=== PATIENT | male | born 1945 | race Caucasian/White ===

== ENCOUNTER 2019-10-23 23:15 | Inpatient (IN) | payer OTHER, MEDICARE, SELFPAY ==
[2019-10-23 23:17] VITALS: BP 171/84; PULSE 88; RESP 20; TEMP 36.7; O2SAT 94; BMI 37.6
--- NOTE | 2019-10-23 23:26 | EKG12_ITS ---
Test Reason : CP Blood Pressure : / mmHG Vent. Rate : 089 BPM Atrial Rate : 089 BPM P-R Int : 206 ms QRS Dur : 166 ms QT Int : 440 ms P-R-T Axes : 041 -84 045 degrees QTc Int : 535 ms Normal sinus rhythm Right bundle branch block Abnormal ECG Confirmed by SHANNON ROSE ([id number]), graphics editor RENEE ACOSTA ([id number]) on 10/26/2019 9:28:18 AM Referred By: MARY Confirmed By:SHANNON ROSE
--- NOTE | 2019-10-23 23:26 | RAD_ITS ---
STUDY: X-RAY CHEST REASON FOR EXAM: Male, 74 years old. PT STATES HE WAS READING IN A RECLINER AND DEVELOPED CP TECHNIQUE: Frontal and lateral views of the chest. COMPARISON: None. FINDINGS: The lungs are clear and expanded. There is no demonstrated pleural abnormality. Normal size heart. Normal mediastinum and roderick. Normal visualized pulmonary arteries. Normal visualized aortic arch and descending thoracic aorta. Normal visualized thoracic spine. Normal visualized ribs, clavicles, and shoulders. There is no demonstrated abnormality of the visualized soft tissue structures of the upper abdomen. RAD/Chest PA and Lateral IMPRESSION: Normal x-ray examination of the chest. Electronically Signed: Jackson Holguin MD at 0:18 EST Tel , Service support ,
--- NOTE | 2019-10-23 23:27 | ED.VIS.GEN ---
History of Present Illness Chief Complaint: Chest Pain Narrative: Patient is a 74-year-old male who presents with chest pain. This initially began about 3 hours before presentation. This began at rest. His pain was severe at its worst and currently he is pain-free. He describes it as dull and pressure-like. It was substernal and did not radiate. He had associated nausea, weakness and mild dizziness. No shortness of breath or diaphoresis. He took sublingual nitroglycerin and after each 1 his pain would transiently resolve. He took a total of 5 nitroglycerin and did receive one in route by EMS. He is currently pain-free. 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 No fevers. No vomiting. He does have a history of coronary artery disease with prior HI and 9 stents. No history of CABG. He is not anticoagulated. Past Medical History - Allergies and Home Meds Allergies/Adverse Reactions: Allergies cephalexin [From Keflex] Allergy (Verified 10/23/19 23:17) Unknown doxycycline Allergy (Verified 10/23/19 23:17) Unknown Penicillins Allergy (Verified 10/23/19 23:17) Unknown metformin Adverse Reaction (Verified 10/23/19 23:17) Upset Stomach niacin Adverse Reaction (Verified 10/23/19 23:17) Rash simvastatin Adverse Reaction (Verified 10/23/19 23:17) Rash Primary Care Physician: [facility] [Primary Care Provider] - Past Medical History: - - Diabetes, hypertension, hyperlipidemia, coronary artery disease, squamous cell carcinoma Smoking Status: Former smoker Review of Systems All systems negative except as indicated General: Denies: Fever Eyes: Denies: Visual changes - bilaterally ENT: Denies: Bilateral ear pain Cardiovascular: Reports: Chest pain Respiratory: Denies: Dyspnea, Cough Gastrointestinal: Reports: Nausea. Denies: Abdominal pain, Vomiting Skin: Denies: Rash Neurological: Reports: Weakness Psych: Denies: Depression Hematologic: Denies: Easy bruising Allergy: Denies: Uticaria Physical Exam Vital Signs/Narrative: Vital Signs Temp Pulse Resp BP Pulse Ox 10/23/19 23:17 98.0 F 88 20 H 171/84 H 94 Inital Vital Signs reviewed: Yes General: Well nourished, Well developed Head: Normocephalic Eyes: EOMI ENT: Moist mucous membranes Neck: Supple Cardiovascular: Regular rate, Regular rhythm Respiratory: No distress, CTA bilaterally. Negative for: Rales, Rhonchi, Wheezing Abdomen: Soft, Nontender Extremities: Nontender Skin: Normal color Neurological: Alert Psychological: Normal affect Diagnostic/Tx/Re-eval Impressions Chest X-Ray 10/23/19 23:26 IMPRESSION: Normal x-ray examination of the chest. Electronically Signed: Jackson Holguin MD at 0:18 EST Tel , Service support , 10/23/19 23:26 Chest PA and Lateral [RAD] Stat Laboratory Results 10/23/19 10/23/19 23:32 23:32 WBC 4.7 RBC 4.41 L Hgb 13.6 Hct 40.4 MCV 91.6 MCH 30.8 MCHC 33.7 RDW Std Deviation 44.7 H RDW Coeff of Jony 13.2 Plt Count 173 MPV 9.4 Immature Gran % (Auto) 0.800 Neut % (Auto) 83.1 H Lymph % (Auto) 10.4 L Whitfield % (Auto) 2.1 Eos % (Auto) 3.0 Baso % (Auto) 0.6 Absolute Neuts (auto) 3.9 Absolute Lymphs (auto) 0.49 L Nucleated RBC % 0 Differential Comment SCANNED Sodium 140 Potassium 4.0 Chloride 106 Carbon Dioxide 29.0 Anion Gap 5 BUN 20 H Creatinine 1.13 Estim Creat Clear Calc 54.43 Est GFR (MDRD) Af Amer 82 Est GFR (MDRD) Non-Af 68 BUN/Creatinine Ratio 17.7 Glucose 270 H Calcium 9.1 Troponin I < 0.015 - Medical Decision Making Given that the patient had multiple recurrent episodes of chest pain resolved with sublingual nitroglycerin we went ahead and started him on an infusion. His chest pain had returned just before the infusion was started and once the infusion was titrated he is currently pain-free again. His EKG shows normal sinus rhythm with a right bundle branch block and a left anterior fascicular block unchanged from prior. Laboratory evaluation as above negative and chest x-ray normal. I did speak to cardiology on-call who agrees with IV heparin as patient has no contraindication. Given the patient's previous cardiac care has been at the [place] we have contacted them with plan for transfer if possible. In the meantime patient will be admitted at this facility for further management. ED Disposition - Plan for ED Patient: Disposition: Acute Care Hospital [facility] Diagnosis: Unstable angina Referrals: [facility] [Primary Care Provider] -
[2019-10-23 23:38] VITALS: BP 178/93; PULSE 90
[2019-10-23] MEDS: Nitroglycerin Infusion 250 ML 3 MG IV (23:38)
[2019-10-23 23:41] LABS: Absolute Lymphocyte Count 0.49 X10^3/uL (0.83-4.51); Absolute Neutrophil Count 3.9 X10^3/uL (2.0-7.7); Basophil# 0.03 X10^3/uL; Basophil% 0.6 % (0-1); Eosinophil# 0.14 X10^3/uL; Hematocrit 40.4 % (40-54); Hemoglobin 13.6 g/dL (13.0-16.5); Lymphocyte # 0.49 X10^3/ul (4.0); Lymphocyte % 10.4 % (19-41); Mean Corp Hgb Conc 33.7 g/dL (32-36); Mean Corpuscular Hgb 30.8 pg (27.0-32.0); Mean Corpuscular Volume 91.6 fL (80-94); Mean Platelet Vol. 9.4 fl (6.2-12.0); Monocyte% 2.1 % (0-10); NRBC Flagged by Analyzer 0 % (0-5); Neutrophil # 3.93 X10^3/uL (2.7-7.7); Neutrophil % 83.1 % (47-70); POSITIVE DIFFERENTIAL YES; Platelet Count 173 K/mm3 (150-450); RBC Distribution Width CV 13.2 % (11.6-14.6); RBC Distribution Width SD 44.7 fl (35.1-43.9); Red Blood Count 4.41 M/mm3 (4.6-6.2); White Blood Count 4.7 K/mm3 (4.4-11.0)
[2019-10-23 23:46] LABS: Differential Indicated SCAN CRITERIA MET
[2019-10-23 23:53] VITALS: BP 175/102; PULSE 93
[2019-10-24] VITALS (47 sets, daily range): BP systolic 99–178; BP diastolic 53–131; PULSE 72–95; RESP 16–27; TEMP 36.6–36.8; O2SAT 65–96; BMI 34.9; BMI 35.0
[2019-10-24] LABS: Anion Gap 5 (5-15); BUN 20 mg/dL (7-18); BUN/Creat Ratio 17.7 RATIO (10-20); Calcium,Total 9.1 mg/dL (8.5-10.1); Chloride 106 mmol/L (98-107); Creatinine, Serum 1.13 mg/dL (0.70-1.30); EST Glomerular Filtration Rate 68 mL/min (>60); Est Glom Filt Rate - Afr Amer 82 mL/min (>60); Estimated Creatinine Clearance 54.43 ml/min; Glucose 270 mg/dL (74-106); Sodium Level 140 mmol/L (136-145)
[2019-10-24 00:14] LABS: Differential Comment SCANNED
--- NOTE | 2019-10-24 01:25 | PCM.HP.STD ---
Problem List (1) Unstable angina Status: Acute History of Present Illness Date of Admission: 10/24/19 Chief Complaint: chest pain The patient is a 74 year old M with a significant history of hypertension; diabetes mellitus; former smoker; COPD on home oxygen; CAD with 9 stents who presented to emergency department with substernal chest pain that started about 8:30 PM on the day of presentation. He was lying in a recliner when his chest pain started. Associated with his symptom is nausea without vomiting. His chest pain persisted. While at home, he took 5 tablets of nitroglycerin intermittently and he received relief from his chest pain. Paramedics gave patient 4 baby aspirin. At the emergency department his chest pain was coming back but it was relieved after nitroglycerin drip was started. He describes chest pain as about 9 out of 10 in severity. His chest pain felt like a pressure and dullness. While at emergency department he began to have pain in his bilateral arms. His chest pain started actually in May 2019. His chest pain is episodic. He went to to [facility] on July 30 2019 and the plan was to do a cardiac cath at that time. However, he reports that because he was on Plavix the cardiac cath was delayed. CT scan at [facility] showed squamous cell carcinoma of the lung; and he had lymphadenopathy. Interestingly, on the same day of recurrence of his symptoms, 10/23/2019 he had a chemotherapy and radiation for his lung cancer. Emergency department doctor discussed the case with with a [place] and is waiting for admission at the [place]. Meanwhile patient will be admitted at our hospital [facility]. As at the time of examination emergency department doctor was waiting for a return call from the [place]. Also emergency department doctor discussed the case with our razor grinder on-call ([facility]) who agreed that patient should be started on heparin drip and nitroglycerin drip. The last time patient had a coronary stent was in May 2017. At that time patient had 3 stents. Past Medical History Medical History: Medical History (Last Updated 10/24/19 @ 02:58 by Delgado Huang MD) CAD (coronary artery disease) I25.10 Diabetes E11.9 HTN (hypertension) I10 Allergies cephalexin [From Keflex] Allergy (Verified 10/23/19 23:17) Unknown doxycycline Allergy (Verified 10/23/19 23:17) Unknown Penicillins Allergy (Verified 10/23/19 23:17) Unknown metformin Adverse Reaction (Verified 10/23/19 23:17) Upset Stomach niacin Adverse Reaction (Verified 10/23/19 23:17) Rash simvastatin Adverse Reaction (Verified 10/23/19 23:17) Rash Home Medications: Ambulatory Orders Medication Instructions Recorded Albuterol Sulfate [Proair 2 puff IH 4X/DAY PRN PRN 10/23/19 Digihaler] Ammonium Lactate 226 gm TP DAILY 10/23/19 Atenolol 25 mg PO DAILY 10/23/19 Atorvastatin Calcium 80 mg PO QHS 10/23/19 Budesonide/Formoterol Fumarate 2 puff IH BID 10/23/19 [Symbicort 160-4.5 Mcg Inhaler] Dextrose [Glucose] 4 tab PO PRN PRN 10/23/19 Empagliflozin [Jardiance] 0.5 tab PO DAILY 10/23/19 Fluticasone Propionate [Flovent 50 mcg IN DAILY 10/23/19 Diskus] Gabapentin [Neurontin] 3 tab PO TID 10/23/19 Glipizide 5 mg PO BID 10/23/19 Insulin Glargine [Lantus (BKC)] 36 units SUBCUT DAILY 10/23/19 Isosorbide Mononitrate [Imdur] 6 tab PO DAILY 10/23/19 Nitroglycerin [Nitrostat] 1 tab SL PRN PRN 10/23/19 Paroxetine [Paxil] 2 tab PO DAILY 10/23/19 Prazosin HCl 2 tab PO QHS 10/23/19 Tiotropium [place] [Spiriva 18 MCG] 2 puff INHALATION Q6H PRN PRN 10/23/19 Triamcinolone 0.1% Cream [Kenalog] 1 applic TOPICAL BID 10/23/19 busPIRone [Buspar] 10 mg PO BID 10/23/19 Lisinopril 20 mg PO BID 10/24/19 Surgical History: appendectomy, herniorrhaphy - X3 Lives: Alone Smoking Status: Former smoker Alcohol: None - *Family History Maternal History Items: Heart Disease, - - Skin cancer Paternal History Items: Cancer - His father from throat cancer at the age of 57 Review of Systems Constitutional: Denies: Chills, Fever, Weight Change HEENT: Denies: Head Aches, Sinus Congestion, Sinus Drainage Cardiovascular: Reports: Chest Pain. Denies: Palpitations Respiratory: Denies: Cough, Shortness of breath at rest, Sputum production Gastrointestinal: Reports: Nausea. Denies: Abdominal Pain, Vomiting Genitourinary: Denies: Dysuria Musculoskeletal: Reports: Arm Pain. Denies: Joint Pain, Joint Tenderness Skin: Denies: Rash, Wounds Neurological: Denies: Numbness, Tingling, Focal weakness Psychiatric: Reports: Anxiety, Depression. Denies: Homicidal Ideations, Suicidal Ideations Hematologic/ Lymphatic: Denies: Easy Bruising, Easy Bleeding VTE Information - Inpt Only VTE Present on Admission: No VTE Mechan Device Prophylaxis: None VTE Pharm Prophylaxis ordered?: No Reason prophylaxis not ordered:: Treatment Not Indicated - On heparin drip for unstable angina Patient Problems: Active and Suspected Problems (Last Updated 10/24/19 @ 02:58 by Delgado Huang MD) Unstable angina (Acute) - Physical Exam Vitals/I&O's: Vital Signs Temp Pulse Resp BP Pulse Ox 98.0 F 87 21 H 168/82 H 93 10/23/19 23:17 10/24/19 01:00 10/24/19 01:00 10/24/19 01:00 10/24/19 01:00 Oxygen Flow Rate (L/min) 3 Oxygen Delivery Method Nasal Cannula Weight: 109.1 kg Body Mass Index (BMI) 37.6 Intake and Output for Last 24 Hours 10/22/19 10/23/19 10/24/19 23:59 23:59 23:59 Intake Total 0.75 / 0.75 2.2 / 2.2 Balance 0.75 / 0.75 2.2 / 2.2 General: Alert, Oriented x3, Cooperative HEENT: Atraumatic, PERRLA, EOMI, Normocephalic Neck: Supple, Trachea Midline Lungs: No rales, Rhonchi - mild Cardiovascular: Regular rate, Normal S1, Normal S2, No murmurs Abdomen: Bowel Sounds Present, Soft, Non Tender Extremities: No edema, Capillary Refill Less than 3 Seconds Skin: No rashes, No breakdown Musculoskeletal: No Tenderness to Palpation of Joints or Extremities Neurological: Cranial nerves II-XII grossly intact Psych/Mental Status: Normal Affect, Appropriate Laboratory Results 10/23/19 23:32: WBC 4.7, RBC 4.41 L, Hgb 13.6, Hct 40.4, MCV 91.6, MCH 30.8, MCHC 33.7, RDW Std Deviation 44.7 H, RDW Coeff of Jony 13.2, Plt Count 173, MPV 9.4, Immature Gran % (Auto) 0.800, Neut % (Auto) 83.1 H, Lymph % (Auto) 10.4 L, Kane % (Auto) 2.1, Eos % (Auto) 3.0, Baso % (Auto) 0.6, Absolute Neuts (auto) 3.9, Absolute Lymphs (auto) 0.49 L, Nucleated RBC % 0, Differential Comment SCANNED 10/23/19 23:32: Sodium 140, Potassium 4.0, Chloride 106, Carbon Dioxide 29.0, Anion Gap 5, BUN 20 H, Creatinine 1.13, Estim Creat Clear Calc 54.43, Est GFR (MDRD) Af Amer 82, Est GFR (MDRD) Non-Af 68, BUN/Creatinine Ratio 17.7, Glucose 270 H, Calcium 9.1, Troponin I < 0.015 Current Medications Heparin Sodium (Porcine) (Heparin Na) 0 unit IV UD PRN; Protocol Nitroglycerin/Dextrose () 250 mls @ 3 mls/hr IV .[id number] STA; Protocol Stop: 10/27/19 10:45 Last Titration: 10/24/19 00:15 Dose: 15 mcg/min, 9 mls/hr Documented by: Heparin Sodium/Dextrose () 25,000 units in 250 mls @ 15 mls/hr IV .[id number] [facility]; Protocol Assessment/Plan All Active Problems (Last Updated 10/24/19 @ 02:58 by Delgado Huang MD) Unstable angina (Acute) The patient is a 74 year old M with a significant history of hypertension; diabetes mellitus; former smoker; COPD on home oxygen; CAD with 9 stents; with chest pain at rest consistent with unstable angina. Unstable angina Place at the PCU under stepdown status CXR independently reviewed confirms no acute cardiopulmonary process. EKG independently reviewed confirms no ST or T wave abnormality. ASA 81 mg p.o. daily On nitroglycerin drip. Morphine as needed for pain We will check lipid panel. Statin: Continue home high intensity statin. Anticoagulation: Heparin drip continued Fast cardiac enzymes was negative. Serial cardiac enzymes Stat EKG as needed for chest pain Atenolol and lisinopril continued. Imdur held since patient is on nitroglycerin. Cardiology consult. We will keep patient n.p.o. for now. Diabetes mellitus with hyperglycemia Blood glucose on BMP was 278. Patient is being kept n.p.o. for now. De-escalate home long-acting insulin to a lesser dose. Hold home oral hypoglycemic regimen. Accu-Chek every 6 hours with correction scale insulin. Placed on long acting insulin, Accu-Cheks a.c. and at bedtime and covered with short acting insulin per protocol. Hypertension On presentation blood pressure was not within goal Atenolol and lisinopril continued. Started on nitroglycerin drip for chest pain. Imdur held while patient is on nitroglycerin drip. Trend blood pressure and adjust blood pressure medications as necessary. COPD Patient on home oxygen; continued Does not appear to be exacerbation. Home inhalers continued Depression anxiety Buspirone and Paxil continued BPH Prazosin continued Squamous cell carcinoma lungs: Follow-up outpatient DVT prophylaxis Not indicated since patient has been started on heparin drip. CODE STATUS: Full code. His son Odell Moreno ([phone]) is POA Code Visit Inpatient E&M: 04901 Init Hosp L3
[2019-10-24] MEDS: Heparin Injection (Vial) 5,000 UNIT/ML VIAL 8000 UNIT IV (01:40)
[2019-10-24] MEDS: HEPARIN/D5w 25,000 UNITS 25,000 UNITS/250 ML IV.SOLN. 15 UNITS IV (01:41)
[2019-10-24 01:50] LABS: International Normalized Ratio 1.1; Prothrombin Time (Protime)PT. 13.6 SECONDS (11.7-14.9)
[2019-10-24 01:53] LABS: Partial Thromboplast Time 35.5 Seconds (24.1-36.2)
--- NOTE | 2019-10-24 02:49 | EKG12_ITS ---
Test Reason : ADMISSION EKG Blood Pressure : / mmHG Vent. Rate : 088 BPM Atrial Rate : 088 BPM P-R Int : 220 ms QRS Dur : 160 ms QT Int : 432 ms P-R-T Axes : 058 -65 039 degrees QTc Int : 522 ms Sinus rhythm with 1st degree A-V block Left axis deviation Right bundle branch block Abnormal ECG When compared with ECG of 23-OCT-2019 23:16, MANUAL COMPARISON REQUIRED, DATA IS UNCONFIRMED Confirmed by SHANNON ROSE ([id number]), editor farm journal RENEE ACOSTA ([id number]) on 10/26/2019 9:55:25 AM Referred By: MASSIMO Confirmed By:SHANNON ROSE
[2019-10-24 03:25] LABS: Bedside Glucose 190 mg/dL (70-110)
[2019-10-24] MEDS: Gabapentin 300 MG Capsule 900 MG PO ×2 (05:11→22:17)
[2019-10-24 05:21] LABS: Bedside Glucose 168 mg/dL (70-110)
[2019-10-24 06:05] LABS: Cholesterol 128 mg/dL (200); High Density Lipoprotein 37 mg/dL; Triglycerides 139 mg/dL; Very Low Density Lipoprotein 28 mg/dL (5-40)
[2019-10-24] MEDS: Budesonide Respules 0.5 MG/2 ML AMPUL.NEB. INHALATION (06:55)
[2019-10-24] MEDS: Ipratropium/Albuterol Sulfate 3 ML AMPUL.NEB INHALATION ×3 (06:55→19:00)
[2019-10-24 08:41] LABS: Partial Thromboplast Time 169.6 Seconds (24.1-36.2)
--- NOTE | 2019-10-24 10:18 | CASEMGMT ---
Addendum entered by Kitty Steiner 10/24/19 12:49: Call to Lindsey at [place] transfer center to notify that pt to have heart cath here at [facility] per scoring machine operator recommendation, voices understanding and she requests if pt needs transfer after cath for further intervention that she be notified at [facility] transfer center immediately. Leela, PCU charge, updated, voices understanding[place] [id number]. Javad FRENCH CM Addendum entered by Kitty Steiner 10/24/19 11:13: This RN CM received call back from the Lindsey at the [place] transfer center at this time and she states that that they currently have no beds for pt at this time. She states they will re-evaluate bed situation daily. Pt updated at this time, voices understanding. Javad FRENCH CM Original Note: Pt is willing to transfer to [place] if bed available as this is his only medical coverage. Clinicals faxed to [place] transfer center this am and call to transfer center to notify that pt is willing to transfer at this time. Per transfer center, pt is 100% service connected and has travel benefits as well. She states that Lindsey has been assigned as case management specialist and they will notify this RN LILIA if/when bed available. Javad FRENCH CM
--- NOTE | 2019-10-24 10:34 | CON.PCM_ITS ---
<Zohaib Baeza - Last Filed: 10/24/19 13:17> Problem List (1) Diabetes Status: Acute (2) Unstable angina Status: Acute (3) CAD (coronary artery disease) Status: Chronic (4) HTN (hypertension) Status: Chronic Reason for Consult History of Present Illness: The patient is a 74 year old M, seen and examined in conjunction with Lluvia Rangel. Agree with above history and physical exam. Patient had previous catheterization angioplasty in 2009 at [facility], [place] [facility] [place]. His symptoms abated since that time but recently returned around May 2019. He gradually increase in Imdur therapy which intermittently improved his symptoms. He developed recurrent 9 out of 10 substernal chest pain last evening, precipitating a visit to the emergency room. As part of his work-up in May for his chest pain he underwent a CAT scan which demonstrated nonoperative advanced lung cancer for which she has been receiving chemotherapy and radiation therapy. His Plavix was temporarily interrupted at that time but resumed around mid July 2019. His initial troponin was negative but then increased to 0.4. His EKG showed normal sinus rhythm first-degree block and baseline right bundle branch block. Patient was placed on IV nitroglycerin drip and IV heparin drip and has had no further symptoms. Echocardiogram is pending. Given the patient's symptoms and coronary K[place] disease I recommended repeat catheterization.] Past Medical History Allergies/Adverse Reactions: Allergies cephalexin [From Keflex] Allergy (Verified 10/23/19 23:17) Unknown doxycycline Allergy (Verified 10/23/19 23:17) Unknown Penicillins Allergy (Verified 10/23/19 23:17) Unknown metformin Adverse Reaction (Verified 10/23/19 23:17) Upset Stomach niacin Adverse Reaction (Verified 10/23/19 23:17) Rash simvastatin Adverse Reaction (Verified 10/23/19 23:17) Rash Home Medications: Ambulatory Orders Medication Instructions Recorded Albuterol Sulfate [Proair 2 puff IH 4X/DAY PRN PRN 10/23/19 Digihaler] Ammonium Lactate 226 gm TP DAILY 10/23/19 Atorvastatin Calcium 80 mg PO QHS 10/23/19 Budesonide/Formoterol Fumarate 2 puff IH BID 10/23/19 [Symbicort 160-4.5 Mcg Inhaler] Dextrose [Glucose] 4 tab PO PRN PRN 10/23/19 Empagliflozin [Jardiance] 0.5 tab PO DAILY 10/23/19 Fluticasone Propionate [Flovent 50 mcg IN DAILY 10/23/19 Diskus] Gabapentin [Neurontin] 3 tab PO TID 10/23/19 Glipizide 5 mg PO BID 10/23/19 Insulin Glargine [Lantus SoloStar 36 units SUBCUT DAILY 10/23/19 Pen] Isosorbide Mononitrate [Imdur] 3 tab PO DAILY 10/23/19 Nitroglycerin [Nitrostat] 1 tab SL PRN PRN 10/23/19 Paroxetine [Paxil] 2 tab PO DAILY 10/23/19 Prazosin HCl 2 tab PO QHS 10/23/19 Tiotropium [place] [Spiriva 18 MCG] 2 puff INHALATION Q6H PRN PRN 10/23/19 Triamcinolone 0.1% Cream [Kenalog] 1 applic TOPICAL BID 10/23/19 busPIRone [Buspar] 10 mg PO BID 10/23/19 Acetaminophen 2 tab PO 4X/DAY PRN 10/24/19 Lisinopril 20 mg PO BID 10/24/19 Carvedilol [Coreg (Beta Alma)] 6.25 mg PO BID 30 Days #60 tab 10/25/19 Clopidogrel Bisulfate [Plavix] 75 mg PO DAILY 30 Days #30 tab 10/25/19 Furosemide [Lasix] 20 mg PO DAILY 30 Days #30 tab 10/25/19 Past Medical History (Chronic Problems): Chronic Problems (Last Updated 10/24/19 @ 15:19 by Eri Trejo) Arteriosclerotic cardiovascular disease (Chronic) NSTEMI (non-ST elevated myocardial infarction) (Chronic 10/24/19) Stented coronary artery (Chronic 10/24/19) Multiple stents previously placed to LAD, LCX and RCA in past: 10/24/2019 CELIA to first diagonal per DJFartun History of left heart catheterization (Chronic 10/24/19) Left Ventricular Ejection Fraction: by LV Gram 55 %; Global Hypokinesis - Mild Depressed Left Ventricular systolic function; Normal Left Ventricular End Diastolic Pressure; LVEDP: 14 mmHg; LEFT MAIN: 20 ostial % Stenosis; LEFT ANTERIOR DESCENDING ARTERY: PROX LAD: Mild luminal irregularities less than 30% MID LAD: Moderate luminal irregularities up to 50%, Previously placed stent is patent; DIAGONAL 1: Proximal - Previously placed stent has an instent 85 % restenosis; CIRCUMFLEX ARTERY: MID CIRC: Previously placed stent has an instent 20 % restenosis;DISTAL CIRC: Moderate luminal irregularities up to 50% RIGHT CORONARY ARTERY: MID RCA: Previously placed stent is patent HTN (hypertension) (Chronic) Objective: Vital Signs Temp Pulse Resp BP Pulse Ox 98.1 F 84 18 147/76 H 92 10/24/19 10:00 10/24/19 12:55 10/24/19 12:55 10/24/19 11:00 10/24/19 12:55 Oxygen Flow Rate (L/min) 2 Oxygen Delivery Method Nasal Cannula Weight: 223 lb 8.78 oz Body Mass Index (BMI) 34.9 Intake and Output for Last 24 Hours 10/22/19 10/23/19 10/24/19 23:59 23:59 23:59 Intake Total 0.75 / 0.75 220.55 / 220.55 Output Total 1000 / 1000 Balance 0.75 / 0.75 -779.45 / -779.45 10/23/19 23:30: PT 13.6, INR 1.1 10/23/19 23:30: APTT 35.5 10/23/19 23:32: WBC 4.7, RBC 4.41 L, Hgb 13.6, Hct 40.4, MCV 91.6, MCH 30.8, MCHC 33.7, Plt Count 173, MPV 9.4, Immature Gran % (Auto) 0.800, Neut % (Auto) 83.1 H, Lymph % (Auto) 10.4 L, Fergus % (Auto) 2.1, Eos % (Auto) 3.0, Baso % (Auto) 0.6, Absolute Neuts (auto) 3.9, Nucleated RBC % 0 10/23/19 23:32: Sodium 140, Potassium 4.0, Chloride 106, Carbon Dioxide 29.0, Anion Gap 5, BUN 20 H, Creatinine 1.13, Est GFR (MDRD) Af Amer 82, Est GFR (MDRD) Non-Af 68, BUN/Creatinine Ratio 17.7, Glucose 270 H, Calcium 9.1, Troponin I < 0.015 10/24/19 03:28: Troponin I 0.430 H 10/24/19 05:35: Triglycerides 139, Cholesterol 128, LDL Cholesterol 63, VLDL Cholesterol 28, HDL Cholesterol 37 L 10/24/19 07:25: APTT 169.6 H* 10/24/19 12:50: APTT 35.6 Rhythm: EKG: ECHO: Pending Stress Test: Cardiac Cath: Pending PCI: CT Surgery: Holter monitor: EPS: PPM: CXR: Chest CT Scan: Assessment/Plan Interventional cardiology attending addendum: Patient seen and examined in conjunction with Lluvia Rangel. I agree with above assessment and plan. Given the patient's constellation of symptoms and risk factors, abnormal troponin, worsening anginal symptoms despite escalating nitrate-based therapy, and previous 9 stents, I recommended the patient undergo a repeat catheterization to evaluate his coronary anatomy and the condition of his stents. The patient restarted his Plavix in July 2019 and is remained on it ever since. He does not appear to be a candidate for surgical correction given his advanced stage lung cancer for which she is receiving chemotherapy and radiation therapy. The risk/benefits of the cardiac catheterization procedure were thoroughly explained to the patient and his son including specific attention to lack of onsite surgical backup, and the patient has agreed to proceed. Left heart catheterization pending. Either way would recommend treating the patient with dual antiplatelet therapy for life, aggressive antilipid therapy, and Imdur based therapy for diffuse coronary disease. Thank you very much for the opportunity to participate in the cardiac care of your patient. Consultation took place between 11:30 AM and 12 PM. Code Visit Inpatient E&M: 95400 Init Hosp L2 <Lluvia Rangel M - Last Filed: 10/25/19 10:27> Problem List (1) CAD (coronary artery disease) Status: Chronic (2) HTN (hypertension) Status: Chronic Reason for Consult Date of Consultation: 10/24/19 History of Present Illness: The patient is a 74 year old That we were asked to consult on for unstable angina. Patient does have a history of coronary artery disease with multiple stents. It does appear that the most recent stent was in May 2017. Patient states that all of his stenting [facility]. 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 Patient states that since last May he has had chest discomfort. He has been working with his sales warehouse driver at the [facility] in which they have been adjusting his medications. He states that in July 2019 he was hospitalized at the [facility] for further evaluation of his chest discomfort. At that time it was noted that he had a lung nodule and it was then discovered that he had squamous cell carcinoma. Due to the multiple testing and biopsies that he was having done his heart catheterization was placed on hold and medical management was done at that time. Patient states that yesterday was his first day of chemo and radiation. He is following at the [facility] locally for his chemotherapy and radiation. Approximately at 830 last night he developed chest discomfort that was substernal. He did take 5-6 nitroglycerin. His discomfort did not reside. During this chest discomfort he also had some lightheadedness. He then called the emergency squad he was brought here to the emergency room for further evaluation. His initial troponin was negative, secondary to troponin was 0.43, third troponin is pending. Patient does state that he is currently on Plavix however this is not on his medication list. Past Medical History Surgical History: appendectomy, herniorrhaphy - X3 - *Family History Maternal History Items: Heart Disease, - - Skin cancer Paternal History Items: Cancer - His father from throat cancer at the age of 57 Lives: Alone Smoking Status: Former smoker Alcohol: None Review of Systems - Review of Systems General: Denies: Fever, Fatigue, Malaise, Chills, Night Sweats, Weakness HEENT: Denies: Vision Change, Blurred Vision, Eye Pain, Head Aches Cardiovascular: Reports: Chest Discomfort - see HPI, Shortness of Breath, Palpitations - occasionally, Lightheadedness, - - On home O2. Denies: Peripheral Edema Respiratory: Reports: Cough Gastrointestinal: Denies: Heart Burn, Nausea, Melena, Diarrhea Genitourinary: Denies: Hematuria Skin: Denies: Rash Neurological: Denies: Falls, History of TIA Objective: Vital Signs Temp Pulse Resp BP Pulse Ox 98.1 F 94 18 150/85 H 94 10/24/19 04:45 10/24/19 06:55 10/24/19 06:55 10/24/19 06:00 10/24/19 06:55 Oxygen Flow Rate (L/min) 2 Oxygen Delivery Method Nasal Cannula Weight: 223 lb 8.78 oz Body Mass Index (BMI) 34.9 Intake and Output for Last 24 Hours 10/22/19 10/23/19 10/24/19 23:59 23:59 23:59 Intake Total 0.75 / 0.75 159.95 / 159.95 Output Total 350 / 350 Balance 0.75 / 0.75 -190.05 / -190.05 General: Awake, Alert, Oriented x 3, Cooperative, No Acute Distress HEENT: Atraumatic, Normocephalic, PERRL, EOMI Oral: Moist Mucosa Neck: Supple, No JVD Lungs: Diminished Brodie Bases Cardiovascular: Regular Rhythm - distant, Premature Ectopic Beats, No Murmurs, No Rubs, No Gallops Vascular: No Carotid Bruits, Normal Radial Pulses, Normal Posterior Tibial Pulses Abdomen: Bowel Sounds Present, Soft, Non Tender Extremities: No Cyanosis, No Clubbing, No edema Neurological: No Focal Motor or Sensory Deficit, CN II-XII Intact Psych/Mental Status: Appropriate, Normal Affect 10/23/19 23:30: PT 13.6, INR 1.1 10/23/19 23:30: APTT 35.5 10/23/19 23:32: WBC 4.7, RBC 4.41 L, Hgb 13.6, Hct 40.4, MCV 91.6, MCH 30.8, MCHC 33.7, Plt Count 173, MPV 9.4, Immature Gran % (Auto) 0.800, Neut % (Auto) 83.1 H, Lymph % (Auto) 10.4 L, Fergus % (Auto) 2.1, Eos % (Auto) 3.0, Baso % (Auto) 0.6, Absolute Neuts (auto) 3.9, Nucleated RBC % 0 10/23/19 23:32: Sodium 140, Potassium 4.0, Chloride 106, Carbon Dioxide 29.0, Anion Gap 5, BUN 20 H, Creatinine 1.13, Est GFR (MDRD) Af Amer 82, Est GFR (MDRD) Non-Af 68, BUN/Creatinine Ratio 17.7, Glucose 270 H, Calcium 9.1, Troponin I < 0.015 10/24/19 03:28: Troponin I 0.430 H 10/24/19 05:35: Triglycerides 139, Cholesterol 128, LDL Cholesterol 63, VLDL Cholesterol 28, HDL Cholesterol 37 L 10/24/19 07:25: APTT 169.6 H* Rhythm: EKG: ECHO: Stress Test: Cardiac Cath: PCI: CT Surgery: Holter monitor: EPS: PPM: CXR: Chest CT Scan: Assessment/Plan 1: NSTEMI:Second troponin is positive. Patient is currently pain free. Will attempt to obtain medical records from the [facility]. If patient is not transferred to the [facility] would recommend pursuing a diagnostic heart catheterization to further assess his coronary anatomy. Patient is agreeable with this. 2. Coronary artery disease: As mentioned above with his elevated troponin would like to pursue a diagnostic heart catheterization. In the meantime do recommend that he continue with his beta-alma, aspirin, and atorvastatin, lisinopril. He is currently on a heparin drip. He is not on any antiplatelets at this time. This will need to be reconsidered. 3. Hypertension: For now we will continue to monitor and adjust medications accordingly. 4. Hyperlipidemia: Patient will continue with high intensity statin. 5. Squamous cell carcinoma: Patient is following with [facility] locally for this. This case is being discussed with Dr. Wooten <Shawn Wooten - Last Filed: 10/26/19 09:38> Reason for Consult History of Present Illness: The patient is a 74 year old M [] Objective: Vital Signs Temp Pulse Resp BP Pulse Ox 98.0 F 85 15 132/53 H 95 10/25/19 08:00 10/25/19 11:00 10/25/19 11:00 10/25/19 11:00 10/25/19 11:00 Oxygen Flow Rate (L/min) 3 Oxygen Delivery Method Nasal Cannula Weight: 223 lb 12.801 oz Body Mass Index (BMI) 34.9 Intake and Output for Last 24 Hours 10/24/19 10/25/19 10/26/19 23:59 23:59 23:59 Intake Total 1382.05 / 1602.05 540 / 540 Output Total 1600 / 1999 850 / 850 Balance -217.95 / -397.95 -310 / -310 Rhythm: EKG: ECHO: Stress Test: Cardiac Cath: PCI: CT Surgery: Holter monitor: EPS: PPM: CXR: Chest CT Scan: Assessment/Plan Addendum: The initial [facility] consultation note, etc., prepared by JAMES Yates, regarding this patient, was inadvertently forwarded to me as opposed to Zohaib Baeza MD. I did not evaluate or participate in the patient's [facility] hospitalization. The patient was subsequently evaluated and cared for by Zohaib Baeza MD. from a cardiovascular standpoint. Please see Dr. Baeza's addendum/notes for additional information. This note was generated using a voice recognition system and there may be incorrect words, spelling or punctuation that were not noted when reviewing the office note prior to saving.
--- NOTE | 2019-10-24 10:40 | CASEMGMT ---
RN CM Face to Face with patient for initial transition planning/care coordination assessment. RN CM introduced self and role at [facility]. Patient lying in bed, alert and oriented. Patient willing to participate in assessment and is able to answer all questions appropriately. Care providers, pharmacy, and demographics verified. Patient wishes to discharge home, denies need for home health at this time. Patient states he has no further needs or concerns at this time. CM to follow for discharge planning needs that may arise. PCP: AR Specialists: Eduar Cook oncologist Preferred Pharmacy: [facility] Insurance: AR Prescription Benefit: AR Living Will/HPOA: None LNOK: Daughter, son Living Arrangements: Patient lives alone in 1 story home with 2 steps and railing to enter the home. Patient states he is independent at home. Transportation: self, daughter, son DME/HHC: Patient states he has shower chair, nebulizer, oxygen [facility] with [facility]. Patient denies HHC. Disposition Plan: Patient to discharge home with family support and follow-up plans in place. Kitty HAWKINS, RN, CM
[2019-10-24 11:05] LABS: Bedside Glucose 144 mg/dL (70-110)
[2019-10-24] MEDS: Aspirin E.C. 81 MG Tablet PO (12:30)
[2019-10-24] MEDS: busPIRone 5 MG Tablet 10 MG PO ×2 (12:30→22:45)
[2019-10-24] MEDS: Lisinopril 20 MG Tablet PO ×2 (12:30→22:17)
[2019-10-24] MEDS: Atenolol 25 MG Tablet PO (12:31)
[2019-10-24] MEDS: DiphenhydrAMINE 25 MG Capsule 50 MG PO (12:32)
[2019-10-24] MEDS: Paroxetine 20 MG Tablet 40 MG PO (12:32)
[2019-10-24] MEDS: 0.9% Normal Saline 1,000 ML 15 ML IV (12:32)
--- NOTE | 2019-10-24 12:50 | NURSING ---
CALLED REPORT TO COMBER TENDER RN ALL QUESTIONS ANSWERED.
[2019-10-24 13:11] LABS: Partial Thromboplast Time 35.6 Seconds (24.1-36.2)
--- NOTE | 2019-10-24 13:20 | ECHOCS_ITS ---
Reason For Study: CAD/ASHD Procedure This was a 2D Doppler, Color Flow transthoracic echocardiogram. Contrast injection was performed. Exam performed portable in ICU/CCU. Left Ventricle Mild concentric left ventricular hypertrophy. Moderately dilated left ventricle. The estimated ejection fraction is 50 %. Stage 1 diastolic dysfunction. There is mild to moderate global hypokinesis of the left ventricle. Right Ventricle Normal size and thickness. Normal systolic function. Atria Normal left atrium. Normal right atrium. Normal atrial septum. Mitral Valve The mitral valve is structurally normal. No prolapse or stenosis seen. Tricuspid Valve Normal tricuspid valve. Unable to estimate RV systolic pressure due to insufficient tricuspid regurgitant envelope. Aortic Valve Trisinus/trileaflet aortic valve. Mild diffuse aortic valve thickening. Moderate (2+) aortic valve insufficiency. Pulmonic Valve The pulmonic valve is not well visualized. Great Vessels Mildly dilated aortic root. Moderate atherosclerosis of the aortic arch. Normal inferior vena cava. Inferior vena cava collapse with sniff. Pericardium/Pleural No pericardial effusion. Medication Diluted definity 4ml given slow IV push to enhance endocardial definition. MMode/2D Measurements & Calculations LVIDd: 5.1 cm IVSd: 1.4 cm Ao root diam: 3.8 cm LVIDs: 3.8 cm LVPWd: 1.3 cm RVDd: 3.2 cm FS: 25.6 % LAV(MOD-bp): 74.0 ml LA A4 area: 19.3 cm2 LA dimension(2D): 3.4 cm LAV(MOD-bp) Indexed: 34.9 ml/m2 LAV(MOD-sp2): 100.4 ml LAV(MOD-sp4): 49.2 ml RA A4 area: 17.1 cm2 Doppler Measurements & Calculations MV E max adan: 48.7 cm/sec Lat Peak E' Adan: 8.4 cm/sec Med Peak E' Adan: 5.7 cm/sec MV A max adan: 83.4 cm/sec E/E' lat: 5.8 E/E' med: 8.6 MV E/A: 0.58 Ao V2 max: 131.1 cm/sec AI max adan: 474.5 cm/sec LV V1 max: 91.0 cm/sec Ao max P.9 mmHg AI max P.1 mmHg LV V1 max P.3 mmHg Ao V2 mean: 96.6 cm/sec AI dec slope: 283.3 cm/sec2 Ao mean P.0 mmHg AI P1/2t: 490.6 msec Ao V2 VTI: 29.5 cm PA V2 max: 88.6 cm/sec Interpretation Summary Mild concentric left ventricular hypertrophy. Moderately dilated left ventricle. The estimated ejection fraction is 50 %. Stage 1 diastolic dysfunction. There is mild to moderate global hypokinesis of the left ventricle. Unable to estimate RV systolic pressure due to insufficient tricuspid regurgitant envelope. Moderate (2+) aortic valve insufficiency. Mildly dilated aortic root. The study was technically difficult. Contrast injection was performed. There is no comparison study available. Ordering Physician: Zohaib Baeza Referring Physician: [facility] Performed By: Carol Hutchinson RDCS, SARIAHT
--- NOTE | 2019-10-24 14:12 | NURSING ---
VERBAL REPORT CALLED TO MAN FRENCH IN ICU
[2019-10-24 14:26] LABS: ACT Activated Clotting Time 120 sec (74-137)
[2019-10-24 14:26] LABS: ACT Activated Clotting Time 191 sec (74-137)
--- NOTE | 2019-10-24 14:35 | EKG12_ITS ---
Test Reason : Blood Pressure : / mmHG Vent. Rate : 084 BPM Atrial Rate : 084 BPM P-R Int : 202 ms QRS Dur : 160 ms QT Int : 438 ms P-R-T Axes : 062 -67 069 degrees QTc Int : 517 ms Normal sinus rhythm Left axis deviation Right bundle branch block T wave abnormality, consider lateral ischemia Abnormal ECG When compared with ECG of 24-OCT-2019 14:58, MANUAL COMPARISON REQUIRED, DATA IS UNCONFIRMED Confirmed by ERINN CORTEZ, DANILO ([id number]), index editor RENEE ACOSTA ([id number]) on 10/29/2019 11:07:40 AM Referred By: Confirmed By:GARRETT PLASENCIA MD
--- NOTE | 2019-10-24 14:38 | CL.D_ITS ---
Patient Name: SIDNEY SAVAGE Study Date: 10/24/2019 Performing: Zohaib Baeza MD Ht: 66.92 inches 170 cm : 1945 Wt: 222.67 lbs 101 kg Age: 74 Gender: male BSA: 2.11 PROCEDURE(S) PERFORMED [id number]/LV [id number] W OR WO PTCA, SINGLE CORONARY ARTERY CLINICAL PROFILE AND INDICATIONS Patient presents with NSTEMI for urgent cardiac cath Indications: New Onset Angina <= 2 months, Worsening Angina, ACS <= 24 hrs, Stable Known CAD Heart Failure: None Stress/Imaging Stress/Image Study Performed: No Angina Classification Anginal Classification w/in 2 Weeks: CCS IV CAD Presentations: Unstable angina. Non-STEMI. Symptom onset Date/Time: 10/23/2018 Time Not Availa ble Comorbidities/Risk Factors: Hypertension Dyslipidemia Prior PCI Chronic Lung Disease Diabetes Mellitus: Diabetes Therapy: Insulin CONCLUSIONS Global LV systolic dysfunction- Mild LVEF: by LV gram 55 % Normal Left Ventricular End Diastolic Pressure Single vessel CAD of the DIAG #1 ISR Non obstructive coronary arteries Widely patent LAD, LCX and RCA stents. RECOMMENDATIONS Referred for immediate PCI Staged percutaneous intervention of MID LAD vs Medical Therapy if pt has recurrent anginal symptoms. DESCRIPTION OF PROCEDURE The patient arrived to the procedure lab. The risks and benefits of the procedure as well as a full d escription of our services here and current unavailability of surgical backup were fully explained to the patient and/or their significant other prior to the catheterization. The Timeout was completed, verifying the correct patient and procedure. The patient's procedural site was prepped and draped in the usual fashion. Local anesthetic was given subcutaneously to right groin region with Lidocaine 2%. Using a modified Seldinger technique, arterial access was obtained via the right femoral artery, a 4 Fr 45cm sheath was inserted Left Coronary Artery selective angiography was performed in multiple vie ws using a 4 Fr. JL5 catheter. Right Coronary Artery selective angiography was then performed in mult iple views using a 4 Fr. 3DRC catheter. Left Ventriculography was performed in PE[place]AL[place]ZA projection using a 4 Fr. Pigtail catheter. LV to AO pullback pressures were then recorded.Contrast was injected through the sheath and the Right Iliac and Femoral artery were assessed for possible closure device.The arterial sheath was sutured in place and capped. Sheath oozing, Dr. Baeza upsheathing. T he arterial sheath was exchanged to a 7french upsize due to bleeding around the insertion site. The a rterial sheath was sutured in place and capped CORONARY ANGIOGRAPHY DOMINANCE: Right Dominant LEFT HEART ASSESSMENT Left Ventricular Ejection Fraction: by LV Gram 55 % Global Hypokinesis - Mild Depressed Left Ventricular systolic function Normal Left Ventricular End Diastolic Pressure LVEDP: 14 mmHg LEFT MAIN: 20 ostial % Stenosis LEFT ANTERIOR DESCENDING ARTERY: PROX LAD: Mild luminal irregularities less than 30% MID LAD: Moderate luminal irregularities up to 50%, Previously placed stent is patent DIAGONAL 1: Proximal - Previously placed stent has an instent 85 % restenosis CIRCUMFLEX ARTERY: MID CIRC: Previously placed stent has an instent 20 % restenosis DISTAL CIRC: Moderate luminal irregularities up to 50% RIGHT CORONARY ARTERY: MID RCA: Previously placed stent is patent COMPLICATIONS No Complications PROCEDURE MEDICATIONS Versed 1 mg IV Oxygen: 2 L/min via nasal cannula Heparin 6000 unit(s) IV 10/24/2019 13:45:18 Nitro glycerin 25mg / 250ml D5W @ 15 mcg/min IV started in PCU 10/24/2019 13:24:53 Nitro 200 mcg IC 10/24/2019 14:07:56 Plavix 75 mg PO 10/24/2019 13:25:19 IV Bolus: .9 NaCl ml total 10/24/2019 13:47:32 SUMMARY OF HEMODYNAMIC DATA Time AIR REST ECG 13:21:42 AO 129/56 (83) SA 13:34:28 LV 130/-5, 14 13:41:00 LV 129/-5, 14 13:41:06 LVp 137/-11, 14 13:41:15 AOp 139/55 (94) 13:41:20 Signed By Zohaib Baeza MD On 10/24/2019 14:38:02 Zohaib Baeza MD
[2019-10-24] MEDS: 0.9% Normal Saline 1,000 ML 150 ML IV (15:18)
--- NOTE | 2019-10-24 15:40 | PCA ---
Cancelled patients radiation apt at [facility], , for Tuesday 10/24 and 10/25 per patient request.
[2019-10-24 17:55] LABS: Bedside Glucose 104 mg/dL (70-110)
[2019-10-24] MEDS: Doxazosin 1 MG Tablet 1.5 MG PO (22:17)
[2019-10-24] MEDS: Atorvastatin Calcium 80 MG Tablet PO (22:18)
[2019-10-24] MEDS: Triamcinolone 0.5% Cream 1 APPLIC TOPICAL (22:18)
[2019-10-24] MEDS: Insulin Lispro 100 UNIT/ML INSULN.PEN SC (22:43)
[2019-10-25] VITALS (18 sets, daily range): BP systolic 129–175; BP diastolic 48–92; PULSE 78–98; RESP 15–24; TEMP 36.7–36.9; O2SAT 90–96; BMI 35.0
[2019-10-25 00:11] LABS: Bedside Glucose 157 mg/dL (70-110)
[2019-10-25] MEDS: 0.9% Saline Lock 10 ML Syringe IV (01:36)
[2019-10-25] MEDS: Albuterol 2.5 MG/3 ML VIAL.NEB. INHALATION (03:30)
[2019-10-25 03:56] LABS: Hematocrit 40.6 % (40-54); Hemoglobin 13.2 g/dL (13.0-16.5); Mean Corp Hgb Conc 32.5 g/dL (32-36); Mean Corpuscular Hgb 30.3 pg (27.0-32.0); Mean Corpuscular Volume 93.1 fL (80-94); Mean Platelet Vol. 9.1 fl (6.2-12.0); Platelet Count 147 K/mm3 (150-450); RBC Distribution Width CV 13.2 % (11.6-14.6); RBC Distribution Width SD 45.1 fl (35.1-43.9); Red Blood Count 4.36 M/mm3 (4.6-6.2); White Blood Count 6.9 K/mm3 (4.4-11.0)
[2019-10-25 04:12] LABS: ALB/GLOB Ratio 0.9 RATIO (0.9-2.4); AST(SGOT) 26 U/L (15-37); Alanine Aminotransfer ALT/SGPT 22 U/L (16-61); Albumin, Serum 3.4 g/dL (3.2-5.0); Alkaline Phosphatase 58 U/L (45-117); Anion Gap 4 (5-15); BUN 17 mg/dL (7-18); BUN/Creat Ratio 18.4 RATIO (10-20); Calcium,Total 8.6 mg/dL (8.5-10.1); Chloride 107 mmol/L (98-107); Cholesterol 119 mg/dL (200); Creatinine, Serum 0.93 mg/dL (0.70-1.30); EST Glomerular Filtration Rate 85 mL/min (>60); Est Glom Filt Rate - Afr Amer 103 mL/min (>60); Estimated Creatinine Clearance 66.14 ml/min; Globulin 3.7 g/dL (2.2-4.2); Glucose 107 mg/dL (74-106); High Density Lipoprotein 30 mg/dL; Potassium 3.6 mmol/L (3.5-5.1); Protein, Total 7.1 g/dL (6.4-8.2); Sodium Level 141 mmol/L (136-145); Triglycerides 276 mg/dL; Very Low Density Lipoprotein 55 mg/dL (5-40)
[2019-10-25] MEDS: Gabapentin 300 MG Capsule 900 MG PO (05:05)
[2019-10-25 06:56] LABS: Bedside Glucose 100 mg/dL (70-110)
[2019-10-25] MEDS: Ipratropium/Albuterol Sulfate 3 ML AMPUL.NEB INHALATION (07:04)
[2019-10-25] MEDS: Budesonide Respules 0.5 MG/2 ML AMPUL.NEB. INHALATION (07:04)
--- NOTE | 2019-10-25 08:00 | PCM.PN.CARD ---
Subjectve: Patient feels much better today, no chest pain overnight. Telemetry showed normal sinus rhythm with PVC. Right groin is clean/dry/intact, no thrills, bruits or hematoma. EKG showed normal sinus rhythm, unchanged from previous. Objective: Vital Signs Temp Pulse Resp BP Pulse Ox 98.2 F 92 18 157/73 H 93 10/25/19 04:00 10/25/19 07:25 10/25/19 07:25 10/25/19 06:00 10/25/19 07:26 Oxygen Flow Rate (L/min) 3 Oxygen Delivery Method Nasal Cannula Weight: 223 lb 8.78 oz Body Mass Index (BMI) 34.9 Intake and Output for Last 24 Hours 10/23/19 10/24/19 10/25/19 23:59 23:59 23:59 Intake Total 0.75 / 0.75 1382.05 / 1602.05 540 / 540 Output Total 1600 / 2000 850 / 850 Balance 0.75 / 0.75 -217.95 / -397.95 -310 / -310 General: Awake, Alert, Oriented x 3 HEENT: PERRL, EOMI, Sclera Non Icteric Neck: Supple, Good ROM, No Lymph Node Enlargement Lungs: Clear to auscultation Cardiovascular: Regular Rhythm, Normal S1, Normal S2, No Murmurs, No Rubs, No Gallops Vascular: No Carotid Bruits, Normal Femoral Pulses, Normal Radial Pulses, Normal Dorsalis Pedal Pulse, Normal Posterior Tibial Pulses Abdomen: Bowel Sounds Present, Soft, Non Tender, No HSM, No Organomegaly Extremities: No Cyanosis, No Clubbing, No edema Neurological: No Focal Motor or Sensory Deficit 10/24/19 05:35: Troponin I 0.853 H* 10/24/19 07:25: APTT 169.6 H* 10/24/19 12:50: APTT 35.6 10/25/19 03:50: WBC 6.9, RBC 4.36 L, Hgb 13.2, Hct 40.6, MCV 93.1, MCH 30.3, MCHC 32.5, Plt Count 147 L, MPV 9.1 10/25/19 03:50: Sodium 141, Potassium 3.6, Chloride 107, Carbon Dioxide 30.0, Anion Gap 4 L, BUN 17, Creatinine 0.93, Est GFR (MDRD) Af Amer 103, Est GFR (MDRD) Non-Af 85, BUN/Creatinine Ratio 18.4, Glucose 107 H, Calcium 8.6, Total Bilirubin 0.50, Triglycerides 276 H, Cholesterol 119, LDL Cholesterol 34, VLDL Cholesterol 55 H, HDL Cholesterol 30 L Rhythm: EKG: ECHO: Stress Test: Cardiac Cath: PCI: CT Surgery: Holter monitor: EPS: PPM: CXR: Chest CT Scan: Medical Necessity - Tobacco Use Smoking Status: Former smoker Assessment/Plan Interventional cardiology attending addendum: Patient seen and examined in conjunction with Lluvia Rangel. I agree with above assessment and plan. Given the patient's constellation of symptoms and risk factors, abnormal troponin, worsening anginal symptoms despite escalating nitrate-based therapy, and previous 9 stents, I recommended the patient undergo a repeat catheterization to evaluate his coronary anatomy and the condition of his stents. The patient restarted his Plavix in July 2019 and is remained on it ever since. He does not appear to be a candidate for surgical correction given his advanced stage lung cancer for which she is receiving chemotherapy and radiation therapy. The risk/benefits of the cardiac catheterization procedure were thoroughly explained to the patient and his son including specific attention to lack of onsite surgical backup, and the patient has agreed to proceed. Left heart catheterization pending. Either way would recommend treating the patient with dual antiplatelet therapy for life, aggressive antilipid therapy, and Imdur based therapy for diffuse coronary disease. Thank you very much for the opportunity to participate in the cardiac care of your patient. Consultation took place between 11:30 AM and 12 PM. 1. Coronary artery disease: Patient underwent diagnostic coronary angiogram yesterday which demonstrated widely patent stents in his RCA, LAD, and left circumflex. Patient had aggressive in-stent restenosis in the proximal portion of his diagonal #1 which was treated with a 2.25X 16 Promus Synergy stent, postdilated 2.5 mm. During inflation of the balloon and stent the patient had the identical same chest pain symptoms as he had at home. In addition the patient had nonobstructive disease of his mid LAD at the bifurcation of the diagonal, but this was not felt to be significant enough to warrant intervention. Overnight the patient's symptoms have completely resolved, and he feels much better. Discussed this with Dr. Sanderson, we will adjust his antihypertensive medications, switch him from atenolol to Coreg, resume his prazosin, and continue baby aspirin and Plavix for life. The patient may be the transfer to the floor for further medical management, or be discharged home from a cardiac standpoint. He may follow-up with me going forward in the office. 2. Hyperlipidemia: Continue statin based medications presuming he can tolerate it from a musculoskeletal standpoint. 3. Thank you very much for the opportunity to participate in the cardiac care of your patient. Code Visit Inpatient E&M: 46149 Subs Hosp L2
[2019-10-25] MEDS: Aspirin E.C. 81 MG Tablet PO (08:59)
[2019-10-25] MEDS: Carvedilol 6.25 MG Tablet PO (08:59)
--- NOTE | 2019-10-25 09:08 | CRPHASE1_ITS ---
Patient Communication Former Patient:: Phase II PHII Cardiac Rehab Discussed with Patient:: Yes Guide to Cardiac Rehab Given to Patient:: Yes Cardiac Rehab Facility Choice List Given to Patient:: Yes - [facility] Choice Program [facility] CR PHII:: Communication Given to CR, Refer to [facility] Shelf Stocker:: Zohaib Baeza PCP:: [facility] Phase II Cardiac Rehab:: Yes Sessions:: 36 sessions - 3 days/wk, 12 weeks Phase I Charge:: Level I - Education Risk Factors/Lifestyle Smoking Status: Former smoker - quit 15 years ago Hx Hypertension: Yes Hx Diabetes Mellitus Type 1: No Hx Diabetes Mellitus Type 2: Yes Hx Dyslipidemia: Yes Hx Obesity: Yes Height: 5 ft 7 in Weight:: 223 lb 12.8 oz BMI: 35.0 Stress: Recent - Lung ca with just starting Chemo and radiation ETOH: No Caffeine: No Substance Abuse: No Risk Factor for Sedentary Lifestyle: Highest Risk - was told not to exercise at this time with his lung cancer and heart history. Past Cardiac Illness: Coronary Artery Disease, Previous PCI w/Stent Laboratory Values: Cardiac Rehab Phase I Labs Hemoglobin A1c 9.0 % (4.2-6.3) H 10/25/19 03:50 Triglycerides 276 mg/dL (-199) H 10/25/19 03:50 Cholesterol 119 mg/dL (200) 10/25/19 03:50 LDL Cholesterol 34 mg/dL (0-130) 10/25/19 03:50 HDL Cholesterol 30 mg/dL (40-) L 10/25/19 03:50 Phase I Education Given On:: [place], Nutrition, Antiplatelet medication, CHF, Diabetes - Type II Issues Affecting Care:: Physical - Lung ca currently with chemo and radiation Knowledge of Condition:: Yes Learning Preferences: Verbal, Written, Audio/Visual, Demonstration Cardiac Rehabilitation Info Cardiac Rehabilitation Program Information: Cardiac Rehabilitation is important for patients like you who are recovering from a heart problem. Cardiac rehabilitation programs are recognized as integral to the continued care of the patient with coronary heart disease. The cardiac rehabilitation program is designed to optimize a patient's physical, psychological, and social functioning. Health memory care program director work in cardiac rehabilitation programs and assist you with getting the treatments you need to get stronger and healthier - like exercise, healthy eating habits, and medications. Cardiac rehabilitation has been show to help people with heart problems live longer and have better life enjoyment than people who do not go to cardiac rehabilitation. Please contact the Cardiac Rehabilitation Program at [facility] at in two weeks if you have not heard from them.
--- NOTE | 2019-10-25 09:14 | CRPH1.INSTRU ---
General Education CAD and cardiac anatomy and function:: Patient communicates acknowledgment, Needs reinforcement Explanation of diagnoses and procedures:: Patient communicates acknowledgment, Needs reinforcement Sign/Symptoms of AL:: Patient communicates acknowledgment, Needs reinforcement Antiplatelet therapy: Patient communicates acknowledgment, Needs reinforcement Proper use of NTG-SL: Patient communicates acknowledgment, Needs reinforcement Emergency procedures and activation of EMS: Patient communicates acknowledgment, Needs reinforcement Compliance of all prescribed medications: Patient communicates acknowledgment, Needs reinforcement Smoking Recommendations Include:: Previous smoker; encourage continued cessation Nicotine/Smoking Response Code:: Patient communicates acknowledgment, Patient returns demonstration Dyslipidemia Patient Dyslipidemia Risk Factors Are:: Total Cholesterol, Triglycerides, HDL, LDL Recommendations Include:: Lipid profile provided, Reviewed NCEP/ATP guidelines, Therapeutic Lifestyle Change dietary guidelines Dyslipidemia Response Code:: Patient communicates acknowledgment, Needs reinforcement Overweight/Obesity Patient Overweight/Obesity Risk Factors Are:: Obesity - > or = 30 Recommendations Include:: Weight loss of 5-10%, Reduced calorie diet, Exercise 5-7 times/week Overweight/Obesity:: Patient communicates acknowledgment, Needs reinforcement Hypertension Recommendations Include:: BP <130/80 if diabetic, DASH dietary guidelines, Decrease/maintain normal body weight, Moderation of ETOH Hypertension:: Patient communicates acknowledgment, Needs reinforcement Heart Disease Patient Heart Disease Risk Factors Are:: Previous cardiac event Recommendations Include:: Educated family members of their risk, Educated family members of importance of prevention of heart disease Heart Disease Response Code:: Patient communicates acknowledgment, Needs reinforcement Diabetes Recommendations Include:: Maintain fasting blood sugars 70-110 md/dL, Maintain HgbA1c of 6% or less, Monitor blood sugar as prescribed, Diabetic dietary guidelines, Decrease/maintain body weight Diabetes:: Patient communicates acknowledgment, Needs reinforcement Metabolic Syndrome Recommendations Include:: Patient is diabetic Metabolic Syndrome Response Code:: Not instructed Sedentary Patient Sedentary Risk Factors Are:: Lack of regular exercise Recommendations Include:: Aerobic exercise 5-7 times/week for 20-30 minutes continuously - exercise when released by MD to with his lung cancer, chemo and radiation currently, Benefits of regular exercise, Discussed home walking program, Monitored Outpatient Cardiac Rehab Sedentary Response Code:: Patient communicates acknowledgment, Needs reinforcement Stress Recommendations Include:: Identification of stressors, and assessment of coping skills, Stress management techniques Stress Response Code:: Patient communicates acknowledgment, Needs reinforcement
--- NOTE | 2019-10-25 10:00 | EKG12_ITS ---
Test Reason : POST PCI Blood Pressure : / mmHG Vent. Rate : 081 BPM Atrial Rate : 081 BPM P-R Int : 224 ms QRS Dur : 168 ms QT Int : 450 ms P-R-T Axes : 066 -67 026 degrees QTc Int : 522 ms Sinus rhythm with 1st degree A-V block Left axis deviation Right bundle branch block Abnormal ECG When compared with ECG of 24-OCT-2019 03:09, MANUAL COMPARISON REQUIRED, DATA IS UNCONFIRMED Confirmed by ERINN CORTEZ, DANILO ([id number]), food editor RENEE ACOSTA ([id number]) on 10/29/2019 11:07:51 AM Referred By: Elizabeth ROSE Confirmed By:GARRETT PLASENCIA MD
--- NOTE | 2019-10-25 10:14 | PCM.DC ---
- Discharge Diagnoses Current Active Problems: Current Active and Chronic Problems (Last Updated 10/24/19 @ 15:19 by Eri Trejo) Arteriosclerotic cardiovascular disease (Chronic) NSTEMI (non-ST elevated myocardial infarction) (Chronic 10/24/19) Stented coronary artery (Chronic 10/24/19) Multiple stents previously placed to LAD, LCX and RCA in past: 10/24/2019 CELIA to first diagonal per [facility] History of left heart catheterization (Chronic 10/24/19) Left Ventricular Ejection Fraction: by LV Gram 55 %; Global Hypokinesis - Mild Depressed Left Ventricular systolic function; Normal Left Ventricular End Diastolic Pressure; LVEDP: 14 mmHg; LEFT MAIN: 20 ostial % Stenosis; LEFT ANTERIOR DESCENDING ARTERY: PROX LAD: Mild luminal irregularities less than 30% MID LAD: Moderate luminal irregularities up to 50%, Previously placed stent is patent; DIAGONAL 1: Proximal - Previously placed stent has an instent 85 % restenosis; CIRCUMFLEX ARTERY: MID CIRC: Previously placed stent has an instent 20 % restenosis;DISTAL CIRC: Moderate luminal irregularities up to 50% RIGHT CORONARY ARTERY: MID RCA: Previously placed stent is patent Unstable angina (Acute) HTN (hypertension) (Chronic) Diabetes (Acute) Reason(s) for Visit for Discharge Instructions: Chest pain You will use the following diet at home:: Calorie/Carbohydrate Controlled (specify 1200, 1400, etc) - 1800 calories, Cardiac Your food should be the consistency of: Regular Your liquids should be the consistency of: Regular/Thin Discharge Activity: Return to Normal Activity Instructions: Recognizing a Heart Attack or Angina, Warning Signs of a Heart Attack, What Is Angina?, Diabetes: Activity Tips, Diabetes: Understanding Carbohydrates, Fats, and Protein, Taking Blood Pressure Medications, Low-Salt Choices Additional Instructions: Continue to take all your medications. Follow-up with cardiac rehab as scheduled. Continue on a low fat, low salt diet Allergies/Adverse Reactions: Allergies cephalexin [From Keflex] Allergy (Verified 10/23/19 23:17) Unknown doxycycline Allergy (Verified 10/23/19 23:17) Unknown Penicillins Allergy (Verified 10/23/19 23:17) Unknown metformin Adverse Reaction (Verified 10/23/19 23:17) Upset Stomach niacin Adverse Reaction (Verified 10/23/19 23:17) Rash simvastatin Adverse Reaction (Verified 10/23/19 23:17) Rash Medications to take at Discharge Albuterol Sulfate [Proair Digihaler] 2 puff IH 4X/DAY PRN PRN 10/23/19 Ammonium Lactate 226 gm TP DAILY 10/23/19 Atorvastatin Calcium 80 mg PO QHS 10/23/19 Budesonide/Formoterol Fumarate [Symbicort 160-4.5 Mcg Inhaler] 2 puff IH BID 10/23/19 Dextrose [Glucose] 4 tab PO PRN PRN 10/23/19 Empagliflozin [Jardiance] 0.5 tab PO DAILY 10/23/19 Fluticasone Propionate [Flovent Diskus] 50 mcg IN DAILY 10/23/19 Gabapentin [Neurontin] 3 tab PO TID 10/23/19 Glipizide 5 mg PO BID 10/23/19 Insulin Glargine [Lantus SoloStar Pen] 36 units SUBCUT DAILY 10/23/19 Isosorbide Mononitrate [Imdur] 3 tab PO DAILY 10/23/19 Nitroglycerin [Nitrostat] 1 tab SL PRN PRN 10/23/19 Paroxetine [Paxil] 2 tab PO DAILY 10/23/19 Prazosin HCl 2 tab PO QHS 10/23/19 Tiotropium [place] [Spiriva 18 MCG] 2 puff INHALATION Q6H PRN PRN 10/23/19 Triamcinolone 0.1% Cream [Kenalog] 1 applic TOPICAL BID 10/23/19 busPIRone [Buspar] 10 mg PO BID 10/23/19 Acetaminophen 2 tab PO 4X/DAY PRN 10/24/19 Lisinopril 20 mg PO BID 10/24/19 Carvedilol [Coreg (Beta [place])] 6.25 mg PO BID 30 Days #60 tab 10/25/19 Clopidogrel Bisulfate [Plavix] 75 mg PO DAILY 30 Days #30 tab 10/25/19 Furosemide [Lasix] 20 mg PO DAILY 30 Days #30 tab 10/25/19 The following prescriptions were given: Carvedilol [Coreg (Beta [place])] 6.25 mg PO BID 30 Days #60 tab Transmission Status: Pending to [facility] Furosemide [Lasix] 20 mg PO DAILY 30 Days #30 tab Transmission Status: Pending to [facility] Clopidogrel Bisulfate [Plavix] 75 mg PO DAILY 30 Days #30 tab Prescription Printed Orders to be completed after discharge: Phase II, Outpatient Cardiac Rehab Location: None Selected [facility] Care Physician: [facility] [Primary Care Provider] - Please follow up with your Primary Care Physician in: within 2 weeks Test Results: Test results from this visit will be discussed in further detail at your follow-up appointment, if applicable. Please Follow Up With: Zohaib Baeza MD When: within 2 weeks Proposed Discharge Date: 10/25/19
--- NOTE | 2019-10-25 10:35 | PCM.DC.SUM ---
Discharge Date and Diagnosis - Problem List Patient Problems: Active and Suspected Problems (Last Updated 10/24/19 @ 15:19 by Eri Trjeo) Unstable angina (Acute) Diabetes (Acute) Date of Admission: 10/24/19 Date of Discharge: 10/25/19 - Primary Discharge Diagnosis Active and Suspected Problems (Last Updated 10/24/19 @ 15:19 by Eri Trejo) Acute NSTEMI, s/p CELIA to proximal diagonal artery - Secondary Discharge Diagnosis Chronic Problems (Last Updated 10/24/19 @ 15:19 by Eri Trejo) Arteriosclerotic cardiovascular disease (Chronic) NSTEMI (non-ST elevated myocardial infarction) (Chronic 10/24/19) Stented coronary artery (Chronic 10/24/19) Multiple stents previously placed to LAD, LCX and RCA in past: 10/24/2019 CELIA to first diagonal per [facility] History of left heart catheterization (Chronic 10/24/19) Left Ventricular Ejection Fraction: by LV Gram 55 %; Global Hypokinesis - Mild Depressed Left Ventricular systolic function; Normal Left Ventricular End Diastolic Pressure; LVEDP: 14 mmHg; LEFT MAIN: 20 ostial % Stenosis; LEFT ANTERIOR DESCENDING ARTERY: PROX LAD: Mild luminal irregularities less than 30% MID LAD: Moderate luminal irregularities up to 50%, Previously placed stent is patent; DIAGONAL 1: Proximal - Previously placed stent has an instent 85 % restenosis; CIRCUMFLEX ARTERY: MID CIRC: Previously placed stent has an instent 20 % restenosis;DISTAL CIRC: Moderate luminal irregularities up to 50% RIGHT CORONARY ARTERY: MID RCA: Previously placed stent is patent HTN (hypertension) (Chronic) Hospital Course and Treatment Imaging Results: Clinical Impression(s) from Imaging Studies Chest X-Ray 10/23/19 23:26 IMPRESSION: Normal x-ray examination of the chest. 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 Patient had his first chemo therapy and radiation therapy on the prior to his admission. He presented with persistent chest discomfort that was substernal that developed on the night after his chemotherapy and radiation therapy. He took 5 to 6 pills of nitroglycerin without any effect. His chest pain did not subside and he was brought to the emergency department by emergency squad. His EKG showed normal sinus rhythm with no acute ST-T changes. His initial troponin was negative, his second troponin was elevated at 0.43 subsequently at 0.853. Patient initially was going to be transferred to the [facility] but was later on admitted to the hospital. He underwent cardiac catheterization by cardiology and was found to have a single-vessel CAD of the left diagonal, widely patent LAD, left circumflex and RCA stents. He underwent TICI CELIA to the proximal diagonal. Post cardiac cath patient was managed per protocol in the ICU. His blood pressure was uncontrolled. His atenolol was stopped and he was continued on carvedilol. He received Plavix, aspirin, statin, lisinopril, continued on carvedilol. He will follow-up with cardiac rehab as planned. Patient Problems: Active and Suspected Problems (Last Updated 10/24/19 @ 15:19 by Eri Trejo) Unstable angina (Acute) Diabetes (Acute) Subjective: On the day of discharge, patient was seen and examined. She denied any chest pain, dizziness, palpitations. - Physical Exam Vitals/I&O's: Vital Signs Temp Pulse Resp BP Pulse Ox 98.2 F 92 18 157/73 H 93 10/25/19 04:00 10/25/19 07:25 10/25/19 07:25 10/25/19 06:00 10/25/19 07:26 Oxygen Flow Rate (L/min) 3 Oxygen Delivery Method Nasal Cannula Weight: 101.514 kg Body Mass Index (BMI) 34.9 Intake and Output for Last 24 Hours 10/23/19 10/24/19 10/25/19 23:59 23:59 23:59 Intake Total 0.75 / 0.75 1382.05 / 1602.05 540 / 540 Output Total 1600 / 2000 850 / 850 Balance 0.75 / 0.75 -217.95 / -397.95 -310 / -310 General: Alert, Oriented x3, Cooperative, No apparent distress, - - on 3L oxygen HEENT: Atraumatic, PERRLA, EOMI, Normocephalic Oral: Moist Mucosa Neck: Supple Lungs: Clear to auscultation, Normal air movement Cardiovascular: Regular rate, Regular Rhythm, Normal S1, Normal S2, No murmurs Abdomen: Bowel Sounds Present, Soft, Non Tender, Non-Distended, No Hepato-splenomegaly Extremities: No edema, - - Right groin dressing intact, soft Skin: No rashes, No breakdown Musculoskeletal: No Tenderness to Palpation of Joints or Extremities Lymphatic: No Cervical, Supraclavicular, or Inguinal Adenopathy Neurological: Cranial nerves II-XII grossly intact, Neuro grossly intact Psych/Mental Status: Normal Affect, Appropriate Laboratory Results 10/24/19 05:35: Troponin I 0.853 H* 10/24/19 11:00: POC Glucose 144 H 10/24/19 12:50: APTT 35.6 10/24/19 13:36: Activated Clotting Time 120 10/24/19 14:17: Activated Clotting Time 191 H 10/24/19 17:46: POC Glucose 104 10/24/19 22:25: POC Glucose 157 H 10/25/19 03:50: WBC 6.9, RBC 4.36 L, Hgb 13.2, Hct 40.6, MCV 93.1, MCH 30.3, MCHC 32.5, RDW Std Deviation 45.1 H, RDW Coeff of Jony 13.2, Plt Count 147 L, MPV 9.1 10/25/19 03:50: Sodium 141, Potassium 3.6, Chloride 107, Carbon Dioxide 30.0, Anion Gap 4 L, BUN 17, Creatinine 0.93, Estim Creat Clear Calc 66.14, Est GFR (MDRD) Af Amer 103, Est GFR (MDRD) Non-Af 85, BUN/Creatinine Ratio 18.4, Glucose 107 H, Calcium 8.6, Total Bilirubin 0.50, AST 26, ALT 22, Alkaline Phosphatase 58, Total Protein 7.1, Albumin 3.4, Globulin 3.7, Albumin/Globulin Ratio 0.9, Triglycerides 276 H, Cholesterol 119, LDL Cholesterol 34, VLDL Cholesterol 55 H, HDL Cholesterol 30 L 10/25/19 03:50: Hemoglobin A1c 9.0 H 10/25/19 06:48: POC Glucose 100 Current Medications Acetaminophen (Tylenol) 650 mg PO Q6H PRN PRN PRN Reason: Pain Score 1-3/10 Albuterol Sulfate (Ventolin Aerosols) 2.5 mg INHALATION Q2H PRN PRN PRN Reason: SOB/Wheezing Last Admin: 10/25/19 03:30 Dose: 2.5 mg Documented by: Albuterol/Ipratropium (Duoneb) 3 ml INHALATION Q6HWA.RT [facility] Last Admin: 10/25/19 07:04 Dose: 3 ml Documented by: Aspirin (Ecotrin) 81 mg PO DAILY@0800 [facility] Last Admin: 10/25/19 08:59 Dose: 81 mg Documented by: Atorvastatin Calcium (Lipitor) 80 mg PO QHS [facility] Last Admin: 10/24/19 22:18 Dose: 80 mg Documented by: Atropine Sulfate () 0.5 mg IV UD PRN PRN Reason: HR <50 bpm Budesonide (Pulmicort Aerosol) 0.5 mg INHALATION Q12H.RT [facility] Last Admin: 10/25/19 07:04 Dose: 0.5 mg Documented by: Buspirone HCl (Buspar) 10 mg PO BID [facility] Last Admin: 10/24/19 22:45 Dose: 10 mg Documented by: Carvedilol (Coreg) 6.25 mg PO BID [facility] Last Admin: 10/25/19 08:59 Dose: 6.25 mg Documented by: Clopidogrel Bisulfate (Plavix) 75 mg PO DAILY [facility] Docusate Sodium (Colace) 100 mg PO BID PRN PRN PRN Reason: Constipation Doxazosin Mesylate (Cardura) 1.5 mg PO QHS [facility] Last Admin: 10/24/19 22:17 Dose: 1.5 mg Documented by: Empagliflozin (Jardiance) 12.5 mg PO DAILY [facility] Furosemide (Lasix) 20 mg PO DAILY [facility] Gabapentin (Neurontin) 900 mg PO TID [facility] Last Admin: 10/25/19 05:05 Dose: 900 mg Documented by: Glipizide (Glucotrol) 5 mg PO BIDAC [facility] Glucagon () 1 mg IM .X1 PRN PRN Reason: Hypoglycemia Heparin Sodium (Beef Lung) (Heparin 500 Unit/5 Ml (100/Ml)) 500 unit IV UD PRN PRN Reason: HEPARIN FLUSH Heparin Sodium (Porcine) (Heparin Na) 0 unit IV UD PRN; Protocol Nitroglycerin/Dextrose () 250 mls @ 3 mls/hr IV .[id number] STA; Protocol Stop: 10/27/19 10:45 Last Titration: 10/25/19 07:50 Dose: Infused Documented by: Sodium Chloride () 250 mls @ 15 mls/hr IV .[id number] PRN PRN Reason: Saline Flush Sodium Chloride () 250 mls @ 15 mls/hr IV .[id number] PRN PRN Reason: Additional IVPB Infusion Dextrose (Dextrose 10%-Water) 250 mls @ 999 mls/hr IV .Q16M PRN; Protocol PRN Reason: HYPOGLYCEMIA Sodium Chloride () 1,000 mls @ 15 mls/hr IV .Q48H [facility] Last Infusion: 10/24/19 19:15 Dose: 0 mls/hr Documented by: Insulin Glargine (Lantus (Bk)) 35 units SC DAILY [facility] Last Admin: 10/24/19 18:42 Dose: 35 u Documented by: Insulin Human Lispro (Humalog Kwikpen (Bk)) 0 unit SC ACHS [facility]; Protocol Last Admin: 10/25/19 08:05 Dose: Not Given Documented by: Labetalol HCl (Trandate) 5 mg IV X1 PRN PRN Reason: SBP > 160 when pulling sheath Labetalol HCl (Trandate) 10 mg IV Q4H PRN PRN PRN Reason: SBP > 160 Last Admin: 10/25/19 01:35 Dose: 10 mg Documented by: Lactic Acid (Lac-Hydrin, Amlactin) 1 applic TOPICAL DAILY [facility] Last Admin: 10/24/19 12:32 Dose: Not Given Documented by: Lisinopril (Zestril) 20 mg PO BID [facility] Last Admin: 10/24/19 22:17 Dose: 20 mg Documented by: Lorazepam (Ativan) 1 mg PO Q6H PRN PRN PRN Reason: BACK SPASMS/ANXIETY Melatonin (Melatonin) 3 mg PO QHS PRN PRN PRN Reason: INSOMNIA Metoclopramide HCl (Reglan) 5 mg IV Q6H PRN PRN PRN Reason: NAUSEA/VOMITING Morphine Sulfate () 2 - 4 mg IV Q4H PRN PRN PRN Reason: Pain Score 1-10/10 Morphine Sulfate () 2 - 4 mg IV Q4H PRN PRN PRN Reason: Pain Score 1-10/10 Nitroglycerin (Nitrostat) 0.4 mg SUBLINGUAL Q5M PRN PRN Reason: CARDIAC/CHEST PAIN Ondansetron HCl (Zofran) 4 mg IV Q8H PRN PRN PRN Reason: NAUSEA/VOMITING Paroxetine HCl (Paxil) 40 mg PO DAILY [facility] Last Admin: 10/24/19 12:32 Dose: 40 mg Documented by: Sodium Chloride () 10 - 40 ml IV UD PRN PRN Reason: SALINE FLUSH Last Admin: 10/25/19 01:36 Dose: 20 ml Documented by: Sodium Chloride () 500 ml IV BOLUS PRN PRN Reason: VASO-VAGAL PROTOCOL Triamcinolone Acetonide (Triamcinolone Acetonide) 1 applic TOPICAL BID [facility] Last Admin: 10/24/19 22:18 Dose: 1 applicatio Documented by: Discharge Diet: Low fat/ Low Cholesterol, 2000 mg Sodium Diet Discharge Activity: Return to Normal Activity Home Medications: Medications to take at Discharge Albuterol Sulfate [Proair Digihaler] 2 puff IH 4X/DAY PRN PRN 10/23/19 Ammonium Lactate 226 gm TP DAILY 10/23/19 Atorvastatin Calcium 80 mg PO QHS 10/23/19 Budesonide/Formoterol Fumarate [Symbicort 160-4.5 Mcg Inhaler] 2 puff IH BID 10/23/19 Dextrose [Glucose] 4 tab PO PRN PRN 10/23/19 Empagliflozin [Jardiance] 0.5 tab PO DAILY 10/23/19 Fluticasone Propionate [Flovent Diskus] 50 mcg IN DAILY 10/23/19 Gabapentin [Neurontin] 3 tab PO TID 10/23/19 Glipizide 5 mg PO BID 10/23/19 Insulin Glargine [Lantus SoloStar Pen] 36 units SUBCUT DAILY 10/23/19 Isosorbide Mononitrate [Imdur] 3 tab PO DAILY 10/23/19 Nitroglycerin [Nitrostat] 1 tab SL PRN PRN 10/23/19 Paroxetine [Paxil] 2 tab PO DAILY 10/23/19 Prazosin HCl 2 tab PO QHS 10/23/19 Tiotropium [place] [Spiriva 18 MCG] 2 puff INHALATION Q6H PRN PRN 10/23/19 Triamcinolone 0.1% Cream [Kenalog] 1 applic TOPICAL BID 10/23/19 busPIRone [Buspar] 10 mg PO BID 10/23/19 Acetaminophen 2 tab PO 4X/DAY PRN 10/24/19 Lisinopril 20 mg PO BID 10/24/19 Carvedilol [Coreg (Beta [place])] 6.25 mg PO BID 30 Days #60 tab 10/25/19 Clopidogrel Bisulfate [Plavix] 75 mg PO DAILY 30 Days #30 tab 10/25/19 Furosemide [Lasix] 20 mg PO DAILY 30 Days #30 tab 10/25/19 Following Prescrptions Were Given to Patient: Carvedilol [Coreg (Beta [place])] 6.25 mg PO BID 30 Days #60 tab Transmission Status: Received by [facility] Furosemide [Lasix] 20 mg PO DAILY 30 Days #30 tab Transmission Status: Received by [facility] Clopidogrel Bisulfate [Plavix] 75 mg PO DAILY 30 Days #30 tab Prescription Printed Other Amb Orders: Phase II, Outpatient Cardiac Rehab Location: None Selected [facility] [Primary [facility]] - Please follow up with your Primary Care Physician in: within 2 weeks Please Follow Up With: Zohaib Baeza MD When: within 2 weeks Patient Instructions: What Is Angina?, Low-Salt Choices, Recognizing a Heart Attack or Angina, Diabetes: Activity Tips, Taking Blood Pressure Medications, Diabetes: Understanding Carbohydrates, Fats, and Protein, Warning Signs of a Heart Attack Disposition: Home Minutes spent on discharge:: 40 Patient Condition:: Stable Medical Necessity - Tobacco Use Smoking Status: Former smoker - quit 15 years ago Tobacco Use: Non-smoker Meaningful Use Info Meaningful Use Diagnoses (Choose all that apply): None applicable - AMI/Post PCI/Angioplasty Aspirin given w/in 24hrs of arrival?: Yes Code Visit Inpatient E&M: 34240 Disch Hosp
[2019-10-25] MEDS: busPIRone 5 MG Tablet 10 MG PO (10:54)
[2019-10-25] MEDS: Furosemide 20 MG Tablet PO (10:57)
[2019-10-25] MEDS: Paroxetine 20 MG Tablet 40 MG PO (10:58)
[2019-10-25] MEDS: Clopidogrel Bisulfate 75 MG Tablet PO (10:58)
[2019-10-25] MEDS: Lisinopril 20 MG Tablet PO (10:59)
--- NOTE | 2019-10-25 12:41 | CHAPLAIN ---
Type of Pastoral Visit _x__ Initial Visit ___ Follow-up Visit ___ On-call Visit ___ General Patient Visit ___ Spiritual Assessment ___ Family Conference ___ Bereavement ___ Rapid Response ___ Code Blue ___ Other (describe below) Pastoral Care Referral From _x__ Patient ___ Family ___ Nurse ___ Physician ___ Oracle Erp Developer ___ Blemish Remover ___ Other (describe below) Sacrament/Intervention _x__ Active listening ___ Anointing ___ Christianity ___ Bereavement ___ Communion _x__ Stephanie exploration ___ _x__ Life review _x__ Prayer ___ Reconciliation ___ Sacrament of Sick ___ Supportive presence ___ Wedding ___ Other (describe below) Pastoral Comments
[2019-10-29 15:51] LABS: ACT Activated Clotting Time 142 sec (74-137)
== END 2019-10-25 13:25 | disposition home or self-care (01) | DRG 247 ==
LOC: ED 10-24 01:26 → PCU 10-24 02:17 → ICU 10-24 14:36
PROVIDERS: Family Medicine; Internal Medicine Cardiovascular Disease; Admitting Provider Hospitalist; Emergency Provider Emergency Medicine; Visit Provider Internal Medicine
DX: I21.4 Non-ST elevation (NSTEMI) myocardial infarction (principal); C34.90 Malignant neoplasm of unspecified part of unspecified bronchus or lung; T82.858A Stenosis of other vascular prosthetic devices, implants and grafts, initial encounter; I25.110 Atherosclerotic heart disease of native coronary artery with unstable angina pectoris; I25.2 Old myocardial infarction; I10 Essential (primary) hypertension; E11.65 Type 2 diabetes mellitus with hyperglycemia; E78.5 Hyperlipidemia, unspecified; J44.9 Chronic obstructive pulmonary disease, unspecified; F32.9 Major depressive disorder, single episode, unspecified; F41.9 Anxiety disorder, unspecified; N40.0 Benign prostatic hyperplasia without lower urinary tract symptoms; Z79.82 Long term (current) use of aspirin; Z79.02 Long term (current) use of antithrombotics/antiplatelets; Z79.4 Long term (current) use of insulin; Z79.84 Long term (current) use of oral hypoglycemic drugs; Z79.51 Long term (current) use of inhaled steroids; Z99.81 Dependence on supplemental oxygen; Z87.891 Personal history of nicotine dependence
CPT/HCPCS: 36415; 71046; 80048; 80053; 80061; 82962; 83036; 84484; 85025; 85027; 85347; 85610; 85730; 92928; 93005; 93306; 93458; 94640; 99152; 99153; 99285; J7030; Q9957; Q9967; A4216; C1725; C1769; C1874; C1887; C1894; C8929; C9600

== ENCOUNTER 2019-11-23 16:37 | Observation (INO) | payer MEDICARE, OTHER, SELFPAY ==
[2019-10-24 02:37] VITALS: BMI 34.9
[2019-10-25 09:13] VITALS: BMI 35.0
[2019-11-23] VITALS (12 sets, daily range): BP systolic 128–182; BP diastolic 79–95; PULSE 81–134; RESP 18–27; TEMP 36.3–36.9; O2SAT 89–94; BMI 33.3; BMI 32.8
--- NOTE | 2019-11-23 17:47 | EKG12_ITS ---
Test Reason : PALPITATIONS Blood Pressure : / mmHG Vent. Rate : 115 BPM Atrial Rate : 116 BPM P-R Int : 000 ms QRS Dur : 146 ms QT Int : 322 ms P-R-T Axes : 000 -79 050 degrees QTc Int : 445 ms Atrial fibrillation with rapid ventricular response Left axis deviation Right bundle branch block Abnormal ECG Confirmed by PARVEEN CORTEZ, DYLAN ([id number]), general expeditor JACOB CASTELAN ([id number] on 11/26/2019 3:29:30 PM Referred By: JAMILAH Confirmed By:DYLAN SAINI MD
[2019-11-23 17:58] LABS: Absolute Lymphocyte Count 0.28 X10^3/uL (0.83-4.51); Absolute Neutrophil Count 1.9 X10^3/uL (2.0-7.7); Basophil# 0.02 X10^3/uL; Basophil% 0.8 % (0-1); Eosinophil# 0.06 X10^3/uL; Eosinophils% 2.4 % (0-5); Hematocrit 35.6 % (40-54); Hemoglobin 12.3 g/dL (13.0-16.5); Lymphocyte # 0.28 X10^3/ul (4.0); Lymphocyte % 11.4 % (19-41); Mean Corp Hgb Conc 34.6 g/dL (32-36); Mean Corpuscular Hgb 31.7 pg (27.0-32.0); Mean Corpuscular Volume 91.8 fL (80-94); Mean Platelet Vol. 10.3 fl (6.2-12.0); Monocyte# 0.14 X10^3/uL; Monocyte% 5.7 % (0-10); NRBC Flagged by Analyzer 0 % (0-5); Neutrophil # 1.93 X10^3/uL (2.7-7.7); Neutrophil % 78.9 % (47-70); POSITIVE DIFFERENTIAL YES; Platelet Count 153 K/mm3 (150-450); RBC Distribution Width CV 15.3 % (11.6-14.6); RBC Distribution Width SD 48.4 fl (35.1-43.9); Red Blood Count 3.88 M/mm3 (4.6-6.2); White Blood Count 2.5 K/mm3 (4.4-11.0)
[2019-11-23 18:00] LABS: Differential Indicated SCAN CRITERIA MET
[2019-11-23 18:05] LABS: Prothrombin Time (Protime)PT. 13.2 SECONDS (11.7-14.9)
[2019-11-23 18:21] LABS: ALB/GLOB Ratio 0.8 RATIO (0.9-2.4); AST(SGOT) 11 U/L (15-37); Alanine Aminotransfer ALT/SGPT 18 U/L (16-61); Alkaline Phosphatase 70 U/L (45-117); Anion Gap 3 (5-15); BUN 18 mg/dL (7-18); BUN/Creat Ratio 19.4 RATIO (10-20); Calcium,Total 8.9 mg/dL (8.5-10.1); Chloride 109 mmol/L (98-107); Creatinine, Serum 0.93 mg/dL (0.70-1.30); EST Glomerular Filtration Rate 85 mL/min (>60); Est Glom Filt Rate - Afr Amer 103 mL/min (>60); Estimated Creatinine Clearance 68.44 ml/min; Globulin 3.8 g/dL (2.2-4.2); Glucose 167 mg/dL (74-106); Potassium 3.7 mmol/L (3.5-5.1); Protein, Total 6.8 g/dL (6.4-8.2); Sodium Level 142 mmol/L (136-145)
[2019-11-23 18:42] LABS: Anisocytosis RARE; Macrocytosis RARE; Platelet Estimate ADEQUATE (ADEQ); Red Cell Morphology N CHROM NORMAL (NORM C&C)
[2019-11-23] MEDS: dilTIAZem 25 MG/5 ML Vial IV BOLUS (19:18)
--- NOTE | 2019-11-23 19:59 | EKG12_ITS ---
Test Reason : REPEAT Blood Pressure : / mmHG Vent. Rate : 092 BPM Atrial Rate : 166 BPM P-R Int : 000 ms QRS Dur : 156 ms QT Int : 428 ms P-R-T Axes : 000 -82 030 degrees QTc Int : 529 ms Atrial fibrillation with premature ventricular or aberrantly conducted complexes Right bundle branch block Left anterior fascicular block Bifascicular block Abnormal ECG Confirmed by DYLAN SAINI MD ([id number]), book editor JACOB CASTELAN ([id number]) on 11/26/2019 3:29:10 PM Referred By: DEVIN Confirmed By:DYLAN SAINI MD
--- NOTE | 2019-11-23 20:10 | PCM.HP.STD ---
Problem List (1) Atrial fibrillation with RVR Status: Acute (2) Atrial fibrillation Status: Acute (3) Elevated troponin Status: Acute (4) Arteriosclerotic cardiovascular disease Status: Chronic (5) Stented coronary artery Status: Chronic Comment: Multiple stents previously placed to LAD, LCX and RCA in past: 10/24/2019 CELIA to first diagonal per [facility] (6) History of left heart catheterization Status: Chronic Comment: Left Ventricular Ejection Fraction: by LV Gram 55 %; Global Hypokinesis - Mild Depressed Left Ventricular systolic function; Normal Left Ventricular End Diastolic Pressure; LVEDP: 14 mmHg; LEFT MAIN: 20 ostial % Stenosis; LEFT ANTERIOR DESCENDING ARTERY: PROX LAD: Mild luminal irregularities less than 30% MID LAD: Moderate luminal irregularities up to 50%, Previously placed stent is patent; DIAGONAL 1: Proximal - Previously placed stent has an instent 85 % restenosis; CIRCUMFLEX ARTERY: MID CIRC: Previously placed stent has an instent 20 % restenosis;DISTAL CIRC: Moderate luminal irregularities up to 50% RIGHT CORONARY ARTERY: MID RCA: Previously placed stent is patent (7) HTN (hypertension) Status: Chronic (8) Diabetes Status: Chronic History of Present Illness Date of Admission: 11/23/19 Chief Complaint: irregular heart rate and rhythm The patient is a 74 year old M with a significant history of hypertension; CAD status post stent; PD; former smoker lung cancer status post radiation and chemotherapy who presented to emergency department because of irregularly irregular heart rate and rhythm while having an echocardiogram at the [facility]. Patient was sent to emergency department because of the findings above. Associated with his symptoms is palpitation. Family report that whiles at the emergency department patient went into coughing fit and became momentarily unresponsive; and appeared dazed after coming out from the unresponsiveness. At he emergency department patient was found to be in A. fib with rapid response with ventricular rate of 115. His heart rate slowed down with Cardizem bolus. At the Emergency department his troponin was found to be elevated. Past Medical History Past Medical History (Chronic Problems): Chronic Problems (Last Reviewed 11/23/19 @ 21:[address] Delgado Huang MD) Arteriosclerotic cardiovascular disease (Chronic) Stented coronary artery (Chronic 10/24/19) Multiple stents previously placed to LAD, LCX and RCA in past: 10/24/2019 CELIA to first diagonal per [facility] History of left heart catheterization (Chronic 10/24/19) Left Ventricular Ejection Fraction: by LV Gram 55 %; Global Hypokinesis - Mild Depressed Left Ventricular systolic function; Normal Left Ventricular End Diastolic Pressure; LVEDP: 14 mmHg; LEFT MAIN: 20 ostial % Stenosis; LEFT ANTERIOR DESCENDING ARTERY: PROX LAD: Mild luminal irregularities less than 30% MID LAD: Moderate luminal irregularities up to 50%, Previously placed stent is patent; DIAGONAL 1: Proximal - Previously placed stent has an instent 85 % restenosis; CIRCUMFLEX ARTERY: MID CIRC: Previously placed stent has an instent 20 % restenosis;DISTAL CIRC: Moderate luminal irregularities up to 50% RIGHT CORONARY ARTERY: MID RCA: Previously placed stent is patent HTN (hypertension) (Chronic) Diabetes (Chronic) Medical History: Medical History (Last Reviewed 11/24/19 @ 02:[address] Delgado Huang MD) Arteriosclerotic cardiovascular disease (Chronic) I25.10 NSTEMI (non-ST elevated myocardial infarction) (Inactive) Onset Date: 10/24/19 I21.4 CAD (coronary artery disease) I25.10 Diabetes E11.9 HTN (hypertension) I10 Allergies cephalexin [From Keflex] Allergy (Verified 11/23/19 16:39) Unknown doxycycline Allergy (Verified 11/23/19 16:39) Unknown Penicillins Allergy (Verified 11/23/19 16:39) Unknown metformin Adverse Reaction (Verified 11/23/19 16:39) Upset Stomach niacin Adverse Reaction (Verified 11/23/19 16:39) Rash simvastatin Adverse Reaction (Verified 11/23/19 16:39) Rash Home Medications: Ambulatory Orders Medication Instructions Recorded Albuterol Sulfate [Proair 2 puff IH 4X/DAY PRN PRN 10/23/19 Digihaler] Budesonide/Formoterol Fumarate 2 puff IH BID 10/23/19 [Symbicort 160-4.5 Mcg Inhaler] Empagliflozin [Jardiance] 0.5 tab PO DAILY 10/23/19 Fluticasone Propionate [Flovent 50 mcg NASAL DAILY 10/23/19 Diskus] Gabapentin [Neurontin] 3 tab PO TID 10/23/19 Glipizide 5 mg PO BID 10/23/19 Insulin Glargine [Lantus SoloStar 40 units SUBCUT DAILY 10/23/19 Pen] Isosorbide Mononitrate [Imdur] 180 mg PO DAILY 10/23/19 Nitroglycerin [Nitrostat] 1 tab SL PRN PRN 10/23/19 Paroxetine [Paxil] 2 tab PO DAILY 10/23/19 Prazosin HCl 4 mg PO QHS 10/23/19 Tiotropium [place] [Spiriva 18 MCG] 2 puff INHALATION Q6H PRN PRN 10/23/19 busPIRone [Buspar] 10 mg PO BID 10/23/19 Acetaminophen 2 tab PO 4X/DAY PRN 10/24/19 Lisinopril 20 mg PO BID 10/24/19 Clopidogrel Bisulfate [Plavix] 75 mg PO DAILY 30 Days #30 tab 10/25/19 Furosemide [Lasix] 20 mg PO DAILY 30 Days #30 tab 10/25/19 Aspirin [Aspirin, Baby] 81 mg PO DAILY 11/23/19 Carvedilol [Coreg (Beta [place])] 12.5 mg PO BID 11/23/19 Cholecalciferol (VIT D3) [Vitamin 3,000 unit PO DAILY 11/23/19 D] Cyanocobalamin (Vitamin B-12) 1,000 mcg PO DAILY 11/23/19 [B-12] Ketoconazole [Nizoral] 120 ml TP QWEEK 11/23/19 Pantoprazole Sodium 40 mg PO BREAKFAST 11/23/19 Potassium Chloride 10 meq PO DAILY 11/23/19 Rosuvastatin Calcium 40 mg PO QHS 11/23/19 Tamsulosin HCl 0.4 mg PO DAILY 11/23/19 Surgical History: Surgical History (Last Reviewed 11/24/19 @ 02:[address] Delgado Huang MD) Stented coronary artery (Chronic) Onset Date: 10/24/19 Z95.5 Multiple stents previously placed to LAD, LCX and RCA in past: 10/24/2019 CELIA to first diagonal per [facility] History of left heart catheterization (Chronic) Onset Date: 10/24/19 Z98.890 Left Ventricular Ejection Fraction: by LV Gram 55 %; Global Hypokinesis - Mild Depressed Left Ventricular systolic function; Normal Left Ventricular End Diastolic Pressure; LVEDP: 14 mmHg; LEFT MAIN: 20 ostial % Stenosis; LEFT ANTERIOR DESCENDING ARTERY: PROX LAD: Mild luminal irregularities less than 30% MID LAD: Moderate luminal irregularities up to 50%, Previously placed stent is patent; DIAGONAL 1: Proximal - Previously placed stent has an instent 85 % restenosis; CIRCUMFLEX ARTERY: MID CIRC: Previously placed stent has an instent 20 % restenosis;DISTAL CIRC: Moderate luminal irregularities up to 50% RIGHT CORONARY ARTERY: MID RCA: Previously placed stent is patent Surgical History: appendectomy, herniorrhaphy - X3 Lives: Alone Smoking Status: Former smoker - *Family History Maternal History Items: Heart Disease, - - Skin cancer Paternal History Items: Cancer - His father from throat cancer at the age of 57 Review of Systems Constitutional: Denies: Chills, Fever, Weight Change HEENT: Denies: Head Aches, Sinus Congestion, Sinus Drainage Cardiovascular: Reports: Palpitations, Syncope. Denies: Chest Pain Respiratory: Reports: Cough, Sputum production. Denies: Shortness of breath at rest Gastrointestinal: Denies: Abdominal Pain, Nausea, Vomiting Genitourinary: Denies: Dysuria Musculoskeletal: Denies: Joint Pain, Joint Tenderness Skin: Denies: Rash, Wounds Neurological: Denies: Numbness, Tingling, Focal weakness Psychiatric: Denies: Anxiety, Depression, Homicidal Ideations, Suicidal Ideations Hematologic/ Lymphatic: Denies: Easy Bruising, Easy Bleeding VTE Information - Inpt Only VTE Present on Admission: No VTE Mechan Device Prophylaxis: None VTE Pharm Prophylaxis ordered?: No Reason prophylaxis not ordered:: Treatment Not Indicated - Lovenox for A. fib Patient Problems: Active and Suspected Problems (Last Reviewed 11/23/19 @ 21:[address] Delgado Huang MD) Atrial fibrillation (Acute) Elevated troponin (Acute) Atrial fibrillation with RVR (Acute) - Physical Exam Vitals/I&O's: Vital Signs Temp Pulse Resp BP Pulse Ox 97.3 F L 112 H 24 H 182/95 H 93 11/23/19 16:39 11/23/19 19:19 11/23/19 19:19 11/23/19 19:19 11/23/19 19:19 Oxygen Flow Rate (L/min) 2 Oxygen Delivery Method Nasal Cannula Weight: 99.337 kg Body Mass Index (BMI) 33.3 General: Alert, Oriented x3, Cooperative HEENT: Atraumatic, PERRLA, EOMI, Normocephalic Neck: Supple, No JVD, Negative Carotid Bruits Lungs: No rhonchi, No rales, Wheezes Cardiovascular: Normal S1, Normal S2, No murmurs, Irregular Rate Abdomen: Bowel Sounds Present, Soft, Non Tender Extremities: No edema, Capillary Refill Less than 3 Seconds Skin: No rashes, No breakdown Musculoskeletal: No Tenderness to Palpation of Joints or Extremities Neurological: Cranial nerves II-XII grossly intact Psych/Mental Status: Normal Affect, Appropriate Laboratory Results 11/23/19 16:05: WBC 2.5 L, RBC 3.88 L, Hgb 12.3 L, Hct 35.6 L, MCV 91.8, MCH 31.7, MCHC 34.6, RDW Std Deviation 48.4 H, RDW Coeff of Jony 15.3 H, Plt Count 153, MPV 10.3, Immature Gran % (Auto) 0.800, Neut % (Auto) 78.9 H, Lymph % (Auto) 11.4 L, [place] % (Auto) 5.7, Eos % (Auto) 2.4, Baso % (Auto) 0.8, Absolute Neuts (auto) 1.9 L, Absolute Lymphs (auto) 0.28 L, Nucleated RBC % 0, Differential Comment SEE COMMENT, Diff Path Review January foll, Platelet Estimate ADEQUATE, RBC Morphology N CHROM, Anisocytosis RARE, Macrocytosis RARE 11/23/19 16:05: PT 13.2, INR 1.0 11/23/19 16:05: Sodium 142, Potassium 3.7, Chloride 109 H, Carbon Dioxide 30.0, Anion Gap 3 L, BUN 18, Creatinine 0.93, Estim Creat Clear Calc 68.44, Est GFR (MDRD) Af Amer 103, Est GFR (MDRD) Non-Af 85, BUN/Creatinine Ratio 19.4, Glucose 167 H, Calcium 8.9, Total Bilirubin 0.60, AST 11 L, ALT 18, Alkaline Phosphatase 70, Troponin I 0.089 H, Total Protein 6.8, Albumin 3.0 L, Globulin 3.8, Albumin/Globulin Ratio 0.8 L Assessment/Plan All Active Problems (Last Reviewed 11/23/19 @ 21:[address] Delgado Huang MD) Atrial fibrillation (Acute) Elevated troponin (Acute) Atrial fibrillation with RVR (Acute) The patient is a 74 year old M with a significant history of hypertension; CAD status post stent; PD; former smoker lung cancer status post radiation and chemotherapy who presented to emergency department because of irregularly irregular heart rate and rhythm and had a syncopal episode at emergency department consistent with A. fib with RVR and syncope as well as elevated troponin. A. fib with rapid ventricular response Place on PCU on telemetry Serial cardiac enzymes [facility]. Lovenox 1 mg per kilogram subcutaneous every 12 hours Repeat EKG at the PCU showed controlled A. fib?a flutter. Will put on short acting Cardizem PO. Supplement potassium. Check TSH. Check magnesium. Consult [facility] CBC and BMP in the a.m. Elevated troponin Likely secondary to A. fib. Cardiology consult. CAD status post stent Patient had a cardiac cath on 10/24/2019 and had a stent placed in his diagonal. Also he had ballooning of arteries. His atenolol was changed to Coreg. Continue aspirin and Plavix. Lung cancer status post radiation and chemotherapy On same day of presentation patient had radiation. Also patient had chemotherapy 4 days ago. Continue outpatient treatment. Leukopenia Likely secondary to chemotherapy Trend CBC. Diabetes mellitus Noted hyperglycemia on presentation Jardiance continued. Glipizide continued. Home basal insulin adjusted. Add correction scale insulin. COPD Continue home inhalers Lisinopril and Coreg continued. Cardizem PO added for A. fib. Systolic and diastolic heart failure Echocardiogram on 10/24/2019 showed ejection fraction of 50% with stage I diastolic dysfunction. Coreg and lisinopril continued. Obtain latest echocardiogram on 11/23/2019 from the [facility]. Lasix continued. Hypertension On presentation blood pressure was now within goal Nightmare Prazosin continued DVT Prophylaxis Not indicated patient has been started on Lovenox for A. fib. OBSV E&M: [id number] Initial observation care L3
--- NOTE | 2019-11-23 20:19 | ED.DCSUM_ITS ---
- ER Visit Summary Date of Service: 11/23/19 Chief Complaint: Atrial fibrillation History of Present Illness: The patient is a 74 M who presents with atrial fibrillation that was noticed today. Patient had an outpatient echocardiogram done at the [facility] today. Patient states he was discharged home from there. Patient states she was then called back and stated that he was told to come to the emergency department because he has an irregular heartbeat. Patient has no symptoms. Patient does not feel any palpitations. Patient does admit to a mild cough. Patient is not sure when the atrial fibrillation started. Patient is not on any anticoagulants. Physical Examination: Vital signs are stable except for tachycardia of 129 patient is afebrile. Patient is in no acute distress. Oral mucosa is pink and moist. Neck is supple. Trachea is midline. There is no JVD. Heart was irregularly irregular and tachycardic. Lungs are clear and equal bilaterally. Abdomen is soft. Bowel sounds are normal. There is no tenderness. Cranial nerves II through XII are intact. There are no focal motor or sensory deficits noted. Extremities are intact. There is no calf tenderness or edema. Test Results: EKG showed atrial fibrillation with a rate of 115. There are is a right bundle branch block pattern noted. There are no acute ST or T wave changes. CBC shows mild anemia with hemoglobin of 12.3 hematocrit 35.6. Glucose was 167. INR is normal at 1.0. Troponin was slightly elevated at 0.089. Emergency Department Course and Treatment: Patient was given a dose of Cardizem here. Patient's heart rate improved to 85 on reevaluation. A repeat EKG was obtained which showed atrial fibrillation with a rate of 92. There are no acute ST or T wave changes. Case was discussed with the hospitalist. He will admit the patient for observation to the PCU. Patient understood and was agreeable with the plan. All questions were answered. Disposition: Admit to PCU Impression: 1. Atrial fibrillation 2. Elevated troponin This note was generated with MobileRQation software. It may contain incorrect words, spelling, and punctuation that were not noted in review of the chart prior to signing ED Disposition - Plan for ED Patient: Disposition: Acute Care Hospital [facility] Diagnosis: Atrial fibrillation, Elevated troponin
[2019-11-23 21:18] LABS: Magnesium 2.1 mg/dL (1.6-2.6)
[2019-11-23 21:51] LABS: Bedside Glucose 95 mg/dL (70-110)
--- NOTE | 2019-11-23 21:56 | EKG12_ITS ---
Test Reason : Blood Pressure : / mmHG Vent. Rate : 088 BPM Atrial Rate : 330 BPM P-R Int : 000 ms QRS Dur : 146 ms QT Int : 418 ms P-R-T Axes : 072 -87 -25 degrees QTc Int : 505 ms Atrial flutter with variable A-V block with premature ventricular or aberrantly conducted complexes Right bundle branch block Left anterior fascicular block Bifascicular block Abnormal ECG Confirmed by CLARISSA CORTEZ, YOLANDA ([id number]), editorial clerk RENEE ACOSTA ([id number]) on 11/27/2019 1:39:19 PM Referred By: BLAIRE Confirmed By:YOLANDA ROMO MD
[2019-11-23] MEDS: dilTIAZem 60 MG CAP.SR.12H PO (22:37)
[2019-11-23] MEDS: busPIRone 5 MG Tablet 10 MG PO (22:37)
[2019-11-23] MEDS: Doxazosin 1 MG Tablet 3 MG PO (22:38)
[2019-11-23] MEDS: Carvedilol 12.5 MG Tablet PO (22:38)
[2019-11-23] MEDS: Lisinopril 20 MG Tablet PO (22:39)
[2019-11-23] MEDS: Atorvastatin Calcium 80 MG Tablet PO (22:39)
[2019-11-23] MEDS: Enoxaparin 100 MG/ML Syringe SC (22:40)
[2019-11-23] MEDS: Budesonide Respules 0.5 MG/2 ML AMPUL.NEB. INHALATION (22:54)
[2019-11-23] MEDS: Ipratropium/Albuterol Sulfate 3 ML AMPUL.NEB INHALATION (22:54)
[2019-11-23] MEDS: Gabapentin 300 MG Capsule 900 MG PO (23:28)
[2019-11-24] VITALS (15 sets, daily range): BP systolic 111–154; BP diastolic 60–75; PULSE 77–142; RESP 16–20; TEMP 36.3–36.9; O2SAT 91–100
[2019-11-24 03:02] LABS: Absolute Lymphocyte Count 0.34 X10^3/uL (0.83-4.51); Absolute Neutrophil Count 1.6 X10^3/uL (2.0-7.7); Basophil# 0.03 X10^3/uL; Basophil% 1.4 % (0-1); Eosinophil# 0.06 X10^3/uL; Eosinophils% 2.8 % (0-5); Hematocrit 34.3 % (40-54); Hemoglobin 11.5 g/dL (13.0-16.5); Lymphocyte # 0.34 X10^3/ul (4.0); Lymphocyte % 15.7 % (19-41); Mean Corp Hgb Conc 33.5 g/dL (32-36); Mean Corpuscular Hgb 30.9 pg (27.0-32.0); Mean Corpuscular Volume 92.2 fL (80-94); Mean Platelet Vol. 9.4 fl (6.2-12.0); Monocyte# 0.12 X10^3/uL; Monocyte% 5.6 % (0-10); NRBC Flagged by Analyzer 0 % (0-5); Neutrophil # 1.59 X10^3/uL (2.7-7.7); Neutrophil % 73.6 % (47-70); POSITIVE DIFFERENTIAL YES; Platelet Count 105 K/mm3 (150-450); RBC Distribution Width SD 48.6 fl (35.1-43.9); Red Blood Count 3.72 M/mm3 (4.6-6.2); White Blood Count 2.2 K/mm3 (4.4-11.0)
[2019-11-24 03:25] LABS: Differential Indicated SCAN CRITERIA MET
[2019-11-24 03:32] LABS: Anion Gap 6 (5-15); BUN 15 mg/dL (7-18); BUN/Creat Ratio 19.7 RATIO (10-20); Calcium,Total 8.6 mg/dL (8.5-10.1); Chloride 108 mmol/L (98-107); Creatinine, Serum 0.76 mg/dL (0.70-1.30); EST Glomerular Filtration Rate 107 mL/min (>60); Est Glom Filt Rate - Afr Amer 129 mL/min (>60); Estimated Creatinine Clearance 63.65 ml/min; Glucose 128 mg/dL (74-106); Potassium 3.8 mmol/L (3.5-5.1); Sodium Level 142 mmol/L (136-145); Thyroid Stim Hormone (TSH) 0.51 uIU/mL (0.358-3.74)
[2019-11-24 03:35] LABS: Differential Comment SCANNED
[2019-11-24] MEDS: Gabapentin 300 MG Capsule 900 MG PO ×3 (06:30→21:06)
[2019-11-24 06:40] LABS: Bedside Glucose 97 mg/dL (70-110)
[2019-11-24] MEDS: Ipratropium/Albuterol Sulfate 3 ML AMPUL.NEB INHALATION ×3 (07:15→19:26)
[2019-11-24] MEDS: Budesonide Respules 0.5 MG/2 ML AMPUL.NEB. INHALATION ×2 (07:15→19:26)
[2019-11-24] MEDS: dilTIAZem 60 MG CAP.SR.12H PO (08:50)
[2019-11-24] MEDS: Carvedilol 12.5 MG Tablet PO ×2 (08:51→11:55)
[2019-11-24] MEDS: Clopidogrel Bisulfate 75 MG Tablet PO (08:55)
[2019-11-24] MEDS: Paroxetine 20 MG Tablet 40 MG PO (08:55)
[2019-11-24] MEDS: Cyanocobalamin 500 MCG Tablet 1000 MCG PO (08:55)
[2019-11-24] MEDS: Enoxaparin 100 MG/ML Syringe SC (08:56)
[2019-11-24] MEDS: Tamsulosin HCl 0.4 MG Capsule PO (08:56)
[2019-11-24] MEDS: Pantoprazole Sodium 40 MG Tablet PO (08:56)
[2019-11-24] MEDS: Furosemide 20 MG Tablet PO (08:56)
[2019-11-24] MEDS: busPIRone 5 MG Tablet 10 MG PO ×2 (08:56→21:06)
[2019-11-24] MEDS: Isosorbide Mononitrate 60 MG Tablet 180 MG PO (08:56)
[2019-11-24] MEDS: Fluticasone 0.05% 1 SPRAY NASAL.SRY NASAL (08:57)
[2019-11-24] MEDS: Empagliflozin 25 MG Tablet 12.5 MG PO (08:57)
[2019-11-24] MEDS: Aspirin 81 MG TAB.CHEW PO (08:58)
[2019-11-24] MEDS: Lisinopril 20 MG Tablet PO ×2 (08:58→21:05)
[2019-11-24] MEDS: glipiZIDE 5 MG Tablet PO ×2 (08:59→16:50)
--- NOTE | 2019-11-24 09:44 | CON.PCM_ITS ---
Reason for Consult Date of Consultation: 11/24/19 Reason for Consultation: Irregular heartbeat History of Present Illness: The patient is a 74 year old M with a history of hypertension, coronary artery disease status post previous remote angioplasty and stenting of the right coronary artery as well as more recent cardiac catheterization performed here in October 2019 demonstrating a left main trunk with 20% stenosis, left anterior descending artery with 30% proximal stenosis, mid left anterior descending artery 50% stenosis, first diagonal vessel with 85% stenosis for which he underwent angioplasty and stenting with a 2.25?16 Promus drug-eluting stent. He also had circumflex artery with 20% proximal stenosis and 50% mid stenosis. The right coronary artery had mild luminal irregularities. His medications were changed and he was placed on atenolol. He had been doing fairly well being treated at the [facility] for his left upper lobe malignancy. Yesterday he went to the [facility] for an echocardiogram and apparently was noted to be in an irregular heart rate and therefore was sent here to the emergency room. His echocardiogram had demonstrated preserved ejection fraction of 60 to 65%. His EKG when he presented here demonstrated atrial fibrillation with a rate of 115 bpm leftward axis and a right bundle branch block. He denies any chest pain he is chronically short of breath is had no palpitations. Troponins were checked and were noted to be mildly elevated and therefore recommendation to admit him was made and cardiology consulted. [] Past Medical History Allergies/Adverse Reactions: Allergies cephalexin [From Keflex] Allergy (Verified 11/23/19 16:39) Unknown doxycycline Allergy (Verified 11/23/19 16:39) Unknown Penicillins Allergy (Verified 11/23/19 16:39) Unknown metformin Adverse Reaction (Verified 11/23/19 16:39) Upset Stomach niacin Adverse Reaction (Verified 11/23/19 16:39) Rash simvastatin Adverse Reaction (Verified 11/23/19 16:39) Rash Home Medications: Ambulatory Orders Medication Instructions Recorded Albuterol Sulfate [Proair 2 puff IH 4X/DAY PRN PRN 10/23/19 Digihaler] Budesonide/Formoterol Fumarate 2 puff IH BID 10/23/19 [Symbicort 160-4.5 Mcg Inhaler] Empagliflozin [Jardiance] 0.5 tab PO DAILY 10/23/19 Fluticasone Propionate [Flovent 50 mcg NASAL DAILY 10/23/19 Diskus] Gabapentin [Neurontin] 3 tab PO TID 10/23/19 Glipizide 5 mg PO BID 10/23/19 Insulin Glargine [Lantus SoloStar 40 units SUBCUT DAILY 10/23/19 Pen] Isosorbide Mononitrate [Imdur] 180 mg PO DAILY 10/23/19 Nitroglycerin [Nitrostat] 1 tab SL PRN PRN 10/23/19 Paroxetine [Paxil] 2 tab PO DAILY 10/23/19 Prazosin HCl 4 mg PO QHS 10/23/19 Tiotropium Vernon [Spiriva 18 MCG] 2 puff INHALATION Q6H PRN PRN 10/23/19 busPIRone [Buspar] 10 mg PO BID 10/23/19 Acetaminophen 2 tab PO 4X/DAY PRN 10/24/19 Lisinopril 20 mg PO BID 10/24/19 Clopidogrel Bisulfate [Plavix] 75 mg PO DAILY 30 Days #30 tab 10/25/19 Furosemide [Lasix] 20 mg PO DAILY 30 Days #30 tab 10/25/19 Aspirin [Aspirin, Baby] 81 mg PO DAILY 11/23/19 Carvedilol [Coreg (Beta Alma)] 12.5 mg PO BID 11/23/19 Cholecalciferol (VIT D3) [Vitamin 3,000 unit PO DAILY 11/23/19 D] Cyanocobalamin (Vitamin B-12) 1,000 mcg PO DAILY 11/23/19 [B-12] Ketoconazole [Nizoral] 120 ml TP QWEEK 11/23/19 Pantoprazole Sodium 40 mg PO BREAKFAST 11/23/19 Potassium Chloride 10 meq PO DAILY 11/23/19 Rosuvastatin Calcium 40 mg PO QHS 11/23/19 Tamsulosin HCl 0.4 mg PO DAILY 11/23/19 Past Medical History (Chronic Problems): Chronic Problems (Last Reviewed 11/24/19 @ 02:[address] Delgado Huang MD) Arteriosclerotic cardiovascular disease (Chronic) Stented coronary artery (Chronic 10/24/19) Multiple stents previously placed to LAD, LCX and RCA in past: 10/24/2019 CELIA to first diagonal per [facility] History of left heart catheterization (Chronic 10/24/19) Left Ventricular Ejection Fraction: by LV Gram 55 %; Global Hypokinesis - Mild Depressed Left Ventricular systolic function; Normal Left Ventricular End Diastolic Pressure; LVEDP: 14 mmHg; LEFT MAIN: 20 ostial % Stenosis; LEFT ANTERIOR DESCENDING ARTERY: PROX LAD: Mild luminal irregularities less than 30% MID LAD: Moderate luminal irregularities up to 50%, Previously placed stent is patent; DIAGONAL 1: Proximal - Previously placed stent has an instent 85 % restenosis; CIRCUMFLEX ARTERY: MID CIRC: Previously placed stent has an instent 20 % restenosis;DISTAL CIRC: Moderate luminal irregularities up to 50% RIGHT CORONARY ARTERY: MID RCA: Previously placed stent is patent HTN (hypertension) (Chronic) Diabetes (Chronic) Surgical History: appendectomy, herniorrhaphy - X3 - *Family History Maternal History Items: Heart Disease, - - Skin cancer Paternal History Items: Cancer - His father from throat cancer at the age of 57 Lives: Alone Smoking Status: Former smoker Tobacco Use: Non-smoker Alcohol: None Drugs: None Review of Systems - Review of Systems General: Denies: Fever, Night Sweats, Fatigue HEENT: Denies: Vision Change Cardiovascular: Denies: Chest Discomfort, Shortness of Breath, Orthopnea, PND, Peripheral Edema, Palpitations, Lightheadedness, Dizziness, Near Syncope, Syncope Respiratory: Denies: Cough, Sputum Production, Hemoptysis Gastrointestinal: Denies: Hematemesis, Hematochezia, Melena Genitourinary: Denies: Dysuria, Hematuria Skin: Denies: Rash Neurological: Denies: Dizziness Psychiatric: Denies: Anxiety Endocrine: Denies: Excessive Sweating, Unexplained Weight Loss Hematologic/ Lymphatic: Denies: Anemia Subjectve: Pleasant gentleman in no distress lying in bed at this time. Objective: Vital Signs Temp Pulse Resp BP Pulse Ox 97.4 F L 127 H 18 133/62 H 94 11/24/19 08:48 11/24/19 08:48 11/24/19 08:48 11/24/19 08:48 11/24/19 08:48 Oxygen Flow Rate (L/min) 2 Oxygen Delivery Method Nasal Cannula Weight: 215 lb 13.321 oz Body Mass Index (BMI) 32.8 Intake and Output for Last 24 Hours 11/22/19 11/23/19 11/24/19 23:59 23:59 23:59 Intake Total 500 / 500 Balance 500 / 500 General: Awake, Alert, Oriented x 3 HEENT: PERRL, EOMI, Sclera Non Icteric Neck: Supple, Good ROM, No Lymph Node Enlargement Lungs: Clear to auscultation Cardiovascular: Irregular Rhythm, Normal S1, Normal S2, No Murmurs, No Rubs, No Gallops Vascular: No Carotid Bruits, Normal Femoral Pulses, Normal Radial Pulses, Normal Dorsalis Pedal Pulse, Normal Posterior Tibial Pulses Abdomen: Bowel Sounds Present, Soft, Non Tender, No HSM, No Organomegaly Extremities: No Cyanosis, No Clubbing, No edema Musculoskeletal: No Erythema Skin: No Rashes Neurological: No Focal Motor or Sensory Deficit Psych/Mental Status: Appropriate 11/23/19 16:05: WBC 2.5 L, RBC 3.88 L, Hgb 12.3 L, Hct 35.6 L, MCV 91.8, MCH 31.7, MCHC 34.6, Plt Count 153, MPV 10.3, Immature Gran % (Auto) 0.800, Neut % (Auto) 78.9 H, Lymph % (Auto) 11.4 L, Boyd % (Auto) 5.7, Eos % (Auto) 2.4, Baso % (Auto) 0.8, Absolute Neuts (auto) 1.9 L, Nucleated RBC % 0 11/23/19 16:05: PT 13.2, INR 1.0 11/23/19 16:05: Sodium 142, Potassium 3.7, Chloride 109 H, Carbon Dioxide 30.0, Anion Gap 3 L, BUN 18, Creatinine 0.93, Est GFR (MDRD) Af Amer 103, Est GFR (MDRD) Non-Af 85, BUN/Creatinine Ratio 19.4, Glucose 167 H, Calcium 8.9, Total Bilirubin 0.60, Troponin I 0.089 H 11/23/19 16:05: Magnesium 2.1 11/23/19 21:10: Troponin I 0.066 H 11/24/19 00:10: Troponin I 0.078 H 11/24/19 02:55: WBC 2.2 L, RBC 3.72 L, Hgb 11.5 L, Hct 34.3 L, MCV 92.2, MCH 30.9, MCHC 33.5, Plt Count 105 L, MPV 9.4, Immature Gran % (Auto) 0.900, Neut % (Auto) 73.6 H, Lymph % (Auto) 15.7 L, Boyd % (Auto) 5.6, Eos % (Auto) 2.8, Baso % (Auto) 1.4 H, Absolute Neuts (auto) 1.6 L, Nucleated RBC % 0 11/24/19 02:55: Sodium 142, Potassium 3.8, Chloride 108 H, Carbon Dioxide 28.0, Anion Gap 6, BUN 15, Creatinine 0.76, Est GFR (MDRD) Af Amer 129, Est GFR (MDRD) Non-Af 107, BUN/Creatinine Ratio 19.7, Glucose 128 H, Calcium 8.6 11/24/19 02:55: Troponin I 0.062 H Rhythm: EKG: ECHO: Stress Test: Cardiac Cath: PCI: CT Surgery: Holter monitor: EPS: PPM: CXR: Chest CT Scan: Assessment/Plan 1. Atrial fibrillation with rapid ventricular response rate. * Patient appears to be rather asymptomatic from the above. This was unbeknownst to him. His last echocardiogram done in October of this year demonstrated ejection fraction of 60 to 65% with concentric left ventricular patency and biatrial enlargement and moderate aortic regurgitation with a mildly dilated aortic root. * Recommendation at this time will be to anticoagulate him and rate control. * 2. Abnormal cardiac enzymes * He does have evidence of known coronary artery disease status post angioplasty and stenting less than a month ago. This was of his diagonal vessel. At this time I do not think that this is secondary to a type I event. It appears to be likely demand ischemia. I would recommend that we continue to medically manage him. * 3. Coronary artery disease * He does have evidence of coronary artery disease status post previous angioplasty and stenting of his right coronary artery remotely, of his left anterior descending artery and first diagonal branch in 2017, and repeat angioplasty and stenting of the diagonal branch in October 2019. My recommendation is for us to continue with aggressive risk factor modification. * 4. Hypertension * His blood pressure appears well-controlled on the current medical therapy and will continue with the same with no changes. * 5. Hyperlipidemia * he will continue with aggressive risk factor modification * * 6. Lung Ca * As per [place] [facility]. * Thank you for allowing me to participate in the care of your patient. Please don't hesitate to call if any issues arise
[2019-11-24 09:51] LABS: Bedside Glucose 169 mg/dL (70-110)
[2019-11-24] MEDS: Glucerna Shake 120 ML LIQUID PO (11:45)
[2019-11-24] MEDS: Insulin Lispro 100 UNIT/ML INSULN.PEN SC (11:46)
[2019-11-24] MEDS: APIXABAN 5 MG TABLET PO ×2 (11:47→21:07)
--- NOTE | 2019-11-24 11:53 | CM.UR ---
Met face to face with patient. Daughter present at bedside. Asked patient and daughter if he has any home/discharge planning needs. Both deny any needs. Already has home O2. Gave 30 day free trial for Eliquis and instructed [facility]. Explained that [facility] and they then mail to home so it if imperative that he go to local pharmacy and use the 30 day free trial card. Verb understanding. Edward Aannd RN, CCM.
[2019-11-24 12:05] LABS: Bedside Glucose 212 mg/dL (70-110)
--- NOTE | 2019-11-24 13:24 | PN_ITS ---
Patient Problems: Active and Suspected Problems (Last Reviewed 11/24/19 @ 02:[address] Delgado Huang MD) Atrial fibrillation (Acute) Elevated troponin (Acute) Atrial fibrillation with RVR (Acute) Reason for Visit: Follow-up on atrial fibrillation Subjective: Patient was seen and examined. Denied any new complaint. No acute events overnight. Denies any chest pain or palpitation or dizziness. Vitals/I&O's: Vital Signs Temp Pulse Resp BP Pulse Ox 98.1 F 106 H 18 127/60 H 92 11/24/19 10:48 11/24/19 11:02 11/24/19 10:48 11/24/19 10:48 11/24/19 10:48 Oxygen Flow Rate (L/min) 2 Oxygen Delivery Method Nasal Cannula Weight: 97.9 kg Body Mass Index (BMI) 32.8 Intake and Output for Last 24 Hours 11/22/19 11/23/19 11/24/19 23:59 23:59 23:59 Intake Total 500 / 500 480 / 480 Balance 500 / 500 480 / 480 General: Alert, Oriented x3, Cooperative, No apparent distress, - - obese, on 2L oxygen HEENT: Atraumatic, PERRLA, EOMI, Normocephalic Oral: Moist Mucosa Neck: Supple Lungs: Clear to auscultation, Normal air movement Cardiovascular: Regular rate, Regular Rhythm, Normal S1, Normal S2, No murmurs Abdomen: Bowel Sounds Present, Soft, Non Tender, Non-Distended Extremities: No edema Skin: No rashes Musculoskeletal: No Tenderness to Palpation of Joints or Extremities Lymphatic: No Cervical, Supraclavicular, or Inguinal Adenopathy Neurological: Cranial nerves II-XII grossly intact, Neuro grossly intact Psych/Mental Status: Normal Affect, Appropriate Laboratory Results 11/23/19 16:05: WBC 2.5 L, RBC 3.88 L, Hgb 12.3 L, Hct 35.6 L, MCV 91.8, MCH 31.7, MCHC 34.6, RDW Std Deviation 48.4 H, RDW Coeff of Jony 15.3 H, Plt Count 153, MPV 10.3, Immature Gran % (Auto) 0.800, Neut % (Auto) 78.9 H, Lymph % (Auto) 11.4 L, Phillips % (Auto) 5.7, Eos % (Auto) 2.4, Baso % (Auto) 0.8, Absolute Neuts (auto) 1.9 L, Absolute Lymphs (auto) 0.28 L, Nucleated RBC % 0, Differential Comment SEE COMMENT, Diff Path Review May foll, Platelet Estimate ADEQUATE, RBC Morphology N CHROM, Anisocytosis RARE, Macrocytosis RARE 11/23/19 16:05: PT 13.2, INR 1.0 11/23/19 16:05: Sodium 142, Potassium 3.7, Chloride 109 H, Carbon Dioxide 30.0, Anion Gap 3 L, BUN 18, Creatinine 0.93, Estim Creat Clear Calc 68.44, Est GFR (MDRD) Af Amer 103, Est GFR (MDRD) Non-Af 85, BUN/Creatinine Ratio 19.4, Glucose 167 H, Calcium 8.9, Total Bilirubin 0.60, AST 11 L, ALT 18, Alkaline Phosphatase 70, Troponin I 0.089 H, Total Protein 6.8, Albumin 3.0 L, Globulin 3.8, Albumin/Globulin Ratio 0.8 L 11/23/19 16:05: Magnesium 2.1 11/23/19 21:10: Troponin I 0.066 H 11/23/19 21:44: POC Glucose 95 11/24/19 00:10: Troponin I 0.078 H 11/24/19 02:55: WBC 2.2 L, RBC 3.72 L, Hgb 11.5 L, Hct 34.3 L, MCV 92.2, MCH 30.9, MCHC 33.5, RDW Std Deviation 48.6 H, RDW Coeff of Jony 15.0 H, Plt Count 105 L, MPV 9.4, Immature Gran % (Auto) 0.900, Neut % (Auto) 73.6 H, Lymph % (Auto) 15.7 L, Phillips % (Auto) 5.6, Eos % (Auto) 2.8, Baso % (Auto) 1.4 H, Absolute Neuts (auto) 1.6 L, Absolute Lymphs (auto) 0.34 L, Nucleated RBC % 0, Differential Comment SCANNED 11/24/19 02:55: Sodium 142, Potassium 3.8, Chloride 108 H, Carbon Dioxide 28.0, Anion Gap 6, BUN 15, Creatinine 0.76, Estim Creat Clear Calc 63.65, Est GFR (MDRD) Af Amer 129, Est GFR (MDRD) Non-Af 107, BUN/Creatinine Ratio 19.7, Glucose 128 H, Calcium 8.6, TSH 0.51 11/24/19 02:55: Troponin I 0.062 H 11/24/19 06:28: POC Glucose 97 11/24/19 09:07: POC Glucose 169 H 11/24/19 11:42: POC Glucose 212 H Current Medications Acetaminophen (Tylenol) 650 mg PO Q6H PRN PRN PRN Reason: Pain Score 1-10/Temp > 100.7 F Albuterol Sulfate (Ventolin Aerosols) 2.5 mg INHALATION Q2H PRN PRN PRN Reason: SOB &/OR WHEEZING Albuterol/Ipratropium (Duoneb) 3 ml INHALATION Q6HWA.RT [facility] Last Admin: 11/24/19 07:15 Dose: 3 ml Documented by: Apixaban (Eliquis) 5 mg PO BID [facility] Last Admin: 11/24/19 11:47 Dose: 5 mg Documented by: [facility], [facility] Admin: 11/24/19 08:58 Dose: 81 mg Documented by: Atorvastatin Calcium (Lipitor) 80 mg PO QHS [facility] Last Admin: 11/23/19 22:39 Dose: 80 mg Documented by: Budesonide (Pulmicort Aerosol) 0.5 mg INHALATION Q12H.RT [facility] Last Admin: 11/24/19 07:15 Dose: 0.5 mg Documented by: Buspirone HCl (Buspar) 10 mg PO BID [facility] Last Admin: 11/24/19 08:56 Dose: 10 mg Documented by: Carvedilol (Coreg) 25 mg PO BID [facility] Last Admin: 11/24/19 11:20 Dose: Not Given Documented by: Cholecalciferol (Vitamin D (25mcg)) 3,000 unit PO DAILY [facility] Last Admin: 11/24/19 08:55 Dose: 3,000 unit Documented by: Clopidogrel Bisulfate (Plavix) 75 mg PO DAILY [facility] Last Admin: 11/24/19 08:55 Dose: 75 mg Documented by: Cyanocobalamin (Vitamin B12) 1,000 mcg PO DAILY [facility] Last Admin: 11/24/19 08:55 Dose: 1,000 mcg Documented by: Doxazosin Mesylate (Cardura) 3 mg PO QHS [facility] Last Admin: 11/23/19 22:38 Dose: 3 mg Documented by: Empagliflozin (Jardiance) 12.5 mg PO DAILY [facility] Last Admin: 11/24/19 08:57 Dose: 12.5 mg Documented by: Fluticasone Propionate (Flonase Nasal Biddle) 1 spray NASAL DAILY [facility] Last Admin: 11/24/19 08:57 Dose: 1 spray Documented by: Furosemide (Lasix) 20 mg PO DAILY [facility] Last Admin: 11/24/19 08:56 Dose: 20 mg Documented by: Gabapentin (Neurontin) 900 mg PO TID [facility] Last Admin: 11/24/19 06:30 Dose: 900 mg Documented by: Glipizide (Glucotrol) 5 mg PO BIDCM [facility] Last Admin: 11/24/19 08:59 Dose: 5 mg Documented by: Glucagon () 1 mg IM .X1 PRN PRN Reason: Hypoglycemia Dextrose (Dextrose 10%-Water) 250 mls @ 999 mls/hr IV .Q16M PRN; Protocol PRN Reason: HYPOGLYCEMIA Insulin Glargine (Lantus (Bk)) 30 units SC DAILY [facility] Last Admin: 11/24/19 09:08 Dose: 30 u Documented by: Insulin Human Lispro (Humalog Kwikpen ([facility])) 0 unit SC ACHS [facility]; Protocol Last Admin: 11/24/19 11:46 Dose: 4 units Documented by: Isosorbide Mononitrate (Imdur) 180 mg PO DAILY [facility] Last Admin: 11/24/19 08:56 Dose: 180 mg Documented by: Lisinopril (Zestril) 20 mg PO BID [facility] Last Admin: 11/24/19 08:58 Dose: 20 mg Documented by: Ondansetron HCl (Zofran) 4 mg IV Q8H PRN PRN PRN Reason: NAUSEA/VOMITING Pantoprazole Sodium (Protonix) 40 mg PO BREAKFAST [facility] Last Admin: 11/24/19 08:56 Dose: 40 mg Documented by: Paroxetine HCl (Paxil) 40 mg PO DAILY [facility] Last Admin: 11/24/19 08:55 Dose: 40 mg Documented by: Sodium Chloride () 10 - 40 ml IV UD PRN PRN Reason: SALINE FLUSH Tamsulosin HCl (Flomax) 0.4 mg PO DAILY [facility] Last Admin: 11/24/19 08:56 Dose: 0.4 mg Documented by: STROKE Vital Signs/Narrative: Vital Signs Temp Pulse Resp BP Pulse Ox 11/24/19 11:02 106 H 11/24/19 10:48 98.1 F 89 18 127/60 H 92 Medical Necessity - Tobacco Use Smoking Status: Former smoker Tobacco Use: Non-smoker Assessment/Plan All Active Problems (Last Reviewed 11/24/19 @ 02:[address] Delgado Huang MD) Atrial fibrillation (Acute) Elevated troponin (Acute) Atrial fibrillation with RVR (Acute) 1. A. fib with RVR, rate controlled now, TSH is 0.51, magnesium is 2.1 Continue on carvedilol and Eliquis Cardiology following 2. Elevated troponin likely secondary to demand from A. fib with RVR, stable 3. CAD status post 7 stents to his diagonal, continue on Coreg, aspirin, statin, though and Plavix 4. Leukopenia, started neutrophil count of 1.6, likely secondary to chemotherapy, continue to monitor 5. Type II DM, blood sugars controlled, continue Jardiance, glipizide, Lantus, insulin sliding scale with blood glucose checks 6. Hypertension, controlled, continue on lisinopril 7. Anxiety/depression, on Paxil 8. DVT PPx- On apixaban Inpatient E&M: 27608 Subs Hosp L2
[2019-11-24 17:11] LABS: Bedside Glucose 86 mg/dL (70-110)
--- NOTE | 2019-11-24 18:01 | CM.UR ---
Attempted to contact [facility] however no answer at first line and on hold at 2nd line for 47 minutes. Faxed clinical to both fax number successfully. Edward Anand RN, CCM.
[2019-11-24] MEDS: Carvedilol 25 MG Tablet PO (21:05)
[2019-11-24] MEDS: Atorvastatin Calcium 80 MG Tablet PO (21:05)
[2019-11-24] MEDS: Doxazosin 1 MG Tablet 3 MG PO (21:06)
[2019-11-24 23:20] LABS: Bedside Glucose 120 mg/dL (70-110)
[2019-11-25] VITALS (8 sets, daily range): BP systolic 104–139; BP diastolic 42–81; PULSE 79–147; RESP 18–20; TEMP 36.6–36.8; O2SAT 94–98
[2019-11-25 06:03] LABS: Absolute Neutrophil Count 1.6 X10^3/uL (2.0-7.7); Basophil# 0.03 X10^3/uL; Basophil% 1.4 % (0-1); Eosinophil# 0.04 X10^3/uL; Eosinophils% 1.9 % (0-5); Hematocrit 33.8 % (40-54); Hemoglobin 11.5 g/dL (13.0-16.5); Mean Corpuscular Hgb 31.2 pg (27.0-32.0); Mean Corpuscular Volume 91.6 fL (80-94); Mean Platelet Vol. 9.5 fl (6.2-12.0); Monocyte# 0.17 X10^3/uL; Monocyte% 7.9 % (0-10); NRBC Flagged by Analyzer 0 % (0-5); Neutrophil % 74.3 % (47-70); POSITIVE DIFFERENTIAL YES; Platelet Count 114 K/mm3 (150-450); RBC Distribution Width CV 14.9 % (11.6-14.6); RBC Distribution Width SD 48.3 fl (35.1-43.9); Red Blood Count 3.69 M/mm3 (4.6-6.2); White Blood Count 2.2 K/mm3 (4.4-11.0)
[2019-11-25] MEDS: Gabapentin 300 MG Capsule 900 MG PO (06:33)
[2019-11-25 06:41] LABS: Bedside Glucose 107 mg/dL (70-110)
[2019-11-25 06:51] LABS: Differential Indicated SCAN CRITERIA MET
[2019-11-25 06:54] LABS: ALB/GLOB Ratio 0.8 RATIO (0.9-2.4); AST(SGOT) 10 U/L (15-37); Alanine Aminotransfer ALT/SGPT 16 U/L (16-61); Albumin, Serum 2.8 g/dL (3.2-5.0); Alkaline Phosphatase 56 U/L (45-117); Anion Gap 5 (5-15); BUN 16 mg/dL (7-18); BUN/Creat Ratio 22.3 RATIO (10-20); Calcium,Total 8.6 mg/dL (8.5-10.1); Chloride 108 mmol/L (98-107); Creatinine, Serum 0.72 mg/dL (0.70-1.30); EST Glomerular Filtration Rate 114 mL/min (>60); Est Glom Filt Rate - Afr Amer 138 mL/min (>60); Estimated Creatinine Clearance 63.65 ml/min; Globulin 3.5 g/dL (2.2-4.2); Glucose 97 mg/dL (74-106); Potassium 3.6 mmol/L (3.5-5.1); Protein, Total 6.3 g/dL (6.4-8.2); Sodium Level 140 mmol/L (136-145)
[2019-11-25] MEDS: Ipratropium/Albuterol Sulfate 3 ML AMPUL.NEB INHALATION (06:57)
[2019-11-25] MEDS: Budesonide Respules 0.5 MG/2 ML AMPUL.NEB. INHALATION (06:58)
[2019-11-25 07:50] LABS: Platelet Estimate SLT DEC (ADEQ)
[2019-11-25] MEDS: glipiZIDE 5 MG Tablet PO (08:54)
[2019-11-25] MEDS: busPIRone 5 MG Tablet 10 MG PO (08:55)
[2019-11-25] MEDS: Isosorbide Mononitrate 60 MG Tablet 180 MG PO (08:56)
[2019-11-25] MEDS: Fluticasone 0.05% 1 SPRAY NASAL.SRY NASAL (08:56)
[2019-11-25] MEDS: Empagliflozin 25 MG Tablet 12.5 MG PO (08:56)
[2019-11-25] MEDS: Lisinopril 20 MG Tablet PO (08:57)
[2019-11-25] MEDS: Aspirin 81 MG TAB.CHEW PO (08:57)
[2019-11-25] MEDS: Carvedilol 25 MG Tablet PO (08:57)
[2019-11-25] MEDS: Pantoprazole Sodium 40 MG Tablet PO (08:57)
[2019-11-25] MEDS: Cyanocobalamin 500 MCG Tablet 1000 MCG PO (08:58)
[2019-11-25] MEDS: Paroxetine 20 MG Tablet 40 MG PO (08:58)
[2019-11-25] MEDS: Clopidogrel Bisulfate 75 MG Tablet PO (08:59)
[2019-11-25] MEDS: Tamsulosin HCl 0.4 MG Capsule PO (09:00)
[2019-11-25] MEDS: Furosemide 20 MG Tablet PO (09:00)
[2019-11-25] MEDS: APIXABAN 5 MG TABLET PO (09:02)
--- NOTE | 2019-11-25 09:15 | PN.CARD_ITS ---
Subjectve: Patient seen and evaluated. Appears to be doing well. No cardiac complaints Objective: Vital Signs Temp Pulse Resp BP Pulse Ox 98.2 F 107 H 18 120/71 95 11/25/19 08:51 11/25/19 08:51 11/25/19 08:51 11/25/19 08:51 11/25/19 08:51 Oxygen Flow Rate (L/min) 2 Oxygen Delivery Method Nasal Cannula Weight: 215 lb 13.321 oz Body Mass Index (BMI) 32.8 Intake and Output for Last 24 Hours 11/23/19 11/24/19 11/26/19 23:59 23:59 00:59 Intake Total 500 / 500 1080 / 1080 120 / 120 Balance 500 / 500 1080 / 1080 120 / 120 General: Awake, Alert, Oriented x 3 HEENT: PERRL, EOMI, Sclera Non Icteric Neck: Supple, Good ROM, No Lymph Node Enlargement Lungs: Clear to auscultation Cardiovascular: Irregular Rhythm, Normal S1, Normal S2, No Murmurs, No Rubs, No Gallops Vascular: No Carotid Bruits, Normal Femoral Pulses, Normal Radial Pulses, Normal Dorsalis Pedal Pulse, Normal Posterior Tibial Pulses Abdomen: Bowel Sounds Present, Soft, Non Tender, No HSM, No Organomegaly Extremities: No Cyanosis, No Clubbing, No edema Musculoskeletal: No Erythema Skin: No Rashes Lymphatic: No Lymph Node Enlargement Neurological: No Focal Motor or Sensory Deficit Psych/Mental Status: Appropriate 11/25/19 05:15: WBC 2.2 L, RBC 3.69 L, Hgb 11.5 L, Hct 33.8 L, MCV 91.6, MCH 31.2, MCHC 34.0, Plt Count 114 L, MPV 9.5, Immature Gran % (Auto) 0.500, Neut % (Auto) 74.3 H, Lymph % (Auto) 14.0 L, [place] % (Auto) 7.9, Eos % (Auto) 1.9, Baso % (Auto) 1.4 H, Absolute Neuts (auto) 1.6 L, Nucleated RBC % 0 11/25/19 05:15: Sodium 140, Potassium 3.6, Chloride 108 H, Carbon Dioxide 27.0, Anion Gap 5, BUN 16, Creatinine 0.72, Est GFR (MDRD) Af Amer 138, Est GFR (MDRD) Non-Af 114, BUN/Creatinine Ratio 22.3 H, Glucose 97, Calcium 8.6, Total Bilirubin 0.80 Rhythm: EKG: ECHO: Stress Test: Cardiac Cath: PCI: CT Surgery: Holter monitor: EPS: PPM: CXR: Chest CT Scan: Medical Necessity - Tobacco Use Smoking Status: Former smoker Tobacco Use: Non-smoker Assessment/Plan 1. Atrial fibrillation with rapid ventricular response rate. * Patient appears to be rather asymptomatic from the above. This was unbeknownst to him. His last echocardiogram done in October of this year demonstrated ejection fraction of 60 to 65% with concentric left ventricular patency and biatrial enlargement and moderate aortic regurgitation with a mildly dilated aortic root. * Recommendation at this time will be to anticoagulate him and rate control. He will continue with Eliquis as well as carvedilol. * 2. Abnormal cardiac enzymes * He does have evidence of known coronary artery disease status post angioplasty and stenting less than a month ago. This was of his diagonal vessel. At this time I do not think that this is secondary to a type I event. It appears to be likely demand ischemia. I would recommend that we continue to medically manage him. * 3. Coronary artery disease * He does have evidence of coronary artery disease status post previous angioplasty and stenting of his right coronary artery remotely, of his left anterior descending artery and first diagonal branch in 2017, and repeat angioplasty and stenting of the diagonal branch in October 2019. My recommendation is for us to continue with aggressive risk factor modification. * 4. Hypertension * His blood pressure appears well-controlled on the current medical therapy and will continue with the same with no changes. * 5. Hyperlipidemia * he will continue with aggressive risk factor modification * * 6. Lung Ca * As per [place] [facility]. * He has been undergoing chemotherapy on Mondays as well as radiation therapy. This will be continued. * Thank you for allowing me to participate in the care of your patient. Please don't hesitate to call if any issues arise. From the cardiac standpoint he can be discharged for outpatient follow-up.
[2019-11-25 09:30] LABS: Bedside Glucose 156 mg/dL (70-110)
--- NOTE | 2019-11-25 10:09 | PCM.PN.HOSP ---
Patient Problems: Active and Suspected Problems (Last Reviewed 11/24/19 @ 02:[address] Delgado Huang MD) Atrial fibrillation (Acute) Elevated troponin (Acute) Atrial fibrillation with RVR (Acute) Subjective: Feeling better. On baseline O2 of 2 L. Denies SOB. Asks if pharmacy here is open today because [facility] and it will take time for him to get his meds. Pt confirms that he is still undergoing treatment for Lung CA. Vitals/I&O's: Vital Signs Temp Pulse Resp BP Pulse Ox 98.2 F 147 H 18 120/71 95 11/25/19 08:51 11/25/19 10:01 11/25/19 08:51 11/25/19 08:51 11/25/19 08:51 Oxygen Flow Rate (L/min) 2 Oxygen Delivery Method Nasal Cannula Weight: 97.9 kg Body Mass Index (BMI) 32.8 Intake and Output for Last 24 Hours 11/23/19 11/24/19 11/26/19 23:59 23:59 00:59 Intake Total 500 / 500 1080 / 1080 120 / 120 Balance 500 / 500 1080 / 1080 120 / 120 General: Alert, Oriented x3, Cooperative, No apparent distress, Well developed, Well nourished HEENT: Atraumatic, PERRLA, EOMI, Normocephalic, EAC Clear Oral: Moist Mucosa, No Gingival or Mucosal Lesions/ Ulcerations Neck: Supple, No JVD, Negative Carotid Bruits, Negative Hepatojugular Reflux, Trachea Midline, Thyroid Normal Size and Texture Lungs: No rhonchi, No rales, Diminished - diffusely, Wheezes - few scattered Cardiovascular: Regular rate, Normal S1, Normal S2, No murmurs, No Ectopic Activity, No rub noted, No Gallop, - - irreg rhythm Abdomen: Bowel Sounds Present, Soft, Non Tender, Non-Distended, No Hepato-splenomegaly, Obese, No hernias noted Extremities: No clubbing, No cyanosis, No edema, Capillary Refill Less than 3 Seconds, No Calf Tenderness Skin: No rashes, No breakdown Musculoskeletal: No Tenderness to Palpation of Joints or Extremities, No Muscle Wasting Lymphatic: No Cervical, Supraclavicular, or Inguinal Adenopathy Neurological: Cranial nerves II-XII grossly intact, Deep Tendon Reflexes 2+/4 and Symmetrical, Neuro grossly intact, - - mild generalized weakness Psych/Mental Status: Normal Affect, Appropriate, - - very pleasant Comment: Daughter at bedside Laboratory Results 11/24/19 09:07: POC Glucose 169 H 11/24/19 11:42: POC Glucose 212 H 11/24/19 16:50: POC Glucose 86 11/24/19 21:05: POC Glucose 120 H 11/25/19 05:15: WBC 2.2 L, RBC 3.69 L, Hgb 11.5 L, Hct 33.8 L, MCV 91.6, MCH 31.2, MCHC 34.0, RDW Std Deviation 48.3 H, RDW Coeff of Jony 14.9 H, Plt Count 114 L, MPV 9.5, Immature Gran % (Auto) 0.500, Neut % (Auto) 74.3 H, Lymph % (Auto) 14.0 L, [place] % (Auto) 7.9, Eos % (Auto) 1.9, Baso % (Auto) 1.4 H, Absolute Neuts (auto) 1.6 L, Absolute Lymphs (auto) 0.30 L, Nucleated RBC % 0, Differential Comment , Diff Path Review January, Platelet Estimate SLT 11/25/19 05:15: Sodium 140, Potassium 3.6, Chloride 108 H, Carbon Dioxide 27.0, Anion Gap 5, BUN 16, Creatinine 0.72, Estim Creat Clear Calc 63.65, Est GFR (MDRD) Af Amer 138, Est GFR (MDRD) Non-Af 114, BUN/Creatinine Ratio 22.3 H, Glucose 97, Calcium 8.6, Total Bilirubin 0.80, AST 10 L, ALT 16, Alkaline Phosphatase 56, Total Protein 6.3 L, Albumin 2.8 L, Globulin 3.5, Albumin/Globulin Ratio 0.8 L 11/25/19 06:35: POC Glucose 107 11/25/19 08:53: POC Glucose 156 H Current Medications Acetaminophen (Tylenol) 650 mg PO Q6H PRN PRN PRN Reason: Pain Score 1-10/Temp > 100.7 F Albuterol Sulfate (Ventolin Aerosols) 2.5 mg INHALATION Q2H PRN PRN PRN Reason: SOB &/OR WHEEZING Albuterol/Ipratropium (Duoneb) 3 ml INHALATION Q6HWA.RT [facility] Last Admin: 11/25/19 06:57 Dose: 3 ml Documented by: Apixaban (Eliquis) 5 mg PO BID [facility] Last Admin: 11/25/19 09:02 Dose: 5 mg Documented by: Aspirin (Aspirin, Baby) 81 mg PO DAILYCM [facility] Last Admin: 11/25/19 08:57 Dose: 81 mg Documented by: Atorvastatin Calcium (Lipitor) 80 mg PO QHS [facility] Last Admin: 11/24/19 21:05 Dose: 80 mg Documented by: Budesonide (Pulmicort Aerosol) 0.5 mg INHALATION Q12H.RT [facility] Last Admin: 11/25/19 06:58 Dose: 0.5 mg Documented by: Buspirone HCl (Buspar) 10 mg PO BID [facility] Last Admin: 11/25/19 08:55 Dose: 10 mg Documented by: Carvedilol (Coreg) 25 mg PO BID [facility] Last Admin: 11/25/19 08:57 Dose: 25 mg Documented by: Cholecalciferol (Vitamin D (25mcg)) 3,000 unit PO DAILY [facility] Last Admin: 11/25/19 08:59 Dose: 3,000 unit Documented by: Clopidogrel Bisulfate (Plavix) 75 mg PO DAILY [facility] Last Admin: 11/25/19 08:59 Dose: 75 mg Documented by: Cyanocobalamin (Vitamin B12) 1,000 mcg PO DAILY [facility] Last Admin: 11/25/19 08:58 Dose: 1,000 mcg Documented by: Doxazosin Mesylate (Cardura) 3 mg PO QHS [facility] Last Admin: 11/24/19 21:06 Dose: 3 mg Documented by: Empagliflozin (Jardiance) 12.5 mg PO DAILY [facility] Last Admin: 11/25/19 08:56 Dose: 12.5 mg Documented by: Fluticasone Propionate (Flonase Nasal [place]) 1 spray NASAL DAILY [facility] Last Admin: 11/25/19 08:56 Dose: 1 spray Documented by: Furosemide (Lasix) 20 mg PO DAILY [facility] Last Admin: 11/25/19 09:00 Dose: 20 mg Documented by: Gabapentin (Neurontin) 900 mg PO TID [facility] Last Admin: 11/25/19 06:33 Dose: 900 mg Documented by: [facility] Last Admin: 11/25/19 08:54 Dose: 5 mg Documented by: Glucagon () 1 mg IM .X1 PRN PRN Reason: Hypoglycemia Dextrose (Dextrose 10%-Water) 250 mls @ 999 mls/hr IV .Q16M PRN; Protocol PRN Reason: HYPOGLYCEMIA Insulin Glargine (Lantus ([facility])) 30 units SC DAILY [facility] Last Admin: 11/25/19 08:59 Dose: 30 u Documented by: Insulin Human Lispro (Humalog Kwikpen ([facility])) 0 unit SC ACHS [facility]; Protocol Last Admin: 11/25/19 06:36 Dose: Not Given Documented by: Isosorbide Mononitrate (Imdur) 180 mg PO DAILY [facility] Last Admin: 11/25/19 08:56 Dose: 180 mg Documented by: Lisinopril (Zestril) 20 mg PO BID [facility] Last Admin: 11/25/19 08:57 Dose: 20 mg Documented by: Ondansetron HCl (Zofran) 4 mg IV Q8H PRN PRN PRN Reason: NAUSEA/VOMITING Pantoprazole Sodium (Protonix) 40 mg PO BREAKFAST [facility] Last Admin: 11/25/19 08:57 Dose: 40 mg Documented by: Paroxetine HCl (Paxil) 40 mg PO DAILY [facility] Last Admin: 11/25/19 08:58 Dose: 40 mg Documented by: Sodium Chloride () 10 - 40 ml IV UD PRN PRN Reason: SALINE FLUSH Tamsulosin HCl (Flomax) 0.4 mg PO DAILY [facility] Last Admin: 11/25/19 09:00 Dose: 0.4 mg Documented by: STROKE Vital Signs/Narrative: Vital Signs Temp Pulse Resp BP Pulse Ox 11/25/19 10:01 147 H 11/25/19 08:51 98.2 F 107 H 18 120/71 95 11/25/19 06:58 88 20 H 94 11/25/19 06:53 98 Medical Necessity - Tobacco Use Smoking Status: Former smoker Tobacco Use: Non-smoker Assessment/Plan All Active Problems (Last Reviewed 11/24/19 @ 02:[address] Delgado Huang MD) Atrial fibrillation (Acute) Elevated troponin (Acute) Atrial fibrillation with RVR (Acute) A-Fib with RVR -HR overall is much better -Per Cards is ok for d/c -TSH is WNL -Continue BB (Coreg 25 mg BID) -Continue Apixaban 5 mg BID -? if aerosol increased HR -Cardiology following CKD stage 3 -sCr is at baseline -monitor Troponin elevation -2/2 demand ischemia with RVR -ASA/Plavix Pancytopenia -on chemotherapy for Lung Cancer CAD/HTN/HPL -Continue ASA/BB/Statin/Plavix/Lisinopril/Imdur -continue Lasix GERD -continue Protonix DM-2 -Continue Glipizide/Lantus/Jardiance -BGT AC TID BPH -continue Cardura/Flomax Depression -continue Paxil/Buspar Vitamin D Deficiency -continue Vit D replacement 3000 U daily COPD -Continue Symbicort -prn albuterol HFA -continue Spiriva H/O Lung Cancer DVT prophylaxis -NOAC Code Status -DNR-CCA--> NO ETT Dispo -D/C today -new scripts written
--- NOTE | 2019-11-25 10:34 | PCM.DC.SUM ---
Discharge Date and Diagnosis Date of Admission: 11/23/19 Date of Discharge: 11/25/19 - Primary Discharge Diagnosis Active and Suspected Problems (Last Reviewed 11/24/19 @ 02:[address] Delgado Huang MD) Atrial fibrillation (Acute) Elevated troponin (Acute) Atrial fibrillation with RVR (Acute) - Secondary Discharge Diagnosis Chronic Problems (Last Reviewed 11/24/19 @ 02:[address] Delgado Huang MD) Arteriosclerotic cardiovascular disease (Chronic) Stented coronary artery (Chronic 10/24/19) Multiple stents previously placed to LAD, LCX and RCA in past: 10/24/2019 CELIA to first diagonal per [facility] History of left heart catheterization (Chronic 10/24/19) Left Ventricular Ejection Fraction: by LV Gram 55 %; Global Hypokinesis - Mild Depressed Left Ventricular systolic function; Normal Left Ventricular End Diastolic Pressure; LVEDP: 14 mmHg; LEFT MAIN: 20 ostial % Stenosis; LEFT ANTERIOR DESCENDING ARTERY: PROX LAD: Mild luminal irregularities less than 30% MID LAD: Moderate luminal irregularities up to 50%, Previously placed stent is patent; DIAGONAL 1: Proximal - Previously placed stent has an instent 85 % restenosis; CIRCUMFLEX ARTERY: MID CIRC: Previously placed stent has an instent 20 % restenosis;DISTAL CIRC: Moderate luminal irregularities up to 50% RIGHT CORONARY ARTERY: MID RCA: Previously placed stent is patent HTN (hypertension) (Chronic) Diabetes (Chronic) Hospital Course and Treatment Cardiology-Dr. Oseguera Operations: None Summary of Care Provided: Mr. Moreno is a 74 year old M who presented to the ED on 11/23/2019 d/o having a irregular and fast HR while having an EKG and an Echocardiogram at the [facility]. He was having palpitations at the time of admission. He was found to be in A-Fib with RVR in the ED and was given a Cardizem bolus. His troponin was also found to be elevated at that time as well. He was admitted to the PCU and cardiology was consulted. 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 The ECHO that was done demonstrated and EF of 60-65%. He was started on Coreg 25 mg BID for HR control and Eliquis 5 mg BID for OAC. His troponin elevation was felt most likely to be related to demand ischemia from his tachycardia and no further w/u was pursued at this time. His rate was controlled with the BB and he was written script at d/c for both the Coreg and Eliquis. He is on his baseline O2 supplementation at d/c of 2 L and in stable condition - Physical Exam Vitals/I&O's: Vital Signs Temp Pulse Resp BP Pulse Ox 98.2 F 147 H 18 120/71 95 11/25/19 08:51 11/25/19 10:01 11/25/19 08:51 11/25/19 08:51 11/25/19 08:51 Oxygen Flow Rate (L/min) 2 Oxygen Delivery Method Nasal Cannula Weight: 97.9 kg Body Mass Index (BMI) 32.8 Intake and Output for Last 24 Hours 11/23/19 11/24/19 11/26/19 23:59 23:59 00:59 Intake Total 500 / 500 1080 / 1080 120 / 120 Balance 500 / 500 1080 / 1080 120 / 120 Laboratory Results 11/24/19 09:07: POC Glucose 169 H 11/24/19 11:42: POC Glucose 212 H 11/24/19 16:50: POC Glucose 86 11/24/19 21:05: POC Glucose 120 H 11/25/19 05:15: WBC 2.2 L, RBC 3.69 L, Hgb 11.5 L, Hct 33.8 L, MCV 91.6, MCH 31.2, MCHC 34.0, RDW Std Deviation 48.3 H, RDW Coeff of Jony 14.9 H, Plt Count 114 L, MPV 9.5, Immature Gran % (Auto) 0.500, Neut % (Auto) 74.3 H, Lymph % (Auto) 14.0 L, [place] % (Auto) 7.9, Eos % (Auto) 1.9, Baso % (Auto) 1.4 H, Absolute Neuts (auto) 1.6 L, Absolute Lymphs (auto) 0.30 L, Nucleated RBC % 0, Differential Comment , Diff Path Review January ponce, Platelet Estimate SLT 11/25/19 05:15: Sodium 140, Potassium 3.6, Chloride 108 H, Carbon Dioxide 27.0, Anion Gap 5, BUN 16, Creatinine 0.72, Estim Creat Clear Calc 63.65, Est GFR (MDRD) Af Amer 138, Est GFR (MDRD) Non-Af 114, BUN/Creatinine Ratio 22.3 H, Glucose 97, Calcium 8.6, Total Bilirubin 0.80, AST 10 L, ALT 16, Alkaline Phosphatase 56, Total Protein 6.3 L, Albumin 2.8 L, Globulin 3.5, Albumin/Globulin Ratio 0.8 L 11/25/19 06:35: POC Glucose 107 11/25/19 08:53: POC Glucose 156 H Current Medications Acetaminophen (Tylenol) 650 mg PO Q6H PRN PRN PRN Reason: Pain Score 1-10/Temp > 100.7 F Albuterol Sulfate (Ventolin Aerosols) 2.5 mg INHALATION Q2H PRN PRN PRN Reason: SOB &/OR WHEEZING Albuterol/Ipratropium (Duoneb) 3 ml INHALATION Q6HWA.RT [facility] Last Admin: 11/25/19 06:57 Dose: 3 ml Documented by: Apixaban (Eliquis) 5 mg PO BID [facility] Last Admin: 11/25/19 09:02 Dose: 5 mg Documented by: Aspirin (Aspirin, Baby) 81 mg PO DAILYCM [facility] Last Admin: 11/25/19 08:57 Dose: 81 mg Documented by: Atorvastatin Calcium (Lipitor) 80 mg PO QHS [facility] Last Admin: 11/24/19 21:05 Dose: 80 mg Documented by: Budesonide (Pulmicort Aerosol) 0.5 mg INHALATION Q12H.RT [facility] Last Admin: 11/25/19 06:58 Dose: 0.5 mg Documented by: Buspirone HCl (Buspar) 10 mg PO BID [facility] Last Admin: 11/25/19 08:55 Dose: 10 mg Documented by: Carvedilol (Coreg) 25 mg PO BID [facility] Last Admin: 11/25/19 08:57 Dose: 25 mg Documented by: Cholecalciferol (Vitamin D (25mcg)) 3,000 unit PO DAILY [facility] Last Admin: 11/25/19 08:59 Dose: 3,000 unit Documented by: Clopidogrel Bisulfate (Plavix) 75 mg PO DAILY [facility] Last Admin: 11/25/19 08:59 Dose: 75 mg Documented by: Cyanocobalamin (Vitamin B12) 1,000 mcg PO DAILY [facility] Last Admin: 11/25/19 08:58 Dose: 1,000 mcg Documented by: Doxazosin Mesylate (Cardura) 3 mg PO QHS [facility] Last Admin: 11/24/19 21:06 Dose: 3 mg Documented by: Empagliflozin (Jardiance) 12.5 mg PO DAILY [facility] Last Admin: 11/25/19 08:56 Dose: 12.5 mg Documented by: Fluticasone Propionate (Flonase Nasal [place]) 1 spray NASAL DAILY [facility] Last Admin: 11/25/19 08:56 Dose: 1 spray Documented by: Furosemide (Lasix) 20 mg PO DAILY [facility] Last Admin: 11/25/19 09:00 Dose: 20 mg Documented by: Gabapentin (Neurontin) 900 mg PO TID [facility] Last Admin: 11/25/19 06:33 Dose: 900 mg Documented by: Glipizide (Glucotrol) 5 mg PO BIDCM [facility] Last Admin: 11/25/19 08:54 Dose: 5 mg Documented by: Glucagon () 1 mg IM .X1 PRN PRN Reason: Hypoglycemia Dextrose (Dextrose 10%-Water) 250 mls @ 999 mls/hr IV .Q16M PRN; Protocol PRN Reason: HYPOGLYCEMIA Insulin Glargine (Lantus ([facility])) 30 units SC DAILY [facility] Last Admin: 11/25/19 08:59 Dose: 30 u Documented by: Insulin Human Lispro (Humalog Kwikpen ([facility])) 0 unit SC ACHS [facility]; Protocol Last Admin: 11/25/19 06:36 Dose: Not Given Documented by: Isosorbide Mononitrate (Imdur) 180 mg PO DAILY [facility] Last Admin: 11/25/19 08:56 Dose: 180 mg Documented by: Lisinopril (Zestril) 20 mg PO BID [facility] Last Admin: 11/25/19 08:57 Dose: 20 mg Documented by: Ondansetron HCl (Zofran) 4 mg IV Q8H PRN PRN PRN Reason: NAUSEA/VOMITING Pantoprazole Sodium (Protonix) 40 mg PO BREAKFAST [facility] Last Admin: 11/25/19 08:57 Dose: 40 mg Documented by: Paroxetine HCl (Paxil) 40 mg PO DAILY [facility] Last Admin: 11/25/19 08:58 Dose: 40 mg Documented by: Sodium Chloride () 10 - 40 ml IV UD PRN PRN Reason: SALINE FLUSH Tamsulosin HCl (Flomax) 0.4 mg PO DAILY [facility] Last Admin: 11/25/19 09:00 Dose: 0.4 mg Documented by: Discharge Diet: Low fat/ Low Cholesterol, Carb Control Diet Discharge Activity: Return to Normal Activity Home Medications: Medications to take at Discharge Albuterol Sulfate [Proair Digihaler] 2 puff IH 4X/DAY PRN PRN 10/23/19 Budesonide/Formoterol Fumarate [Symbicort 160-4.5 Mcg Inhaler] 2 puff IH BID 10/23/19 Empagliflozin [Jardiance] 0.5 tab PO DAILY 10/23/19 Fluticasone Propionate [Flovent Diskus] 50 mcg NASAL DAILY 10/23/19 Gabapentin [Neurontin] 3 tab PO TID 10/23/19 Glipizide 5 mg PO BID 10/23/19 Insulin Glargine [Lantus SoloStar Pen] 40 units SUBCUT DAILY 10/23/19 Isosorbide Mononitrate [Imdur] 180 mg PO DAILY 10/23/19 Nitroglycerin [Nitrostat] 1 tab SL PRN PRN 10/23/19 Paroxetine [Paxil] 2 tab PO DAILY 10/23/19 Prazosin HCl 4 mg PO QHS 10/23/19 Tiotropium [place] [Spiriva 18 MCG] 2 puff INHALATION Q6H PRN PRN 10/23/19 busPIRone [Buspar] 10 mg PO BID 10/23/19 Acetaminophen 2 tab PO 4X/DAY PRN 10/24/19 Lisinopril 20 mg PO BID 10/24/19 Clopidogrel Bisulfate [Plavix] 75 mg PO DAILY 30 Days #30 tab 10/25/19 Aspirin [Aspirin, Baby] 81 mg PO DAILY 11/23/19 Cholecalciferol (VIT D3) [Vitamin D3] 3,000 unit PO DAILY 11/23/19 Cyanocobalamin (Vitamin B-12) [B-12] 1,000 mcg PO DAILY 11/23/19 Ketoconazole [Nizoral] 120 ml TP QWEEK 11/23/19 Pantoprazole Sodium 40 mg PO BREAKFAST 11/23/19 Potassium Chloride 10 meq PO DAILY 11/23/19 Rosuvastatin Calcium 40 mg PO QHS 11/23/19 Tamsulosin HCl 0.4 mg PO DAILY 11/23/19 Acetaminophen [Tylenol Tablet] 650 mg PO Q6H PRN PRN tab 11/25/19 Apixaban [Eliquis] 5 mg PO BID #60 tab 11/25/19 Budesonide Aerosol [Pulmicort Respules] 0.5 mg INHALATION Q12H.RT ampul.neb. 11/25/19 Carvedilol [Coreg ([facility] [place])] 25 mg PO BID 60 Days tab 11/25/19 Following Prescrptions Were Given to Patient: Carvedilol [Coreg ([facility] [place])] 25 mg PO BID 60 Days tab Prescription Printed Apixaban [Eliquis] 5 mg PO BID #60 tab Transmission Status: Received by [facility] Primary Care Physician: [facility] [Primary Care Provider] - Disposition: Home Patient Condition:: Good Medical Necessity - Tobacco Use Smoking Status: Former smoker Tobacco Use: Non-smoker Meaningful Use Info Meaningful Use Diagnoses (Choose all that apply): None applicable Inpatient E&M: 37532 [facility]
--- NOTE | 2019-11-25 10:46 | DCINST_ITS ---
- Discharge Diagnoses Current Active Problems: Current Active and Chronic Problems (Last Reviewed 11/24/19 @ 02:[address] Delgado Huang MD) Atrial fibrillation (Acute) Elevated troponin (Acute) Atrial fibrillation with RVR (Acute) You will use the following diet at home:: Calorie/Carbohydrate Controlled (specify 1200, 1400, etc), Cardiac Your food should be the consistency of: Regular Discharge Activity: Return to Normal Activity Allergies/Adverse Reactions: Allergies cephalexin [From Keflex] Allergy (Verified 11/23/19 16:39) Unknown doxycycline Allergy (Verified 11/23/19 16:39) Unknown Penicillins Allergy (Verified 11/23/19 16:39) Unknown metformin Adverse Reaction (Verified 11/23/19 16:39) Upset Stomach niacin Adverse Reaction (Verified 11/23/19 16:39) Rash simvastatin Adverse Reaction (Verified 11/23/19 16:39) Rash Medications to take at Discharge Albuterol Sulfate [Proair Digihaler] 2 puff IH 4X/DAY PRN PRN 10/23/19 Budesonide/Formoterol Fumarate [Symbicort 160-4.5 Mcg Inhaler] 2 puff IH BID 10/23/19 Empagliflozin [Jardiance] 0.5 tab PO DAILY 10/23/19 Fluticasone Propionate [Flovent Diskus] 50 mcg NASAL DAILY 10/23/19 Gabapentin [Neurontin] 3 tab PO TID 10/23/19 Glipizide 5 mg PO BID 10/23/19 Insulin Glargine [Lantus SoloStar Pen] 40 units SUBCUT DAILY 10/23/19 Isosorbide Mononitrate [Imdur] 180 mg PO DAILY 10/23/19 Nitroglycerin [Nitrostat] 1 tab SL PRN PRN 10/23/19 Paroxetine [Paxil] 2 tab PO DAILY 10/23/19 Prazosin HCl 4 mg PO QHS 10/23/19 Tiotropium [place] [Spiriva 18 MCG] 2 puff INHALATION Q6H PRN PRN 10/23/19 busPIRone [Buspar] 10 mg PO BID 10/23/19 Acetaminophen 2 tab PO 4X/DAY PRN 10/24/19 Lisinopril 20 mg PO BID 10/24/19 Clopidogrel Bisulfate [Plavix] 75 mg PO DAILY 30 Days #30 tab 10/25/19 Furosemide [Lasix] 20 mg PO DAILY 30 Days #30 tab 10/25/19 Aspirin [Aspirin, Baby] 81 mg PO DAILY 11/23/19 Cholecalciferol (VIT D3) [Vitamin D3] 3,000 unit PO DAILY 11/23/19 Cyanocobalamin (Vitamin B-12) [B-12] 1,000 mcg PO DAILY 11/23/19 Ketoconazole [Nizoral] 120 ml TP QWEEK 11/23/19 Pantoprazole Sodium 40 mg PO BREAKFAST 11/23/19 Potassium Chloride 10 meq PO DAILY 11/23/19 Rosuvastatin Calcium 40 mg PO QHS 11/23/19 Tamsulosin HCl 0.4 mg PO DAILY 11/23/19 Acetaminophen [Tylenol Tablet] 650 mg PO Q6H PRN PRN tablet 11/25/19 Apixaban [Eliquis] 5 mg PO BID #60 tab 11/25/19 Budesonide Aerosol [Pulmicort Respules] 0.5 mg INHALATION Q12H.RT ampul.neb. 11/25/19 Carvedilol [Coreg ([facility]eta [place])] 25 mg PO BID 60 Days tablet 11/25/19 The following prescriptions were given: Carvedilol [Coreg (Beta [place])] 25 mg PO BID 60 Days tablet Apixaban [Eliquis] 5 mg PO BID #60 tab Transmission Status: Pending to [facility] Primary Care Physician: [facility],[place] [Primary Care Provider] - Test Results: Test results from this visit will be discussed in further detail at your follow- up appointment, if applicable.
[2019-11-25 12:25] LABS: Bedside Glucose 192 mg/dL (70-110)
[2019-11-27 10:08] LABS: Pathologist Review Reviewed
[2019-11-27 10:15] LABS: Pathologist Review Reviewed
== END 2019-11-25 11:00 | disposition home or self-care (01) ==
LOC: ED 20:19 → PCU 20:29
PROVIDERS: Internal Medicine; Admitting Provider Hospitalist; Emergency Provider Emergency Medicine; Visit Provider Internal Medicine
DX: I48.91 Unspecified atrial fibrillation (principal); J44.9 Chronic obstructive pulmonary disease, unspecified; I50.40 Unspecified combined systolic (congestive) and diastolic (congestive) heart failure; I13.0 Hypertensive heart and chronic kidney disease with heart failure and stage 1 through stage 4 chronic kidney disease, or unspecified chronic kidney disease; N18.3 Chronic kidney disease, stage 3 (moderate); E11.22 Type 2 diabetes mellitus with diabetic chronic kidney disease; I25.10 Atherosclerotic heart disease of native coronary artery without angina pectoris; I25.2 Old myocardial infarction; D61.818 Other pancytopenia; C34.90 Malignant neoplasm of unspecified part of unspecified bronchus or lung; E78.5 Hyperlipidemia, unspecified; N40.0 Benign prostatic hyperplasia without lower urinary tract symptoms; E55.9 Vitamin D deficiency, unspecified; F32.9 Major depressive disorder, single episode, unspecified; Z79.899 Other long term (current) drug therapy; Z79.4 Long term (current) use of insulin; Z79.02 Long term (current) use of antithrombotics/antiplatelets; Z79.82 Long term (current) use of aspirin; Z79.51 Long term (current) use of inhaled steroids; Z95.5 Presence of coronary angioplasty implant and graft; Z87.891 Personal history of nicotine dependence; Z92.21 Personal history of antineoplastic chemotherapy; Z92.3 Personal history of irradiation; I45.2 Bifascicular block
CPT/HCPCS: 36415; 80048; 80053; 82962; 83735; 84443; 84484; 85025; 85610; 93005; 94640; 96372; 96374; 97802; 99218; 99285; A4216; G0378

== ENCOUNTER 2019-11-26 07:35 | Inpatient (IN) | payer MEDICARE, SELFPAY ==
[2019-10-25 09:13] VITALS: BMI 35.0
[2019-11-23 21:21] VITALS: BMI 32.8
[2019-11-26] VITALS (21 sets, daily range): BP systolic 102–156; BP diastolic 56–92; PULSE 67–156; RESP 16–28; TEMP 36.4–36.8; O2SAT 89–95; BMI 31.7; BMI 32.5
--- NOTE | 2019-11-26 07:52 | RAD_ITS ---
STUDY: X-RAY CHEST REASON FOR EXAM: Male, 74 years old. Increase SOB since last night TECHNIQUE: Single AP portable view of the chest. COMPARISON: Comparison is made with prior study dated October 23, 2019. FINDINGS: EKG electrodes are seen. The lungs are clear and expanded. There is no demonstrated pleural abnormality. Normal size heart. Normal mediastinum and roderick. Normal visualized pulmonary arteries. There is atherosclerotic calcification of the aortic arch with tortuosity. There are diffuse degenerative changes of the visualized thoracic spine. Normal visualized ribs, clavicles, and shoulders. There is no demonstrated abnormality of the visualized soft tissue structures of the upper abdomen. RAD/Chest 1 View (Portable) IMPRESSION: No acute abnormality is seen. Electronically Signed: Abhishek Hung, at 8:36 EDT , Service support ,
--- NOTE | 2019-11-26 07:52 | EKG12_ITS ---
Test Reason : CP ADMISSION Blood Pressure : / mmHG Vent. Rate : 079 BPM Atrial Rate : 079 BPM P-R Int : 234 ms QRS Dur : 142 ms QT Int : 444 ms P-R-T Axes : -70 -75 027 degrees QTc Int : 509 ms Atrial Fibrillation/Flutter Left axis deviation Right bundle branch block Abnormal ECG Confirmed by CLARISSA CORTEZ, YOLANDA ([id number]), [employer] [id number]) on 11/28/2019 10:05:43 AM Referred By: MASSIMO Confirmed By:YOLANDA ROMO MD
--- NOTE | 2019-11-26 07:54 | ED.VISSUMM ---
- ER Visit Summary Date of Service: 11/26/19 Chief Complaint: [Shortness of breath] History of Present Illness: The patient is a 74 M [presents the emergency department shortness of breath that started today throughout the night. Patient was just discharged from the hospital yesterday after being admitted for atrial fibrillation and elevated troponin. Patient does have history of coronary artery disease. Patient currently being treated for lung cancer and his last chemotherapy was on 11/18. Patient last had a heart catheterization approximately 1 month ago and patient states that he got a stent which now makes it 10 stents that he has. Patient denies any chest pain. He does describe some orthopnea throughout the night. He is not had any fever. Patient is not coughing very much. He denies any sputum production. Patient currently on Eliquis. Patient does have history of diabetes, hypertension, CHF, and A. fib.] Patient complains of severe dyspnea with activity and having to stop and rest with walking. Physical Examination: [HEENT-PERRLA, EOMI. Cranial nerves II through XII grossly intact. TMs clear. Mucous membranes moist. No adenopathy. Cardiovascular-irregularly irregular without any murmurs noted. Lungs-diminished breath sounds bilaterally with some faint expiratory wheezes noted bilaterally. Patient has some rhonchi noted bilaterally. Mild tachypnea. Mild conversational dyspnea. No accessory muscle use or retractions. Abdomen-normoactive bowel sounds, soft, nontender, no rebound or rigidity, no peritoneal signs. Extremities-intact ?4, normal range of motion, normal pulses, atraumatic] Test Results: [EKG obtained on arrival shows atrial flutter with a ventricular rate of 88 bpm with a right bundle branch block and left anterior fascicular block noted. CBC with differential showed a white count of 3.5, hemoglobin 12, hematocrit 36, platelets 157. Chemistries unremarkable. Troponin was 0.016. BNP was 88.7. Chest x-ray showed nothing acute.] Emergency Department Course and Treatment: [Patient was medicated with DuoNeb aerosol followed by albuterol aerosol. Patient given Solu-Medrol 60 mg IV. Patient continued on nasal cannula O2. Patient did feel somewhat improved but still dyspneic at rest. Continues to wheeze.] Treatment Plan: [Suspect patient likely has COPD exacerbation. Plan will be to admit patient for further management of his COPD exacerbation. In the differential would be pulmonary embolism however patient already anticoagulated with Eliquis and do not feel management would change at this point.] Disposition: [Admit] Impression: [COPD exacerbation Dyspnea] This note was generated with [employer] dictation software. It may contain incorrect words, spelling, and punctuation that were not noted in review of the chart prior to signing ED Disposition - Plan for ED Patient: [facility] [Primary Care Provider] -
[2019-11-26] MEDS: MethylPREDNISolone 125 MG/2 ML Vial 60 MG IV (07:58)
[2019-11-26 08:02] LABS: Absolute Lymphocyte Count 0.27 X10^3/uL (0.83-4.51); Absolute Neutrophil Count 2.8 X10^3/uL (2.0-7.7); Basophil# 0.05 X10^3/uL; Basophil% 1.4 % (0-1); Eosinophil# 0.06 X10^3/uL; Eosinophils% 1.7 % (0-5); Hematocrit 36.3 % (40-54); Lymphocyte # 0.27 X10^3/ul (4.0); Lymphocyte % 7.7 % (19-41); Mean Corp Hgb Conc 33.1 g/dL (32-36); Mean Corpuscular Hgb 31.4 pg (27.0-32.0); Mean Platelet Vol. 10.1 fl (6.2-12.0); Monocyte# 0.26 X10^3/uL; Monocyte% 7.4 % (0-10); NRBC Flagged by Analyzer 0 % (0-5); Neutrophil # 2.83 X10^3/uL (2.7-7.7); Neutrophil % 80.9 % (47-70); POSITIVE DIFFERENTIAL YES; Platelet Count 157 K/mm3 (150-450); RBC Distribution Width CV 15.7 % (11.6-14.6); RBC Distribution Width SD 51.5 fl (35.1-43.9); Red Blood Count 3.82 M/mm3 (4.6-6.2); White Blood Count 3.5 K/mm3 (4.4-11.0)
[2019-11-26 08:04] LABS: Differential Indicated SCAN CRITERIA MET
[2019-11-26] MEDS: Ipratropium/Albuterol Sulfate 3 ML AMPUL.NEB INHALATION ×5 (08:11→23:03)
[2019-11-26] MEDS: Albuterol 2.5 MG/3 ML VIAL.NEB. INHALATION (08:11)
[2019-11-26 08:17] LABS: Anion Gap 2 (5-15); BUN 23 mg/dL (7-18); BUN/Creat Ratio 22.8 RATIO (10-20); Calcium,Total 9.3 mg/dL (8.5-10.1); Chloride 109 mmol/L (98-107); Creatinine, Serum 1.01 mg/dL (0.70-1.30); EST Glomerular Filtration Rate 77 mL/min (>60); Est Glom Filt Rate - Afr Amer 93 mL/min (>60); Estimated Creatinine Clearance 63.02 ml/min; Glucose 206 mg/dL (74-106); Sodium Level 141 mmol/L (136-145)
[2019-11-26 08:22] LABS: Differential Comment SCANNED; Platelet Estimate ADEQUATE (ADEQ); Red Cell Morphology NORM C+C NORMAL (NORM C&C)
[2019-11-26 08:28] LABS: BNP,B-Type NATRIURETIC PEPTIDE 88.7 pg/mL (0-100)
--- NOTE | 2019-11-26 08:50 | NURSING ---
PCU OBS YI COPD EXAC, DYSPNEA
--- NOTE | 2019-11-26 09:25 | HP.PCM_ITS ---
Problem List (1) COPD exacerbation Status: Acute (2) Atrial fibrillation Status: Chronic (3) HTN (hypertension) Status: Chronic (4) Diabetes Status: Chronic History of Present Illness Date of Admission: 11/26/19 Chief Complaint: SOB Mr. Moreno is a 74 year old M who was D/C from the hospital on 11/25 after presenting on 11/22 with New A-fib with RVR. He was treated with increasing his Coreg to 25 mg daily and was NOAC was started for OAC. He has a SRINATH malignancy and is currently undergoing chemo and XRT per Dr. Witt for this. He was schedule for chemo today. He is O2 dependent with a baseline O2 supplementation of 2-3 L/min. Pt states that he felt good upon d/c and was at home but last evening he began to have increased difficulty breathing and he remained worse this evening. Per his son he had to stop several times walking into the ED 2/2 worsened SOB. His HR is in the 80-low 100's. He denies fever or chills and states that he is actually coughing less than he usually does at baseline. He has not had any increase in O2 supplementation to maintain his sats. BNP is 88.7 and troponin is 0.016 which is down from his last admission. EF is known to be 60-65%. CXR shows no acute processes. He states that the aerosl given to him in the ED helped his chest tightness some but didn't completely resolved his sx. Past Medical History Past Medical History (Chronic Problems): Chronic Problems (Last Reviewed 11/26/19 @ 09:[address] Conchita Cook, DO) Atrial fibrillation (Chronic) Arteriosclerotic cardiovascular disease (Chronic) Stented coronary artery (Chronic 10/24/19) Multiple stents previously placed to LAD, LCX and RCA in past: 10/24/2019 CELIA to first diagonal per [facility] History of left heart catheterization (Chronic 10/24/19) Left Ventricular Ejection Fraction: by LV Gram 55 %; Global Hypokinesis - Mild Depressed Left Ventricular systolic function; Normal Left Ventricular End Diastolic Pressure; LVEDP: 14 mmHg; LEFT MAIN: 20 ostial % Stenosis; LEFT ANTERIOR DESCENDING ARTERY: PROX LAD: Mild luminal irregularities less than 30% MID LAD: Moderate luminal irregularities up to 50%, Previously placed stent is patent; DIAGONAL 1: Proximal - Previously placed stent has an instent 85 % restenosis; CIRCUMFLEX ARTERY: MID CIRC: Previously placed stent has an i nstent 20 % restenosis;DISTAL CIRC: Moderate luminal irregularities up to 50% RIGHT CORONARY ARTERY: MID RCA: Previously placed stent is patent HTN (hypertension) (Chronic) Diabetes (Chronic) Medical History: Medical History (Last Reviewed 11/26/19 @ 09:[address] Conchita Cook, DO) Arteriosclerotic cardiovascular disease (Chronic) I25.10 NSTEMI (non-ST elevated myocardial infarction) (Inactive) Onset Date: 10/24/19 I21.4 CAD (coronary artery disease) I25.10 Diabetes E11.9 HTN (hypertension) I10 Allergies cephalexin [From Keflex] Allergy (Verified 11/26/19 07:37) Rash doxycycline Allergy (Verified 11/26/19 07:37) Rash Penicillins Allergy (Verified 11/26/19 07:37) CHILDHOOD ALLERGY metformin Adverse Reaction (Verified 11/23/19 16:39) Upset Stomach niacin Adverse Reaction (Verified 11/23/19 16:39) Rash simvastatin Adverse Reaction (Verified 11/23/19 16:39) Rash Home Medications: Ambulatory Orders Medication Instructions Recorded Albuterol Sulfate [Proair 2 puff IH 4X/DAY PRN PRN 10/23/19 Digihaler] Budesonide/Formoterol Fumarate 2 puff IH BID 10/23/19 [Symbicort 160-4.5 Mcg Inhaler] Empagliflozin [Jardiance] 0.5 tab PO DAILY 10/23/19 Fluticasone Propionate [Flovent 50 mcg NASAL DAILY 10/23/19 Diskus] Gabapentin [Neurontin] 3 tab PO TID 10/23/19 Glipizide 5 mg PO BID 10/23/19 Insulin Glargine [Lantus SoloStar 40 units SUBCUT DAILY 10/23/19 Pen] Isosorbide Mononitrate [Imdur] 180 mg PO DAILY 10/23/19 Nitroglycerin [Nitrostat] 1 tab SL PRN PRN 10/23/19 Paroxetine [Paxil] 2 tab PO DAILY 10/23/19 Prazosin HCl 4 mg PO QHS 10/23/19 Tiotropium [place] [Spiriva 18 MCG] 2 puff INHALATION Q6H PRN PRN 10/23/19 busPIRone [Buspar] 10 mg PO BID 10/23/19 Acetaminophen 2 tab PO 4X/DAY PRN 10/24/19 Lisinopril 20 mg PO BID 10/24/19 Clopidogrel Bisulfate [Plavix] 75 mg PO DAILY 30 Days #30 tab 10/25/19 Aspirin [Aspirin, Baby] 81 mg PO DAILY 11/23/19 Cholecalciferol (VIT D3) [Vitamin 3,000 unit PO DAILY 11/23/19 D3] Cyanocobalamin (Vitamin B-12) 1,000 mcg PO DAILY 11/23/19 [B-12] Ketoconazole [Nizoral] 120 ml TP QWEEK 11/23/19 Pantoprazole Sodium 40 mg PO BREAKFAST 11/23/19 Potassium Chloride 10 meq PO DAILY 11/23/19 Rosuvastatin Calcium 40 mg PO QHS 11/23/19 Tamsulosin HCl 0.4 mg PO DAILY 11/23/19 Acetaminophen [Tylenol Tablet] 650 mg PO Q6H PRN PRN tab 11/25/19 Apixaban [Eliquis] 5 mg PO BID #60 tab 11/25/19 Budesonide Aerosol [Pulmicort 0.5 mg INHALATION Q12H.RT 11/25/19 Respules] ampul.neb. Carvedilol [Coreg (Beta [place])] 25 mg PO BID 60 Days tab 11/25/19 Surgical History: Surgical History (Last Reviewed 11/26/19 @ 09:[address] Conchita Cook, DO) Stented coronary artery (Chronic) Onset Date: 10/24/19 Z95.5 Multiple stents previously placed to LAD, LCX and RCA in past: 10/24/2019 CELIA to first diagonal per [facility] History of left heart catheterization (Chronic) Onset Date: 10/24/19 Z98.890 Left Ventricular Ejection Fraction: by LV Gram 55 %; Global Hypokinesis - Mild Depressed Left Ventricular systolic function; Normal Left Ventricular End Diastolic Pressure; LVEDP: 14 mmHg; LEFT MAIN: 20 ostial % Stenosis; LEFT ANTERIOR DESCENDING ARTERY: PROX LAD: Mild luminal irregularities less than 30% MID LAD: Moderate luminal irregularities up to 50%, Previously placed stent is patent; DIAGONAL 1: Proximal - Previously placed stent has an instent 85 % restenosis; CIRCUMFLEX ARTERY: MID CIRC: Previously placed stent has an ins tent 20 % restenosis;DISTAL CIRC: Moderate luminal irregularities up to 50% RIGHT CORONARY ARTERY: MID RCA: Previously placed stent is patent Surgical History: appendectomy, herniorrhaphy - X3 Smoking Status: Former smoker - *Family History Maternal History Items: Heart Disease, - - Skin cancer Paternal History Items: Cancer - His father from throat cancer at the age of 57 Review of Systems Constitutional: Reports: Weakness, Fatigue. Denies: Anorexia, Chills, Fever, Night Sweats, Malaise, Weight Change Eyes: Denies: Blurred vision, Cataracts, Conjunctivae Inflammation, Double vision, Drainage, Eyelid Inflammation, Pain, Redness, Vision Change HEENT: Denies: Difficulty Hearing, Difficulty Swallowing, Dysphasia, Ear Pain, Eye Pain, Hard of Hearing, Head Aches, Hearing Changes, Nasal bleeding, Nasal Congestion, Post Nasal Drip, Sinus Congestion, Sinus Drainage, Sore Throat, Visual Changes Cardiovascular: Reports: Chest Tightness, Orthopnea - chronic. Denies: Chest Pain, Claudication, Chest Pressure, Edema, Heaviness, Light Headedness, Palpitations, Paroxysmal Noc. Dyspnea, Syncope Respiratory: Reports: Cough - chronic but better than usual, Shortness of Breath, Shortness of breath at rest, Shortness of breath upon exertion. Denies: Hemoptysis, Pleuritic Pain, Sputum production, Wheezing Gastrointestinal: Denies: Abdominal Pain, Constipation, Diarrhea, Dyspepsia, Hematemesis, Hematochezia, Nausea, Melena, Vomiting Genitourinary: Denies: Dysuria, Frequency, Hematuria, Hesitancy, Incontinence, Nocturia, Retention, Urgency Musculoskeletal: Reports: Joint stiffness. Denies: Arm Pain, Back Pain, Foot Pain, Hand Pain, Joint Pain, Joint swelling, Joint Tenderness, Leg Pain, Muscle pain, Neck Pain, Shoulder Pain Skin: Denies: Dryness, Jaundice, Lesions, Pruritis, Rash, Skin Changes, Wounds Neurological: Denies: Balance problems, Blurred vision, Double vision, Change in Speech, Slurred speech, Confusion, Difficulty swallowing, Focal weakness, Headaches, Incoordination, Numbness, Tingling, Tremor, Seizures Psychiatric: Reports: Anxiety, Depression. Denies: Homicidal Ideations, Suicidal Ideations Endocrine: Reports: Hx of Irradiation. Denies: Change in Body Habitus, Heat/ Cold Intolerance, Polydipsia, Polyuria, Hx of Thyroiditis Hematologic/ Lymphatic: Denies: Adenopathy, Anemia, Easy Bruising, Easy Bleeding, Petechiae, Purpura, Hx of blood clot, Hx of blood transfusion VTE Information - Inpt Only VTE Present on Admission: No VTE Mechan Device Prophylaxis: SCD's VTE Pharm Prophylaxis ordered?: Yes Patient Problems: Active and Suspected Problems (Last Reviewed 11/26/19 @ 09:[address] Conchita Cook, DO) COPD exacerbation (Acute) - Physical Exam Vitals/I&O's: Vital Signs Temp Pulse Resp BP Pulse Ox 97.6 F L 117 H 19 H 117/67 95 11/26/19 09:09 11/26/19 09:09 11/26/19 09:09 11/26/19 09:09 11/26/19 09:09 Oxygen Flow Rate (L/min) 2 Oxygen Delivery Method Nasal Cannula Weight: 94.801 kg Body Mass Index (BMI) 31.7 General: Alert, Oriented x3, Cooperative, No apparent distress, Well developed, Well nourished, - - sitting up in bed, son at bedside, breathing at rest is not labored but becomes mildly labored with conversation HEENT: Atraumatic, PERRLA, EOMI, Normocephalic, EAC Clear Oral: Moist Mucosa, No Gingival or Mucosal Lesions/ Ulcerations, - - Mallampati 3, Fair dentition Neck: Supple, No JVD, Negative Carotid Bruits, Negative Hepatojugular Reflux, No Nodes, No Nuchal Rigidity, Trachea Midline, Thyroid Normal Size and Texture Lungs: No rhonchi, No wheeze, No rales, Diminished - severely and diffuse, Short of Breath, Tachypneic - at times Cardiovascular: Normal S1, Normal S2, No murmurs, No Ectopic Activity, Irregular Rate - mildly tachycardic at times (low 100's), No rub noted, No Gallop, - - Irreg rhythm Abdomen: Bowel Sounds Present, Soft, Non Tender, Non-Distended, No Hepato- splenomegaly, Obese, No hernias noted Extremities: No clubbing, No cyanosis, No edema, Capillary Refill Less than 3 Seconds, No Calf Tenderness Skin: No rashes, No breakdown Musculoskeletal: No Tenderness to Palpation of Joints or Extremities, No Muscle Wasting Lymphatic: No Cervical, Supraclavicular, or Inguinal Adenopathy Neurological: Cranial nerves II-XII grossly intact, Deep Tendon Reflexes 2+/4 and Symmetrical, Neuro grossly intact, Motor Exam 5/5 strength throughout Psych/Mental Status: Normal Affect, Appropriate, - - very pleasant, Alert and oriented to time, place, person, mood and affect Laboratory Results 11/26/19 07:50: WBC 3.5 L, RBC 3.82 L, Hgb 12.0 L, Hct 36.3 L, MCV 95.0 H, MCH 31.4, MCHC 33.1, RDW Std Deviation 51.5 H, RDW Coeff of Jony 15.7 H, Plt Count 157, MPV 10.1, Immature Gran % (Auto) 0.900, Neut % (Auto) 80.9 H, Lymph % (Auto) 7.7 L, [place] % (Auto) 7.4, Eos % (Auto) 1.7, Baso % (Auto) 1.4 H, Absolute Neuts (auto) 2.8, Absolute Lymphs (auto) 0.27 L, Nucleated RBC % 0, Differential Comment SCANNED, Diff Path Review January, Platelet Estimate ADEQUATE, RBC Morphology NORM C+C 11/26/19 07:50: Sodium 141, Potassium 4.0, Chloride 109 H, Carbon Dioxide 30.0, Anion Gap 2 L, BUN 23 H, Creatinine 1.01, Estim Creat Clear Calc 63.02, Est GFR (MDRD) Af Amer 93, Est GFR (MDRD) Non-Af 77, BUN/Creatinine Ratio 22.8 H, Glucose 206 H, Calcium 9.3, Troponin I 0.016 11/26/19 07:50: B-Natriuretic Peptide 88.7 Assessment/Plan All Active Problems (Last Reviewed 11/26/19 @ 09:[address] Conchita Cook, DO) Elevated troponin (Acute) Atrial fibrillation with RVR (Acute) COPD exacerbation (Acute) Acute on Chronic Respiratory Failure 2/2 suspected AECOPD -Admit to PCU -CXR with no acute processes -Azithro for anti-inflammatory effects x 3 days -PCR flu and viral panel -hold all other abx for now -Steroids 40 q 8 IV x 4 doses then 40 po daily -CT chest as exam has no wheezing (NOAC is new) r/o PE and will get a good look at lung parenchyma -Hold pulmicort -Hold [place] -DuoNebs scheduled -Albuterol PRN -doubt cardiac with CXR WNL/BNP WNL -pt is immunocompromised -Consider Pulm consult depending on response Chronic A-fib/flutter -will keep on tele for now as this is a new diagnosis and HR is up a bit -HR elevation may only be 2/2 aerosols and stress from resp issues -Continue BB (Coreg 25 mg BID) -Continue Apixaban 5 mg BID -will consider Cards consult if HR elevated CKD stage 3 -sCr is at baseline -monitor Pancytopenia -on chemotherapy for Lung Cancer CAD/HTN/HPL -Continue BB/Statin/Plavix/Lisinopril/Imdur -d/c ASA as pt is now n triple therapy and risk of bleeding is much higher (cont Plavix and NOAC) -EF is 60-65% on recent ECHO at [facility] -continue Protonix DM-2 -Continue Lantus -SSI -hold home PO meds for now -BGT AC TID BPH -continue Cardura/Flomax Depression -continue Paxil/Buspar Vitamin D Deficiency -continue Vit D replacement 3000 U daily H/O Lung Cancer -Chemo per Dr. Witt -was to get chemo today DVT prophylaxis -NOAC Code Status -DNR-CCA--> NO ETT Dispo -Admit as OBSERVATION to PCU Inpatient E&M: 25519 Subs Hosp L3
--- NOTE | 2019-11-26 09:42 | CT_ITS ---
STUDY: CTA CHEST REASON FOR EXAM: Male, 74 years old. DYSPNEA W/ EXERTION -- COPD,AFIB,HTN,DIAB RADIATION DOSAGE (If Supplied By Facility): CTDIvol = ( 14.14 ) mGy, DLP = ( 505.65 ) mGycm TECHNIQUE: The examination was performed with the intravenous administration of 100cc isovue 370. Post-processing of the angiographic images was performed, with multiplanar reformation and 3D reconstruction. Individualized dose optimization techniques were used for this CT. COMPARISON: None. FINDINGS: Normal enhancement of the main pulmonary artery and right and left pulmonary arteries. Normal enhancement of the bilateral peripheral pulmonary arteries. There is no demonstrated pulmonary embolism. There is atherosclerotic calcification of the aortic arch with tortuosity. There is no demonstrated aortic dissection. There are calcifications of the coronary arteries. There are abnormally enlarged lymph nodes in the mediastinum. The largest measures 2.8 cm. Left hilar lymph node. Normal visualized trachea and bronchi. The lungs are well expanded. Scarring with bullous changes in the right lower lobes. Mild degree of bibasilar bronchiectasis. Normal pleura. Normal chest wall structures. There are degenerative changes of thoracic spine. Normal visualized upper abdomen. CT/CTA Chest W/WO Contrast IMPRESSION: No evidence of pulmonary embolism. Enlarged mediastinal lymph nodes as well as prominence of the left hilar lymph node. Scarring at the lung bases with emphysematous changes at the right lung base. Electronically Signed: Abhishek Hung, at 14:43 EDT , Service support ,
[2019-11-26 11:45] LABS: Bedside Glucose 148 mg/dL (70-110)
[2019-11-26] MEDS: Clopidogrel Bisulfate 75 MG Tablet PO (12:03)
[2019-11-26] MEDS: guaiFENesin 1,200 MG Tablet 1200 MG PO ×2 (12:03→22:42)
[2019-11-26] MEDS: Gabapentin 300 MG Capsule PO ×2 (13:31→22:44)
[2019-11-26] MEDS: 0.9% NaCl IVPB Med Flush (250 mL) 15 ML IV (13:32)
[2019-11-26 17:21] LABS: Bedside Glucose 191 mg/dL (70-110)
[2019-11-26] MEDS: Insulin Lispro 100 UNIT/ML INSULN.PEN SQ ×2 (17:44→22:55)
[2019-11-26] MEDS: Carvedilol 25 MG Tablet PO (19:36)
[2019-11-26] MEDS: Benzonatate 100 MG Capsule 200 MG PO (22:41)
[2019-11-26] MEDS: busPIRone 5 MG Tablet 10 MG PO (22:41)
[2019-11-26] MEDS: Doxazosin 1 MG Tablet 3 MG PO (22:42)
[2019-11-26] MEDS: APIXABAN 5 MG TABLET PO (22:42)
[2019-11-26] MEDS: Rosuvastatin 20 MG Tablet 40 MG PO (22:44)
[2019-11-26] MEDS: Lisinopril 20 MG Tablet PO (22:45)
[2019-11-26] MEDS: 0.9% Saline Lock 10 ML Syringe IV (22:50)
[2019-11-26 23:06] LABS: Bedside Glucose 155 mg/dL (70-110)
[2019-11-27] VITALS (29 sets, daily range): BP systolic 100–153; BP diastolic 50–92; PULSE 84–144; RESP 14–26; TEMP 36.2–36.9; O2SAT 92–96
[2019-11-27] MEDS: Ipratropium/Albuterol Sulfate 3 ML AMPUL.NEB INHALATION ×5 (04:03→18:48)
[2019-11-27] MEDS: Gabapentin 300 MG Capsule PO ×3 (05:40→22:04)
[2019-11-27] MEDS: 0.9% Saline Lock 10 ML Syringe IV ×4 (05:52→15:45)
[2019-11-27 05:58] LABS: Absolute Lymphocyte Count 0.15 X10^3/uL (0.83-4.51); Absolute Neutrophil Count 2.6 X10^3/uL (2.0-7.7); Hematocrit 34.6 % (40-54); Hemoglobin 11.2 g/dL (13.0-16.5); Lymphocyte # 0.15 X10^3/ul (4.0); Lymphocyte % 5.1 % (19-41); Mean Corp Hgb Conc 32.4 g/dL (32-36); Mean Corpuscular Hgb 30.3 pg (27.0-32.0); Mean Corpuscular Volume 93.5 fL (80-94); Mean Platelet Vol. 10.2 fl (6.2-12.0); Monocyte# 0.13 X10^3/uL; Monocyte% 4.4 % (0-10); Neutrophil # 2.62 X10^3/uL (2.7-7.7); Neutrophil % 89.5 % (47-70); POSITIVE DIFFERENTIAL YES; POSITIVE MORPHOLOGY YES; Platelet Count 146 K/mm3 (150-450); RBC Distribution Width CV 15.9 % (11.6-14.6); RBC Distribution Width SD 51.3 fl (35.1-43.9); White Blood Count 2.9 K/mm3 (4.4-11.0)
[2019-11-27 05:59] LABS: NRBC Flagged by Analyzer 0 % (0-5)
[2019-11-27 06:00] LABS: Differential Indicated SCAN CRITERIA MET
[2019-11-27 06:26] LABS: Anion Gap 6 (5-15); BUN 27 mg/dL (7-18); Calcium,Total 9.3 mg/dL (8.5-10.1); Chloride 107 mmol/L (98-107); Creatinine, Serum 0.77 mg/dL (0.70-1.30); Differential Comment SCANNED; EST Glomerular Filtration Rate 105 mL/min (>60); Est Glom Filt Rate - Afr Amer 127 mL/min (>60); Estimated Creatinine Clearance 63.65 ml/min; Glucose 184 mg/dL (74-106); Sodium Level 140 mmol/L (136-145)
[2019-11-27] MEDS: Insulin Lispro 100 UNIT/ML INSULN.PEN SQ ×4 (06:52→22:13)
[2019-11-27] MEDS: Benzonatate 100 MG Capsule 200 MG PO ×2 (06:52→15:15)
[2019-11-27 07:01] LABS: Bedside Glucose 170 mg/dL (70-110)
[2019-11-27] MEDS: busPIRone 5 MG Tablet 10 MG PO ×2 (08:02→22:04)
[2019-11-27] MEDS: Pantoprazole Sodium 40 MG Tablet PO (08:02)
[2019-11-27] MEDS: Carvedilol 25 MG Tablet PO ×2 (08:03→22:04)
[2019-11-27] MEDS: APIXABAN 5 MG TABLET PO ×2 (08:03→22:04)
[2019-11-27] MEDS: Tamsulosin HCl 0.4 MG Capsule PO (08:04)
[2019-11-27] MEDS: Isosorbide Mononitrate 60 MG Tablet 180 MG PO (08:04)
[2019-11-27] MEDS: guaiFENesin 1,200 MG Tablet 1200 MG PO ×2 (08:05→22:04)
[2019-11-27] MEDS: Empagliflozin 25 MG Tablet 12.5 MG PO (08:05)
[2019-11-27] MEDS: Clopidogrel Bisulfate 75 MG Tablet PO (08:05)
[2019-11-27] MEDS: Paroxetine 20 MG Tablet PO (08:05)
[2019-11-27] MEDS: Lisinopril 20 MG Tablet PO ×2 (08:05→22:04)
[2019-11-27] MEDS: Metoprolol Tartrate 5 MG/5 ML Vial IV (09:15)
--- NOTE | 2019-11-27 09:47 | PN_ITS ---
Patient Problems: Active and Suspected Problems (Last Reviewed 11/26/19 @ 09:[address] Conchita Cook, DO) COPD exacerbation (Acute) Subjective: Feeling a little bit better today. Now coughing more and able to cough stuff up. Still SOB christiano noted with exertion. Vitals/I&O's: Vital Signs Temp Pulse Resp BP Pulse Ox 97.4 F L 110 H 18 134/73 H 93 11/27/19 09:25 11/27/19 09:25 11/27/19 09:25 11/27/19 09:25 11/27/19 09:25 Oxygen Flow Rate (L/min) 3 Oxygen Delivery Method Nasal Cannula Weight: 96.978 kg Body Mass Index (BMI) 32.5 Intake and Output for Last 24 Hours 11/25/19 11/26/19 11/27/19 23:59 23:59 23:59 Intake Total 1541.5 / 1541.5 150 / 150 Balance 1541.5 / 1541.5 150 / 150 General: Alert, Oriented x3, Cooperative, No apparent distress, Well developed, Well nourished HEENT: Atraumatic, PERRLA, EOMI, Normocephalic, EAC Clear Oral: Moist Mucosa, No Gingival or Mucosal Lesions/ Ulcerations, - - no thrush Neck: Supple, Negative Hepatojugular Reflux, No Nodes, No Nuchal Rigidity Lungs: No rhonchi, No rales, Diminished, Wheezes - few scattered but better Cardiovascular: Normal S1, Normal S2, No murmurs, No Ectopic Activity, Tachycardic, - - irreg rhythm Abdomen: Bowel Sounds Present, Soft, Non Tender, Non-Distended, No Hepato- splenomegaly, Obese, No hernias noted Extremities: No clubbing, No cyanosis, No edema, Capillary Refill Less than 3 Seconds, Peripheral Pulses Normal Skin: No rashes, No breakdown Musculoskeletal: No Tenderness to Palpation of Joints or Extremities Lymphatic: No Cervical, Supraclavicular, or Inguinal Adenopathy Neurological: Cranial nerves II-XII grossly intact, Deep Tendon Reflexes 2+/4 and Symmetrical, Neuro grossly intact, Motor Exam 5/5 strength throughout Psych/Mental Status: Normal Affect, Appropriate, Alert and oriented to time, place, person, mood and affect Microbiology Past 72 Hours 11/26/19 11:00 Mucosa - Nose Respiratory Panel (PCR) - Preliminary 11/26/19 11:00 Mucosa - Nose Influenza Types A,B Direct FA (JAQUELIN) - Final Laboratory Results 11/26/19 11:14: POC Glucose 148 H 11/26/19 17:10: POC Glucose 191 H 11/26/19 22:54: POC Glucose 155 H 11/27/19 05:26: Sodium 140, Potassium 4.0, Chloride 107, Carbon Dioxide 27.0, Anion Gap 6, BUN 27 H, Creatinine 0.77, Estim Creat Clear Calc 63.65, Est GFR (MDRD) Af Amer 127, Est GFR (MDRD) Non-Af 105, BUN/Creatinine Ratio 35.0 H, Glucose 184 H, Calcium 9.3 11/27/19 05:26: WBC 2.9 L, RBC 3.70 L, Hgb 11.2 L, Hct 34.6 L, MCV 93.5, MCH 30.3, MCHC 32.4, RDW Std Deviation 51.3 H, RDW Coeff of Jony 15.9 H, Plt Count 146 L, MPV 10.2, Immature Gran % (Auto) 1.000 H, Neut % (Auto) 89.5 H, Lymph % (Auto) 5.1 L, [place] % (Auto) 4.4, Eos % (Auto) 0.0, Baso % (Auto) 0.0, Absolute Neuts (auto) 2.6, Absolute Lymphs (auto) 0.15 L, Nucleated RBC % 0, Differential Comment SCANNED, Diff Path Review January11/27/19 06:49: POC Glucose 170 H Current Medications Acetaminophen (Tylenol) 650 mg PO 4X/DAY PRN PRN Reason: stiffness in hands Albuterol Sulfate (Ventolin Aerosols) 2.5 mg INHALATION Q2H PRN PRN PRN Reason: SHORTNESS OF BREATH Albuterol/Ipratropium (Duoneb) 3 ml INHALATION Q4H.RT POOL Last Admin: 11/27/19 07:00 Dose: 3 ml Documented by: Apixaban (Eliquis) 5 mg PO BID POOL Last Admin: 11/27/19 08:03 Dose: 5 mg Documented by: Benzonatate (Tessalon Perle) 200 mg PO Q8H PRN PRN Reason: COUGH Last Admin: 11/27/19 06:52 Dose: 200 mg Documented by: Buspirone HCl (Buspar) 10 mg PO BID [facility] Last Admin: 11/27/19 08:02 Dose: 10 mg Documented by: Carvedilol (Coreg) 25 mg PO BID [facility] Last Admin: 11/27/19 08:03 Dose: 25 mg Documented by: Clopidogrel Bisulfate (Plavix) 75 mg PO DAILY [facility] Last Admin: 11/27/19 08:05 Dose: 75 mg Documented by: Doxazosin Mesylate (Cardura) 3 mg PO QHS [facility] Last Admin: 11/26/19 22:42 Dose: 3 mg Documented by: Empagliflozin (Jardiance) 12.5 mg PO DAILY [facility] Last Admin: 11/27/19 08:05 Dose: 12.5 mg Documented by: Gabapentin (Neurontin) 300 mg PO TID [facility] Last Admin: 11/27/19 05:40 Dose: 300 mg Documented by: Guaifenesin (Mucinex) 1,200 mg PO BID [facility] Last Admin: 11/27/19 08:05 Dose: 1,200 mg Documented by: Azithromycin 500 mg/ Dextrose 255 mls @ 250 mls/hr IV Q24 [facility] Stop: 11/28/19 11:02 Last Admin: 11/27/19 09:21 Dose: 250 mls/hr Documented by: Sodium Chloride () 250 mls @ 15 mls/hr IV .[id number] PRN PRN Reason: SALINE FLUSH Last Infusion: 11/26/19 23:18 Dose: 0 mls/hr Documented by: Insulin Glargine (Lantus (Bkc)) 40 units SC 1100 [facility] Last Admin: 11/26/19 11:10 Dose: Not Given Documented by: Insulin Human Lispro (Humalog Kwikpen (Bkc)) 0 unit SQ ACHS [facility]; Protocol Last Admin: 11/27/19 06:52 Dose: 1 unit Documented by: Isosorbide Mononitrate (Imdur) 180 mg PO DAILY [facility] Last Admin: 11/27/19 08:04 Dose: 180 mg Documented by: Lisinopril (Zestril) 20 mg PO BID [facility] Last Admin: 11/27/19 08:05 Dose: 20 mg Documented by: Methylprednisolone (Solu-Medrol) 40 mg IV Q8 [facility] Stop: 11/27/19 14:01 Last Admin: 11/27/19 05:40 Dose: 40 mg Documented by: Nitroglycerin (Nitrostat) 0.4 mg SUBLINGUAL Q5M PRN PRN Reason: Angina Ondansetron HCl (Zofran) 4 mg IV Q6H PRN PRN PRN Reason: nausea vomiting Pantoprazole Sodium (Protonix) 40 mg PO BREAKFAST [facility] Last Admin: 11/27/19 08:02 Dose: 40 mg Documented by: Paroxetine HCl (Paxil) 20 mg PO DAILY [facility] Last Admin: 11/27/19 08:05 Dose: 20 mg Documented by: Prednisone () 40 mg PO DAILY@0800 [facility] Rosuvastatin Calcium (Crestor) 40 mg PO QHS [facility] Last Admin: 11/26/19 22:44 Dose: 40 mg Documented by: Sodium Chloride () 10 - 40 ml IV UD PRN PRN Reason: SALINE FLUSH Last Admin: 11/27/19 09:16 Dose: 10 ml Documented by: Tamsulosin HCl (Flomax) 0.4 mg PO DAILY [facility] Last Admin: 11/27/19 08:04 Dose: 0.4 mg Documented by: STROKE Vital Signs/Narrative: Vital Signs Temp Pulse Resp BP Pulse Ox 11/27/19 09:25 97.4 F L 110 H 18 134/73 H 93 11/27/19 09:15 136 H 130/73 H 11/27/19 08:00 97.4 F L 136 H 18 140/77 H 94 11/27/19 07:49 94 11/27/19 07:00 119 H 18 Medical Necessity - Tobacco Use Smoking Status: Former smoker Assessment/Plan All Active Problems (Last Reviewed 11/26/19 @ 09:[address] Conchita Cook, DO) Elevated troponin (Acute) Atrial fibrillation with RVR (Acute) COPD exacerbation (Acute) Acute on Chronic Respiratory Failure 2/2 suspected AECOPD -CXR with no acute processes -Azithro for anti-inflammatory effects x 3 days (2/3) -PCR flu and viral panel are neg -Steroids 40 po daily -CT chest without PE and underwhelming overall -Hold pulmicort -Hold [place]ir[place] -DuoNebs scheduled -Albuterol PRN -doubt cardiac with CXR WNL/BNP WNL -pt is immunocompromised Chronic A-fib/flutter -HR remains elevated -metoprolol 5 mg IVP x 1 dose given and down to 110 -Continue BB (Coreg 25 mg BID) -Continue Apixaban 5 mg BID -will consult Cards since HR has remained a problem Cough -will switch Tessalon pearls to scheduled -continue guaifenesin CKD stage 3 -sCr is at baseline and remains stable -monitor Pancytopenia -on chemotherapy for Lung Cancer CAD/HTN/HPL -Continue BB/Statin/Plavix/Lisinopril/Imdur -d/c ASA as pt is now on triple therapy and risk of bleeding is much higher (cont Plavix and NOAC) -EF is 60-65% on recent ECHO at [facility] GERD -continue Protonix DM-2 -Continue Lantus -SSI -hold home PO meds for now -BGT AC TID BPH -continue Cardura/Flomax Depression -continue Paxil/Buspar Vitamin D Deficiency -continue Vit D replacement 3000 U daily H/O Lung Cancer -Chemo per Dr. Witt -was to get chemo today DVT prophylaxis -NOAC Code Status -DNR-CCA--> NO ETT Dispo -cards to see for RVR Inpatient E&M: 81262 Subs Hosp L3
--- NOTE | 2019-11-27 10:01 | CON.PCM_ITS ---
<Alonzo Hutchinson - Last Filed: 11/27/19 11:31> Problem List (1) Atrial fibrillation with RVR Status: Acute (2) Arteriosclerotic cardiovascular disease Status: Chronic (3) Stented coronary artery Status: Chronic Comment: Multiple stents previously placed to LAD, LCX and RCA in past: 10/24/2019 CELIA to first diagonal per [facility]N (4) HTN (hypertension) Status: Chronic Qualifiers: Hypertension type: essential hypertension Qualified Code(s): I10 - Essential (primary) hypertension Reason for Consult Date of Consultation: 11/27/19 Reason for Consultation: Atrial fibrillation with RVR, shortness of breath, History of Present Illness: The patient is a 74 year old M who presented to [facility] Emergency Department 11/26/2019 for increasing shortness of breath. This was after a recent hospitalization for atrial fibrillation and elevated troponin. He has a past medical history of coronary artery disease with multiple stenting procedures with most recent in October 2019 with stenting to 85% stenosis of first diagonal vessel. 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 His EKG showed atrial fibrillation/flutter at a rate of 88 bpm with an underlying right bundle gogo block and left anterior fascicular block. Hemoglobin was noted to be 12. Troponin was 0.016. BNP was 88.7. Chest x-ray was negative for acute pathology. He was admitted for further evaluation and treatment of COPD exacerbation. It was then noted that his heart rate was elevated at 140s?150s with continual atrial fibrillation. He was given a one-time dose of metoprolol 5 mg IV push. His heart rate improved to 120s. Given maximal beta-alma therapy, cardiology was consulted for further input. Past Medical History Allergies/Adverse Reactions: Allergies cephalexin [From Keflex] Allergy (Verified 11/26/19 07:37) Rash doxycycline Allergy (Verified 11/26/19 07:37) Rash Penicillins Allergy (Verified 11/26/19 07:37) CHILDHOOD ALLERGY metformin Adverse Reaction (Verified 11/23/19 16:39) Upset Stomach niacin Adverse Reaction (Verified 11/23/19 16:39) Rash simvastatin Adverse Reaction (Verified 11/23/19 16:39) Rash Home Medications: Ambulatory Orders Medication Instructions Recorded Albuterol Sulfate [Proair 2 puff IH 4X/DAY PRN PRN 10/23/19 Digihaler] Budesonide/Formoterol Fumarate 2 puff IH BID 10/23/19 [Symbicort 160-4.5 Mcg Inhaler] Empagliflozin [Jardiance] 12.5 mg PO DAILY 10/23/19 Fluticasone Propionate [Flovent 50 mcg NASAL DAILY 10/23/19 Diskus] Gabapentin [Neurontin] 3 tab PO TID 10/23/19 Glipizide 5 mg PO BID 10/23/19 Insulin Glargine [Lantus SoloStar 40 units SUBCUT DAILY 10/23/19 Pen] Isosorbide Mononitrate [Imdur] 180 mg PO DAILY 10/23/19 Nitroglycerin [Nitrostat] 1 tab SL PRN PRN 10/23/19 Paroxetine [Paxil] 2 tab PO DAILY 10/23/19 Prazosin HCl 4 mg PO QHS 10/23/19 Tiotropium Sherwood [Spiriva 18 MCG] 2 puff INHALATION Q6H PRN PRN 10/23/19 busPIRone [Buspar] 10 mg PO BID 10/23/19 Acetaminophen 2 tab PO 4X/DAY PRN 10/24/19 Lisinopril 20 mg PO BID 10/24/19 Clopidogrel Bisulfate [Plavix] 75 mg PO DAILY 30 Days #30 tab 10/25/19 Aspirin [Aspirin, Baby] 81 mg PO DAILY 11/23/19 Cholecalciferol (VIT D3) [Vitamin 3,000 unit PO DAILY 11/23/19 D3] Cyanocobalamin (Vitamin B-12) 1,000 mcg PO DAILY 11/23/19 [B-12] Ketoconazole [Nizoral] 120 ml TP QWEEK 11/23/19 Pantoprazole Sodium 40 mg PO BREAKFAST 11/23/19 Potassium Chloride 10 meq PO DAILY 11/23/19 Rosuvastatin Calcium 40 mg PO QHS 11/23/19 Tamsulosin HCl 0.4 mg PO DAILY 11/23/19 Acetaminophen [Tylenol Tablet] 650 mg PO Q6H PRN PRN tab 11/25/19 Apixaban [Eliquis] 5 mg PO BID #60 tab 11/25/19 Budesonide Aerosol [Pulmicort 0.5 mg INHALATION Q12H.RT 11/25/19 Respules] ampul.neb. Carvedilol [Coreg (Beta Alma)] 25 mg PO BID 60 Days tab 11/25/19 Past Medical History (Chronic Problems): Chronic Problems (Last Reviewed 11/26/19 @ 09:[address] Conchita Cook, DO) Atrial fibrillation (Chronic) Arteriosclerotic cardiovascular disease (Chronic) Stented coronary artery (Chronic 10/24/19) Multiple stents previously placed to LAD, LCX and RCA in past: 10/24/2019 CELIA to first diagonal per DJN History of left heart catheterization (Chronic 10/24/19) Left Ventricular Ejection Fraction: by LV Gram 55 %; Global Hypokinesis - Mild Depressed Left Ventricular systolic function; Normal Left Ventricular End Diastolic Pressure; LVEDP: 14 mmHg; LEFT MAIN: 20 ostial % Stenosis; LEFT ANTERIOR DESCENDING ARTERY: PROX LAD: Mild luminal irregularities less than 30% MID LAD: Moderate luminal irregularities up to 50%, Previously placed stent is patent; DIAGONAL 1: Proximal - Previously placed stent has an instent 85 % restenosis; CIRCUMFLEX ARTERY: MID CIRC: Previously placed stent has an instent 20 % restenosis;DISTAL CIRC: Moderate luminal irregularities up to 50% RIGHT CORONARY ARTERY: MID RCA: Previously placed stent is patent HTN (hypertension) (Chronic) Diabetes (Chronic) Surgical History: appendectomy, herniorrhaphy - X3 - *Family History Maternal History Items: Heart Disease, - - Skin cancer Paternal History Items: Cancer - His father from throat cancer at the age of 57 Smoking Status: Former smoker Review of Systems - Review of Systems General: Denies: Fever, Fatigue, Malaise, Chills HEENT: Denies: Vision Change Cardiovascular: Reports: Shortness of Breath, Shortness of Breath with Exertion, Palpitations. Denies: Chest Discomfort, Chest Discomfort at Rest, Chest Discomfort with Exertion, Chest Pressure, Chest Tightness, Chest Heaviness, Shortness of Breath at Rest, Orthopnea, PND, Peripheral Edema, Lightheadedness, Dizziness, Near Syncope, Syncope Respiratory: Denies: Cough Muscoloskeletal: Denies: Myalgias Neurological: Denies: Dizziness Subjectve: Patient seen and evaluated. He does acknowledge improvement in shortness of breath since admission but does acknowledge continual shortness breath on exertion going from chair to bed. He denies any ongoing chest pain, lightheadedness, dizziness, or presyncope. He does acknowledge intermittent palpitations. Objective: Vital Signs Temp Pulse Resp BP Pulse Ox 97.4 F L 110 H 18 134/73 H 93 11/27/19 09:25 11/27/19 09:25 11/27/19 09:25 11/27/19 09:25 11/27/19 09:25 Oxygen Flow Rate (L/min) 3 Oxygen Delivery Method Nasal Cannula Weight: 213 lb 12.8 oz Body Mass Index (BMI) 32.5 Intake and Output for Last 24 Hours 11/25/19 11/26/19 11/27/19 23:59 23:59 23:59 Intake Total 1541.5 / 1541.5 150 / 150 Balance 1541.5 / 1541.5 150 / 150 General: Healthy Appearing, Awake, Alert, Oriented x 3, Cooperative, Lethargic HEENT: Atraumatic Neck: No JVD Lungs: Diminished Brodie Bases Cardiovascular: Irregular Rhythm, Normal S1, Normal S2, No Murmurs, No Rubs, No Gallops Vascular: No Carotid Bruits Abdomen: Bowel Sounds Present, Soft Extremities: No Cyanosis, No Clubbing, No edema, Normal Capillary Refill Musculoskeletal: No Erythema Skin: No Rashes Neurological: No Focal Motor or Sensory Deficit Psych/Mental Status: Appropriate, Normal Affect 11/27/19 05:26: Sodium 140, Potassium 4.0, Chloride 107, Carbon Dioxide 27.0, Anion Gap 6, BUN 27 H, Creatinine 0.77, Est GFR (MDRD) Af Amer 127, Est GFR (MDRD) Non-Af 105, BUN/Creatinine Ratio 35.0 H, Glucose 184 H, Calcium 9.3 11/27/19 05:26: WBC 2.9 L, RBC 3.70 L, Hgb 11.2 L, Hct 34.6 L, MCV 93.5, MCH 30.3, MCHC 32.4, Plt Count 146 L, MPV 10.2, Immature Gran % (Auto) 1.000 H, Neut % (Auto) 89.5 H, Lymph % (Auto) 5.1 L, Highland % (Auto) 4.4, Eos % (Auto) 0.0, Baso % (Auto) 0.0, Absolute Neuts (auto) 2.6, Nucleated RBC % 0 Rhythm: EKG: ECHO: 10/24/2019: Interpretation Summary Mild concentric left ventricular hypertrophy. Moderately dilated left ventricle. The estimated ejection fraction is 50 %. Stage 1 diastolic dysfunction. There is mild to moderate global hypokinesis of the left ventricle. Unable to estimate RV systolic pressure due to insufficient tricuspid regurgitant envelope. Moderate (2+) aortic valve insufficiency. Mildly dilated aortic root. The study was technically difficult. Contrast injection was performed. There is no comparison study available. Stress Test: Cardiac Cath: 10/24/2019: CONCLUSIONS Global LV systolic dysfunction- Mild LVEF: by LV gram 55 % Normal Left Ventricular End Diastolic Pressure Single vessel CAD of the DIAG #1 ISR Non obstructive coronary arteries Widely patent LAD, LCX and RCA stents. RECOMMENDATIONS Referred for immediate PCI Staged percutaneous intervention of MID LAD vs Medical Therapy if pt has recurrent anginal symptoms. CORONARY ANGIOGRAPHY DOMINANCE: Right Dominant LEFT HEART ASSESSMENT Left Ventricular Ejection Fraction: by LV Gram 55 % Global Hypokinesis - Mild Depressed Left Ventricular systolic function Normal Left Ventricular End Diastolic Pressure LVEDP: 14 mmHg LEFT MAIN: 20 ostial % Stenosis LEFT ANTERIOR DESCENDING ARTERY: PROX LAD: Mild luminal irregularities less than 30% MID LAD: Moderate luminal irregularities up to 50%, Previously placed stent is patent DIAGONAL 1: Proximal - Previously placed stent has an instent 85 % restenosis CIRCUMFLEX ARTERY: MID CIRC: Previously placed stent has an instent 20 % restenosis DISTAL CIRC: Moderate luminal irregularities up to 50% RIGHT CORONARY ARTERY: MID RCA: Previously placed stent is patent PCI: CT Surgery: Holter monitor: EPS: PPM: CXR: Chest CT Scan: Assessment/Plan 1. Atrial fibrillation/Flutter with RVR * During patient's previous hospitalization he was started on Eliquis therapy and his beta-alma was adjusted. It appears at earliest he was started on Eliquis 5 mg p.o. twice daily on 11/24/2019. * His most recent echocardiogram from 10/24/2019 showed preserved ejection fraction 50%, stage I diastolic dysfunction, moderate aortic valve insufficiency, and normal atrial sizes. * His most recent heart catheterization resulted in stenting and revealed mild to moderate disease throughout. * His heart rate did improve with IV push 5 mg of metoprolol. * At this time, we will focus on heart rate control. This will include additional heart rate limiting medications with calcium channel alma. * He will begin Cardizem 120 mg p.o. daily as his heart rate remains elevated in the 120s. Hopefully, with stronger rate control his shortness of breath also improves. Hopefully, with continual pulmonary improvement his rate improves. * In the long run, we can consider outpatient cardioversion once on anticoagulation for at least 3-4 weeks. We will hold off on antiarrhythmic medication such as amiodarone at this time due to underlying lung cancer. 2. Atherosclerotic Coronary Artery Disease * Patient denies any chest pain, arm pain, jaw pain, or neck pain suggestive of angina at this time. His initial troponin was negative. His EKG is negative for acute ST or T wave changes with underlying RBBB and left anterior fascicular block. We will continue to monitor. We will not make any medication regimen changes and will continue risk factor modification. * Of note, his Aspirin was discontinued and he is currently on Plavix and Eliquis therapy. * Patient's BNP, chest x-ray, and exam is negative for fluid volume overload. 3. Hypertension * At this time, his blood pressure is well controlled or elevated. This will be monitored as his heart rate medication is adjusted. 4. Hyperlipidemia * He will continue current statin medication. Patient's case was reviewed Dr. Wooten, who will also personally evaluate patient. Please see his dictation for further input and recommendations. Thank you for allowing us to participate in the patients plan of care, if you have any questions please do not hesitate to call. This note was generated using a voice recognition system and there may be incorrect words, spelling or punctuation that were not noted when reviewing the office note prior to saving. <Shawn Wooten - Last Filed: 11/27/19 14:22> Reason for Consult History of Present Illness: The patient is a 74 year old M [] Objective: Vital Signs Temp Pulse Resp BP Pulse Ox 98.4 F 123 H 14 122/64 H 94 11/27/19 13:53 11/27/19 13:53 11/27/19 13:53 11/27/19 13:53 11/27/19 13:53 Oxygen Flow Rate (L/min) 3 Oxygen Delivery Method Nasal Cannula Weight: 213 lb 12.8 oz Body Mass Index (BMI) 32.5 Intake and Output for Last 24 Hours 11/25/19 11/26/19 11/27/19 23:59 23:59 23:59 Intake Total 1541.5 / 1541.5 964 / 964 Balance 1541.5 / 1541.5 964 / 964 11/27/19 05:26: Sodium 140, Potassium 4.0, Chloride 107, Carbon Dioxide 27.0, Anion Gap 6, BUN 27 H, Creatinine 0.77, Est GFR (MDRD) Af Amer 127, Est GFR (MDRD) Non-Af 105, BUN/Creatinine Ratio 35.0 H, Glucose 184 H, Calcium 9.3 11/27/19 05:26: WBC 2.9 L, RBC 3.70 L, Hgb 11.2 L, Hct 34.6 L, MCV 93.5, MCH 30.3, MCHC 32.4, Plt Count 146 L, MPV 10.2, Immature Gran % (Auto) 1.000 H, Neut % (Auto) 89.5 H, Lymph % (Auto) 5.1 L, Highland % (Auto) 4.4, Eos % (Auto) 0.0, Baso % (Auto) 0.0, Absolute Neuts (auto) 2.6, Nucleated RBC % 0 Rhythm: Atrial fibrillation/flutter EKG: Atrial fibrillation/flutter; PVCs; right bundle branch block pattern ECHO: As noted above Cardiac Cath: As noted above PCI: As noted above Chest CT Scan: Allergy: No great vessel disease/thromboembolic disease reported Assessment/Plan Addendum: Date: 11-27-2019 The patient was independently evaluated and examined. The patient presented for concerns of worsening shortness of breath/dyspnea and findings of atrial fibrillation with rapid ventricular response. The patient has been treated with an attempt at slowing his heart rate with IV beta-alma x1 and oral diltiazem x1. The patient continues with his atrial dysrhythmia with rapid ventricular response. The patient has denied chest discomfort. He does note when he swallows he feels as if he is swallowing razor blades down his esophagus. He states that his eso phageal symptoms may be related to his history of chemotherapy/radiation therapy and/or his underlying lung carcinoma and its location. He has denied other forms of chest discomfort. He has had no issues with near syncope or syncope. He has had no peripheral pitting edema. On examination his lungs demonstrate diminished breath sounds. His cardiovascular exam demonstrates an irregularly irregular rhythm with a normal S1 and S2. His abdomen demonstrates positive bowel sounds being soft nontender with no obvious organomegaly. His extremities demonstrate no obvious peripheral pitting edema. His previous noninvasive and invasive studies are as noted above. At the present time the concerns include his atrial fibrillation/flutter with rapid ventricular response superimposed upon his history of underlying CAD and PCI, hyperlipidemia, hypertension, and his lung carcinoma (nonsurgical) being treated with chemotherapy and radiation therapy. With respect to his underlying atrial dysrhythmia he will continue his rate control therapy. He will continue anticoagulant therapy. However as he continues with rapid ventricular response an attempt will be made to assist in slowing his rate and/or potentially regaining sinus rhythm with the addition of IV amiodarone which can eventually be changed to oral therapy as deemed appropriate. Hopefully he can be controlled medically and after an appropriate period of time on anticoagulant therapy have an attempt at regaining sinus rhythm with synchronized biphasic DC cardioversion. An attempt is being made to avoid MAGGIE guided synchronized biphasic DC cardioversion based upon his esophageal concerns. In the meantime he will continue to be followed for any change in his underlying CAD status that would require further evaluation and care. He will continue medical therapy including his antiplatelet agents. He will continue medical management for his hyperlipidemia and hypertension as deemed appropriate. He does follow with hematology oncology for his underlying lung carcinoma. Comment: The patient's case was discussed and reviewed with the patient and Alonzo Hutchinson CNP. This note was generated using a voice recognition system and there may be incorrect words, spelling or punctuation that were not noted when reviewing the office note prior to saving.
[2019-11-27 10:42] LABS: Pathologist Review Reviewed
[2019-11-27] MEDS: dilTIAZem CD 120 MG Capsule PO (12:07)
[2019-11-27 12:21] LABS: Bedside Glucose 269 mg/dL (70-110)
--- NOTE | 2019-11-27 12:30 | CASEMGMT ---
Social Work Palliative Medicine Screening Tool completed with patient score of 6. SW met with pt and presented program to the pt. [facility] and he is not interested at this time. LEIGH Reina
[2019-11-27 14:31] LABS: Pathologist Review Reviewed
--- NOTE | 2019-11-27 14:34 | CASEMGMT ---
RN CM Assessment Patient resting, easily aroused. Introduced role of RN CM to patient.? Patient is alert, oriented and able?to participate in RN CM Assessment. ?Care providers, pharmacy, and demographics verified. Presentation: Difficulty breathing. New dx Afib RVR on 11/23/2019. H/o SRINATH malignancy under going chemo & XRTper Dr Witt. Admit Dx: COPD Exacerbation, Afib Re-Admit: No. Patient just shy of 30 day re-admission. Obs 11/22-11/25/2019 for Afib RVR, IP 10/24-10/25/2019 for unstable angina. Barriers/Issues: None. Patient is a and does receive care at [facility]. Patient is willing to transfer to [place] if bed available. PCP: [facility] Dr Camp Specialists: Onc- Dr Witt, Dr Cook, and Dr Edward. Pulm- [facility]- Dr Carson [facility] Otherwise [place]: [facility], [facility] A&B Rx Benefit:?[facility] ?LNOK: Dtr Kendra Jackman LW/HPOA: States has both completed that he did with an sports attorney, aware not on file with [facility] and if brought in will place a copy on file. HPOA- son Dhruv Moreno Living Arrangements:? Lives alone in a H, 2 steps to enter with railing. ADL?s: Independent with ambulation and ADLs Transportation: Patient drives, son or Dtr DME: Nebulizer, home O2 2-3Lpm- [facility]-full. Glucometer, shower chair, BP cuff. HHC: None SNF: None Goal: Home and unsure of any needs at this time. Aware CM remains available for any emerging needs. DC PLAN: Home and no anticipated needs identified at this time. HIMA Patterson
[2019-11-27] MEDS: Amiodarone 360 MG in Dextrose 5% Viaflo Bag 192.8 ML 33.3 MG CONT INF (15:35)
[2019-11-27 17:05] LABS: Bedside Glucose 202 mg/dL (70-110)
[2019-11-27] MEDS: Amiodarone 360 MG in Dextrose 5% Viaflo Bag 192.8 ML 16.7 MG CONT INF (21:36)
[2019-11-27] MEDS: Doxazosin 1 MG Tablet 3 MG PO (22:04)
[2019-11-27] MEDS: Rosuvastatin 20 MG Tablet 40 MG PO (22:04)
[2019-11-27 22:21] LABS: Bedside Glucose 203 mg/dL (70-110)
[2019-11-28] VITALS (27 sets, daily range): BP systolic 109–148; BP diastolic 48–114; PULSE 75–104; RESP 14–25; TEMP 36–36.9; O2SAT 91–97
[2019-11-28] MEDS: Gabapentin 300 MG Capsule PO ×3 (05:18→22:03)
--- NOTE | 2019-11-28 05:55 | EKG12_ITS ---
Test Reason : AM EKG Blood Pressure : / mmHG Vent. Rate : 076 BPM Atrial Rate : 304 BPM P-R Int : 000 ms QRS Dur : 156 ms QT Int : 462 ms P-R-T Axes : 079 -68 -47 degrees QTc Int : 519 ms Atrial flutter Left axis deviation Right bundle branch block Abnormal ECG When compared with ECG of 26-NOV-2019 08:01, No significant change was found Confirmed by SHANNON ROSE ([id number]), purchase request editor RENEE ACOSTA ([id number]) on 11/29/2019 7:28:30 AM Referred By: YI Confirmed By:SHANNON ROSE
[2019-11-28 06:40] LABS: Bedside Glucose 143 mg/dL (70-110)
[2019-11-28] MEDS: Ipratropium/Albuterol Sulfate 3 ML AMPUL.NEB INHALATION ×5 (06:57→22:53)
[2019-11-28] MEDS: Pantoprazole Sodium 40 MG Tablet PO (09:05)
[2019-11-28] MEDS: predniSONE 20 MG Tablet 40 MG PO (09:05)
[2019-11-28] MEDS: busPIRone 5 MG Tablet 10 MG PO ×2 (09:06→22:03)
[2019-11-28] MEDS: Carvedilol 25 MG Tablet PO ×2 (09:07→22:03)
[2019-11-28] MEDS: Empagliflozin 25 MG Tablet 12.5 MG PO (09:07)
[2019-11-28] MEDS: Isosorbide Mononitrate 60 MG Tablet 180 MG PO (09:07)
[2019-11-28] MEDS: Tamsulosin HCl 0.4 MG Capsule PO (09:07)
[2019-11-28] MEDS: APIXABAN 5 MG TABLET PO ×2 (09:07→22:03)
[2019-11-28] MEDS: Clopidogrel Bisulfate 75 MG Tablet PO (09:08)
[2019-11-28] MEDS: Paroxetine 20 MG Tablet PO (09:08)
[2019-11-28] MEDS: guaiFENesin 1,200 MG Tablet 1200 MG PO ×2 (09:08→22:03)
[2019-11-28] MEDS: Lisinopril 20 MG Tablet PO ×2 (09:08→22:03)
[2019-11-28] MEDS: dilTIAZem CD 120 MG Capsule PO ×2 (09:13→22:02)
--- NOTE | 2019-11-28 09:13 | PCM.PN.CARD ---
Subjectve: The patient is awake and alert. He denies any ongoing chest discomfort or worsening shortness of breath/dyspnea. He continues with his difficulty swallowing. However, he states he is able to swallow his oral medication. Objective: Vital Signs Temp Pulse Resp BP Pulse Ox 96.8 F L 85 25 H 144/48 H 92 11/28/19 06:00 11/28/19 07:00 11/28/19 07:00 11/28/19 07:00 11/28/19 07:00 Oxygen Flow Rate (L/min) 3 Oxygen Delivery Method Nasal Cannula Weight: 213 lb 12.8 oz Body Mass Index (BMI) 32.5 Intake and Output for Last 24 Hours 11/26/19 11/27/19 11/28/19 23:59 23:59 23:59 Intake Total 1541.5 / 1541.5 2130.38 / 2147.08 373.6 / 373.6 Output Total 300 / 300 950 / 950 Balance 1541.5 / 1541.5 1830.38 / 1847.08 -576.4 / -576.4 General: Awake, Alert, Oriented x 3, Cooperative, No Acute Distress HEENT: Atraumatic, Normocephalic, PERRL, EOMI, Sclera Non Icteric Oral: Moist Mucosa Neck: Supple, Good ROM, No JVD Lungs: Clear to auscultation Cardiovascular: Irregular Rhythm, Normal S1, Normal S2 Abdomen: Bowel Sounds Present, Soft, Non Tender Extremities: No edema Psych/Mental Status: Appropriate Rhythm: Atrial fibrillation/flutter EKG: Trolled flutter; left axis deviation; low voltage QRS-limb leads; right bundle branch block pattern Medical Necessity - Tobacco Use Smoking Status: Former smoker Assessment/Plan 1. Atrial fibrillation/flutter At the present time the patient will continue rate control therapy. This includes a combination of beta-blockers and calcium channel antagonist. He will continue antiarrhythmic therapy. An attempt will be made to convert his IV amiodarone to oral amiodarone. He will continue oral anticoagulant therapy. Over time he will be considered for future synchronized biphasic DC cardioversion once he has had adequate anticoagulant therapy. 2. CAD status post PCI The patient has a history of CAD and previous PCI. He appears without any acute symptoms at this time. He will continue medical management. 3. Hyperlipidemia He will continue medical therapy as deemed appropriate. 4. Hypertension The patient will continue to have his blood pressure monitoring his medications adjusted as needed. 5. Lung carcinoma The patient continues to follow with [facility] hematology oncology for his lung carcinoma therapy which has included chemotherapy and radiation therapy. Comment: The patient's case was discussed and reviewed with the patient and Dr. Cook. This note was generated using a voice recognition system and there may be incorrect words, spelling or punctuation that were not noted when reviewing the office note prior to saving.
[2019-11-28] MEDS: Amiodarone 360 MG in Dextrose 5% Viaflo Bag 192.8 ML 16.7 MG CONT INF (10:35)
[2019-11-28] MEDS: Insulin Lispro 100 UNIT/ML INSULN.PEN SQ ×2 (11:18→22:01)
[2019-11-28 11:25] LABS: Bedside Glucose 228 mg/dL (70-110)
--- NOTE | 2019-11-28 12:20 | PN_ITS ---
Patient Problems: Active and Suspected Problems (Last Reviewed 11/26/19 @ 09:[address] Conchita Cook DO) COPD exacerbation (Acute) Subjective: Pt states he is feeling a lot better. Rates 60% improvement since admission and has noted a big difference since his HR is better. Vitals/I&O's: Vital Signs Temp Pulse Resp BP Pulse Ox 96.8 F L 79 21 H 121/65 H 93 11/28/19 06:00 11/28/19 12:00 11/28/19 12:00 11/28/19 12:00 11/28/19 12:00 Oxygen Flow Rate (L/min) 3 Oxygen Delivery Method Nasal Cannula Weight: 96.978 kg Body Mass Index (BMI) 32.5 Intake and Output for Last 24 Hours 11/26/19 11/27/19 11/28/19 23:59 23:59 23:59 Intake Total 1541.5 / 1541.5 2130.38 / 2147.08 1345.28 / 1345.28 Output Total 300 / 300 1365 / 1365 Balance 1541.5 / 1541.5 1830.38 / 1847.08 -19.72 / -19.72 General: Alert, Oriented x3, Cooperative, No apparent distress, Well developed, Well nourished Lungs: No rhonchi, No rales, Diminished, Wheezes - few scattered Cardiovascular: Regular rate, Normal S1, Normal S2, No murmurs, No Ectopic Activity, No rub noted, No Gallop, - - irreg rhythm Abdomen: Bowel Sounds Present, Soft, Non Tender, Non-Distended, No Hepato-splenomegaly, Obese, No hernias noted Extremities: No clubbing, No cyanosis, No edema, Capillary Refill Less than 3 Seconds Psych/Mental Status: Alert and oriented to time, place, person, mood and affect Microbiology Past 72 Hours 11/26/19 11:00 Mucosa - Nose Respiratory Panel (PCR) - Final 11/26/19 11:00 Mucosa - Nose Influenza Types A,B Direct FA (JAQUELIN) - Final Laboratory Results 11/26/19 07:50: Diff Path Review Reviewed 11/27/19 11:12: POC Glucose 269 H 11/27/19 16:36: POC Glucose 202 H 11/27/19 22:11: POC Glucose 203 H 11/28/19 06:32: POC Glucose 143 H 11/28/19 11:17: POC Glucose 228 H Current Medications Acetaminophen (Tylenol) 650 mg PO 4X/DAY PRN PRN Reason: stiffness in hands Albuterol Sulfate (Ventolin Aerosols) 2.5 mg INHALATION Q2H PRN PRN PRN Reason: SHORTNESS OF BREATH Albuterol/Ipratropium (Duoneb) 3 ml INHALATION Q4H.RT [facility] Last Admin: 11/28/19 10:53 Dose: 3 ml Documented by: Amiodarone HCl (Cordarone) 200 mg PO TID [facility] Apixaban (Eliquis) 5 mg PO BID [facility] Last Admin: 11/28/19 09:07 Dose: 5 mg Documented by: Benzonatate (Tessalon Perle) 200 mg PO Q8H PRN PRN Reason: COUGH Last Admin: 11/27/19 15:15 Dose: 200 mg Documented by: Buspirone HCl (Buspar) 10 mg PO BID [facility] Last Admin: 11/28/19 09:06 Dose: 10 mg Documented by: Carvedilol (Coreg) 25 mg PO BID [facility] Last Admin: 11/28/19 09:07 Dose: 25 mg Documented by: Clopidogrel Bisulfate (Plavix) 75 mg PO DAILY [facility] Last Admin: 11/28/19 09:08 Dose: 75 mg Documented by: Diltiazem HCl (Cardizem Cd) 120 mg PO Q12 [facility] Last Admin: 11/28/19 09:49 Dose: Not Given Documented by: Doxazosin Mesylate (Cardura) 3 mg PO QHS [facility] Last Admin: 11/27/19 22:04 Dose: 3 mg Documented by: Empagliflozin (Jardiance) 12.5 mg PO DAILY [facility] Last Admin: 11/28/19 09:07 Dose: 12.5 mg Documented by: Gabapentin (Neurontin) 300 mg PO TID [facility] Last Admin: 11/28/19 05:18 Dose: 300 mg Documented by: Guaifenesin (Mucinex) 1,200 mg PO BID [facility] Last Admin: 11/28/19 09:08 Dose: 1,200 mg Documented by: Sodium Chloride () 250 mls @ 15 mls/hr IV .[id number] PRN PRN Reason: SALINE FLUSH Last Infusion: 11/27/19 11:16 Dose: 0 mls/hr Documented by: Amiodarone HCl 360 mg/ (Dextrose) 200 mls @ 16.667 mls/hr CONT INF .Q12H [facility] Last Infusion: 11/28/19 12:00 Dose: 0.5 mg/min, 16.7 mls/hr Documented by: Insulin Glargine (Lantus ([facility])) 40 units SC 1100 [facility] Last Admin: 11/28/19 11:18 Dose: 40 units Documented by: Insulin Human Lispro (Humalog Kwikpen ([facility])) 0 unit SQ ACHS [facility]; Protocol Last Admin: 11/28/19 11:18 Dose: 2 unit Documented by: Isosorbide Mononitrate (Imdur) 180 mg PO DAILY [facility] Last Admin: 11/28/19 09:07 Dose: 180 mg Documented by: Lisinopril (Zestril) 20 mg PO BID [facility] Last Admin: 11/28/19 09:08 Dose: 20 mg Documented by: Nitroglycerin (Nitrostat) 0.4 mg SUBLINGUAL Q5M PRN PRN Reason: Angina Ondansetron HCl (Zofran) 4 mg IV Q6H PRN PRN PRN Reason: nausea vomiting Pantoprazole Sodium (Protonix) 40 mg PO BREAKFAST [facility] Last Admin: 11/28/19 09:05 Dose: 40 mg Documented by: Paroxetine HCl (Paxil) 20 mg PO DAILY [facility] Last Admin: 11/28/19 09:08 Dose: 20 mg Documented by: Prednisone () 40 mg PO DAILY@0800 [facility] Last Admin: 11/28/19 09:05 Dose: 40 mg Documented by: Rosuvastatin Calcium (Crestor) 40 mg PO QHS [facility] Last Admin: 11/27/19 22:04 Dose: 40 mg Documented by: Sodium Chloride () 10 - 40 ml IV UD PRN PRN Reason: SALINE FLUSH Last Admin: 11/27/19 15:45 Dose: 30 ml Documented by: Tamsulosin HCl (Flomax) 0.4 mg PO DAILY [facility] Last Admin: 11/28/19 09:07 Dose: 0.4 mg Documented by: STROKE Vital Signs/Narrative: Vital Signs Pulse Resp BP Pulse Ox 11/28/19 12:00 79 21 H 121/65 H 93 11/28/19 11:00 79 21 H 128/62 H 94 11/28/19 10:53 88 20 H 11/28/19 10:00 77 14 121/62 H 97 11/28/19 09:00 78 23 H 145/114 H 95 Medical Necessity - Tobacco Use Smoking Status: Former smoker Assessment/Plan All Active Problems (Last Reviewed 11/26/19 @ 09:[address] Conchita Cook, DO) Elevated troponin (Acute) Atrial fibrillation with RVR (Acute) COPD exacerbation (Acute) Acute on Chronic Respiratory Failure 2/2 suspected AECOPD -CXR with no acute processes -wears 2 L at rest and 3 L with exertion -down to 3 L at rest today -wean as able to home dose -Azithro for anti-inflammatory --> done today -PCR flu and viral panel are neg -Steroids 40 po daily--> start taper to 30 tomorrow -CT chest without PE and underwhelming overall -Hold pulmicort -Hold [place] -DuoNebs scheduled -Albuterol PRN Chronic A-fib/flutter -HR much better today with the addition of CCB (diltiazem 120 mg BID) -Continue BB (Coreg 25 mg BID) -Continue Apixaban 5 mg BID -BP stable -cards following Cough -better -Tesluis glynn scheduled -continue guaifenesin CKD stage 3 -sCr is at baseline and remains stable -monitor -lab in am Pancytopenia -on chemotherapy for Lung Cancer -am cbc CAD/HTN/HPL -Continue BB/Statin/Plavix/Lisinopril/Imdur -d/c ASA as pt was on triple therapy and risk of bleeding is much higher (cont Plavix and NOAC) -EF is 60-65% on recent ECHO at [place] GERD -continue Protonix DM-2 -Continue Lantus--> increase to 46 u (should be able to decrease with wean in steroids) -SSI -hold home PO meds for now -BGT AC TID BPH -continue Cardura/Flomax Depression -continue Paxil/Buspar Vitamin D Deficiency -continue Vit D replacement 3000 U daily H/O Lung Cancer -Chemo per Dr. Witt -was to get chemo today DVT prophylaxis -NOAC Code Status -DNR-CCA--> NO ETT Dispo -possible d/c in next 24 hrs if continues to improve Inpatient E&M: 06403 Subs Hosp L2
[2019-11-28] MEDS: Amiodarone 200 MG Tablet PO ×2 (13:44→22:02)
[2019-11-28 16:16] LABS: Bedside Glucose 259 mg/dL (70-110)
[2019-11-28] MEDS: Rosuvastatin 20 MG Tablet 40 MG PO (22:03)
[2019-11-28] MEDS: Doxazosin 1 MG Tablet 3 MG PO (22:03)
[2019-11-28 22:40] LABS: Bedside Glucose 317 mg/dL (70-110)
[2019-11-29] VITALS (10 sets, daily range): BP systolic 113–134; BP diastolic 57–70; PULSE 72–80; RESP 16–18; TEMP 35.9–36.4; O2SAT 87–96
[2019-11-29] MEDS: Ipratropium/Albuterol Sulfate 3 ML AMPUL.NEB INHALATION ×3 (02:55→10:54)
[2019-11-29 05:44] LABS: Absolute Lymphocyte Count 0.26 X10^3/uL (0.83-4.51); Absolute Neutrophil Count 1.7 X10^3/uL (2.0-7.7); Hematocrit 34.5 % (40-54); Lymphocyte # 0.26 X10^3/ul (4.0); Lymphocyte % 11.4 % (19-41); Mean Corp Hgb Conc 31.9 g/dL (32-36); Mean Corpuscular Hgb 29.9 pg (27.0-32.0); Mean Corpuscular Volume 93.8 fL (80-94); Mean Platelet Vol. 9.4 fl (6.2-12.0); Monocyte# 0.37 X10^3/uL; Monocyte% 16.2 % (0-10); NRBC Flagged by Analyzer 0 % (0-5); Neutrophil # 1.65 X10^3/uL (2.7-7.7); POSITIVE DIFFERENTIAL YES; Platelet Count 144 K/mm3 (150-450); RBC Distribution Width CV 16.3 % (11.6-14.6); RBC Distribution Width SD 52.6 fl (35.1-43.9); Red Blood Count 3.68 M/mm3 (4.6-6.2); White Blood Count 2.3 K/mm3 (4.4-11.0)
[2019-11-29 05:48] LABS: Differential Indicated SCAN CRITERIA MET
[2019-11-29 06:06] LABS: Anion Gap 7 (5-15); BUN 29 mg/dL (7-18); BUN/Creat Ratio 34.4 RATIO (10-20); Calcium,Total 8.6 mg/dL (8.5-10.1); Chloride 108 mmol/L (98-107); Creatinine, Serum 0.84 mg/dL (0.70-1.30); EST Glomerular Filtration Rate 95 mL/min (>60); Est Glom Filt Rate - Afr Amer 115 mL/min (>60); Estimated Creatinine Clearance 75.77 ml/min; Glucose 161 mg/dL (74-106); Sodium Level 144 mmol/L (136-145)
[2019-11-29 06:24] LABS: Differential Comment SCANNED
[2019-11-29] MEDS: Amiodarone 200 MG Tablet PO (06:36)
[2019-11-29] MEDS: Gabapentin 300 MG Capsule PO (06:36)
[2019-11-29 06:45] LABS: Bedside Glucose 143 mg/dL (70-110)
[2019-11-29] MEDS: Pantoprazole Sodium 40 MG Tablet PO (07:50)
[2019-11-29] MEDS: predniSONE 20 MG Tablet 40 MG PO (07:50)
[2019-11-29 09:50] LABS: Pathologist Review Reviewed
[2019-11-29] MEDS: Glucerna Shake 120 ML LIQUID PO (10:02)
[2019-11-29] MEDS: Empagliflozin 25 MG Tablet 12.5 MG PO (10:06)
[2019-11-29] MEDS: guaiFENesin 1,200 MG Tablet 1200 MG PO (10:06)
[2019-11-29] MEDS: Lisinopril 20 MG Tablet PO (10:07)
[2019-11-29] MEDS: Paroxetine 20 MG Tablet PO (10:07)
[2019-11-29] MEDS: Clopidogrel Bisulfate 75 MG Tablet PO (10:07)
[2019-11-29] MEDS: Carvedilol 25 MG Tablet PO (10:08)
[2019-11-29] MEDS: APIXABAN 5 MG TABLET PO (10:08)
[2019-11-29] MEDS: Isosorbide Mononitrate 60 MG Tablet 180 MG PO (10:08)
[2019-11-29] MEDS: dilTIAZem CD 120 MG Capsule PO (10:08)
[2019-11-29] MEDS: Tamsulosin HCl 0.4 MG Capsule PO (10:08)
[2019-11-29] MEDS: busPIRone 5 MG Tablet 10 MG PO (10:08)
--- NOTE | 2019-11-29 10:16 | PN.CARD_ITS ---
Subjectve: The patient is awake and alert. He states he feels better overall. Objective: Vital Signs Temp Pulse Resp BP Pulse Ox 97.6 F L 74 18 134/57 H 96 11/29/19 09:55 11/29/19 09:55 11/29/19 09:55 11/29/19 09:55 11/29/19 09:55 Oxygen Flow Rate (L/min) 3 Oxygen Delivery Method Nasal Cannula Weight: 213 lb 12.798 oz Body Mass Index (BMI) 32.5 Intake and Output for Last 24 Hours 11/27/19 11/28/19 11/29/19 23:59 23:59 23:59 Intake Total 2130.38 / 2147.08 2164.88 / 2164.88 480 / 480 Output Total 300 / 300 1780 / 1780 Balance 1830.38 / 1847.08 384.88 / 384.88 480 / 480 General: Awake, Alert, Oriented x 3, Cooperative, No Acute Distress HEENT: Atraumatic, Normocephalic, PERRL, EOMI, Sclera Non Icteric Oral: Moist Mucosa Neck: Supple, Good ROM, No JVD Lungs: - - No obvious rales or rhonchi Cardiovascular: Irregular Rhythm, Normal S1, Normal S2 Abdomen: Bowel Sounds Present, Soft, Non Tender Extremities: No edema Psych/Mental Status: Appropriate 11/29/19 05:06: WBC 2.3 L, RBC 3.68 L, Hgb 11.0 L, Hct 34.5 L, MCV 93.8, MCH 29.9, MCHC 31.9 L, Plt Count 144 L, MPV 9.4, Immature Gran % (Auto) 0.400, Neut % (Auto) 72.0 H, Lymph % (Auto) 11.4 L, [place] % (Auto) 16.2 H, Eos % (Auto) 0.0, Baso % (Auto) 0.0, Absolute Neuts (auto) 1.7 L, Nucleated RBC % 0 11/29/19 05:06: Sodium 144, Potassium 4.0, Chloride 108 H, Carbon Dioxide 29.0, Anion Gap 7, BUN 29 H, Creatinine 0.84, Est GFR (MDRD) Af Amer 115, Est GFR (MDRD) Non-Af 95, BUN/Creatinine Ratio 34.4 H, Glucose 161 H, Calcium 8.6 Rhythm: Atrial fibrillation/flutter Medical Necessity - Tobacco Use Smoking Status: Former smoker Assessment/Plan 1. Atrial fibrillation/flutter At the present time the patient will continue rate control therapy. This includes a combination of beta-blockers and calcium channel antagonist. He will continue antiarrhythmic therapy. He has been converted to oral amiodarone therapy. He will continue oral anticoagulant therapy. Over time he will be considered for future synchronized biphasic DC cardioversion once he has had adequate anticoagulant therapy. 2. CAD status post PCI The patient has a history of CAD and previous PCI. He appears without any acute symptoms at this time. He will continue medical management. 3. Hyperlipidemia He will continue medical therapy as deemed appropriate. 4. Hypertension The patient will continue to have his blood pressure monitoring his medications adjusted as needed. 5. Lung carcinoma The patient continues to follow with [facility] hematology oncology for his lung carcinoma therapy which has included chemotherapy and radiation therapy. All, the patient does appear to be symptomatically improved. His cardiac rate appears to be improved. The tentative plan will be for continued conservative medical management at this time. There are no additional cardiovascular diagnostic studies/interventions planned at this time. Comment: The patient's case was discussed and reviewed with the patient and Dr. Fox. This note was generated using a voice recognition system and there may be incorrect words, spelling or punctuation that were not noted when reviewing the office note prior to saving.
--- NOTE | 2019-11-29 11:17 | PCM.DC ---
- Discharge Diagnoses Current Active Problems: Current Active and Chronic Problems (Last Reviewed 11/26/19 @ 09:[address] Conchita Cook DO) COPD exacerbation (Acute) You will use the following diet at home:: Calorie/Carbohydrate Controlled (specify 1200, 1400, etc) - 1800 stacy Your food should be the consistency of: Regular Your liquids should be the consistency of: Regular/Thin Discharge Activity: Return to Normal Activity Weight Bearing Status: Full weight bearing Additional Instructions: Use Robitussin DM for cough Allergies/Adverse Reactions: Allergies cephalexin [From Keflex] Allergy (Verified 11/26/19 07:37) Rash doxycycline Allergy (Verified 11/26/19 07:37) Rash Penicillins Allergy (Verified 11/26/19 07:37) CHILDHOOD ALLERGY metformin Adverse Reaction (Verified 11/23/19 16:39) Upset Stomach niacin Adverse Reaction (Verified 11/23/19 16:39) Rash simvastatin Adverse Reaction (Verified 11/23/19 16:39) Rash Medications to take at Discharge Albuterol Sulfate [Proair Digihaler] 2 puff IH 4X/DAY PRN PRN 10/23/19 Budesonide/Formoterol Fumarate [Symbicort 160-4.5 Mcg Inhaler] 2 puff IH BID 10/23/19 Empagliflozin [Jardiance] 12.5 mg PO DAILY 10/23/19 Fluticasone Propionate [Flovent Diskus] 50 mcg NASAL DAILY 10/23/19 Gabapentin [Neurontin] 3 tab PO TID 10/23/19 Glipizide 5 mg PO BID 10/23/19 Insulin Glargine [Lantus SoloStar Pen] 40 units SUBCUT DAILY 10/23/19 Isosorbide Mononitrate [Imdur] 180 mg PO DAILY 10/23/19 Nitroglycerin [Nitrostat] 1 tab SL PRN PRN 10/23/19 Paroxetine [Paxil] 2 tab PO DAILY 10/23/19 Prazosin HCl 4 mg PO QHS 10/23/19 Tiotropium [place] [Spiriva 18 MCG] 2 puff INHALATION Q6H PRN PRN 10/23/19 busPIRone [Buspar] 10 mg PO BID 10/23/19 Acetaminophen 2 tab PO 4X/DAY PRN 10/24/19 Lisinopril 20 mg PO BID 10/24/19 Clopidogrel Bisulfate [Plavix] 75 mg PO DAILY 30 Days #30 tab 10/25/19 Aspirin [Aspirin, Baby] 81 mg PO DAILY 11/23/19 Cholecalciferol (VIT D3) [Vitamin D3] 3,000 unit PO DAILY 11/23/19 Cyanocobalamin (Vitamin B-12) [B-12] 1,000 mcg PO DAILY 11/23/19 Ketoconazole [Nizoral] 120 ml TP QWEEK 11/23/19 Pantoprazole Sodium 40 mg PO BREAKFAST 11/23/19 Rosuvastatin Calcium 40 mg PO QHS 11/23/19 Tamsulosin HCl 0.4 mg PO DAILY 11/23/19 Acetaminophen [Tylenol Tablet] 650 mg PO Q6H PRN PRN tab 11/25/19 Apixaban [Eliquis] 5 mg PO BID #60 tab 11/25/19 Carvedilol [Coreg (Beta [place]ma)] 25 mg PO BID 60 Days tab 11/25/19 Amiodarone HCl [Cordarone] 200 mg PO TID #90 tab 11/29/19 Benzonatate [Tessalon Perle] 200 mg PO Q8H PRN #30 cap 11/29/19 Diltiazem CD [Cardizem CD] 120 mg PO Q12 #60 cap 11/29/19 Guaifenesin [Mucinex] 1,200 mg PO BID #0 tablet 11/29/19 predniSONE tablet 40 mg PO DAILY@0800 #11 tab 11/29/19 The following prescriptions were given: Diltiazem CD [Cardizem CD] 120 mg PO Q12 #60 cap Transmission Status: [facility] to [id number] Amiodarone HCl [Cordarone] 200 mg PO TID #90 tab Transmission Status: [facility]ending to [facility][id number] predniSONE tablet 40 mg PO DAILY@0800 #11 tab Transmission Status: [facility] to [id number] Benzonatate [Tessalon Perle] 200 mg PO Q8H PRN #30 cap PRN Reason: COUGH Transmission Status: [id number] [facility] [[facility]] - Please follow up with your Primary Care Physician in: in 3 wweks Test Results: Test results from this visit will be discussed in further detail at your follow-up appointment, if applicable.
--- NOTE | 2019-11-29 11:50 | PHA.DC.COU ---
Pharmacy Services has performed discharge medication counseling for this patient. The patient was counseled on the following discharge medications and changes in medications for homegoing review. The Reason for Use, instructions for use, and potential side effects were reviewed for all new medications. 1. AMIODARONE: 200mg PO TID x14 days; then 200mg PO BID x14 days; then 200mg PO Daily 2. DILTIAZEM: 120mg PO BID The patient's questions regarding all of their medications were answered. The patient was able to verbally demonstrate an understanding of their discharge medications.
[2019-11-29] MEDS: Insulin Lispro 100 UNIT/ML INSULN.PEN SQ (12:23)
[2019-11-29 12:41] LABS: Bedside Glucose 215 mg/dL (70-110)
--- NOTE | 2019-11-29 13:08 | CASEMGMT ---
Pt states is normally on 3 liters with ambulation and his sats stay above 93% with his 3 liters. This RN CM to room to discuss discharge plan at this time and pt states no need for any further therapy at this time. Pt voices no further questions/concerns/needs at this time. Pt is ready for discharge at this time and family at bedside. SStken FRENCH CM
--- NOTE | 2019-11-30 14:54 | CASEMGMT ---
DC DATE: 11.29.2019 DC DISPOSITION: Home DC DIAGNOSIS: COPD LACE/STRATA: 07/22 F/U APPTS MADE PRIOR TO DC: Appt made by pt with his [facility] physician PRESCRIPTIONS ACQUIRED BY PT: yes Intro role of CM to patient via phone. Pt states he has no questions, concerns. States nurse went over everything with me really well. RN CM Thanked pt for using [facility]. Charles HAWKINS RN ACM
--- NOTE | 2019-12-02 15:27 | DS.PCM_ITS ---
Discharge Date and Diagnosis Date of Admission: 11/26/19 Date of Discharge: 11/29/19 - Primary Discharge Diagnosis #1 exacerbation of COPD #2 atrial fibrillation with rapid ventricular response #3 coronary artery disease #4 hyperlipidemia #5 essential hypertension #6 non-small cell lung carcinoma #7 type 2 diabetes #8 pancytopenia secondary to chemotherapy for non-small cell lung cancer #9 chronic hypoxic respiratory failure Acute respiratory failure was ruled out - Secondary Discharge Diagnosis Chronic Problems (Last Reviewed 11/26/19 @ 09:[address] Conchita Cook, DO) Atrial fibrillation (Chronic) Arteriosclerotic cardiovascular disease (Chronic) Stented coronary artery (Chronic 10/24/19) Multiple stents previously placed to LAD, LCX and RCA in past: 10/24/2019 CELIA to first diagonal per [facility] History of left heart catheterization (Chronic 10/24/19) Left Ventricular Ejection Fraction: by LV Gram 55 %; Global Hypokinesis - Mild Depressed Left Ventricular systolic function; Normal Left Ventricular End Diastolic Pressure; LVEDP: 14 mmHg; LEFT MAIN: 20 ostial % Stenosis; LEFT ANTERIOR DESCENDING ARTERY: PROX LAD: Mild luminal irregularities less than 30% MID LAD: Moderate luminal irregularities up to 50%, Previously placed stent is patent; DIAGONAL 1: Proximal - Previously placed stent has an instent 85 % restenosis; CIRCUMFLEX ARTERY: MID CIRC: Previously placed stent has an instent 20 % restenosis;DISTAL CIRC: Moderate luminal irregularities up to 50% RIGHT CORONARY ARTERY: MID RCA: Previously placed stent is patent HTN (hypertension) (Chronic) Diabetes (Chronic) Hospital Course and Treatment Operations: None Procedures: None Summary of Care Provided: The patient is a 74 year old M was seen in the emergency room at [facility] with a chief complaint of increased shortness of breath, patient is on chronic oxygen at home. Patient was given IV Solu-Medrol and aerosol treatments in the emergency room with little improvement, he was noted to be wheezing on auscultation. Patient was admitted to PCU and given IV corticosteroids and aggressive aerosol treatments, his pulse rate remained elevated however and cardiology was consulted for treatment of the atrial fibrillation. Cardiology adjusted the patient's cardiac medications. On 11/29/2019, patient was seen and examined: On examination he appeared in good health and spirits. Vital signs as documented. Skin warm and dry and without overt rashes. Neck without JVD. Lungs clear. Heart exam notable for irregular rhythm, normal sounds and absence of murmurs . Abdomen unremarkable and without evidence of organomegaly, masses, or abdominal aortic enlargement. Extremities nonedematous. Neuro: Cranial nerves II through XII are grossly intact, no focal motor deficits were noted, sensation to light touch and pinprick intact. Psych: Patient is alert and oriented x3, he does not appear anxious or depressed Patient was discharged home in stable condition on 11/29/2019. - Physical Exam Vitals/I&O's: Vital Signs Temp Pulse Resp BP Pulse Ox 97.6 F L 74 18 134/57 H 93 11/29/19 11:18 11/29/19 11:18 11/29/19 11:18 11/29/19 11:18 11/29/19 12:36 Oxygen Flow Rate (L/min) [At 3 REST on Room Air] Oxygen Flow Rate (L/min) [ 3 AMBULATION with Oxygen] Oxygen Flow Rate (L/min) 3 Oxygen Delivery Method Nasal Cannula Weight: 96.978 kg Body Mass Index (BMI) 32.5 Discharge Activity: Return to Normal Activity Weight Bearing Status: Full weight bearing Home Medications: Medications to take at Discharge Albuterol Sulfate [Proair Digihaler] 2 puff IH 4X/DAY PRN PRN 10/23/19 Budesonide/Formoterol Fumarate [Symbicort 160-4.5 Mcg Inhaler] 2 puff IH BID 10/23/19 Empagliflozin [Jardiance] 12.5 mg PO DAILY 10/23/19 Fluticasone Propionate [Flovent Diskus] 50 mcg NASAL DAILY 10/23/19 Gabapentin [Neurontin] 3 tab PO TID 10/23/19 Glipizide 5 mg PO BID 10/23/19 Insulin Glargine [Lantus SoloStar Pen] 40 units SUBCUT DAILY 10/23/19 Isosorbide Mononitrate [Imdur] 180 mg PO DAILY 10/23/19 Nitroglycerin [Nitrostat] 1 tab SL PRN PRN 10/23/19 Paroxetine [Paxil] 2 tab PO DAILY 10/23/19 Prazosin HCl 4 mg PO QHS 10/23/19 Tiotropium [place] [Spiriva 18 MCG] 2 puff INHALATION Q6H PRN PRN 10/23/19 busPIRone [Buspar] 10 mg PO BID 10/23/19 Lisinopril 20 mg PO BID 10/24/19 Clopidogrel Bisulfate [Plavix] 75 mg PO DAILY 30 Days #30 tab 10/25/19 Aspirin [Aspirin, Baby] 81 mg PO DAILY 11/23/19 Cholecalciferol (VIT D3) [Vitamin D3] 3,000 unit PO DAILY 11/23/19 Cyanocobalamin (Vitamin B-12) [B-12] 1,000 mcg PO DAILY 11/23/19 Ketoconazole [Nizoral] 120 ml TP QWEEK 11/23/19 Pantoprazole Sodium 40 mg PO BREAKFAST 11/23/19 Rosuvastatin Calcium 40 mg PO QHS 11/23/19 Tamsulosin HCl 0.4 mg PO DAILY 11/23/19 Acetaminophen [Tylenol Tablet] 650 mg PO Q6H PRN PRN tab 11/25/19 Apixaban [Eliquis] 5 mg PO BID #60 tab 11/25/19 Carvedilol [Coreg (Beta [place])] 25 mg PO BID 60 Days tab 11/25/19 Amiodarone HCl [Cordarone] 200 mg PO TID #90 tab 11/29/19 Benzonatate [Tessalon Perle] 200 mg PO Q8H PRN #30 cap 11/29/19 Diltiazem CD [Cardizem CD] 120 mg PO Q12 #60 cap 11/29/19 Guaifenesin [Mucinex] 1,200 mg PO BID #0 tab 11/29/19 predniSONE tablet 40 mg PO DAILY@0800 #11 tab 11/29/19 Following Prescrptions Were Given to Patient: Diltiazem CD [Cardizem CD] 120 mg PO Q12 #60 cap Transmission Status: [id number] Amiodarone HCl [Cordarone] 200 mg PO TID #90 tab Transmission Status: [id number] predniSONE tablet 40 mg PO DAILY@0800 #11 tab Transmission Status: [facility] by [id number] Benzonatate [Tessalon Perle] 200 mg PO Q8H PRN #30 cap PRN Reason: COUGH Transmission Status: [id number] [[facility]] - Please follow up with your Primary Care Physician in: in 3 wweks Disposition: Home Minutes spent on discharge:: 32 Patient Condition:: Stable Medical Necessity - Tobacco Use Smoking Status: Former smoker Meaningful Use Info Meaningful Use Diagnoses (Choose all that apply): None applicable Inpatient E&M: 84995 Disch Hosp
== END 2019-11-29 13:55 | disposition home or self-care (01) | DRG 190 ==
LOC: ED 08:06 → PCU 11:17
PROVIDERS: Admitting Provider Internal Medicine; Emergency Provider Emergency Medicine; Visit Provider Internal Medicine
DX: J44.1 Chronic obstructive pulmonary disease with (acute) exacerbation (principal); D61.810 Antineoplastic chemotherapy induced pancytopenia; D61.818 Other pancytopenia; J96.11 Chronic respiratory failure with hypoxia; I48.20 Chronic atrial fibrillation, unspecified; C34.12 Malignant neoplasm of upper lobe, left bronchus or lung; I50.40 Unspecified combined systolic (congestive) and diastolic (congestive) heart failure; C34.90 Malignant neoplasm of unspecified part of unspecified bronchus or lung; I45.2 Bifascicular block; I12.9 Hypertensive chronic kidney disease with stage 1 through stage 4 chronic kidney disease, or unspecified chronic kidney disease; E11.22 Type 2 diabetes mellitus with diabetic chronic kidney disease; N18.3 Chronic kidney disease, stage 3 (moderate); I25.10 Atherosclerotic heart disease of native coronary artery without angina pectoris; E78.5 Hyperlipidemia, unspecified; K21.9 Gastro-esophageal reflux disease without esophagitis; N40.0 Benign prostatic hyperplasia without lower urinary tract symptoms; F32.9 Major depressive disorder, single episode, unspecified; E55.9 Vitamin D deficiency, unspecified; Z66 Do not resuscitate; I25.2 Old myocardial infarction; Z95.5 Presence of coronary angioplasty implant and graft; Z79.51 Long term (current) use of inhaled steroids; Z79.4 Long term (current) use of insulin; Z79.01 Long term (current) use of anticoagulants; Z79.02 Long term (current) use of antithrombotics/antiplatelets; Z99.81 Dependence on supplemental oxygen; Z79.899 Other long term (current) drug therapy; Z87.891 Personal history of nicotine dependence; I48.91 Unspecified atrial fibrillation; J44.9 Chronic obstructive pulmonary disease, unspecified; Z79.82 Long term (current) use of aspirin; Z92.21 Personal history of antineoplastic chemotherapy; Z92.3 Personal history of irradiation
CPT/HCPCS: 36415; 71045; 71275; 80048; 80053; 82962; 83735; 83880; 84443; 84484; 85025; 85610; 87633; 87804; 93005; 94640; 96372; 96374; 97802; 99218; 99251; 99285; J7050; Q9967; A4216; G0378; G0463

== ENCOUNTER 2020-01-14 13:13 | Inpatient (IN) | payer MEDICARE, SELFPAY ==
[2019-10-25 09:13] VITALS: BMI 35.0
[2019-11-26 10:01] VITALS: BMI 32.5
[2020-01-14] VITALS (14 sets, daily range): BP systolic 116–134; BP diastolic 55–86; PULSE 76–100; RESP 17–24; TEMP 36.2–37.5; O2SAT 6–95; BMI 32.6; BMI 32.3
--- NOTE | 2020-01-14 13:53 | EKG12_ITS ---
Test Reason : SOB Blood Pressure : / mmHG Vent. Rate : 064 BPM Atrial Rate : 256 BPM P-R Int : 000 ms QRS Dur : 160 ms QT Int : 472 ms P-R-T Axes : 090 -73 001 degrees QTc Int : 486 ms Atrial flutter with variable A-V block Left axis deviation Right bundle branch block Abnormal ECG Confirmed by SHANNON ROSE ([id number]), television news video editor JACOB CASTELAN ([id number]) on 01/21/2020 2:54:29 PM Referred By: TORRIE Confirmed By:SHANNON ROSE
[2020-01-14 14:12] LABS: Absolute Lymphocyte Count 0.43 X10^3/uL (0.83-4.51); Absolute Neutrophil Count 10.7 X10^3/uL (2.0-7.7); Basophil# 0.09 X10^3/uL; Basophil% 0.7 % (0-1); Eosinophil# 0.46 X10^3/uL; Eosinophils% 3.5 % (0-5); Hematocrit 35.5 % (40-54); Hemoglobin 10.4 g/dL (13.0-16.5); Lymphocyte # 0.43 X10^3/ul (4.0); Lymphocyte % 3.3 % (19-41); Mean Corp Hgb Conc 29.3 g/dL (32-36); Mean Corpuscular Hgb 29.5 pg (27.0-32.0); Mean Corpuscular Volume 100.9 fL (80-94); Monocyte% 9.2 % (0-10); NRBC Flagged by Analyzer 0 % (0-5); Neutrophil # 10.74 X10^3/uL (2.7-7.7); Neutrophil % 82.5 % (47-70); POSITIVE DIFFERENTIAL YES; POSITIVE MORPHOLOGY YES; Platelet Count 348 K/mm3 (150-450); RBC Distribution Width CV 19.1 % (11.6-14.6); RBC Distribution Width SD 70.2 fl (35.1-43.9); Red Blood Count 3.52 M/mm3 (4.6-6.2)
--- NOTE | 2020-01-14 14:25 | RAD_ITS ---
STUDY: X-RAY CHEST REASON FOR EXAM: Male, 74 years old. RIGHT RIB/SIDE PAIN, DYSPNEA. -- HX COPD, EMPHYSEMA, [place] X2, CA IN lungs and lymph nodes TECHNIQUE: Single AP portable view of the chest. COMPARISON: Comparison is made with prior study dated November 26, 2019. FINDINGS: EKG electrodes are seen. There now is evidence of a focal left upper lobe infiltrate. There is no demonstrated pleural abnormality. Normal size heart. Normal mediastinum and roderick. Normal visualized pulmonary arteries. There is atherosclerotic calcification of the aortic arch with tortuosity. There are diffuse degenerative changes of the visualized thoracic spine. Normal visualized ribs, clavicles, and shoulders. There is no demonstrated abnormality of the visualized soft tissue structures of the upper abdomen. RAD/Chest 1 View (Portable) IMPRESSION: Focal left upper lobe infiltrate. Electronically Signed: Abhishek Hung, at 14:57 EDT , Service support ,
[2020-01-14 14:32] LABS: ALB/GLOB Ratio 0.6 RATIO (0.9-2.4); AST(SGOT) 20 U/L (15-37); Alanine Aminotransfer ALT/SGPT 22 U/L (16-61); Albumin, Serum 2.9 g/dL (3.2-5.0); Alkaline Phosphatase 81 U/L (45-117); Anion Gap 3 (5-15); BUN 16 mg/dL (7-18); BUN/Creat Ratio 15.1 RATIO (10-20); Calcium,Total 8.9 mg/dL (8.5-10.1); Chloride 103 mmol/L (98-107); Creatinine, Serum 1.06 mg/dL (0.70-1.30); EST Glomerular Filtration Rate 73 mL/min (>60); Est Glom Filt Rate - Afr Amer 88 mL/min (>60); Estimated Creatinine Clearance 60.05 ml/min; Glucose 61 mg/dL (74-106); Potassium 4.6 mmol/L (3.5-5.1); Protein, Total 7.9 g/dL (6.4-8.2); Sodium Level 139 mmol/L (136-145)
--- NOTE | 2020-01-14 14:37 | ED.VISSUMM ---
- ER Visit Summary Date of Service: 01/14/20 Chief Complaint: Shortness of breath History of Present Illness: The patient is a 74 M who presents with shortness of breath that began today. Patient states it began suddenly. Patient states he has pain on the right side of his chest. Patient states it is worse with breathing and with movement. Patient states nothing seems to help with it. Patient admits to a cough with some clear sputum. Patient also admits to some rhinorrhea. Patient denies any fevers or chills. Patient does admit to some nausea and vomiting but states this is usually due to some postnasal drainage. Physical Examination: Vital signs are stable except for a pulse oximeter of 88% on room air. Patient is afebrile. Patient is in no acute distress. Oral mucosa is pink and moist. Neck is supple. Trachea is midline. There is no JVD. Heart was regular rate and rhythm. Lungs show bilateral wheezing and rales. There is good respiratory effort noted. Abdomen is soft. Bowel sounds are normal. There is no tenderness. Cranial nerves II through XII are intact. There are no focal motor or sensory deficits noted. Extremities are intact. There is no calf tenderness or edema. Test Results: Portable chest x-ray shows a left upper lobe infiltrate. EKG showed atrial flutter with a rate of 64. There are no acute ST or T wave changes. There is a right bundle branch block pattern. This was unchanged compared to previous EKG dated 11/28/2019. CBC shows a leukocytosis of 13.0. Troponin was normal. Metabolic profile was normal. D-dimer was elevated at 0.98. Rapid strep was positive. RSV and influenza swabs were negative. Respiratory panel was ordered and is pending. ABG showed a pH of 7.37 with a PCO2 of 54.2, PO2 of 57, bicarb of 31.3, and 87% on 9 L nasal cannula. Emergency Department Course and Treatment: Patient was given morphine.. Patient was given an albuterol inhaler. Patient was started on Rocephin and Zithromax. Because of the elevated d-dimer CTA of the chest was obtained and is pending. Case was discussed with Dr. Witt, patient's oncologist. He faxed in his most recent office notes. Case was discussed with the hospitalist. He recommended a COVID 19 test. This was ordered. Patient will be admitted to the hospital. Patient understood and was agreeable with the plan. All questions were answered. Disposition: Admit to hospital Impression: 1. Healthcare associated pneumonia 2. Hypoxia This note was generated with [employer]ik[employer] dictation software. It may contain incorrect words, spelling, and punctuation that were not noted in review of the chart prior to signing ED Disposition - Plan for ED Patient: Disposition: Acute Care Hospital [facility] Diagnosis: Healthcare-associated pneumonia, Hypoxia [facility] [Primary Care Provider] -
[2020-01-14 14:41] LABS: Base Excess 6 mmol/L (-2 to +2); Bicarbonate 31.3 mmol/L (22-26); PO2 57 mmHG (75-100); SO2 87 % (95-99); Total Carbon Dioxide 33 mmol/L; pCO2 54.2 mmHg (35-45); pH 7.37 (7.35-7.45)
[2020-01-14 14:45] LABS: Allen Test POS; Blood Gas Specimen Type ART; SITE R RADIAL
[2020-01-14 14:46] LABS: O2 Delivery Device Nasal Can
[2020-01-14 14:47] LABS: Time Given 1429
[2020-01-14 15:10] LABS: Differential Indicated SCAN CRITERIA MET
[2020-01-14 15:11] LABS: Anisocytosis 2+; Platelet Estimate ADEQUATE (ADEQ); Red Cell Morphology N CHROM NORMAL (NORM C&C)
[2020-01-14 15:20] LABS: D-Dimer Quantitative (DVT/PE) 0.98 FEU/ug/m (0.27-0.49)
[2020-01-14] MEDS: Morphine 4 MG/ML Syringe IV (15:22)
--- NOTE | 2020-01-14 15:47 | CT_ITS ---
STUDY: CTA CHEST REASON FOR EXAM: Male, 74 years old. Pain. History of lung cancer. COPD. RADIATION DOSAGE (If Supplied By Facility): CTDIvol = ( 17.10 ) mGy, DLP = ( 549.08 ) mGycm TECHNIQUE: The examination was performed with the intravenous administration of 100ML ISOVUE 370. Post-processing of the angiographic images was performed, with multiplanar reformation and 3D reconstruction. Individualized dose optimization techniques were used for this CT. COMPARISON: 11/26/2019 FINDINGS: Normal enhancement of the main pulmonary artery and right and left pulmonary arteries. Normal enhancement of the bilateral peripheral pulmonary arteries. There is no demonstrated pulmonary embolism. There is atherosclerotic calcification of the aortic arch with tortuosity. There is no demonstrated aortic dissection. Normal heart and pericardium. Moderate lung volumes. Evidence of chronic pulmonary disease with diffuse interstitial prominence. Marked change in appearance of the lungs since prior exam. Extensive consolidation in the left apex which could be inflammatory process or neoplasm. Lesser degree of otherwise similar airspace disease in the posterior right apex. Probable atelectasis or infiltrate or less likely neoplasm in the right lung base, and lesser extent of otherwise similar findings in the left lower lobe. Small right pleural effusion. Trace left pleural effusion. Possible left hilar adenopathy. Stable AP window adenopathy. Decreased AP dimension of the reinaldo and main airways since prior exam possibly from infiltrating mid mediastinal adenopathy/neoplasm. Likely subcarinal adenopathy increased since prior study. This is also narrowing of the bilateral main airways. Probable thickening of the wall of the esophagus. Normal heart size. Calcified coronary arteries. No aortic aneurysm. Grossly normal pulmonary arteries. Normal osseous structures. Normal visualized upper abdomen. CT/CTA Chest W/WO Contrast IMPRESSION: No evidence for PE. Marked bilateral worsening of lung disease bilaterally including areas of consolidation especially in the upper left lung and in the right lower lobe which could be atelectasis/infiltrate or neoplasm. Worsening of probable mid mediastinal adenopathy. Electronically Signed: Judah Lowe MD at 16:53 EDT , Service support ,
[2020-01-14] MEDS: Ceftriaxone 1 GM/50 ML BAG IV (16:00)
--- NOTE | 2020-01-14 16:07 | ED.RN ---
to patient room after receiving report ffom previous nurse. pt sats dropping to low 80's. grunting and labored breathing noted. given albuterol inhaler. noted o2 was off pt face when he took mask don. replaced o2 at 9l nc and given areosols. sats 89%. pt reports pain improved to 2-3/10. monitoring breathing.
--- NOTE | 2020-01-14 16:14 | ED.RN ---
rebounding o2 sats 95%
--- NOTE | 2020-01-14 17:23 | ED.RN ---
DAUGHTER NOTIFIED OF PT STATUS AND ROOM ASSIGNMENT
--- NOTE | 2020-01-14 18:04 | HP.PCM_ITS ---
Problem List (1) Pneumonia Status: Acute Qualifiers: Pneumonia type: due to unspecified organism Laterality: bilateral Lung location: unspecified part of lung Qualified Code(s): J18.9 - Pneumonia, unspecified organism (2) Atrial fibrillation Status: Chronic (3) Elevated troponin Status: Acute (4) COPD exacerbation Status: Acute (5) Healthcare-associated pneumonia Status: Acute (6) Hypoxia Status: Acute (7) Arteriosclerotic cardiovascular disease Status: Chronic (8) NSTEMI (non-ST elevated myocardial infarction) Status: Inactive (9) Stented coronary artery Status: Chronic Comment: Multiple stents previously placed to LAD, LCX and RCA in past: 10/24/2019 CELIA to first diagonal per [facility]N (10) History of left heart catheterization Status: Chronic Comment: Left Ventricular Ejection Fraction: by LV Gram 55 %; Global Hypokinesis - Mild Depressed Left Ventricular systolic function; Normal Left Ventricular End Diastolic Pressure; LVEDP: 14 mmHg; LEFT MAIN: 20 ostial % Stenosis; LEFT A NTERIOR DESCENDING ARTERY: PROX LAD: Mild luminal irregularities less than 30% MID LAD: Moderate luminal irregularities up to 50%, Previously placed stent is patent; DIAGONAL 1: Proximal - Previously placed stent has an instent 85 % restenosis; CIRCUMFLEX ARTERY: MID CIRC: Previously placed stent has an instent 20 % restenosis;DISTAL CIRC: Moderate luminal irregularities up to 50% RIGHT CORONARY ARTERY: MID RCA: Previously placed stent is patent (11) Unstable angina Status: Inactive (12) HTN (hypertension) Status: Chronic Qualifiers: (13) Diabetes Status: Chronic History of Present Illness Date of Admission: 01/14/20 Chief Complaint: shortness of breath The patient is a 74 year old M who was in his normal state of health but then started feeling tired and fatigued yesterday. Today was feeling more short of breath. Patient is normally on oxygen of 2 L at rest and 3 L with activity. Came into the emergency room hypoxic at 87% on 9 mL. Saturations gradually impr chris with administration of antibiotics and some morphine. Patient was having some right-sided chest pain that he attributes to his coughing fits. Patient is coughing up some phlegm mostly is clear but occasionally yellow. He is denying any fever or chills. [] Past Medical History Past Medical History (Chronic Problems): Chronic Problems (Last Reviewed 11/26/19 @ 09:[address] Conchita Cook DO) Atrial fibrillation (Chronic) Arteriosclerotic cardiovascular disease (Chronic) Stented coronary artery (Chronic 10/24/19) Multiple stents previously placed to LAD, LCX and RCA in past: 10/24/2019 CELIA to first diagonal per DJN History of left heart catheterization (Chronic 10/24/19) Left Ventricular Ejection Fraction: by LV Gram 55 %; Global Hypokinesis - Mild Depressed Left Ventricular systolic function; Normal Left Ventricular End Diastolic Pressure; LVEDP: 14 mmHg; LEFT MAIN: 20 ostial % Stenosis; LEFT ANTERIOR DESCENDING ARTERY: PROX LAD: Mild luminal irregularities less than 30% MID LAD: Moderate luminal irregularities up to 50%, Previously placed stent is patent; DIAGONAL 1: Proximal - Previously placed stent has an instent 85 % restenosis; CIRCUMFLEX ARTERY: MID CIRC: Previously placed stent has an instent 20 % restenosis;DISTAL CIRC: Moderate luminal irregularities up to 50% RIGHT CORONARY ARTERY: MID RCA: Previously placed stent is patent HTN (hypertension) (Chronic) Diabetes (Chronic) Medical History: Medical History (Last Updated 01/14/20 @ 18:[address] Brendan Del Castillo, DO) Arteriosclerotic cardiovascular disease (Chronic) I25.10 NSTEMI (non-ST elevated myocardial infarction) (Inactive) Onset Date: 10/24/19 I21.4 Afib I48.91 Lung cancer C34.90 COPD (chronic obstructive pulmonary disease) J44.9 CAD (coronary artery disease) I25.10 Diabetes E11.9 HTN (hypertension) I10 Allergies cephalexin [From Keflex] Allergy (Verified 01/14/20 13:16) Rash doxycycline Allergy (Verified 01/14/20 13:16) Rash Penicillins Allergy (Verified 01/14/20 13:16) CHILDHOOD ALLERGY metformin Adverse Reaction (Verified 01/14/20 13:16) Upset Stomach niacin Adverse Reaction (Verified 01/14/20 13:16) Rash simvastatin Adverse Reaction (Verified 01/14/20 13:16) Rash Home Medications: Ambulatory Orders Medication Instructions Recorded Albuterol Sulfate [Proair 2 puff IH 4X/DAY PRN PRN 10/23/19 Digihaler] Budesonide/Formoterol Fumarate 2 puff IH BID 10/23/19 [Symbicort 160-4.5 Mcg Inhaler] Empagliflozin [Jardiance] 12.5 mg PO DAILY 10/23/19 Fluticasone Propionate [Flovent 50 mcg NASAL DAILY 10/23/19 Diskus] Gabapentin [Neurontin] 3 tab PO TID 10/23/19 Glipizide 5 mg PO BID 10/23/19 Insulin Glargine [Lantus SoloStar 40 units SUBCUT DAILY 10/23/19 Pen] Isosorbide Mononitrate [Imdur] 180 mg PO DAILY 10/23/19 Nitroglycerin [Nitrostat] 1 tab SL PRN PRN 10/23/19 Paroxetine [Paxil] 2 tab PO DAILY 10/23/19 Prazosin HCl 4 mg PO QHS 10/23/19 Tiotropium [place] [Spiriva 18 MCG] 2 puff INHALATION Q6H PRN PRN 10/23/19 busPIRone [Buspar] 10 mg PO BID 10/23/19 Lisinopril 20 mg PO BID 10/24/19 Clopidogrel Bisulfate [Plavix] 75 mg PO DAILY 30 Days #30 tab 10/25/19 Aspirin [Aspirin, Baby] 81 mg PO DAILY 11/23/19 Cholecalciferol (VIT D3) [Vitamin 3,000 unit PO DAILY 11/23/19 D3] Cyanocobalamin (Vitamin B-12) 1,000 mcg PO DAILY 11/23/19 [B-12] Ketoconazole [Nizoral] 120 ml TP QWEEK 11/23/19 Pantoprazole Sodium 40 mg PO BREAKFAST 11/23/19 Rosuvastatin Calcium 40 mg PO QHS 11/23/19 Tamsulosin HCl 0.4 mg PO DAILY 11/23/19 Acetaminophen [Tylenol Tablet] 650 mg PO Q6H PRN PRN tab 11/25/19 Apixaban [Eliquis] 5 mg PO BID #60 tab 11/25/19 Carvedilol [Coreg (Beta [place])] 25 mg PO BID 60 Days tab 11/25/19 Amiodarone HCl [Cordarone] 200 mg PO TID #90 tab 11/29/19 Benzonatate [Tessalon [place]] 200 mg PO Q8H PRN #30 cap 11/29/19 Diltiazem CD [Cardizem CD] 120 mg PO Q12 #60 cap 11/29/19 Guaifenesin [Mucinex] 1,200 mg PO BID #0 tab 11/29/19 predniSONE tablet 40 mg PO DAILY@0800 #11 tab 11/29/19 Surgical History: Surgical History (Last Reviewed 01/14/20 @ 18:[address] Brendan Del Castillo, DO) Stented coronary artery (Chronic) Onset Date: 10/24/19 Z95.5 Multiple stents previously placed to LAD, LCX and RCA in past: 10/24/2019 CELIA to first diagonal per [facility]N History of left heart catheterization (Chronic) Onset Date: 10/24/19 Z98.890 Left Ventricular Ejection Fraction: by LV Gram 55 %; Global Hypokinesis - Mild Depressed Left Ventricular systolic function; Normal Left Ventricular End Diastolic Pressure; LVEDP: 14 mmHg; LEFT MAIN: 20 ostial % Stenosis; LEFT ANTERIOR DESCENDING ARTERY: PROX LAD: Mild luminal irregularities less than 30% MID LAD: Moderate luminal irregularities up to 50%, Previously placed stent is patent; DIAGONAL 1: Proximal - Previously placed stent has an instent 85 % restenosis; CIRCUMFLEX ARTERY: MID CIRC: Previously placed stent has an instent 20 % restenosis;DISTAL CIRC: Moderate luminal irregularities up to 50% RIGHT CORONARY ARTERY: MID RCA: Previously placed stent is patent Surgical History: appendectomy, herniorrhaphy - X3 Smoking Status: Former smoker Tobacco Use: Non-smoker Alcohol: None Drugs: None - *Family History Maternal History Items: Heart Disease, - - Skin cancer Paternal History Items: Cancer - His father from throat cancer at the age of 57 Review of Systems Constitutional: Reports: Malaise. Denies: Anorexia, Chills, Fever Eyes: Denies: Blurred vision, Double vision HEENT: Denies: Head Aches, Sinus Congestion, Sinus Drainage Cardiovascular: Reports: Chest Pain - right sided. Denies: Edema Respiratory: Reports: Cough, Shortness of Breath, Sputum production Gastrointestinal: Reports: Nausea, Vomiting - with coughing fits. Denies: Abdominal Pain Genitourinary: Denies: Dysuria Musculoskeletal: Denies: Joint Pain, Joint Tenderness Skin: Denies: Rash, Wounds Neurological: Reports: - - jerking movements noted over the past 6 months, worse when he is ill.. Denies: Focal weakness, Numbness, Tingling Comment: All review of systems were negative except as mentioned above in the history of present illness and the other review of systems. VTE Information - Inpt Only VTE Present on Admission: No VTE Mechan Device Prophylaxis: None VTE Pharm Prophylaxis ordered?: No Reason prophylaxis not ordered:: Treatment Not Indicated Patient Problems: Active and Suspected Problems (Last Reviewed 11/26/19 @ 09:[address] Conchita Cook, DO) Healthcare-associated pneumonia (Acute) Hypoxia (Acute) Pneumonia (Acute) - Physical Exam Vitals/I&O's: Vital Signs Temp Pulse Resp BP Pulse Ox 36.2 C L 77 17 127/86 H 94 01/14/20 13:13 01/14/20 16:13 01/14/20 16:13 01/14/20 16:13 01/14/20 16:13 Oxygen Flow Rate (L/min) 7 Oxygen Delivery Method Room Air Weight: 97.522 kg Body Mass Index (BMI) 32.6 General: Alert, Cooperative, No apparent distress HEENT: Atraumatic, Normocephalic, - - no scleral icterus Oral: Moist Mucosa, No Gingival or Mucosal Lesions/ Ulcerations Neck: No Nodes, Trachea Midline Lungs: Diminished, - - fine crackles bilaterally Cardiovascular: Regular rate, Regular Rhythm, Normal S1, Normal S2, No murmurs Abdomen: Bowel Sounds Present, Soft, Non Tender, Non-Distended, No Hepato- splenomegaly Extremities: No edema, No Calf Tenderness Skin: No rashes, No breakdown Musculoskeletal: No Tenderness to Palpation of Joints or Extremities, No Muscle Wasting Neurological: - - no clonus. diffuse jerking sporadically Psych/Mental Status: Normal Affect, Appropriate Microbiology Past 72 Hours 01/14/20 14:12 Mucosa - Nasopharyngeal Respiratory Panel (PCR) - Final 01/14/20 14:12 Mucosa - Nasopharyngeal Influenza Types A,B Direct FA (JAQUELIN) - Final 01/14/20 14:12 Mucosa - Nasopharyngeal Rapid RSV (DFA) - Final 01/14/20 14:20 Mucosa - Throat Group A Streptococcus Rapid Screen - Final Streptococcus Group A Laboratory Results 01/14/20 14:00: WBC 13.0 H, RBC 3.52 L, Hgb 10.4 L, Hct 35.5 L, MCV 100.9 H, MCH 29.5, MCHC 29.3 L, RDW Std Deviation 70.2 H, RDW Coeff of Jony 19.1 H, Plt Count 348, MPV 9.0, Immature Gran % (Auto) 0.800, Neut % (Auto) 82.5 H, Lymph % (Auto) 3.3 L, [place] % (Auto) 9.2, Eos % (Auto) 3.5, Baso % (Auto) 0.7, Absolute Neuts (auto) 10.7 H, Absolute Lymphs (auto) 0.43 L, Nucleated RBC % 0, Differential Comment , Platelet Estimate ADEQUATE, RBC Morphology N CHROM, Anisocytosis 2+ 01/14/20 14:00: D-Dimer Quant (PE/DVT) 0.98 H* 01/14/20 14:00: Sodium 139, Potassium 4.6, Chloride 103, Carbon Dioxide 33.0 H, Anion Gap 3 L, BUN 16, Creatinine 1.06, Estim Creat Clear Calc 60.05, Est GFR (MDRD) Af Amer 88, Est GFR (MDRD) Non-Af 73, BUN/Creatinine Ratio 15.1, Glucose 61 L, Calcium 8.9, Total Bilirubin 0.60, AST 20, ALT 22, Alkaline Phosphatase 81, Troponin I < 0.015, Total Protein 7.9, Albumin 2.9 L, Globulin 5.0 H, Albumin/Globulin Ratio 0.6 L 01/14/20 14:31: Specimen Type ART, Sample Site R RADIAL, pH 7.37, Bicarbonate Actual 31.3 H, POC Total CO2 33, Base Excess 6 H, O2 Saturation 87 L, ABG pCO2 54.2 H, ABG pO2 57 L, Erick Test POS, O2 Delivery Device Nasal Can, Liter Flow 9.0, Blood Gas Notified Whom ED MD, Blood Gas Notified Time 1429 01/14/20 16:42: COVID-19 (MAXIMINO) Pending Current Medications Albuterol Sulfate (Proair Hfa (Sp) Surgery/Vent Pts) 2 puff INHALATION Q4H PRN PRN PRN Reason: SHORTNESS OF BREATH Last Admin: 01/14/20 16:00 Dose: 2 puff Documented by: Assessment/Plan All Active Problems (Last Reviewed 11/26/19 @ 09:[address] Conchita Cook, DO) Elevated troponin (Acute) COPD exacerbation (Acute) Healthcare-associated pneumonia (Acute) Hypoxia (Acute) Pneumonia (Acute) 1. Acute hypoxic respiratory failure * Multifactorial, given the patient's underlying COPD plus pneumonia and also possible some radiation pneumonitis given patient's history of radiation to his chest. * Currently, the patient is doing okay on the 9 L currently running through. Wean oxygen as tolerated. * If worsens may need to consider BiPAP therapy. Patient is requesting no intubation if he does have respiratory collapse. 2. Suspected gram-negative pneumonia * Patient was just discharged month ago so is within the window is for hospital- acquired infections. Patient did receive azithromycin and ceftriaxone in the emergency room. I will place the patient on meropenem, given his penicillin allergy, and vancomycin for now. * Adjust antibiotics accordingly follow-up urinary antigens are Streptococcus and Legionella. Check sputum culture. * Additionally, I asked the emergency room physician to check the patient for COVID-19 which will take 3 days to return. Patient will be in appropriate isolation until those results are finalized and will lift restrictions if he is COVID-19 negative. * I personally reviewed the patient's CAT scan and shows new infiltrates bilaterally which were not present last month. 3. Acute COPD exacerbation: * Complicated by the pneumonia. Patient will be on his home regimen of bronch odilators plus methylprednisolone. 4. Lung cancer * I do not know which type. Patient has been seeing Dr. Witt, I will request records from the office. 5. Diabetes mellitus type 2: * Continue with his home medications plus sliding scale insulin 6. Atrial fibrillation: * Currently rate controlled. * Continue with carvedilol, amiodarone, diltiazem. * Patient anticoagulated on apixaban 7. VTE prophylaxis: Low risk as patient is already anticoagulated on apixaban 8. Advanced care planning: Discussed with the patient. Patient wishes to be DNR Comfort Care arrest no intubation at this time. Inpatient E&M: [id number] Init Hosp L3
[2020-01-14] MEDS: busPIRone 5 MG Tablet 10 MG PO (22:04)
[2020-01-14] MEDS: Doxazosin 1 MG Tablet 3 MG PO (22:04)
[2020-01-14] MEDS: dilTIAZem CD 120 MG Capsule PO (22:05)
[2020-01-14] MEDS: Atorvastatin Calcium 80 MG Tablet PO (22:05)
[2020-01-14] MEDS: guaiFENesin 1,200 MG Tablet 1200 MG PO (22:05)
[2020-01-14] MEDS: APIXABAN 5 MG TABLET PO (22:05)
[2020-01-14] MEDS: Lisinopril 20 MG Tablet PO (22:05)
[2020-01-14] MEDS: CLARIFY ORDER 1 EACH NOTE ×2 (22:05)
[2020-01-14] MEDS: Carvedilol 25 MG Tablet PO (22:05)
[2020-01-14] MEDS: Ipratropium/Albuterol Sulfate 3 ML AMPUL.NEB INHALATION (22:35)
[2020-01-14] MEDS: Gabapentin 300 MG Capsule 900 MG PO (23:34)
[2020-01-15] VITALS (13 sets, daily range): BP systolic 110–147; BP diastolic 53–68; PULSE 79–101; RESP 12–24; TEMP 36.3–37.2; O2SAT 83–98
[2020-01-15] MEDS: Gabapentin 300 MG Capsule 900 MG PO ×3 (05:20→22:34)
[2020-01-15] MEDS: Acetaminophen 325 MG Tablet 650 MG PO ×2 (05:20→22:36)
[2020-01-15] MEDS: Benzonatate 100 MG Capsule 200 MG PO ×2 (05:20→22:37)
[2020-01-15] MEDS: 0.9% Saline Lock 10 ML Syringe IV ×2 (05:21→15:01)
[2020-01-15 06:55] LABS: Bedside Glucose 97 mg/dL (70-110)
[2020-01-15] MEDS: Ipratropium/Albuterol Sulfate 3 ML AMPUL.NEB INHALATION ×3 (06:58→18:50)
[2020-01-15 07:04] LABS: Absolute Lymphocyte Count 0.29 X10^3/uL (0.83-4.51); Absolute Neutrophil Count 10.5 X10^3/uL (2.0-7.7); Basophil# 0.03 X10^3/uL; Basophil% 0.3 % (0-1); Eosinophil# 0.01 X10^3/uL; Eosinophils% 0.1 % (0-5); Hematocrit 33.6 % (40-54); Lymphocyte # 0.29 X10^3/ul (4.0); Lymphocyte % 2.5 % (19-41); Mean Corp Hgb Conc 29.8 g/dL (32-36); Mean Corpuscular Volume 100.9 fL (80-94); Monocyte# 0.41 X10^3/uL; Monocyte% 3.6 % (0-10); NRBC Flagged by Analyzer 0 % (0-5); Neutrophil # 10.54 X10^3/uL (2.7-7.7); Neutrophil % 92.4 % (47-70); POSITIVE DIFFERENTIAL YES; POSITIVE MORPHOLOGY YES; Platelet Count 265 K/mm3 (150-450); RBC Distribution Width CV 18.7 % (11.6-14.6); RBC Distribution Width SD 69.4 fl (35.1-43.9); Red Blood Count 3.33 M/mm3 (4.6-6.2); White Blood Count 11.4 K/mm3 (4.4-11.0)
[2020-01-15 07:22] LABS: Differential Indicated SCAN CRITERIA MET
[2020-01-15 07:25] LABS: Differential Comment SCANNED; Polychromasia RARE
[2020-01-15 07:26] LABS: Ovalocyte RARE
[2020-01-15 07:32] LABS: Anion Gap 2 (5-15); BUN 17 mg/dL (7-18); BUN/Creat Ratio 18.8 RATIO (10-20); Calcium,Total 8.9 mg/dL (8.5-10.1); Chloride 102 mmol/L (98-107); EST Glomerular Filtration Rate 88 mL/min (>60); Est Glom Filt Rate - Afr Amer 106 mL/min (>60); Estimated Creatinine Clearance 70.72 ml/min; Glucose 98 mg/dL (74-106); Potassium 4.5 mmol/L (3.5-5.1); Sodium Level 137 mmol/L (136-145)
[2020-01-15] MEDS: Tamsulosin HCl 0.4 MG Capsule PO (10:40)
[2020-01-15] MEDS: Clopidogrel Bisulfate 75 MG Tablet PO (10:40)
[2020-01-15] MEDS: Pantoprazole Sodium 40 MG Tablet PO (10:40)
[2020-01-15] MEDS: Aspirin 81 MG TAB.CHEW PO (10:40)
[2020-01-15] MEDS: Lisinopril 20 MG Tablet PO ×2 (10:40→22:34)
[2020-01-15] MEDS: Cyanocobalamin 500 MCG Tablet 1000 MCG PO (10:41)
[2020-01-15] MEDS: Carvedilol 25 MG Tablet PO ×2 (10:42→22:34)
[2020-01-15] MEDS: busPIRone 5 MG Tablet 10 MG PO ×2 (10:42→22:34)
[2020-01-15] MEDS: APIXABAN 5 MG TABLET PO ×2 (10:42→22:35)
[2020-01-15] MEDS: glipiZIDE 5 MG Tablet PO ×2 (10:43→18:05)
[2020-01-15] MEDS: Isosorbide Mononitrate 60 MG Tablet 180 MG PO (10:43)
[2020-01-15] MEDS: Empagliflozin 25 MG Tablet 12.5 MG PO (10:43)
[2020-01-15] MEDS: guaiFENesin 1,200 MG Tablet 1200 MG PO ×2 (10:44→22:34)
[2020-01-15] MEDS: Paroxetine 20 MG Tablet 80 MG PO (10:44)
[2020-01-15 11:36] LABS: Bedside Glucose 89 mg/dL (70-110)
--- NOTE | 2020-01-15 11:50 | CASEMGMT ---
Addendum entered by Kitty Villagran 01/15/20 14:15: Face sheet, H&P faxed to [facility] patient transfer center. HIMA [place] Original Note: RN CM Assessment Called patient bedside, patient answered phone- Introduced role of RN CM to patient.? Patient is alert, oriented and able?to participate in RN CM Assessment, agrees to assessment at this time. ?Care providers, pharmacy, and demographics verified. Presentation: Per MD H&P: The patient is a 74 year old M who was in his normal state of health but then started feeling tired and fatigued yesterday. Today was feeling more short of breath. Patient is normally on oxygen of 2 L at rest and 3 L with activity. Came into the emergency room hypoxic at 87% on 9 mL. Saturations gradually improved with administration of antibiotics and some morphine. Patient was having some right-sided chest pain that he attributes to his coughing fits. Patient is coughing up some phlegm mostly is clear but occasionally yellow. He is denying any fever or chills. Admit Dx: PNA Re-Admit: No. Patient just shy of 30 day re-admission. Inpt 11/26-11/29/2019 for COPD exacerbation, Afib, Obs 11/22-11/25/2019 for Afib RVR, IP 10/24-10/25/2019 for unstable angina. Barriers/Issues: None. Patient is a [place] and does receive care at [facility]. Patient is willing to transfer to [facility] if bed available. PCP: [facility] [address] [place] Specialists: Onc- Dr Witt, Dr Cook, and Dr Edward. Pulm- [facility]- Dr Carson [facility] Insurance: [facility], [facility] A&B Rx Benefit:?[place] w/[place] LNOK: Dtr Kendra Jackman LW/HPOA: States has both completed that he did with an solar sales energy advisor, aware not on file with [facility] and if brought in will place a copy on file. HPOA- son Dhruv Moreno Living Arrangements:? Lives alone in a H, 2 steps to enter with railing. ADL?s: Independent with ambulation and ADLs Transportation: Patient drives, Family member to transport upon DC DME: Nebulizer, home O2 2-3Lpm- [facility] with P[facility]-full (states has about 35 portable tanks at home full). Glucometer, shower chair, BP cuff. HHC: None SNF: None Goal: Home and does not think will have any additional needs at this time. Denies any issues, concerns, needs or questions with DC planning at this time. Aware CM remains available for any emerging needs. DC PLAN: Home and no anticipated needs identified at this time. Viktoriya Villagran RNCM
[2020-01-15] MEDS: Insulin Lispro 100 UNIT/ML INSULN.PEN SC ×2 (12:05→16:19)
[2020-01-15 12:15] LABS: Bedside Glucose 197 mg/dL (70-110)
[2020-01-15] MEDS: dilTIAZem CD 120 MG Capsule PO ×2 (12:16→22:35)
[2020-01-15] MEDS: Glucerna Shake 120 ML LIQUID PO ×2 (12:17→18:37)
--- NOTE | 2020-01-15 14:01 | PN_ITS ---
Patient Problems: Active and Suspected Problems (Last Updated 01/14/20 @ 18:[address] Brendan Del Castillo, DO) Healthcare-associated pneumonia (Acute) Hypoxia (Acute) Pneumonia (Acute) Reason for Visit: pneumonia Subjective: breathing better, but still on 8 liters of oxygen. Vitals/I&O's: Vital Signs Temp Pulse Resp BP Pulse Ox 36.4 C L 97 16 110/62 93 01/15/20 12:25 01/15/20 13:52 01/15/20 13:52 01/15/20 12:25 01/15/20 12:25 Oxygen Flow Rate (L/min) 10 Oxygen Delivery Method Nasal Cannula Weight: 96.6 kg Body Mass Index (BMI) 32.3 Intake and Output for Last 24 Hours 01/13/20 01/14/20 01/15/20 23:59 23:59 23:59 Intake Total 545 / 545 600 / 600 Output Total 600 / 600 300 / 300 Balance -55 / -55 300 / 300 General: Alert, Cooperative, No apparent distress HEENT: Atraumatic, Normocephalic Oral: Moist Mucosa, No Gingival or Mucosal Lesions/ Ulcerations Lungs: Diminished, - - coarse breath sounds bilaterally. Cardiovascular: Regular rate, Regular Rhythm, Normal S1, Normal S2, No murmurs Abdomen: Bowel Sounds Present, Soft, Non Tender, Non-Distended, No Hepato-sple nomegaly Extremities: No edema, No Calf Tenderness Skin: No rashes, No breakdown Psych/Mental Status: Normal Affect, Appropriate Microbiology Past 72 Hours 01/15/20 05:15 Sputum, Expectorated/Coughed Gram Stain - Final 01/14/20 23:38 Urine, Clean Catch Legionella Antigen - Final 01/14/20 23:38 Urine, Clean Catch Streptococcus pneumoniae Antigen (M - Final 01/14/20 14:12 Mucosa - Nasopharyngeal Respiratory Panel (PCR) - Final 01/14/20 14:12 Mucosa - Nasopharyngeal Influenza Types A,B Direct FA (JAQUELIN) - Final 01/14/20 14:12 Mucosa - Nasopharyngeal Rapid RSV (DFA) - Final 01/14/20 14:20 Mucosa - Throat Group A Streptococcus Rapid Screen - Final Streptococcus Group A Laboratory Results 01/14/20 14:00: WBC 13.0 H, RBC 3.52 L, Hgb 10.4 L, Hct 35.5 L, MCV 100.9 H, MCH 29.5, MCHC 29.3 L, RDW Std Deviation 70.2 H, RDW Coeff of Jony 19.1 H, Plt Count 348, MPV 9.0, Immature Gran % (Auto) 0.800, Neut % (Auto) 82.5 H, Lymph % (Auto) 3.3 L, Worth % (Auto) 9.2, Eos % (Auto) 3.5, Baso % (Auto) 0.7, Absolute Neuts (auto) 10.7 H, Absolute Lymphs (auto) 0.43 L, Nucleated RBC % 0, Differential Comment , Platelet Estimate ADEQUATE, RBC Morphology N CHROM, Anisocytosis 2+ 01/14/20 14:00: D-Dimer Quant (PE/DVT) 0.98 H* 01/14/20 14:00: Sodium 139, Potassium 4.6, Chloride 103, Carbon Dioxide 33.0 H, Anion Gap 3 L, BUN 16, Creatinine 1.06, Estim Creat Clear Calc 60.05, Est GFR (MDRD) Af Amer 88, Est GFR (MDRD) Non-Af 73, BUN/Creatinine Ratio 15.1, Glucose 61 L, Calcium 8.9, Total Bilirubin 0.60, AST 20, ALT 22, Alkaline Phosphatase 81, Troponin I < 0.015, Total Protein 7.9, Albumin 2.9 L, Globulin 5.0 H, Albumin/Globulin Ratio 0.6 L 01/14/20 14:31: Specimen Type ART, Sample Site R RADIAL, pH 7.37, Bicarbonate Actual 31.3 H, POC Total CO2 33, Base Excess 6 H, O2 Saturation 87 L, ABG pCO2 54.2 H, ABG pO2 57 L, Erick Test POS, O2 Delivery Device Nasal Can, Liter Flow 9.0, Blood Gas Notified Whom ED , Blood Gas Notified Time 1429 01/14/20 16:42: COVID-19 (MAXIMINO) Pending 01/15/20 06:45: WBC 11.4 H, RBC 3.33 L, Hgb 10.0 L, Hct 33.6 L, MCV 100.9 H, MCH 30.0, MCHC 29.8 L, RDW Std Deviation 69.4 H, RDW Coeff of Jony 18.7 H, Plt Count 265, MPV 9.0, Immature Gran % (Auto) 1.100 H, Neut % (Auto) 92.4 H, Lymph % (Auto) 2.5 L, Worth % (Auto) 3.6, Eos % (Auto) 0.1, Baso % (Auto) 0.3, Absolute Neuts (auto) 10.5 H, Absolute Lymphs (auto) 0.29 L, Nucleated RBC % 0, Differential Comment SCANNED, Polychromasia RARE, Ovalocytes RARE 01/15/20 06:45: Sodium 137, Potassium 4.5, Chloride 102, Carbon Dioxide 33.0 H, Anion Gap 2 L, BUN 17, Creatinine 0.90, Estim Creat Clear Calc 70.72, Est GFR (MDRD) Af Amer 106, Est GFR (MDRD) Non-Af 88, BUN/Creatinine Ratio 18.8, Glucose 98, Calcium 8.9 01/15/20 06:49: POC Glucose 97 01/15/20 10:25: POC Glucose 89 01/15/20 12:04: POC Glucose 197 H Current Medications Acetaminophen (Tylenol) 650 mg PO Q6H PRN PRN PRN Reason: Pain Score 1-10/Temp > 100.7 F Last Admin: 01/15/20 05:20 Dose: 650 mg Documented by: Albuterol Sulfate (Ventolin Aerosols) 2.5 mg INHALATION Q4H PRN PRN PRN Reason: SHORTNESS OF BREATH Albuterol/Ipratropium (Duoneb) 3 ml INHALATION Q6HWA.RT [facility] Last Admin: 01/15/20 13:50 Dose: 3 ml Documented by: Amiodarone HCl (Cordarone) 200 mg PO TID [facility] Apixaban (Eliquis) 5 mg PO BID [facility] Last Admin: 01/15/20 10:42 Dose: 5 mg Documented by: Aspirin (Aspirin, Baby) 81 mg PO DAILY [facility] Last Admin: 01/15/20 10:40 Dose: 81 mg Documented by: Atorvastatin Calcium (Lipitor) 80 mg PO QHS [facility] Last Admin: 01/14/20 22:05 Dose: 80 mg Documented by: Benzonatate (Tessalon Perle) 200 mg PO Q8H PRN PRN Reason: COUGH Last Admin: 01/15/20 05:20 Dose: 200 mg Documented by: Buspirone HCl (Buspar) 10 mg PO BID [facility] Last Admin: 01/15/20 10:42 Dose: 10 mg Documented by: Carvedilol (Coreg) 25 mg PO BID [facility] Last Admin: 01/15/20 10:42 Dose: 25 mg Documented by: Cholecalciferol (Vitamin D (25mcg)) 3,000 unit PO DAILY [facility] Last Admin: 01/15/20 10:40 Dose: 3,000 unit Documented by: Clopidogrel Bisulfate (Plavix) 75 mg PO DAILY [facility] Last Admin: 01/15/20 10:40 Dose: 75 mg Documented by: Cyanocobalamin (Vitamin B12) 1,000 mcg PO DAILY [facility] Last Admin: 01/15/20 10:41 Dose: 1,000 mcg Documented by: Dextrose (D50w Syringe) 0 gm IV X1 PRN; Protocol PRN Reason: Hypoglycemia Diltiazem HCl (Cardizem Cd) 120 mg PO Q12 [facility] Last Admin: 01/15/20 12:16 Dose: 120 mg Documented by: Doxazosin Mesylate (Cardura) 3 mg PO QHS [facility] Last Admin: 01/14/20 22:04 Dose: 3 mg Documented by: Empagliflozin (Jardiance) 12.5 mg PO DAILY [facility] Last Admin: 01/15/20 10:43 Dose: 12.5 mg Documented by: Gabapentin (Neurontin) 900 mg PO TID [facility] Last Admin: 01/15/20 05:20 Dose: 900 mg Documented by: Glipizide (Glucotrol) 5 mg PO BIDCM [facility] Last Admin: 01/15/20 10:43 Dose: 5 mg Documented by: Glucagon () 1 mg IM .X1 PRN PRN Reason: Hypoglycemia Guaifenesin (Mucinex) 1,200 mg PO BID [facility] Last Admin: 01/15/20 10:44 Dose: 1,200 mg Documented by: Meropenem 1 gm/ Sodium (Chloride) 120 mls @ 33 mls/hr IV Q8 [facility] Last Infusion: 01/15/20 10:14 Dose: Infused Documented by: Insulin Glargine (Lantus (Bkc)) 40 units SC DAILY [facility] Last Admin: 01/15/20 10:47 Dose: 40 u Documented by: Insulin Human Lispro (Humalog Kwikpen (Bkc)) 0 unit SC TIDAC [facility]; Protocol Last Admin: 01/15/20 12:05 Dose: 2 u Documented by: Isosorbide Mononitrate (Imdur) 180 mg PO DAILY [facility] Last Admin: 01/15/20 10:43 Dose: 180 mg Documented by: Lisinopril (Zestril) 20 mg PO BID [facility] Last Admin: 01/15/20 10:40 Dose: 20 mg Documented by: Methylprednisolone (Solu-Medrol) 40 mg IV Q8 [facility] Last Admin: 01/15/20 05:20 Dose: 40 mg Documented by: Nitroglycerin (Nitrostat) 0.4 mg SUBLINGUAL Q5M PRN PRN Reason: CARDIAC/CHEST PAIN Nutritional Formula (Lactose Free) (Glucerna Shake) 120 ml PO TIDCM [facility] Last Admin: 01/15/20 12:17 Dose: 120 ml Documented by: Ondansetron HCl (Zofran) 4 mg IV Q8H PRN PRN PRN Reason: NAUSEA/VOMITING Pantoprazole Sodium (Protonix) 40 mg PO BREAKFAST [facility] Last Admin: 01/15/20 10:40 Dose: 40 mg Documented by: Paroxetine HCl (Paxil) 80 mg PO DAILY [facility] Last Admin: 01/15/20 10:44 Dose: 80 mg Documented by: Sodium Chloride () 10 - 40 ml IV UD PRN PRN Reason: SALINE FLUSH Last Admin: 01/15/20 05:21 Dose: 10 ml Documented by: Tamsulosin HCl (Flomax) 0.4 mg PO DAILY [facility] Last Admin: 01/15/20 10:40 Dose: 0.4 mg Documented by: STROKE Vital Signs/Narrative: Vital Signs Temp Pulse Resp BP Pulse Ox 01/15/20 13:52 97 16 01/15/20 12:25 36.4 C L 81 18 110/62 93 01/15/20 10:35 36.3 C L 101 H 18 147/64 H 92 Medical Necessity - Tobacco Use Smoking Status: Former smoker Tobacco Use: Non-smoker Assessment/Plan All Active Problems (Last Updated 01/14/20 @ 18:[address] Brendan Del Castillo, ) Elevated troponin (Acute) COPD exacerbation (Acute) Healthcare-associated pneumonia (Acute) Hypoxia (Acute) Pneumonia (Acute) 1. Acute hypoxic respiratory failure * improving, but still on 10 liters oxygen * Multifactorial, given the patient's underlying COPD plus pneumonia and also possible some radiation pneumonitis given patient's history of radiation to his chest. * Wean oxygen as tolerated. * If worsens may need to consider BiPAP therapy. Patient is requesting no intubation if he does have respiratory collapse. 2. suspected gram negative pneumonia * Patient was just discharged month ago so is within the window is for hospital- acquired infections. Patient did receive azithromycin and ceftriaxone in the emergency room. I will place the patient on meropenem, given his penicillin allergy * Adjust antibiotics accordingly follow-up urinary antigens are Streptococcus and Legionella. Check sputum culture. * Strep throat + * Additionally, I asked the emergency room physician to check the patient for COVID-19 which will take 3 days to return. Patient will be in appropriate isolation until those results are finalized and will lift restrictions if he is COVID-19 negative. * I personally reviewed the patient's CAT scan and shows new infiltrates bilaterally which were not present last month. 3. Acute COPD exacerbation: * Complicated by the pneumonia. Patient will be on his home regimen of bronchodilators plus methylprednisolone. 4. Lung cancer * I do not know which type. Patient has been seeing Dr. Witt, I will request records from the office. 5. Diabetes mellitus type 2: * Continue with his home medications plus sliding scale insulin 6. Atrial fibrillation: * Currently rate controlled. * Continue with carvedilol, amiodarone, diltiazem. * Patient anticoagulated on apixaban 7. VTE prophylaxis: Low risk as patient is already anticoagulated on apixaban 8. Advanced care planning: Discussed with the patient. Patient wishes to be DNR Comfort Care arrest no intubation at this time. Inpatient E&M: [id number] [facility] Hosp L2
--- NOTE | 2020-01-15 16:32 | NURSING ---
Addendum entered by Zuri Zimmerman 01/15/20 16:44: asked about home medications, Dhruv was not aware and was not sure where to find a correct home med list. Original Note: attempted to return phone call to daughter Kendra who had called for update. message left. called son Dhruv who is listed as primary contact and updated on patient status and bipap use for O2 level. he verbalized understanding and questions were answered. he reported that he will notify his sisters for further update.
--- NOTE | 2020-01-15 18:06 | NURSING ---
when pt meal tray delivered, bipap mask removed and pt placed on 10L high flow NC. pt O2 levels dropped down to 85. assisted pt to reposition in bed and encouraged deep breaths. pt O2 improved to 90%. new cont pulse ox finger probe placed. pt aware to eat carefully and to take deep breaths in through his nose. will reapply bipap when pt dinner is complete.
[2020-01-15 18:50] LABS: Bedside Glucose 206 mg/dL (70-110)
[2020-01-15] MEDS: Doxazosin 1 MG Tablet 3 MG PO (22:34)
[2020-01-15] MEDS: Atorvastatin Calcium 80 MG Tablet PO (22:34)
[2020-01-15] MEDS: Amiodarone 200 MG Tablet PO (22:35)
--- NOTE | 2020-01-15 22:51 | NURSING ---
discrepancy between pulse oximeter in room and continuous pulse ox at nurses station. Edited SpO2 to match continuous pulse ox value.
[2020-01-15 23:15] LABS: Bedside Glucose 202 mg/dL (70-110)
[2020-01-16] VITALS (10 sets, daily range): BP systolic 118–122; BP diastolic 61–70; PULSE 70–96; RESP 12–22; TEMP 36.3–36.7; O2SAT 92–99
[2020-01-16] MEDS: Insulin Lispro 100 UNIT/ML INSULN.PEN SC ×3 (06:28→17:15)
[2020-01-16] MEDS: Gabapentin 300 MG Capsule 900 MG PO ×3 (06:28→22:08)
[2020-01-16 06:35] LABS: Bedside Glucose 182 mg/dL (70-110)
[2020-01-16] MEDS: Ipratropium/Albuterol Sulfate 3 ML AMPUL.NEB INHALATION ×3 (07:40→19:30)
[2020-01-16] MEDS: Pantoprazole Sodium 40 MG Tablet PO (08:41)
[2020-01-16] MEDS: Glucerna Shake 120 ML LIQUID PO ×3 (08:41→17:14)
[2020-01-16] MEDS: Aspirin 81 MG TAB.CHEW PO (08:42)
[2020-01-16] MEDS: glipiZIDE 5 MG Tablet PO (08:42)
[2020-01-16] MEDS: guaiFENesin 1,200 MG Tablet 1200 MG PO ×2 (08:43→22:07)
[2020-01-16] MEDS: Cyanocobalamin 500 MCG Tablet 1000 MCG PO (08:43)
[2020-01-16] MEDS: Empagliflozin 25 MG Tablet 12.5 MG PO (08:43)
--- NOTE | 2020-01-16 12:12 | PCM.RX.CS ---
Consult Pharmacy has been consulted to manage selected antiobiotic: Vancomycin Type of Consult: New start Suspected Infection: Pneumonia Prior Doses of Antibiotics Received/Current Regimen: VANCOMYCIN IV LOADING DOSE 2000MG X1 GIVEN 01/15 @ 1040 Labs: Sodium 137 mmol/L (136-145) 01/15/20 06:45 Potassium 4.5 mmol/L (3.5-5.1) 01/15/20 06:45 Chloride 102 mmol/L (98-107) 01/15/20 06:45 Carbon Dioxide 33.0 mmol/L (21.0-32.0) H 01/15/20 06:45 Anion Gap 2 (5-15) L 01/15/20 06:45 BUN 17 mg/dL (7-18) 01/15/20 06:45 Creatinine 0.90 mg/dL (0.70-1.30) 01/15/20 06:45 Est GFR (MDRD) Af Amer 106 mL/min (>60) 01/15/20 06:45 Est GFR (MDRD) Non-Af 88 mL/min (>60) 01/15/20 06:45 BUN/Creatinine Ratio 18.8 RATIO (10-20) 01/15/20 06:45 Glucose 98 mg/dL (74-106) 01/15/20 06:45 Microbiology: Microbiology 01/15/20 05:15 Sputum, Expectorated/Coughed Gram Stain - Final 01/15/20 05:15 Sputum, Expectorated/Coughed Respiratory Culture - Preliminary Appears to be normal respiratory malachi. Further studies to follow. 01/14/20 23:38 Urine, Clean Catch Legionella Antigen - Final 01/14/20 23:38 Urine, Clean Catch Streptococcus pneumoniae Antigen (M - Final 01/14/20 14:12 Mucosa - Nasopharyngeal Respiratory Panel (PCR) - Final 01/14/20 14:12 Mucosa - Nasopharyngeal Influenza Types A,B Direct FA (JAQUELIN) - Final 01/14/20 14:12 Mucosa - Nasopharyngeal Rapid RSV (DFA) - Final 01/14/20 14:20 Mucosa - Throat Group A Streptococcus Rapid Screen - Final Streptococcus Group A Weight used for dosin.6 kg Estimated Creatinine Clearance: 70.7 Goal Trough: 15-20 mcg/mL Pharmacy Plan for Drug Dosin. Will start vancomycin 1500mg Q12H starting 12 hours after loading dose 2. Trough scheduled prior to 4th total dose 3. Pharmacy Service will continue to monitor and adjust dosing as required. Labs to be done on [date and time ordered]: 01/17/20 @ 3683
[2020-01-16 13:06] LABS: Bedside Glucose 292 mg/dL (70-110)
--- NOTE | 2020-01-16 14:31 | PCM.PN.HOSP ---
Patient Problems: Active and Suspected Problems (Last Updated 01/14/20 @ 18:[address] Brendan Del Castillo, DO) Healthcare-associated pneumonia (Acute) Hypoxia (Acute) Pneumonia (Acute) Reason for Visit: pneumonia Subjective: breathing better Vitals/I&O's: Vital Signs Temp Pulse Resp BP Pulse Ox 36.4 C L 78 18 119/61 92 01/16/20 08:30 01/16/20 13:07 01/16/20 13:07 01/16/20 08:30 01/16/20 08:30 Oxygen Flow Rate (L/min) 10 Oxygen Delivery Method Nasal Cannula Weight: 96.6 kg Body Mass Index (BMI) 32.3 Intake and Output for Last 24 Hours 01/14/20 01/15/20 01/16/20 23:59 23:59 23:59 Intake Total 545 / 545 1170 / 1170 1580 / 1580 Output Total 600 / 600 600 / 600 1999 / 1999 Balance -55 / -55 570 / 570 -420 / -420 General: Alert, No apparent distress HEENT: Atraumatic, Normocephalic Oral: Moist Mucosa, No Gingival or Mucosal Lesions/ Ulcerations Neck: No Nodes, Trachea Midline Lungs: - - LLL crackles Cardiovascular: Regular rate, Regular Rhythm, Normal S1, Normal S2, No murmurs Abdomen: Bowel Sounds Present, Soft, Non Tender, Non-Distended, No Hepato-splenomegaly, Passing Flatus Extremities: No edema, No Calf Tenderness Skin: No rashes, No breakdown Musculoskeletal: No Tenderness to Palpation of Joints or Extremities, No Muscle Wasting Psych/Mental Status: Normal Affect, Appropriate Microbiology Past 72 Hours 01/15/20 05:15 Sputum, Expectorated/Coughed Gram Stain - Final 01/15/20 05:15 Sputum, Expectorated/Coughed Respiratory Culture - Preliminary Appears to be normal respiratory malachi. Further studies to follow. 01/14/20 23:38 Urine, Clean Catch Legionella Antigen - Final 01/14/20 23:38 Urine, Clean Catch Streptococcus pneumoniae Antigen (M - Final 01/14/20 14:12 Mucosa - Nasopharyngeal Respiratory Panel (PCR) - Final 01/14/20 14:12 Mucosa - Nasopharyngeal Influenza Types A,B Direct FA (JAQUELIN) - Final 01/14/20 14:12 Mucosa - Nasopharyngeal Rapid RSV (DFA) - Final 01/14/20 14:20 Mucosa - Throat Group A Streptococcus Rapid Screen - Final Streptococcus Group A Laboratory Results 01/14/20 16:42: COVID-19 (MAXIMINO) Pending 01/15/20 16:13: POC Glucose 206 H 01/15/20 22:18: POC Glucose 202 H 01/16/20 06:27: POC Glucose 182 H 01/16/20 12:48: POC Glucose 292 H Current Medications Acetaminophen (Tylenol) 650 mg PO Q6H PRN PRN PRN Reason: Pain Score 1-10/Temp > 100.7 F Last Admin: 01/15/20 22:36 Dose: 650 mg Documented by: Albuterol Sulfate (Ventolin Aerosols) 2.5 mg INHALATION Q4H PRN PRN PRN Reason: SHORTNESS OF BREATH Albuterol/Ipratropium (Duoneb) 3 ml INHALATION Q6HWA.RT [facility] Last Admin: 01/16/20 13:07 Dose: 3 ml Documented by: Amiodarone HCl (Cordarone) 200 mg PO DAILY [facility] Last Admin: 01/15/20 22:35 Dose: 200 mg Documented by: Atorvastatin Calcium (Lipitor) 80 mg PO QHS [facility] Last Admin: 01/15/20 22:34 Dose: 80 mg Documented by: Benzonatate (Tessalon Perle) 200 mg PO Q8H PRN PRN Reason: COUGH Last Admin: 01/15/20 22:37 Dose: 200 mg Documented by: Carvedilol (Coreg) 25 mg PO BID [facility] Last Admin: 01/15/20 22:34 Dose: 25 mg Documented by: Cholecalciferol (Vitamin D (25mcg)) 3,000 unit PO DAILY [facility] Last Admin: 01/16/20 08:43 Dose: 3,000 unit Documented by: Cyanocobalamin (Vitamin B12) 1,000 mcg PO DAILY [facility] Last Admin: 01/16/20 08:43 Dose: 1,000 mcg Documented by: Dextrose (D50w Syringe) 0 gm IV X1 PRN; Protocol PRN Reason: Hypoglycemia Diltiazem HCl (Cardizem Cd) 120 mg PO Q12 [facility] Last Admin: 01/15/20 22:35 Dose: 120 mg Documented by: Empagliflozin (Jardiance) 12.5 mg PO DAILY [facility] Last Admin: 01/16/20 08:43 Dose: 12.5 mg Documented by: Gabapentin (Neurontin) 900 mg PO TID [facility] Last Admin: 01/16/20 06:28 Dose: 900 mg Documented by: Glucagon () 1 mg IM .X1 PRN PRN Reason: Hypoglycemia Guaifenesin (Mucinex) 1,200 mg PO BID [facility] Last Admin: 01/16/20 08:43 Dose: 1,200 mg Documented by: Meropenem 1 gm/ Sodium (Chloride) 120 mls @ 33 mls/hr IV Q8 [facility] Last Infusion: 01/16/20 10:07 Dose: Infused Documented by: Vancomycin IV Pharmacy to Dose (1 ea/ Sodium Chloride) 500 mls @ 250 mls/hr IV X1 PRN; Protocol PRN Reason: Rx to Dose Vancomycin HCl 1,500 mg/ (Sodium Chloride) 530 mls @ 250 mls/hr IV Q12H [facility] Insulin Glargine (Lantus (Bkc)) 40 units SC DAILY [facility] Last Admin: 01/16/20 08:45 Dose: 40 u Documented by: Insulin Human Lispro (Humalog Kwikpen (Bkc)) 0 unit SC TIDAC [facility]; Protocol Last Admin: 01/16/20 12:51 Dose: 4 u Documented by: Isosorbide Mononitrate (Imdur) 180 mg PO DAILY [facility] Last Admin: 01/15/20 10:43 Dose: 180 mg Documented by: Lisinopril (Zestril) 20 mg PO BID [facility] Last Admin: 01/15/20 22:34 Dose: 20 mg Documented by: Methylprednisolone (Solu-Medrol) 40 mg IV Q8 [facility] Last Admin: 01/16/20 06:28 Dose: 40 mg Documented by: Nitroglycerin (Nitrostat) 0.4 mg SUBLINGUAL Q5M PRN PRN Reason: CARDIAC/CHEST PAIN Nutritional Formula (Lactose Free) (Glucerna Shake) 120 ml PO TIDCM [facility] Last Admin: 01/16/20 12:52 Dose: 120 ml Documented by: Ondansetron HCl (Zofran) 4 mg IV Q8H PRN PRN PRN Reason: NAUSEA/VOMITING Pantoprazole Sodium (Protonix) 20 mg PO BREAKFAST [facility] Paroxetine HCl (Paxil) 80 mg PO DAILY [facility] Last Admin: 04/28/20 10:44 Dose: 80 mg Documented by: Sodium Chloride () 10 - 40 ml IV UD PRN PRN Reason: SALINE FLUSH Last Admin: 01/15/20 15:01 Dose: 10 ml Documented by: Tamsulosin HCl (Flomax) 0.4 mg PO QHS [facility] Vital Signs/Narrative: Vital Signs Pulse Resp 01/16/20 13:07 78 18 Medical Necessity - Tobacco Use Smoking Status: Former smoker Tobacco Use: Non-smoker Assessment/Plan All Active Problems (Last Updated 01/14/20 @ 18:[address] Brendan Del Castillo, DO) Elevated troponin (Acute) COPD exacerbation (Acute) Healthcare-associated pneumonia (Acute) Hypoxia (Acute) Pneumonia (Acute) 1. Acute hypoxic respiratory failure improving, now down to 7liters from 10 liters oxygen Multifactorial, given the patient's underlying COPD plus pneumonia and also possible some radiation pneumonitis given patient's history of radiation to his chest. Wean oxygen as tolerated. If worsens may need to consider BiPAP therapy. Patient is requesting no intubation if he does have respiratory collapse. 2. suspected gram negative pneumonia Patient was just discharged month ago so is within the window is for hospital-acquired infections. Patient did receive azithromycin and ceftriaxone in the emergency room. I will place the patient on meropenem, given his penicillin allergy. Add vanc. Adjust antibiotics accordingly follow-up urinary antigens are Streptococcus and Legionella. Check sputum culture. Strep throat + Additionally, I asked the emergency room physician to check the patient for COVID-19 which will take 3 days to return. Patient will be in appropriate isolation until those results are finalized and will lift restrictions if he is COVID-19 negative. I personally reviewed the patient's CAT scan and shows new infiltrates bilaterally which were not present last month. 3. Acute COPD exacerbation: Complicated by the pneumonia. Patient will be on his home regimen of bronchodilators plus methylprednisolone. 4. Lung cancer I do not know which type. Patient has been seeing Dr. Witt, I will request records from the office. 5. Diabetes mellitus type 2: Continue with his home medications plus sliding scale insulin 6. Atrial fibrillation: Currently rate controlled. Continue with carvedilol, amiodarone, diltiazem. Patient anticoagulated on apixaban 7. VTE prophylaxis: Low risk as patient is already anticoagulated on apixaban 8. Advanced care planning: Discussed with the patient. Patient wishes to be DNR Comfort Care arrest no intubation at this time. Inpatient E&M: [id number] Subs Hosp L2
[2020-01-16] MEDS: Carvedilol 25 MG Tablet PO ×2 (14:52→22:06)
[2020-01-16] MEDS: dilTIAZem CD 120 MG Capsule PO ×2 (14:52→22:06)
[2020-01-16] MEDS: Amiodarone 200 MG Tablet PO (14:52)
[2020-01-16] MEDS: Isosorbide Mononitrate 60 MG Tablet 180 MG PO (14:55)
[2020-01-16] MEDS: Lisinopril 20 MG Tablet PO ×2 (14:55→22:09)
[2020-01-16] MEDS: Paroxetine 20 MG Tablet 80 MG PO (14:55)
[2020-01-16 15:44] LABS: International Normalized Ratio 1.7; Prothrombin Time (Protime)PT. 19.9 SECONDS (11.7-14.9)
--- NOTE | 2020-01-16 16:17 | CASEMGMT ---
This RN CM received message from Yolanda from [facility] in regards to pt at this time. Call back to Yolanda at ext [phone] and message left with her regarding pt status and this RN CM contact info at this time. SStken FRENCH CM
[2020-01-16] MEDS: Furosemide 20 MG Tablet PO (17:14)
[2020-01-16 17:36] LABS: Bedside Glucose 151 mg/dL (70-110)
[2020-01-16] MEDS: Tamsulosin HCl 0.4 MG Capsule PO (22:07)
[2020-01-16] MEDS: Atorvastatin Calcium 80 MG Tablet PO (22:07)
[2020-01-16] MEDS: 0.9% Saline Lock 10 ML Syringe IV (22:09)
[2020-01-16 22:26] LABS: Bedside Glucose 185 mg/dL (70-110)
[2020-01-17] VITALS (9 sets, daily range): BP systolic 122–136; BP diastolic 61–77; PULSE 68–89; RESP 12–20; TEMP 36.4–36.9; O2SAT 10–96
[2020-01-17] MEDS: 0.9% Saline Lock 10 ML Syringe IV ×3 (06:35→21:23)
[2020-01-17] MEDS: Gabapentin 300 MG Capsule 900 MG PO ×3 (06:35→21:19)
[2020-01-17] MEDS: Insulin Lispro 100 UNIT/ML INSULN.PEN SC ×3 (06:36→16:23)
[2020-01-17 06:44] LABS: Absolute Neutrophil Count 10.2 X10^3/uL (2.0-7.7); Basophil# 0.01 X10^3/uL; Basophil% 0.1 % (0-1); Hematocrit 31.1 % (40-54); Hemoglobin 9.2 g/dL (13.0-16.5); Lymphocyte % 1.9 % (19-41); Mean Corp Hgb Conc 29.6 g/dL (32-36); Mean Corpuscular Hgb 29.2 pg (27.0-32.0); Mean Corpuscular Volume 98.7 fL (80-94); Mean Platelet Vol. 8.9 fl (6.2-12.0); Monocyte# 0.35 X10^3/uL; Monocyte% 3.2 % (0-10); NRBC Flagged by Analyzer 0 % (0-5); Neutrophil # 10.18 X10^3/uL (2.7-7.7); Neutrophil % 94.2 % (47-70); POSITIVE DIFFERENTIAL YES; POSITIVE MORPHOLOGY YES; Platelet Count 270 K/mm3 (150-450); RBC Distribution Width CV 18.2 % (11.6-14.6); RBC Distribution Width SD 66.5 fl (35.1-43.9); Red Blood Count 3.15 M/mm3 (4.6-6.2); White Blood Count 10.8 K/mm3 (4.4-11.0)
[2020-01-17 06:47] LABS: Differential Indicated SCAN CRITERIA MET
[2020-01-17 06:58] LABS: Anion Gap 5 (5-15); BUN 35 mg/dL (7-18); BUN/Creat Ratio 41.6 RATIO (10-20); Chloride 104 mmol/L (98-107); Creatinine, Serum 0.84 mg/dL (0.70-1.30); EST Glomerular Filtration Rate 95 mL/min (>60); Est Glom Filt Rate - Afr Amer 115 mL/min (>60); Estimated Creatinine Clearance 75.77 ml/min; Glucose 173 mg/dL (74-106); Potassium 4.2 mmol/L (3.5-5.1); Sodium Level 141 mmol/L (136-145)
[2020-01-17 06:59] LABS: International Normalized Ratio 1.4; Prothrombin Time (Protime)PT. 16.9 SECONDS (11.7-14.9)
[2020-01-17 07:07] LABS: Differential Comment SCANNED
[2020-01-17] MEDS: Ipratropium/Albuterol Sulfate 3 ML AMPUL.NEB INHALATION ×3 (07:25→19:38)
[2020-01-17 07:30] LABS: Bedside Glucose 156 mg/dL (70-110)
--- NOTE | 2020-01-17 08:56 | NURSING ---
Addendum entered by Allyson Mayfield 01/17/20 08:57: Due to high flow O2 and bipap- air cleaner operator placed in pt room at this time. Original Note: pt positioned in chair mode for breakfast.
[2020-01-17] MEDS: Glucerna Shake 120 ML LIQUID PO ×3 (08:58→16:23)
[2020-01-17] MEDS: Pantoprazole Sodium 20 MG Tablet PO (08:58)
[2020-01-17] MEDS: dilTIAZem CD 120 MG Capsule PO ×2 (08:58→21:20)
[2020-01-17] MEDS: Empagliflozin 25 MG Tablet 12.5 MG PO (08:59)
[2020-01-17] MEDS: Amiodarone 200 MG Tablet PO (08:59)
[2020-01-17] MEDS: Furosemide 20 MG Tablet PO (08:59)
[2020-01-17] MEDS: Lisinopril 20 MG Tablet PO ×2 (08:59→21:20)
[2020-01-17] MEDS: Carvedilol 25 MG Tablet PO ×2 (08:59→21:20)
[2020-01-17] MEDS: Isosorbide Mononitrate 60 MG Tablet 180 MG PO (08:59)
[2020-01-17] MEDS: Paroxetine 20 MG Tablet 80 MG PO (08:59)
[2020-01-17] MEDS: guaiFENesin 1,200 MG Tablet 1200 MG PO ×2 (08:59→21:19)
[2020-01-17] MEDS: Cyanocobalamin 500 MCG Tablet 1000 MCG PO (12:49)
[2020-01-17 13:05] LABS: Bedside Glucose 251 mg/dL (70-110)
--- NOTE | 2020-01-17 13:58 | PN_ITS ---
Patient Problems: Active and Suspected Problems (Last Updated 01/14/20 @ 18:[address] Brendan Del Castillo, DO) Healthcare-associated pneumonia (Acute) Hypoxia (Acute) Pneumonia (Acute) Reason for Visit: pneumonia Subjective: Breathing well on 10 liters. Coughing up productive yellow phlegm. Vitals/I&O's: Vital Signs Temp Pulse Resp BP Pulse Ox 36.9 C 84 18 136/71 H 10 01/17/20 08:45 01/17/20 13:51 01/17/20 13:51 01/17/20 08:45 01/17/20 08:45 Oxygen Flow Rate (L/min) 120 Oxygen Delivery Method Nasal Cannula Weight: 96.6 kg Body Mass Index (BMI) 32.3 Intake and Output for Last 24 Hours 01/15/20 01/16/20 01/17/20 23:59 23:59 23:59 Intake Total 1170 / 1170 2900 / 2900 870 / 870 Output Total 600 / 600 3550 / 3550 350 / 350 Balance 570 / 570 -650 / -650 520 / 520 General: Alert, No apparent distress HEENT: Atraumatic, Normocephalic Oral: Moist Mucosa, No Gingival or Mucosal Lesions/ Ulcerations Neck: No Nodes, Trachea Midline Lungs: Diminished, - - coarse breath sounds bilaterally. Cardiovascular: Regular rate, Regular Rhythm, Normal S1, Normal S2, No murmurs Abdomen: Bowel Sounds Present, Soft, Non Tender, Non-Distended, No Hepato- splenomegaly Extremities: No edema, No Calf Tenderness Skin: No rashes, No breakdown Musculoskeletal: No Tenderness to Palpation of Joints or Extremities, No Muscle Wasting Neurological: Sensory exam intact to light touch and pain, Coordination normal Psych/Mental Status: Normal Affect, Appropriate Microbiology Past 72 Hours 01/15/20 05:15 Sputum, Expectorated/Coughed Gram Stain - Final 01/15/20 05:15 Sputum, Expectorated/Coughed Respiratory Culture - Preliminary Appears to be normal respiratory malachi. Further studies to follow. 01/14/20 23:38 Urine, Clean Catch Legionella Antigen - Final 01/14/20 23:38 Urine, Clean Catch Streptococcus pneumoniae Antigen (M - Final 01/14/20 14:12 Mucosa - Nasopharyngeal Respiratory Panel (PCR) - Final 01/14/20 14:12 Mucosa - Nasopharyngeal Influenza Types A,B Direct FA (JAQUELIN) - Final 01/14/20 14:12 Mucosa - Nasopharyngeal Rapid RSV (DFA) - Final 01/14/20 14:20 Mucosa - Throat Group A Streptococcus Rapid Screen - Final Streptococcus Group A Laboratory Results 01/16/20 15:10: PT 19.9 H, INR 1.7 01/16/20 17:12: POC Glucose 151 H 01/16/20 21:58: POC Glucose 185 H 01/17/20 06:18: Sodium 141, Potassium 4.2, Chloride 104, Carbon Dioxide 32.0, Anion Gap 5, BUN 35 H, Creatinine 0.84, Estim Creat Clear Calc 75.77, Est GFR (MDRD) Af Amer 115, Est GFR (MDRD) Non-Af 95, BUN/Creatinine Ratio 41.6 H, Glucose 173 H, Calcium 9.0 01/17/20 06:18: WBC 10.8, RBC 3.15 L, Hgb 9.2 L, Hct 31.1 L, MCV 98.7 H, MCH 29.2, MCHC 29.6 L, RDW Std Deviation 66.5 H, RDW Coeff of Jony 18.2 H, Plt Count 270, MPV 8.9, Immature Gran % (Auto) 0.600, Neut % (Auto) 94.2 H, Lymph % (Auto) 1.9 L, Grady % (Auto) 3.2, Eos % (Auto) 0.0, Baso % (Auto) 0.1, Absolute Neuts (auto) 10.2 H, Absolute Lymphs (auto) 0.20 L, Nucleated RBC % 0, Differential Comment SCANNED 01/17/20 06:18: PT 16.9 H, INR 1.4 01/17/20 06:32: POC Glucose 156 H 01/17/20 12:53: POC Glucose 251 H Current Medications Acetaminophen (Tylenol) 650 mg PO Q6H PRN PRN PRN Reason: Pain Score 1-10/Temp > 100.7 F Last Admin: 01/15/20 22:36 Dose: 650 mg Documented by: Albuterol Sulfate (Ventolin Aerosols) 2.5 mg INHALATION Q4H PRN PRN PRN Reason: SHORTNESS OF BREATH Albuterol/Ipratropium (Duoneb) 3 ml INHALATION Q6HWA.RT POOL Last Admin: 01/17/20 13:50 Dose: 3 ml Documented by: Amiodarone HCl (Cordarone) 200 mg PO DAILY [facility] Last Admin: 01/17/20 08:59 Dose: 200 mg Documented by: Atorvastatin Calcium (Lipitor) 80 mg PO QHS [facility] Last Admin: 01/16/20 22:07 Dose: 80 mg Documented by: Benzonatate (Tessalon Perle) 200 mg PO Q8H PRN PRN Reason: COUGH Last Admin: 01/15/20 22:37 Dose: 200 mg Documented by: Carvedilol (Coreg) 25 mg PO BID [facility] Last Admin: 01/17/20 08:59 Dose: 25 mg Documented by: Cholecalciferol (Vitamin D (25mcg)) 3,000 unit PO DAILY [facility] Last Admin: 01/17/20 12:49 Dose: 3,000 unit Documented by: Cyanocobalamin (Vitamin B12) 1,000 mcg PO DAILY [facility] Last Admin: 01/17/20 12:49 Dose: 1,000 mcg Documented by: Dextrose (D50w Syringe) 0 gm IV X1 PRN; Protocol PRN Reason: Hypoglycemia Diltiazem HCl (Cardizem Cd) 120 mg PO Q12 [facility] Last Admin: 01/17/20 08:58 Dose: 120 mg Documented by: Empagliflozin (Jardiance) 12.5 mg PO DAILY [facility] Last Admin: 01/17/20 08:59 Dose: 12.5 mg Documented by: Furosemide (Lasix) 20 mg PO BIDLX [facility] Last Admin: 01/17/20 08:59 Dose: 20 mg Documented by: Gabapentin (Neurontin) 900 mg PO TID [facility] Last Admin: 01/17/20 06:35 Dose: 900 mg Documented by: Glucagon () 1 mg IM .X1 PRN PRN Reason: Hypoglycemia Guaifenesin (Mucinex) 1,200 mg PO BID [facility] Last Admin: 01/17/20 08:59 Dose: 1,200 mg Documented by: Meropenem 1 gm/ Sodium (Chloride) 120 mls @ 33 mls/hr IV Q8 [facility] Last Infusion: 01/17/20 10:49 Dose: Infused Documented by: Vancomycin IV Pharmacy to Dose (1 ea/ Sodium Chloride) 500 mls @ 250 mls/hr IV X1 PRN; Protocol PRN Reason: Rx to Dose Vancomycin HCl 1,500 mg/ (Sodium Chloride) 530 mls @ 250 mls/hr IV Q12H [facility] Last Admin: 01/17/20 12:48 Dose: 250 mls/hr Documented by: Sodium Chloride () 250 mls @ 15 mls/hr IV .[id number] PRN PRN Reason: Saline Flush Sodium Chloride () 250 mls @ 15 mls/hr IV .[id number] PRN PRN Reason: Additional IVPB Infusion Insulin Glargine (Lantus ([facility])) 40 units SC DAILY [facility] Last Admin: 01/17/20 09:00 Dose: 40 u Documented by: Insulin Human Lispro (Humalog Kwikpen ([facility])) 0 unit SC TIDAC [facility]; Protocol Last Admin: 01/17/20 12:54 Dose: 3 u Documented by: Isosorbide Mononitrate (Imdur) 180 mg PO DAILY [facility] Last Admin: 01/17/20 08:59 Dose: 180 mg Documented by: Lisinopril (Zestril) 20 mg PO BID [facility] Last Admin: 01/17/20 08:59 Dose: 20 mg Documented by: Methylprednisolone (Solu-Medrol) 40 mg IV Q8 [facility] Last Admin: 01/17/20 06:35 Dose: 40 mg Documented by: Nitroglycerin (Nitrostat) 0.4 mg SUBLINGUAL Q5M PRN PRN Reason: CARDIAC/CHEST PAIN Nutritional Formula (Lactose Free) (Glucertony Manning) 120 ml PO TIDCM [facility] Last Admin: 01/17/20 12:48 Dose: 120 ml Documented by: Ondansetron HCl (Zofran) 4 mg IV Q8H PRN PRN PRN Reason: NAUSEA/VOMITING Pantoprazole Sodium (Protonix) 20 mg PO BREAKFAST [facility] Last Admin: 01/17/20 08:58 Dose: 20 mg Documented by: Paroxetine HCl (Paxil) 80 mg PO DAILY [facility] Last Admin: 01/17/20 08:59 Dose: 80 mg Documented by: Sodium Chloride () 10 - 40 ml IV UD PRN PRN Reason: SALINE FLUSH Last Admin: 01/17/20 06:35 Dose: 10 ml Documented by: Tamsulosin HCl (Flomax) 0.4 mg PO QHS [facility] Last Admin: 04/29/20 22:07 Dose: 0.4 mg Documented by: Warfarin Sodium (Coumadin (Pbkc)) 2.5 mg PO SuTh@1700 POOL Warfarin Sodium (Coumadin (Pbkc)) 5 mg PO MoTuWeFrSa@1700 POOL Last Admin: 01/16/20 17:14 Dose: 5 mg Documented by: STROKE Vital Signs/Narrative: Vital Signs Pulse Resp 01/17/20 13:51 84 18 Medical Necessity - Tobacco Use Smoking Status: Former smoker Tobacco Use: Non-smoker Assessment/Plan All Active Problems (Last Updated 01/14/20 @ 18:[address] Brendan Del Castillo, DO) Elevated troponin (Acute) COPD exacerbation (Acute) Healthcare-associated pneumonia (Acute) Hypoxia (Acute) Pneumonia (Acute) 1. Acute hypoxic respiratory failure * still on 10 liters, though, clinically looks well. * Multifactorial, given the patient's underlying COPD plus pneumonia and also possible some radiation pneumonitis given patient's history of radiation to his chest. LHC in October showed an EF of 55%. Will try furosemide IV and chest physiotherapy. * Wean oxygen as tolerated. * intermittent BiPAP. Patient is requesting no intubation if he does have respiratory collapse. 2. suspected gram negative pneumonia * Patient was just discharged month ago so is within the window is for hospital- acquired infections. Patient did receive azithromycin and ceftriaxone in the emergency room. I will place the patient on meropenem, given his penicillin allergy. Add vanc. * Adjust antibiotics accordingly follow-up urinary antigens are Streptococcus and Legionella. Check sputum culture. * Strep throat + * Additionally, I asked the emergency room physician to check the patient for COVID-19 which will take 3 days to return. Patient will be in appropriate isolation until those results are finalized and will lift restrictions if he is COVID-19 negative. * I personally reviewed the patient's CAT scan and shows new infiltrates bilaterally which were not present last month. 3. Acute COPD exacerbation: * Complicated by the pneumonia. Patient will be on his home regimen of bronchodilators plus methylprednisolone. 4. Lung cancer * I do not know which type. Patient has been seeing Dr. Witt, I will request records from the office. 5. Diabetes mellitus type 2: * Continue with his home medications plus sliding scale insulin 6. Atrial fibrillation: * Currently rate controlled. * Continue with carvedilol, amiodarone, diltiazem. * Patient anticoagulated on apixaban 7. VTE prophylaxis: Low risk as patient is already anticoagulated on apixaban 8. Advanced care planning: Discussed with the patient. Patient wishes to be DNR Comfort Care arrest no intubation at this time. 9. CAD: recent PCI in October. Clopidogrel ordered at that time, but not on home list. Will resume clopidogrel. Inpatient E&M: [id number] [place] [id number]
[2020-01-17] MEDS: Clopidogrel Bisulfate 75 MG Tablet PO (15:04)
[2020-01-17] MEDS: Furosemide 40 MG/4 ML Vial IV (15:05)
[2020-01-17 16:36] LABS: Bedside Glucose 237 mg/dL (70-110)
--- NOTE | 2020-01-17 18:16 | NURSING ---
Patient requested that Kendra be called and updated on day. Same completed at this time.
--- NOTE | 2020-01-17 20:13 | NURSING ---
This nurse notified Jayda, Nursing supervisor pig machine, of conversation with Dr. Huang regarding COVID negative result for patient. Dr. Huang wants morning rounding doctor to make decision if to move patient to other floor and also to make decision on isolation order continuation. For tonight, do nothing, keep in isolation and do not move. Also Dr. Huang stated it was OK to tell pt. at this time of negative result.
--- NOTE | 2020-01-17 21:00 | NURSING ---
Lab called with covid result of (-). RN notified
[2020-01-17] MEDS: Atorvastatin Calcium 80 MG Tablet PO (21:20)
[2020-01-17] MEDS: Tamsulosin HCl 0.4 MG Capsule PO (21:20)
[2020-01-17 21:51] LABS: Bedside Glucose 200 mg/dL (70-110)
[2020-01-17 23:21] LABS: Vancomycin, Trough Level 16.9 ug/mL (5.0-15.0)
--- NOTE | 2020-01-17 23:31 | NURSING ---
Per pharmacy, OK to give tonight dose of vancomycin as ordered
--- NOTE | 2020-01-17 23:37 | PCM.RX.CS ---
Consult Pharmacy has been consulted to manage selected antiobiotic: Vancomycin Type of Consult: Follow-up Suspected Infection: Pneumonia Prior Doses of Antibiotics Received/Current Regimen: Medications Vancomycin HCl 1,500 mg/ (Sodium Chloride) 530 mls @ 250 mls/hr IV Q12H POOL Last Admin: 01/17/20 16:21 Dose: Infused Labs: Sodium 141 mmol/L (136-145) 01/17/20 06:18 Potassium 4.2 mmol/L (3.5-5.1) 01/17/20 06:18 Chloride 104 mmol/L (98-107) 01/17/20 06:18 Carbon Dioxide 32.0 mmol/L (21.0-32.0) 01/17/20 06:18 Anion Gap 5 (5-15) 01/17/20 06:18 BUN 35 mg/dL (7-18) H 01/17/20 06:18 Creatinine 0.84 mg/dL (0.70-1.30) 01/17/20 06:18 Est GFR (MDRD) Af Amer 115 mL/min (>60) 01/17/20 06:18 Est GFR (MDRD) Non-Af 95 mL/min (>60) 01/17/20 06:18 BUN/Creatinine Ratio 41.6 RATIO (10-20) H 01/17/20 06:18 Glucose 173 mg/dL (74-106) H 01/17/20 06:18 Vancomycin Trough 16.9 ug/mL (5.0-15.0) H 01/17/20 22:40 Microbiology: Microbiology 01/15/20 05:15 Sputum, Expectorated/Coughed Gram Stain - Final 01/15/20 05:15 Sputum, Expectorated/Coughed Respiratory Culture - Preliminary Appears to be normal respiratory malachi. Further studies to follow. 01/14/20 23:38 Urine, Clean Catch Legionella Antigen - Final 01/14/20 23:38 Urine, Clean Catch Streptococcus pneumoniae Antigen (M - Final 01/14/20 14:12 Mucosa - Nasopharyngeal Respiratory Panel (PCR) - Final 01/14/20 14:12 Mucosa - Nasopharyngeal Influenza Types A,B Direct FA (JAQUELIN) - Final 01/14/20 14:12 Mucosa - Nasopharyngeal Rapid RSV (DFA) - Final 01/14/20 14:20 Mucosa - Throat Group A Streptococcus Rapid Screen - Final Streptococcus Group A Weight used for dosin.6 kg Estimated Creatinine Clearance: 76 Goal Trough: 15-20 mcg/mL Pharmacy Plan for Drug Dosing: Trough level of 16.9 was within the target range of 15-20. Will continue dosing at 1500mg q12h and re-draw trough level on 01/20/20. Pharmacy Service will continue to monitor and adjust dosing as required. Follow-Up Labs: Trough Vancomycin Labs to be done on [date and time ordered]: 01/20/20 @0849
[2020-01-18] VITALS (11 sets, daily range): BP systolic 141–155; BP diastolic 70–92; PULSE 73–108; RESP 12–20; TEMP 36.6–37.1; O2SAT 92–98
[2020-01-18] MEDS: 0.9% Saline Lock 10 ML Syringe IV ×5 (00:59→22:27)
--- NOTE | 2020-01-18 01:00 | NURSING ---
Vancomycin given late due to Merrem running in only IV pt. has.
[2020-01-18] MEDS: Gabapentin 300 MG Capsule 900 MG PO ×3 (05:44→22:29)
[2020-01-18 06:54] LABS: Absolute Lymphocyte Count 0.19 X10^3/uL (0.83-4.51); Absolute Neutrophil Count 6.8 X10^3/uL (2.0-7.7); Hematocrit 33.5 % (40-54); Hemoglobin 9.9 g/dL (13.0-16.5); Lymphocyte # 0.19 X10^3/ul (4.0); Lymphocyte % 2.6 % (19-41); Mean Corp Hgb Conc 29.6 g/dL (32-36); Mean Corpuscular Hgb 29.2 pg (27.0-32.0); Mean Corpuscular Volume 98.8 fL (80-94); Mean Platelet Vol. 8.8 fl (6.2-12.0); Monocyte# 0.33 X10^3/uL; Monocyte% 4.5 % (0-10); NRBC Flagged by Analyzer 0 % (0-5); Neutrophil # 6.76 X10^3/uL (2.7-7.7); Neutrophil % 91.8 % (47-70); POSITIVE DIFFERENTIAL YES; Platelet Count 251 K/mm3 (150-450); RBC Distribution Width CV 17.9 % (11.6-14.6); RBC Distribution Width SD 64.9 fl (35.1-43.9); Red Blood Count 3.39 M/mm3 (4.6-6.2); White Blood Count 7.4 K/mm3 (4.4-11.0)
[2020-01-18 07:06] LABS: International Normalized Ratio 1.4
[2020-01-18 07:07] LABS: Anion Gap 3 (5-15); BUN 29 mg/dL (7-18); BUN/Creat Ratio 38.6 RATIO (10-20); Calcium,Total 8.9 mg/dL (8.5-10.1); Chloride 104 mmol/L (98-107); Creatinine, Serum 0.75 mg/dL (0.70-1.30); EST Glomerular Filtration Rate 108 mL/min (>60); Est Glom Filt Rate - Afr Amer 131 mL/min (>60); Estimated Creatinine Clearance 63.65 ml/min; Glucose 186 mg/dL (74-106); Potassium 3.8 mmol/L (3.5-5.1); Sodium Level 140 mmol/L (136-145)
[2020-01-18 07:19] LABS: Differential Indicated SCAN CRITERIA MET
[2020-01-18] MEDS: Ipratropium/Albuterol Sulfate 3 ML AMPUL.NEB INHALATION ×3 (07:24→18:50)
[2020-01-18 07:55] LABS: Differential Comment SCANNED
[2020-01-18] MEDS: Pantoprazole Sodium 20 MG Tablet PO (08:34)
[2020-01-18] MEDS: Glucerna Shake 120 ML LIQUID PO ×2 (08:34→17:40)
[2020-01-18] MEDS: Insulin Lispro 100 UNIT/ML INSULN.PEN SC ×3 (08:40→17:41)
[2020-01-18 09:09] LABS: D-Dimer Quantitative (DVT/PE) 1.54 FEU/ug/m (0.27-0.49)
[2020-01-18] MEDS: Clopidogrel Bisulfate 75 MG Tablet PO (10:29)
[2020-01-18] MEDS: dilTIAZem CD 120 MG Capsule PO ×2 (10:29→22:29)
[2020-01-18] MEDS: Empagliflozin 25 MG Tablet 12.5 MG PO (10:29)
[2020-01-18] MEDS: Enoxaparin 40 MG/0.4 ML Syringe SC (10:29)
[2020-01-18] MEDS: guaiFENesin 1,200 MG Tablet 1200 MG PO ×2 (10:29→22:29)
[2020-01-18] MEDS: Paroxetine 20 MG Tablet 80 MG PO (10:30)
[2020-01-18] MEDS: Amiodarone 200 MG Tablet PO (10:30)
[2020-01-18] MEDS: Carvedilol 25 MG Tablet PO ×2 (10:30→22:29)
[2020-01-18] MEDS: Lisinopril 20 MG Tablet PO ×2 (10:30→22:29)
[2020-01-18] MEDS: Furosemide 40 MG/4 ML Vial IV ×2 (10:31→17:40)
--- NOTE | 2020-01-18 11:54 | PCM.PN.HOSP ---
Patient Problems: Active and Suspected Problems (Last Updated 01/14/20 @ 18:[address] Brendan Del Castillo, DO) Healthcare-associated pneumonia (Acute) Hypoxia (Acute) Pneumonia (Acute) Reason for Visit: pneumonia Subjective: Feels well. Denies shortness of breath, despite being on 10 liters of oxygen. Used vest therapy. Productive phlegm. Vitals/I&O's: Vital Signs Temp Pulse Resp BP Pulse Ox 37.1 C 88 20 H 148/92 H 94 01/18/20 08:29 01/18/20 10:56 01/18/20 10:56 01/18/20 08:29 01/18/20 08:29 Oxygen Flow Rate (L/min) 9 Oxygen Delivery Method Nasal Cannula Weight: 96.6 kg Body Mass Index (BMI) 32.3 Intake and Output for Last 24 Hours 01/16/20 01/17/20 01/18/20 23:59 23:59 23:59 Intake Total 2900 / 2900 3220 / 3220 1160 / 1160 Output Total 3550 / 3550 2475 / 2475 1400 / 1400 Balance -650 / -650 745 / 745 -240 / -240 General: Alert, No apparent distress, - - no respiratory distress. no conversational dyspnea HEENT: Atraumatic, Normocephalic Oral: Moist Mucosa, No Gingival or Mucosal Lesions/ Ulcerations Neck: No Nodes, Trachea Midline Lungs: Diminished, - - bilateral crackles Cardiovascular: Regular rate, Regular Rhythm, Normal S1, Normal S2, No murmurs Abdomen: Bowel Sounds Present, Soft, Non Tender, Non-Distended, No Hepato-splenomegaly Extremities: No edema, No Calf Tenderness Musculoskeletal: No Tenderness to Palpation of Joints or Extremities, No Muscle Wasting Neurological: Neuro grossly intact, - - no clonus Psych/Mental Status: Normal Affect, Appropriate Microbiology Past 72 Hours 01/15/20 05:15 Sputum, Expectorated/Coughed Gram Stain - Final 01/15/20 05:15 Sputum, Expectorated/Coughed Respiratory Culture - Final Laboratory Results 01/14/20 16:42: COVID-19 (MAXIMINO) Not Detected 01/17/20 12:53: POC Glucose 251 H 01/17/20 16:19: POC Glucose 237 H 01/17/20 21:33: POC Glucose 200 H 01/17/20 22:40: Vancomycin Trough 16.9 H 01/18/20 06:32: WBC 7.4, RBC 3.39 L, Hgb 9.9 L, Hct 33.5 L, MCV 98.8 H, MCH 29.2, MCHC 29.6 L, RDW Std Deviation 64.9 H, RDW Coeff of Jony 17.9 H, Plt Count 251, MPV 8.8, Immature Gran % (Auto) 1.100 H, Neut % (Auto) 91.8 H, Lymph % (Auto) 2.6 L, Nash % (Auto) 4.5, Eos % (Auto) 0.0, Baso % (Auto) 0.0, Absolute Neuts (auto) 6.8, Absolute Lymphs (auto) 0.19 L, Nucleated RBC % 0, Differential Comment SCANNED 01/18/20 06:32: PT 17.0 H, INR 1.4 01/18/20 06:32: Sodium 140, Potassium 3.8, Chloride 104, Carbon Dioxide 33.0 H, Anion Gap 3 L, BUN 29 H, Creatinine 0.75, Estim Creat Clear Calc 63.65, Est GFR (MDRD) Af Amer 131, Est GFR (MDRD) Non-Af 108, BUN/Creatinine Ratio 38.6 H, Glucose 186 H, Calcium 8.9 01/18/20 06:32: D-Dimer Quant (PE/DVT) 1.54 H* 01/18/20 10:50: COVID-19 (MAXIMINO) Pending Current Medications Acetaminophen (Tylenol) 650 mg PO Q6H PRN PRN PRN Reason: Pain Score 1-10/Temp > 100.7 F Last Admin: 01/15/20 22:36 Dose: 650 mg Documented by: Albuterol Sulfate (Ventolin Aerosols) 2.5 mg INHALATION Q4H PRN PRN PRN Reason: SHORTNESS OF BREATH Albuterol/Ipratropium (Duoneb) 3 ml INHALATION Q6HWA.RT [facility] Last Admin: 01/18/20 10:56 Dose: 3 ml Documented by: Amiodarone HCl (Cordarone) 200 mg PO DAILY [facility] Last Admin: 01/18/20 10:30 Dose: 200 mg Documented by: Atorvastatin Calcium (Lipitor) 80 mg PO QHS [facility] Last Admin: 01/17/20 21:20 Dose: 80 mg Documented by: Benzonatate (Tessalon Perle) 200 mg PO Q8H PRN PRN Reason: COUGH Last Admin: 01/15/20 22:37 Dose: 200 mg Documented by: Carvedilol (Coreg) 25 mg PO BID [facility] Last Admin: 01/18/20 10:30 Dose: 25 mg Documented by: Cholecalciferol (Vitamin D (25mcg)) 3,000 unit PO DAILY [facility] Last Admin: 01/17/20 12:49 Dose: 3,000 unit Documented by: Clopidogrel Bisulfate (Plavix) 75 mg PO DAILY [facility] Last Admin: 01/18/20 10:29 Dose: 75 mg Documented by: Cyanocobalamin (Vitamin B12) 1,000 mcg PO DAILY [facility] Last Admin: 01/17/20 12:49 Dose: 1,000 mcg Documented by: Dextrose (D50w Syringe) 0 gm IV X1 PRN; Protocol PRN Reason: Hypoglycemia Diltiazem HCl (Cardizem Cd) 120 mg PO Q12 [facility] Last Admin: 01/18/20 10:29 Dose: 120 mg Documented by: Empagliflozin (Jardiance) 12.5 mg PO DAILY [facility] Last Admin: 01/18/20 10:29 Dose: 12.5 mg Documented by: Enoxaparin Sodium (Lovenox) 40 mg SC DAILY@0600 [facility] Furosemide (Lasix) 40 mg IV BID@1000,1800 [facility] Last Admin: 01/18/20 10:31 Dose: 40 mg Documented by: Gabapentin (Neurontin) 900 mg PO TID [facility] Last Admin: 01/18/20 05:44 Dose: 900 mg Documented by: Glucagon () 1 mg IM .X1 PRN PRN Reason: Hypoglycemia Guaifenesin (Mucinex) 1,200 mg PO BID [facility] Last Admin: 01/18/20 10:29 Dose: 1,200 mg Documented by: Meropenem 1 gm/ Sodium (Chloride) 120 mls @ 33 mls/hr IV Q8 [facility] Last Infusion: 01/18/20 10:41 Dose: Infused Documented by: Vancomycin IV Pharmacy to Dose (1 ea/ Sodium Chloride) 500 mls @ 250 mls/hr IV X1 PRN; Protocol PRN Reason: Rx to Dose Vancomycin HCl 1,500 mg/ (Sodium Chloride) 530 mls @ 250 mls/hr IV Q12H [facility] Last Infusion: 01/18/20 05:20 Dose: Infused Documented by: Sodium Chloride () 250 mls @ 15 mls/hr IV .[id number] PRN PRN Reason: Saline Flush Sodium Chloride () 250 mls @ 15 mls/hr IV .[id number] PRN PRN Reason: Additional IVPB Infusion Insulin Glargine (Lantus ([facility])) 40 units SC DAILY [facility] Last Admin: 01/18/20 10:30 Dose: 40 u Documented by: Insulin Human Lispro (Humalog Kwikpen ([facility])) 0 unit SC TIDAC [facility]; Protocol Last Admin: 01/18/20 08:40 Dose: 1 u Documented by: Isosorbide Mononitrate (Imdur) 180 mg PO DAILY [facility] Last Admin: 01/17/20 08:59 Dose: 180 mg Documented by: Lisinopril (Zestril) 20 mg PO BID [facility] Last Admin: 01/18/20 10:30 Dose: 20 mg Documented by: Methylprednisolone (Solu-Medrol) 40 mg IV Q8 [facility] Last Admin: 01/18/20 05:44 Dose: 40 mg Documented by: Nitroglycerin (Nitrostat) 0.4 mg SUBLINGUAL Q5M PRN PRN Reason: CARDIAC/CHEST PAIN Nutritional Formula (Lactose Free) (Glucerna Shake) 120 ml PO TIDCM [facility] Last Admin: 01/18/20 08:34 Dose: 120 ml Documented by: Ondansetron HCl (Zofran) 4 mg IV Q8H PRN PRN PRN Reason: NAUSEA/VOMITING Pantoprazole Sodium (Protonix) 20 mg PO BREAKFAST [facility] Last Admin: 01/18/20 08:34 Dose: 20 mg Documented by: Paroxetine HCl (Paxil) 80 mg PO DAILY [facility] Last Admin: 01/18/20 10:30 Dose: 80 mg Documented by: Sodium Chloride () 10 - 40 ml IV UD PRN PRN Reason: SALINE FLUSH Last Admin: 01/18/20 10:31 Dose: 10 ml Documented by: Tamsulosin HCl (Flomax) 0.4 mg PO QHS [facility] Last Admin: 01/17/20 21:20 Dose: 0.4 mg Documented by: Warfarin Sodium (Coumadin ([facility])) 2.5 mg PO SuTh@1700 [facility] Last Admin: 01/17/20 17:25 Dose: 2.5 mg Documented by: Warfarin Sodium (Coumadin ([facility])) 5 mg PO MoTuWeFrSa@1700 [facility] Last Admin: 01/16/20 17:14 Dose: 5 mg Documented by: STROKE Vital Signs/Narrative: Vital Signs Temp Pulse Resp BP Pulse Ox 01/18/20 10:56 88 20 H 01/18/20 08:29 37.1 C 108 H 20 H 148/92 H 94 Medical Necessity - Tobacco Use Smoking Status: Former smoker Tobacco Use: Non-smoker Assessment/Plan All Active Problems (Last Updated 01/14/20 @ 18:[address] Brendan Del Castillo, DO) Elevated troponin (Acute) COPD exacerbation (Acute) Healthcare-associated pneumonia (Acute) Hypoxia (Acute) Pneumonia (Acute) 1. Acute hypoxic respiratory failure still on 9-10 liters, though, clinically looks well. Multifactorial, given the patient's underlying COPD plus pneumonia and also possible some radiation pneumonitis given patient's history of radiation to his chest. LHC in October showed an EF of 55%. Will try furosemide IV and chest physiotherapy. Wean oxygen as tolerated. intermittent BiPAP. Patient is requesting no intubation if he does have respiratory collapse. COVID-19 negative, will recheck. D-Dimer now greater than 1.5, since INR still subtherapeutic, will fully anticoagulate with therapuetic enoxaparin until INR therapeutic. CTA negative for PE on admission. Low-likelihood of sepsis-induced coagulopathy. Consult pulmonology. 2. suspected gram negative pneumonia Patient was just discharged month ago so is within the window is for hospital-acquired infections. Patient did receive azithromycin and ceftriaxone in the emergency room. I will place the patient on meropenem, given his penicillin allergy. Add vanc. Adjust antibiotics accordingly follow-up urinary antigens are Streptococcus and Legionella. Check sputum culture. Strep throat + Additionally, I asked the emergency room physician to check the patient for COVID-19 which will take 3 days to return. Patient will be in appropriate isolation until those results are finalized and will lift restrictions if he is COVID-19 negative. I personally reviewed the patient's CAT scan and shows new infiltrates bilaterally which were not present last month. 3. Acute COPD exacerbation: Complicated by the pneumonia. Patient will be on his home regimen of bronchodilators plus methylprednisolone. 4. Lung cancer Non-small cell (squamous) Stage IIIA T1bN2 Reviewed records from Dr. Witt's office: Status post chemo and XRT. To initiate immunotherapy with Dr. Witt as outpt. 5. Diabetes mellitus type 2: Continue with his home medications plus sliding scale insulin 6. Atrial fibrillation: Currently rate controlled. Continue with carvedilol, amiodarone, diltiazem. on warfarin 7. VTE prophylaxis: 8. Advanced care planning: Discussed with the patient. Patient wishes to be DNR Comfort Care arrest no intubation at this time. 9. CAD: recent PCI in October. Clopidogrel ordered at that time, but not on home list. Will resume clopidogrel. Correction: initial MAR had pt on apixaban, was corrected for warfarin later and subsequent documentation did not accurately reflect that. Inpatient E&M: [id number] [facility] L3
--- NOTE | 2020-01-18 11:56 | NURSING ---
Patient's repeat COVID test was approved by [facility] and paperwork was sent to lab to sent with sample to [facility]. Sample will be sent today with expanded duty dental assistant.
[2020-01-18] MEDS: Cyanocobalamin 500 MCG Tablet 1000 MCG PO (12:49)
[2020-01-18] MEDS: Isosorbide Mononitrate 60 MG Tablet 180 MG PO (12:49)
[2020-01-18 13:30] LABS: Bedside Glucose 278 mg/dL (70-110)
--- NOTE | 2020-01-18 14:24 | PCM.CONS.PUL ---
Problem List (1) HTN (hypertension) Status: Chronic Qualifiers: Hypertension type: essential hypertension Qualified Code(s): I10 - Essential (primary) hypertension (2) Diabetes Status: Chronic (3) Atrial fibrillation Status: Chronic (4) COPD exacerbation Status: Acute (5) Healthcare-associated pneumonia Status: Acute (6) Hypoxia Status: Acute (7) Arteriosclerotic cardiovascular disease Status: Chronic (8) Stented coronary artery Status: Chronic Comment: Multiple stents previously placed to LAD, LCX and RCA in past: 10/24/2019 CELIA to first diagonal per [facility] Reason for Consult Date of Consultation: 01/18/20 Reason for Consultation: Persistent hypoxia History of Present Illness: The patient is a 74 year old M, with past medical history listed below, who presented to [facility] on 01/14/2020 secondary to acute onset of shortness of breath and right-sided chest pain. Patient states that it was worse with breathing and movement. Patient had had a cough productive of clear sputum recently and some rhinorrhea. No fevers or chills were reported. Patient has had some nausea and vomiting, but denied any obvious aspiration. Patient did have some postnasal drip noted. On presentation to the ER, patient was noted to be 88% on room air. Patient reportedly was not in any acute distress. Chest x-ray showed a left upper lobe infiltrate. EKG showed a right bundle branch with no ST changes. Patient had a leukocytosis of 13 and d-dimer was slightly elevated at 0.98. Rapid strep was positive, but RSV, influenza and respiratory panel were all negative. Patient's initial ABG showed a pH of 7.37, PCO2 of 54.2, PO2 of 57, 87% on 9 L nasal cannula. Patient was given albuterol, Rocephin and Zithromax. Given elevated d-dimer, CTA was obtained. Patient has been on the COVID floor since that time. Patient's initial COVID test did come back as negative, but there is concerns for a false negative, so this was resent. Patient had persistent and hypoxia and was requiring 9 to 10 L of oxygen to maintain saturations. Patient did receive some diuretics yesterday and by time I had evaluated he was reporting subjective improvement in dyspnea. Patient did not have any dyspnea at rest or conversational dyspnea, but did state that with exertion it became pretty progressive. Patient denied any pain at this time. Patient did state that he is developing some lower extremity edema, which is not normal for him. Patient was not able to provide much history on his cancer. Patient does believe that he received radiation to the center and left side of his chest. Patient states that he was feeling improved following the therapy and people had asked why he was still on supplemental oxygen. Patient states he does have supplemental oxygen at home, but this is not used routinely since his therapy was working. Patient is unaware of what type of cancer he has. Review of systems otherwise negative from a constitutional, HEENT, respiratory, cardiovascular, GI, genitourinary, musculoskeletal, skin, neurologic, psychiatric and hematologic system unless stated above. Past Medical History Past Medical History (Chronic Problems): Chronic Problems (Last Reviewed 01/14/20 @ 18:[address] Brendan Del Castillo DO) HTN (hypertension) (Chronic) Diabetes (Chronic) Atrial fibrillation (Chronic) Arteriosclerotic cardiovascular disease (Chronic) Stented coronary artery (Chronic 10/24/19) Multiple stents previously placed to LAD, LCX and RCA in past: 10/24/2019 CELIA to first diagonal per [facility]N History of left heart catheterization (Chronic 10/24/19) Left Ventricular Ejection Fraction: by LV Gram 55 %; Global Hypokinesis - Mild Depressed Left Ventricular systolic function; Normal Left Ventricular End Diastolic Pressure; LVEDP: 14 mmHg; LEFT MAIN: 20 ostial % Stenosis; LEFT ANTERIOR DESCENDING ARTERY: PROX LAD: Mild luminal irregularities less than 30% MID LAD: Moderate luminal irregularities up to 50%, Previously placed stent is patent; DIAGONAL 1: Proximal - Previously placed stent has an instent 85 % restenosis; CIRCUMFLEX ARTERY: MID CIRC: Previously placed stent has an instent 20 % restenosis;DISTAL CIRC: Moderate luminal irregularities up to 50% RIGHT CORONARY ARTERY: MID RCA: Previously placed stent is patent Medical History: Medical History (Last Updated 01/14/20 @ 18:[address] Brendan Del Castillo DO) Arteriosclerotic cardiovascular disease (Chronic) I25.10 NSTEMI (non-ST elevated myocardial infarction) (Inactive) Onset Date: 10/24/19 I21.4 Afib I48.91 Lung cancer C34.90 COPD (chronic obstructive pulmonary disease) J44.9 CAD (coronary artery disease) I25.10 Diabetes E11.9 HTN (hypertension) I10 Allergies cephalexin [From Keflex] Allergy (Verified 01/14/20 13:16) Rash doxycycline Allergy (Verified 01/14/20 13:16) Rash Penicillins Allergy (Verified 01/14/20 13:16) CHILDHOOD ALLERGY metformin Adverse Reaction (Verified 01/14/20 13:16) Upset Stomach niacin Adverse Reaction (Verified 01/14/20 13:16) Rash simvastatin Adverse Reaction (Verified 01/14/20 13:16) Rash Home Medications: Ambulatory Orders Medication Instructions Recorded Budesonide/Formoterol Fumarate 2 puff IH BID 10/23/19 [Symbicort 160-4.5 Mcg Inhaler] Empagliflozin [Jardiance] 25 mg PO DAILY 10/23/19 Fluticasone Propionate [Flovent 50 mcg IH DAILY 10/23/19 Diskus] Gabapentin [Neurontin] 900 mg PO TID 10/23/19 Insulin Glargine [Lantus SoloStar 40 units SUBCUT DAILY 10/23/19 Pen] Isosorbide Mononitrate [Imdur] 180 mg PO DAILY 10/23/19 Nitroglycerin [Nitrostat] 1 tab SL PRN PRN 10/23/19 Paroxetine [Paxil] 80 mg PO DAILY 10/23/19 Prazosin HCl 4 mg PO QHS 10/23/19 Tiotropium [place] [Spiriva 18 MCG] 2 puff INHALATION Q6H PRN PRN 10/23/19 Lisinopril 20 mg PO BID 10/24/19 Cholecalciferol (VIT D3) [Vitamin 3,000 unit PO DAILY 11/23/19 D3] Cyanocobalamin (Vitamin B-12) 1,000 mcg PO DAILY 11/23/19 [B-12] Ketoconazole [Nizoral] 120 ml TP QWEEK 11/23/19 Pantoprazole Sodium 20 mg PO BREAKFAST 11/23/19 Rosuvastatin Calcium 40 mg PO QHS 11/23/19 Tamsulosin HCl 0.4 mg PO QHS 11/23/19 Acetaminophen [Tylenol Tablet] 650 mg PO Q6H PRN PRN tab 11/25/19 Carvedilol [Coreg (Beta [place])] 25 mg PO BID 60 Days tab 11/25/19 Benzonatate [Tessalon Perle] 200 mg PO Q8H PRN #30 cap 11/29/19 Diltiazem CD [Cardizem CD] 120 mg PO Q12 #60 cap 11/29/19 Guaifenesin [Mucinex] 1,200 mg PO BID #0 tab 11/29/19 Albuterol Aerosols [Ventolin 2.5 mg INHALATION Q6H PRN PRN 01/16/20 Aerosols] Amiodarone HCl 200 mg PO DAILY 01/16/20 Bxm Liquid [BMX LIQUID] 10 ml PO Q6H PRN PRN 01/16/20 Furosemide [Lasix] 20 mg PO BIDLX 01/16/20 Ondansetron [Zofran] 8 mg PO Q8H PRN PRN 01/16/20 Potassium Chloride 10 meq PO BID 01/16/20 Triamcinolone 0.1% Ointment 1 applic TOPICAL BID 01/16/20 [Kenalog] Warfarin [Coumadin ([facility])] 2.5 mg PO SUTH 01/16/20 Warfarin [Coumadin (PBKC)] 5 mg PO MOTUWEFRSA 01/16/20 Surgical History: Surgical History (Last Reviewed 01/14/20 @ 18:[address] Brendan Del Castillo, DO) Stented coronary artery (Chronic) Onset Date: 10/24/19 Z95.5 Multiple stents previously placed to LAD, LCX and RCA in past: 10/24/2019 CELIA to first diagonal per [facility] History of left heart catheterization (Chronic) Onset Date: 10/24/19 Z98.890 Left Ventricular Ejection Fraction: by LV Gram 55 %; Global Hypokinesis - Mild Depressed Left Ventricular systolic function; Normal Left Ventricular End Diastolic Pressure; LVEDP: 14 mmHg; LEFT MAIN: 20 ostial % Stenosis; LEFT ANTERIOR DESCENDING ARTERY: PROX LAD: Mild luminal irregularities less than 30% MID LAD: Moderate luminal irregularities up to 50%, Previously placed stent is patent; DIAGONAL 1: Proximal - Previously placed stent has an instent 85 % restenosis; CIRCUMFLEX ARTERY: MID CIRC: Previously placed stent has an instent 20 % restenosis;DISTAL CIRC: Moderate luminal irregularities up to 50% RIGHT CORONARY ARTERY: MID RCA: Previously placed stent is patent Surgical History: appendectomy, herniorrhaphy - X3 Smoking Status: Former smoker Tobacco Use: Non-smoker Alcohol: None Drugs: None - *Family History Maternal History Items: Heart Disease, - - Skin cancer Paternal History Items: Cancer - His father from throat cancer at the age of 57 Review of Systems Comment: See HPI Patient Problems: Active and Suspected Problems (Last Updated 01/14/20 @ 18:[address] Brendan Del Castillo, DO) Healthcare-associated pneumonia (Acute) Hypoxia (Acute) Pneumonia (Acute) Objective: All imaging was personally reviewed. Agree with formal interpretation. Patient does have what appears to be fibrotic changes/postradiation in the left upper lobe along with some emphysematous changes. Some mediastinal changes are also noted, along with groundglass opacities. Patient is positive over 9 L throughout his hospitalization. Patient did have a spirometry mentioned in 2012 showing an FEV1 of 44% of predicted. Patient is unclear of any other pulmonary function testing, but states most of his treatment is completed at [place]. - Physical Exam Vitals/I&O's: Vital Signs Temp Pulse Resp BP Pulse Ox 36.6 C 89 18 149/85 H 92 01/18/20 12:40 01/18/20 12:40 01/18/20 12:40 01/18/20 12:40 01/18/20 12:40 Oxygen Flow Rate (L/min) 7 Oxygen Delivery Method Nasal Cannula Weight: 96.6 kg Body Mass Index (BMI) 32.3 Intake and Output for Last 24 Hours 01/16/20 01/17/20 01/18/20 23:59 23:59 23:59 Intake Total 2900 / 2900 3220 / 3220 1400 / 1400 Output Total 3550 / 3550 2475 / 2475 2200 / 2200 Balance -650 / -650 745 / 745 -800 / -800 General: Alert, Oriented x3, Cooperative, - - Mild conversational dyspnea. Obese. HEENT: Atraumatic, PERRLA, EOMI, Normocephalic, - - No scleral icterus or injection noted Oral: Moist Mucosa, No Gingival or Mucosal Lesions/ Ulcerations Neck: Supple, No Nodes, Trachea Midline, JVD, Right Lungs: No rhonchi, No wheeze, Diminished, Rales, - - Symmetric expansion. Cardiovascular: Normal S1, Normal S2, No murmurs, Irregular Rate, No rub noted, No Gallop Abdomen: Bowel Sounds Present, Soft, Non Tender, Non-Distended, Obese Extremities: No cyanosis, Clubbing, Edema - Trace lower extremity Skin: No rashes, No breakdown Musculoskeletal: No Tenderness to Palpation of Joints or Extremities Lymphatic: No Cervical, Supraclavicular, or Inguinal Adenopathy Neurological: Cranial nerves II-XII grossly intact, Neuro grossly intact, Motor Exam 5/5 strength throughout Psych/Mental Status: Alert and oriented to time, place, person, mood and affect Microbiology Past 72 Hours 01/15/20 05:15 Sputum, Expectorated/Coughed Gram Stain - Final 01/15/20 05:15 Sputum, Expectorated/Coughed Respiratory Culture - Final Laboratory Results 01/14/20 16:42: COVID-19 ([facility]IMINO) Not Detected 01/17/20 16:19: POC Glucose 237 H 01/17/20 21:33: POC Glucose 200 H 01/17/20 22:40: Vancomycin Trough 16.9 H 01/18/20 06:32: WBC 7.4, RBC 3.39 L, Hgb 9.9 L, Hct 33.5 L, MCV 98.8 H, MCH 29.2, MCHC 29.6 L, RDW Std Deviation 64.9 H, RDW Coeff of Jony 17.9 H, Plt Count 251, MPV 8.8, Immature Gran % (Auto) 1.100 H, Neut % (Auto) 91.8 H, Lymph % (Auto) 2.6 L, [place] % (Auto) 4.5, Eos % (Auto) 0.0, Baso % (Auto) 0.0, Absolute Neuts (auto) 6.8, Absolute Lymphs (auto) 0.19 L, Nucleated RBC % 0, Differential Comment SCANNED 01/18/20 06:32: PT 17.0 H, INR 1.4 01/18/20 06:32: Sodium 140, Potassium 3.8, Chloride 104, Carbon Dioxide 33.0 H, Anion Gap 3 L, BUN 29 H, Creatinine 0.75, Estim Creat Clear Calc 63.65, Est GFR (MDRD) Af Amer 131, Est GFR (MDRD) Non-Af 108, BUN/Creatinine Ratio 38.6 H, Glucose 186 H, Calcium 8.9 01/18/20 06:32: D-Dimer Quant (PE/DVT) 1.54 H* 01/18/20 10:50: COVID-19 (MAXIMINO) Pending 01/18/20 12:46: POC Glucose 278 H Current Medications Acetaminophen (Tylenol) 650 mg PO Q6H PRN PRN PRN Reason: Pain Score 1-10/Temp > 100.7 F Last Admin: 01/15/20 22:36 Dose: 650 mg Documented by: Albuterol Sulfate (Ventolin Aerosols) 2.5 mg INHALATION Q4H PRN PRN PRN Reason: SHORTNESS OF BREATH Albuterol/Ipratropium (Duoneb) 3 ml INHALATION Q6HWA.RT [facility] Last Admin: 01/18/20 10:56 Dose: 3 ml Documented by: Amiodarone HCl (Cordarone) 200 mg PO DAILY [facility] Last Admin: 01/18/20 10:30 Dose: 200 mg Documented by: Atorvastatin Calcium (Lipitor) 80 mg PO QHS [facility] Last Admin: 01/17/20 21:20 Dose: 80 mg Documented by: Benzonatate (Tessalon Perle) 200 mg PO Q8H PRN PRN Reason: COUGH Last Admin: 01/15/20 22:37 Dose: 200 mg Documented by: Carvedilol (Coreg) 25 mg PO BID [facility] Last Admin: 01/18/20 10:30 Dose: 25 mg Documented by: Cholecalciferol (Vitamin D (25mcg)) 3,000 unit PO DAILY [facility] Last Admin: 01/18/20 12:49 Dose: 3,000 unit Documented by: Clopidogrel Bisulfate (Plavix) 75 mg PO DAILY [facility] Last Admin: 01/18/20 10:29 Dose: 75 mg Documented by: Cyanocobalamin (Vitamin B12) 1,000 mcg PO DAILY [facility] Last Admin: 01/18/20 12:49 Dose: 1,000 mcg Documented by: Dextrose (D50w Syringe) 0 gm IV X1 PRN; Protocol PRN Reason: Hypoglycemia Diltiazem HCl (Cardizem Cd) 120 mg PO Q12 [facility] Last Admin: 01/18/20 10:29 Dose: 120 mg Documented by: Empagliflozin (Jardiance) 12.5 mg PO DAILY [facility] Last Admin: 01/18/20 10:29 Dose: 12.5 mg Documented by: Enoxaparin Sodium (Lovenox) 100 mg 1 mg/kg (100 mg) SC Q12@0600,1800 [facility] Furosemide (Lasix) 40 mg IV BID@1000,1800 [facility] Last Admin: 01/18/20 10:31 Dose: 40 mg Documented by: Gabapentin (Neurontin) 900 mg PO TID [facility] Last Admin: 01/18/20 13:07 Dose: 900 mg Documented by: Glucagon () 1 mg IM .X1 PRN PRN Reason: Hypoglycemia Guaifenesin (Mucinex) 1,200 mg PO BID [facility] Last Admin: 01/18/20 10:29 Dose: 1,200 mg Documented by: Meropenem 1 gm/ Sodium (Chloride) 120 mls @ 33 mls/hr IV Q8 [facility] Last Admin: 01/18/20 13:02 Dose: 33 mls/hr Documented by: Vancomycin IV Pharmacy to Dose (1 ea/ Sodium Chloride) 500 mls @ 250 mls/hr IV X1 PRN; Protocol PRN Reason: Rx to Dose Vancomycin HCl 1,500 mg/ (Sodium Chloride) 530 mls @ 250 mls/hr IV Q12H [facility] Last Admin: 01/18/20 12:51 Dose: 250 mls/hr Documented by: Sodium Chloride () 250 mls @ 15 mls/hr IV .[id number] PRN PRN Reason: Saline Flush Sodium Chloride () 250 mls @ 15 mls/hr IV .[id number] PRN PRN Reason: Additional IVPB Infusion Insulin Glargine (Lantus (Bk)) 40 units SC DAILY [facility] Last Admin: 01/18/20 10:30 Dose: 40 u Documented by: Insulin Human Lispro (Humalog Kwikpen (Bk)) 0 unit SC TIDAC [facility]; Protocol Last Admin: 01/18/20 12:50 Dose: 4 u Documented by: Isosorbide Mononitrate (Imdur) 180 mg PO DAILY [facility] Last Admin: 01/18/20 12:49 Dose: 180 mg Documented by: Lisinopril (Zestril) 20 mg PO BID [facility] Last Admin: 01/18/20 10:30 Dose: 20 mg Documented by: Methylprednisolone (Solu-Medrol) 40 mg IV Q8 [facility] Last Admin: 01/18/20 13:07 Dose: 40 mg Documented by: Nitroglycerin (Nitrostat) 0.4 mg SUBLINGUAL Q5M PRN PRN Reason: CARDIAC/CHEST PAIN Nutritional Formula (Lactose Free) (Glucerna Shake) 120 ml PO TIDCM [facility] Last Admin: 01/18/20 12:51 Dose: Not Given Documented by: Ondansetron HCl (Zofran) 4 mg IV Q8H PRN PRN PRN Reason: NAUSEA/VOMITING Pantoprazole Sodium (Protonix) 20 mg PO BREAKFAST [facility] Last Admin: 01/18/20 08:34 Dose: 20 mg Documented by: Paroxetine HCl (Paxil) 80 mg PO DAILY [facility] Last Admin: 01/18/20 10:30 Dose: 80 mg Documented by: Pot[facility]Dur[facility] Sodium Chloride () 10 - 40 ml IV UD PRN PRN Reason: SALINE FLUSH Last Admin: 01/18/20 13:10 Dose: 10 ml Documented by: Tamsulosin HCl (Flomax) 0.4 mg PO QHS [facility] Last Admin: 01/17/20 21:20 Dose: 0.4 mg Documented by: Warfarin Sodium (Coumadin (Pbkc)) 2.5 mg PO SuTh@1700 [facility] Last Admin: 01/17/20 17:25 Dose: 2.5 mg Documented by: Warfarin Sodium (Coumadin (Pbkc)) 5 mg PO MoTuWeFrSa@1700 [facility] Last Admin: 01/16/20 17:14 Dose: 5 mg Documented by: Assessment/Plan All Active Problems (Last Updated 01/14/20 @ 18:[address] Brendan Del Castillo, ) Elevated troponin (Acute) COPD exacerbation (Acute) Healthcare-associated pneumonia (Acute) Hypoxia (Acute) Pneumonia (Acute) RECOMMENDATIONS: 1. Continue aggressive diuresis 2. Agree with aggressive pulmonary toileting with vest/Acapella 3. Okay to continue with antibiotics, steroids, mucolytic's and bronchodilators for now 4. Wean oxygen as tolerated 5. BiPAP rescue as necessary. Continue with sleep. IMPRESSIONS: 1. Acute hypoxic respiratory failure/stage III COPD exacerbation Patient likely has a multifactorial etiology of acute hypoxic respiratory failure. Patient did have advanced COPD in 2011 with an FEV1 of 44% of predicted. Patient also has what appears to be radiation pneumonitis of the left upper lobe and some groundglass opacities suggestive of atypical infection versus fluid overload. Patient did have some diastolic dysfunction in the past. Heart rates have been relatively controlled. Clinical suspicion for the majority of oxygenation issues will be secondary to volume overload. Patient is +9 L over the course of the hospitalization. Patient is currently on anticoagulation, so pulmonary emboli would be unlikely. 2. A. fib/chronic diastolic CHF Patient is currently rate controlled. Clinical suspicion for an element of diastolic CHF exacerbation secondary to volume status. Patient does have some rales on exam. Patient is on appropriate medications at this time. Continue telemetry. 3. Recent squamous cell lung carcinoma/CAD/advanced age/multiple allergies Complicates care, management, recovery and prognosis. Patient is currently a DNR Comfort Care arrest without intubation. Okay to continue with baseline medications from my perspective. Inpatient E&M: 64373 Init Hosp L3
[2020-01-18 17:25] LABS: Bedside Glucose 168 mg/dL (70-110)
[2020-01-18] MEDS: Enoxaparin 100 MG/ML Syringe SC (17:39)
[2020-01-18 18:05] LABS: Bedside Glucose 203 mg/dL (70-110)
--- NOTE | 2020-01-18 18:54 | CPS ---
Did not do chest vest at this time due to patient just finishing dinner.
--- NOTE | 2020-01-18 19:58 | CPS ---
Pt states he is unable to sleep with bipap. Patient stated he does not want to wear bipap tonight. Encouraged patient to ask for bipap if he feels short of breath or changes his mind. .
[2020-01-18] MEDS: Atorvastatin Calcium 80 MG Tablet PO (22:29)
[2020-01-18] MEDS: Tamsulosin HCl 0.4 MG Capsule PO (22:29)
[2020-01-18 22:46] LABS: Bedside Glucose 262 mg/dL (70-110)
[2020-01-19] VITALS (8 sets, daily range): BP systolic 120–141; BP diastolic 68–74; PULSE 67–85; RESP 16–20; TEMP 36.6–36.9; O2SAT 92–94
[2020-01-19] MEDS: Enoxaparin 100 MG/ML Syringe SC ×2 (06:29→18:19)
[2020-01-19] MEDS: Gabapentin 300 MG Capsule 900 MG PO ×3 (06:30→21:46)
[2020-01-19] MEDS: Insulin Lispro 100 UNIT/ML INSULN.PEN SC ×3 (06:36→16:37)
[2020-01-19 07:47] LABS: Absolute Lymphocyte Count 0.19 X10^3/uL (0.83-4.51); Absolute Neutrophil Count 5.9 X10^3/uL (2.0-7.7); Basophil# 0.01 X10^3/uL; Basophil% 0.2 % (0-1); Hematocrit 35.8 % (40-54); Hemoglobin 10.6 g/dL (13.0-16.5); Lymphocyte # 0.19 X10^3/ul (4.0); Lymphocyte % 2.9 % (19-41); Mean Corp Hgb Conc 29.6 g/dL (32-36); Mean Corpuscular Hgb 28.7 pg (27.0-32.0); Monocyte# 0.35 X10^3/uL; Monocyte% 5.4 % (0-10); NRBC Flagged by Analyzer 0 % (0-5); Neutrophil # 5.86 X10^3/uL (2.7-7.7); Neutrophil % 90.4 % (47-70); POSITIVE DIFFERENTIAL YES; Platelet Count 264 K/mm3 (150-450); RBC Distribution Width CV 17.4 % (11.6-14.6); RBC Distribution Width SD 62.5 fl (35.1-43.9); Red Blood Count 3.69 M/mm3 (4.6-6.2); White Blood Count 6.5 K/mm3 (4.4-11.0)
[2020-01-19] MEDS: Ipratropium/Albuterol Sulfate 3 ML AMPUL.NEB INHALATION ×3 (07:47→19:34)
[2020-01-19 07:48] LABS: Differential Indicated SCAN CRITERIA MET
[2020-01-19 08:05] LABS: Bedside Glucose 206 mg/dL (70-110)
[2020-01-19 08:20] LABS: ALB/GLOB Ratio 0.6 RATIO (0.9-2.4); AST(SGOT) 46 U/L (15-37); Alanine Aminotransfer ALT/SGPT 69 U/L (16-61); Albumin, Serum 2.6 g/dL (3.2-5.0); Alkaline Phosphatase 77 U/L (45-117); Anion Gap 4 (5-15); BUN 30 mg/dL (7-18); BUN/Creat Ratio 39.9 RATIO (10-20); Chloride 103 mmol/L (98-107); Creatinine, Serum 0.75 mg/dL (0.70-1.30); EST Glomerular Filtration Rate 108 mL/min (>60); Est Glom Filt Rate - Afr Amer 131 mL/min (>60); Estimated Creatinine Clearance 63.65 ml/min; Globulin 4.6 g/dL (2.2-4.2); Glucose 195 mg/dL (74-106); Potassium 3.7 mmol/L (3.5-5.1); Protein, Total 7.2 g/dL (6.4-8.2); Sodium Level 141 mmol/L (136-145)
--- NOTE | 2020-01-19 08:40 | PN_ITS ---
Patient Problems: Active and Suspected Problems (Last Updated 01/14/20 @ 18:[address] Brendan Del Castillo, DO) Healthcare-associated pneumonia (Acute) Hypoxia (Acute) Pneumonia (Acute) Subjective: Patient did well overnight. No acute issues were reported. Patient reports subjective improvement in dyspnea today compared to yesterday. Patient did have increased FiO2 requirements overnight, but refused to wear BiPAP. Patient does have a known history of obstructive sleep apnea. - Physical Exam Vitals/I&O's: Vital Signs Temp Pulse Resp BP Pulse Ox 36.9 C 68 18 120/74 94 01/19/20 04:05 01/19/20 07:47 01/19/20 07:47 01/19/20 04:05 01/19/20 07:47 Oxygen Flow Rate (L/min) 8 Oxygen Delivery Method Nasal Cannula Weight: 96.6 kg Body Mass Index (BMI) 32.3 Intake and Output for Last 24 Hours 01/17/20 01/18/20 01/19/20 23:59 23:59 23:59 Intake Total 3220 / 3220 3010 / 3010 890 / 890 Output Total 2475 / 2475 5040 / 5040 1500 / 1500 Balance 745 / 745 -2030 / -2030 -610 / -610 General: Alert, Oriented x3, Cooperative, No apparent distress, Well developed, Well nourished, - - Mild conversational dyspnea. Appears stated age. HEENT: Atraumatic, PERRLA, EOMI, Normocephalic, - - No scleral icterus or injection noted Oral: Moist Mucosa, No Gingival or Mucosal Lesions/ Ulcerations Neck: Supple, No JVD, No Nodes, Trachea Midline Lungs: No rhonchi, No wheeze, Diminished, Rales, - - Symmetric expansion. Cardiovascular: Normal S1, Normal S2, No murmurs, Irregular Rate, No rub noted, No Gallop Abdomen: Bowel Sounds Present, Soft, Non Tender, Non-Distended, Obese Extremities: No cyanosis, No edema, Capillary Refill Less than 3 Seconds, Clubbing Skin: - - No change compared to previous Musculoskeletal: No Tenderness to Palpation of Joints or Extremities Lymphatic: No Cervical, Supraclavicular, or Inguinal Adenopathy Neurological: Cranial nerves II-XII grossly intact, Neuro grossly intact, Motor Exam 5/5 strength throughout Psych/Mental Status: Alert and oriented to time, place, person, mood and affect Microbiology Past 72 Hours 01/15/20 05:15 Sputum, Expectorated/Coughed Gram Stain - Final 01/15/20 05:15 Sputum, Expectorated/Coughed Respiratory Culture - Final Laboratory Results 01/18/20 06:32: D-Dimer Quant (PE/DVT) 1.54 H* 01/18/20 08:39: POC Glucose 168 H 01/18/20 10:50: COVID-19 (MAXIMINO) Pending 01/18/20 12:46: POC Glucose 278 H 01/18/20 17:31: POC Glucose 203 H 01/18/20 22:15: POC Glucose 262 H 01/19/20 06:35: POC Glucose 206 H 01/19/20 07:15: WBC 6.5, RBC 3.69 L, Hgb 10.6 L, Hct 35.8 L, MCV 97.0 H, MCH 28.7, MCHC 29.6 L, RDW Std Deviation 62.5 H, RDW Coeff of Jony 17.4 H, Plt Count 264, MPV 9.0, Immature Gran % (Auto) 1.100 H, Neut % (Auto) 90.4 H, Lymph % (Auto) 2.9 L, [place] % (Auto) 5.4, Eos % (Auto) 0.0, Baso % (Auto) 0.2, Absolute Neuts (auto) 5.9, Absolute Lymphs (auto) 0.19 L, Nucleated RBC % 0 01/19/20 07:15: PT Pending, INR Pending 01/19/20 07:15: Sodium 141, Potassium 3.7, Chloride 103, Carbon Dioxide 34.0 H, Anion Gap 4 L, BUN 30 H, Creatinine 0.75, Estim Creat Clear Calc 63.65, Est GFR (MDRD) Af Amer 131, Est GFR (MDRD) Non-Af 108, BUN/Creatinine Ratio 39.9 H, Glucose 195 H, Calcium 9.0, Total Bilirubin 0.60, AST 46 H, ALT 69 H, Alkaline Phosphatase 77, Total Protein 7.2, Albumin 2.6 L, Globulin 4.6 H, Albumin/Globu luis Ratio 0.6 L Current Medications Acetaminophen (Tylenol) 650 mg PO Q6H PRN PRN PRN Reason: Pain Score 1-10/Temp > 100.7 F Last Admin: 01/15/20 22:36 Dose: 650 mg Documented by: Albuterol Sulfate (Ventolin Aerosols) 2.5 mg INHALATION Q4H PRN PRN PRN Reason: SHORTNESS OF BREATH Albuterol/Ipratropium (Duoneb) 3 ml INHALATION Q6HWA.RT [facility] Last Admin: 01/19/20 07:47 Dose: 3 ml Documented by: Amiodarone HCl (Cordarone) 200 mg PO DAILY [facility] Last Admin: 01/18/20 10:30 Dose: 200 mg Documented by: Atorvastatin Calcium (Lipitor) 80 mg PO QHS [facility] Last Admin: 01/18/20 22:29 Dose: 80 mg Documented by: Benzonatate (Tessalon Perle) 200 mg PO Q8H PRN PRN Reason: COUGH Last Admin: 01/15/20 22:37 Dose: 200 mg Documented by: Carvedilol (Coreg) 25 mg PO BID [facility] Last Admin: 01/18/20 22:29 Dose: 25 mg Documented by: Cholecalciferol (Vitamin D (25mcg)) 3,000 unit PO DAILY [facility] Last Admin: 01/18/20 12:49 Dose: 3,000 unit Documented by: Clopidogrel Bisulfate (Plavix) 75 mg PO DAILY [facility] Last Admin: 01/18/20 10:29 Dose: 75 mg Documented by: Cyanocobalamin (Vitamin B12) 1,000 mcg PO DAILY [facility] Last Admin: 01/18/20 12:49 Dose: 1,000 mcg Documented by: Dextrose (D50w Syringe) 0 gm IV X1 PRN; Protocol PRN Reason: Hypoglycemia Diltiazem HCl (Cardizem Cd) 120 mg PO Q12 [facility] Last Admin: 01/18/20 22:29 Dose: 120 mg Documented by: Empagliflozin (Jardiance) 12.5 mg PO DAILY [facility] Last Admin: 01/18/20 10:29 Dose: 12.5 mg Documented by: Enoxaparin Sodium (Lovenox) 100 mg 1 mg/kg (100 mg) SC Q12@0600,1800 [facility] Last Admin: 01/19/20 06:29 Dose: 100 mg Documented by: Furosemide (Lasix) 40 mg IV BID@1000,1800 [facility] Last Admin: 01/18/20 17:40 Dose: 40 mg Documented by: Gabapentin (Neurontin) 900 mg PO TID [facility] Last Admin: 01/19/20 06:30 Dose: 900 mg Documented by: Glucagon () 1 mg IM .X1 PRN PRN Reason: Hypoglycemia Guaifenesin (Mucinex) 1,200 mg PO BID [facility] Last Admin: 01/18/20 22:29 Dose: 1,200 mg Documented by: Meropenem 1 gm/ Sodium (Chloride) 120 mls @ 33 mls/hr IV Q8 [facility] Last Admin: 01/19/20 06:29 Dose: 33 mls/hr Documented by: Vancomycin IV Pharmacy to Dose (1 ea/ Sodium Chloride) 500 mls @ 250 mls/hr IV X1 PRN; Protocol PRN Reason: Rx to Dose Vancomycin HCl 1,500 mg/ (Sodium Chloride) 530 mls @ 250 mls/hr IV Q12H [facility] Last Infusion: 01/19/20 00:34 Dose: Infused Documented by: Sodium Chloride () 250 mls @ 15 mls/hr IV .[id number] PRN PRN Reason: Saline Flush Sodium Chloride () 250 mls @ 15 mls/hr IV .[id number] PRN PRN Reason: Additional IVPB Infusion Insulin Glargine (Lantus (Bkc)) 40 units SC DAILY [facility] Last Admin: 01/18/20 10:30 Dose: 40 u Documented by: Insulin Human Lispro (Humalog Kwikpen (Bkc)) 0 unit SC TIDAC [facility]; Protocol Last Admin: 01/19/20 06:36 Dose: 2 u Documented by: Isosorbide Mononitrate (Imdur) 180 mg PO DAILY [facility] Last Admin: 01/18/20 12:49 Dose: 180 mg Documented by: Lisinopril (Zestril) 20 mg PO BID [facility] Last Admin: 01/18/20 22:29 Dose: 20 mg Documented by: Methylprednisolone (Solu-Medrol) 40 mg IV Q8 [facility] Last Admin: 01/19/20 06:30 Dose: 40 mg Documented by: Nitroglycerin (Nitrostat) 0.4 mg SUBLINGUAL Q5M PRN PRN Reason: CARDIAC/CHEST PAIN Nutritional Formula (Lactose Free) (Glucerna Shake) 120 ml PO TIDCM [facility] Last Admin: 01/18/20 17:40 Dose: 120 ml Documented by: Ondansetron HCl (Zofran) 4 mg IV Q8H PRN PRN PRN Reason: NAUSEA/VOMITING Pantoprazole Sodium (Protonix) 20 mg PO BREAKFAST [facility] Last Admin: 01/18/20 08:34 Dose: 20 mg Documented by: Paroxetine HCl (Paxil) 80 mg PO DAILY [facility] Last Admin: 01/18/20 10:30 Dose: 80 mg Documented by: Potassium [facility] ([facility]Dur) [facility] Sodium Chlor[facility] () 10 - 40 ml IV UD PRN PRN Reason: SALINE FLUSH Last Admin: 01/18/20 22:27 Dose: 10 ml Documented by: Tamsulosin HCl (Flomax) 0.4 mg PO QHS [facility] Last Admin: 01/18/20 22:29 Dose: 0.4 mg Documented by: Warfarin Sodium (Coumadin (Pbkc)) 2.5 mg PO SuTh@1700 [facility] Last Admin: 01/17/20 17:25 Dose: 2.5 mg Documented by: Warfarin Sodium (Coumadin (Pbkc)) 5 mg PO MoTuWeFrSa@1700 [facility] Last Admin: 01/18/20 17:39 Dose: 5 mg Documented by: Medical Necessity - Tobacco Use Smoking Status: Former smoker Tobacco Use: Non-smoker Assessment/Plan All Active Problems (Last Updated 01/14/20 @ 18:[address] Brendan Del Castillo, ) Elevated troponin (Acute) COPD exacerbation (Acute) Healthcare-associated pneumonia (Acute) Hypoxia (Acute) Pneumonia (Acute) RECOMMENDATIONS: 1. Continue aggressive diuresis 2. Agree with aggressive pulmonary toileting with vest/Acapella 3. Okay to continue with antibiotics, steroids, mucolytic's and bronchodilators for now 4. Wean oxygen as tolerated 5. BiPAP rescue as necessary. Continue to encourage with sleep. 6. Repeat COVID currently pending. IMPRESSIONS: 1. Acute hypoxic respiratory failure/stage III COPD exacerbation Patient likely has a multifactorial etiology of acute hypoxic respiratory failure. Patient did have advanced COPD in 2011 with an FEV1 of 44% of predicted. Patient also has what appears to be radiation pneumonitis of the left upper lobe and some groundglass opacities suggestive of atypical infection versus fluid overload. Patient did have some diastolic dysfunction in the past. Heart rates have been relatively controlled. Clinical suspicion for the majority of oxygenation issues will be secondary to volume overload. Patient diuresed 2 L over last 24 hours with subjective improvement in stable creatinine. We will continue diuresis as tolerated. Hold at current levels steroids until oxygenation improves. Patient is currently on anticoagulation, so pulmonary emboli would be unlikely. 2. A. fib/chronic diastolic CHF Patient is currently rate controlled. Clinical suspicion for an element of diastolic CHF exacerbation secondary to volume status. Patient does have some rales on exam. Patient is on appropriate medications at this time. Nay nue telemetry. 3. Recent squamous cell lung carcinoma/CAD/advanced age/multiple allergies Complicates care, management, recovery and prognosis. Patient is currently a DNR Comfort Care arrest without intubation. Okay to continue with baseline medications from my perspective. Inpatient E&M: [id number] [facility] Hosp L3
[2020-01-19 08:43] LABS: International Normalized Ratio 1.3; Prothrombin Time (Protime)PT. 15.8 SECONDS (11.7-14.9)
[2020-01-19] MEDS: Glucerna Shake 120 ML LIQUID PO ×3 (09:04→16:36)
[2020-01-19] MEDS: dilTIAZem CD 120 MG Capsule PO ×2 (09:06→21:49)
[2020-01-19] MEDS: Isosorbide Mononitrate 60 MG Tablet 180 MG PO (09:07)
[2020-01-19] MEDS: Pantoprazole Sodium 20 MG Tablet PO (09:07)
[2020-01-19] MEDS: Paroxetine 20 MG Tablet 80 MG PO (09:07)
[2020-01-19] MEDS: Cyanocobalamin 500 MCG Tablet 1000 MCG PO (09:08)
[2020-01-19] MEDS: Empagliflozin 25 MG Tablet 12.5 MG PO (09:09)
[2020-01-19] MEDS: Carvedilol 25 MG Tablet PO ×2 (09:09→21:45)
[2020-01-19] MEDS: Clopidogrel Bisulfate 75 MG Tablet PO (09:10)
[2020-01-19] MEDS: Amiodarone 200 MG Tablet PO (09:10)
[2020-01-19] MEDS: Lisinopril 20 MG Tablet PO ×2 (09:10→21:47)
[2020-01-19] MEDS: guaiFENesin 1,200 MG Tablet 1200 MG PO ×2 (09:11→21:45)
[2020-01-19] MEDS: Furosemide 40 MG/4 ML Vial IV ×2 (09:13→18:15)
--- NOTE | 2020-01-19 12:04 | PCM.PN.HOSP ---
Patient Problems: Active and Suspected Problems (Last Updated 01/14/20 @ 18:[address] Brendan Del Castillo, DO) Healthcare-associated pneumonia (Acute) Hypoxia (Acute) Pneumonia (Acute) Reason for Visit: pneumonia Subjective: Continues to saw he is better every day. Did not wear BiPAP last night. Vitals/I&O's: Vital Signs Temp Pulse Resp BP Pulse Ox 36.7 C 67 18 140/68 H 94 01/19/20 09:00 01/19/20 09:00 01/19/20 09:00 01/19/20 09:00 01/19/20 09:00 Oxygen Flow Rate (L/min) 7.5 Oxygen Delivery Method Nasal Cannula Weight: 96.6 kg Body Mass Index (BMI) 32.3 Intake and Output for Last 24 Hours 01/17/20 01/18/20 01/19/20 23:59 23:59 23:59 Intake Total 3220 / 3220 3010 / 3010 1250 / 1250 Output Total 2475 / 2475 5040 / 5040 1900 / 1900 Balance 745 / 745 -2030 / -2030 -650 / -650 General: Alert, No apparent distress HEENT: Atraumatic, Normocephalic Oral: Moist Mucosa, No Gingival or Mucosal Lesions/ Ulcerations Neck: No Nodes, Trachea Midline Lungs: No rhonchi, No wheeze, Diminished Cardiovascular: Regular rate, Regular Rhythm, Normal S1, Normal S2, No murmurs Abdomen: Bowel Sounds Present, Soft, Non Tender, Non-Distended, No Hepato-splenomegaly Extremities: No edema, No Calf Tenderness Skin: No rashes, No breakdown Musculoskeletal: No Tenderness to Palpation of Joints or Extremities, No Muscle Wasting Psych/Mental Status: Normal Affect, Appropriate Microbiology Past 72 Hours 01/15/20 05:15 Sputum, Expectorated/Coughed Gram Stain - Final 01/15/20 05:15 Sputum, Expectorated/Coughed Respiratory Culture - Final Laboratory Results 01/18/20 08:39: POC Glucose 168 H 01/18/20 12:46: POC Glucose 278 H 01/18/20 17:31: POC Glucose 203 H 01/18/20 22:15: POC Glucose 262 H 01/19/20 06:35: POC Glucose 206 H 01/19/20 07:15: WBC 6.5, RBC 3.69 L, Hgb 10.6 L, Hct 35.8 L, MCV 97.0 H, MCH 28.7, MCHC 29.6 L, RDW Std Deviation 62.5 H, RDW Coeff of Jony 17.4 H, Plt Count 264, MPV 9.0, Immature Gran % (Auto) 1.100 H, Neut % (Auto) 90.4 H, Lymph % (Auto) 2.9 L, [place] % (Auto) 5.4, Eos % (Auto) 0.0, Baso % (Auto) 0.2, Absolute Neuts (auto) 5.9, Absolute Lymphs (auto) 0.19 L, Nucleated RBC % 0, Differential Comment COMMENT 01/19/20 07:15: PT 15.8 H, INR 1.3 01/19/20 07:15: Sodium 141, Potassium 3.7, Chloride 103, Carbon Dioxide 34.0 H, Anion Gap 4 L, BUN 30 H, Creatinine 0.75, Estim Creat Clear Calc 63.65, Est GFR (MDRD) Af Amer 131, Est GFR (MDRD) Non-Af 108, BUN/Creatinine Ratio 39.9 H, Glucose 195 H, Calcium 9.0, Total Bilirubin 0.60, AST 46 H, ALT 69 H, Alkaline Phosphatase 77, Total Protein 7.2, Albumin 2.6 L, Globulin 4.6 H, Albumin/Globulin Ratio 0.6 L Current Medications Acetaminophen (Tylenol) 650 mg PO Q6H PRN PRN PRN Reason: Pain Score 1-10/Temp > 100.7 F Last Admin: 01/15/20 22:36 Dose: 650 mg Documented by: Albuterol Sulfate (Ventolin Aerosols) 2.5 mg INHALATION Q4H PRN PRN PRN Reason: SHORTNESS OF BREATH Albuterol/Ipratropium (Duoneb) 3 ml INHALATION Q6HWA.RT [facility] Last Admin: 01/19/20 07:47 Dose: 3 ml Documented by: Amiodarone HCl (Cordarone) 200 mg PO DAILY [facility] Last Admin: 01/19/20 09:10 Dose: 200 mg Documented by: Atorvastatin Calcium (Lipitor) 80 mg PO QHS [facility] Last Admin: 01/18/20 22:29 Dose: 80 mg Documented by: Benzonatate (Tessalon Perle) 200 mg PO Q8H PRN PRN Reason: COUGH Last Admin: 01/15/20 22:37 Dose: 200 mg Documented by: Carvedilol (Coreg) 25 mg PO BID [facility] Last Admin: 01/19/20 09:09 Dose: 25 mg Documented by: Cholecalciferol (Vitamin D (25mcg)) 3,000 unit PO DAILY [facility] Last Admin: 01/19/20 09:08 Dose: 3,000 unit Documented by: Clopidogrel Bisulfate (Plavix) 75 mg PO DAILY [facility] Last Admin: 01/19/20 09:10 Dose: 75 mg Documented by: Cyanocobalamin (Vitamin B12) 1,000 mcg PO DAILY [facility] Last Admin: 01/19/20 09:08 Dose: 1,000 mcg Documented by: Dextrose (D50w Syringe) 0 gm IV X1 PRN; Protocol PRN Reason: Hypoglycemia Diltiazem HCl (Cardizem Cd) 120 mg PO Q12 [facility] Last Admin: 01/19/20 09:06 Dose: 120 mg Documented by: Empagliflozin (Jardiance) 12.5 mg PO DAILY [facility] Last Admin: 01/19/20 09:09 Dose: 12.5 mg Documented by: Enoxaparin Sodium (Lovenox) 100 mg 1 mg/kg (100 mg) SC Q12@0600,1800 [facility] Last Admin: 01/19/20 06:29 Dose: 100 mg Documented by: Furosemide (Lasix) 40 mg IV BID@1000,1800 [facility] Last Admin: 01/19/20 09:13 Dose: 40 mg Documented by: Gabapentin (Neurontin) 900 mg PO TID [facility] Last Admin: 01/19/20 06:30 Dose: 900 mg Documented by: Glucagon () 1 mg IM .X1 PRN PRN Reason: Hypoglycemia Guaifenesin (Mucinex) 1,200 mg PO BID [facility] Last Admin: 01/19/20 09:11 Dose: 1,200 mg Documented by: Meropenem 1 gm/ Sodium (Chloride) 120 mls @ 33 mls/hr IV Q8 [facility] Last Infusion: 01/19/20 10:26 Dose: Infused Documented by: Vancomycin IV Pharmacy to Dose (1 ea/ Sodium Chloride) 500 mls @ 250 mls/hr IV X1 PRN; Protocol PRN Reason: Rx to Dose Vancomycin HCl 1,500 mg/ (Sodium Chloride) 530 mls @ 250 mls/hr IV Q12H [facility] Last Admin: 01/19/20 11:15 Dose: 250 mls/hr Documented by: Sodium Chloride () 250 mls @ 15 mls/hr IV .[id number] PRN PRN Reason: Saline Flush Sodium Chloride () 250 mls @ 15 mls/hr IV .[id number] PRN PRN Reason: Additional IVPB Infusion Insulin Glargine (Lantus ([facility])) 40 units SC DAILY [facility] Last Admin: 01/19/20 09:15 Dose: 40 u Documented by: Insulin Human Lispro (Humalog Kwikpen ([facility])) 0 unit SC TIDAC [facility]; Protocol Last Admin: 01/19/20 11:14 Dose: 4 u Documented by: Isosorbide Mononitrate (Imdur) 180 mg PO DAILY [facility] Last Admin: 01/19/20 09:07 Dose: 180 mg Documented by: Lisinopril (Zestril) 20 mg PO BID [facility] Last Admin: 01/19/20 09:10 Dose: 20 mg Documented by: Methylprednisolone (Solu-Medrol) 40 mg IV Q8 [facility] Last Admin: 01/19/20 06:30 Dose: 40 mg Documented by: Nitroglycerin (Nitrostat) 0.4 mg SUBLINGUAL Q5M PRN PRN Reason: CARDIAC/CHEST PAIN Nutritional Formula (Lactose Free) (Glucerna Shake) 120 ml PO TIDCM [facility] Last Admin: 01/19/20 11:15 Dose: 120 ml Documented by: Ondansetron HCl (Zofran) 4 mg IV Q8H PRN PRN PRN Reason: NAUSEA/VOMITING Pantoprazole Sodium (Protonix) 20 mg PO BREAKFAST [facility] Last Admin: 01/19/20 09:07 Dose: 20 mg Documented by: Paroxetine HCl (Paxil) 80 mg PO DAILY [facility] Last Admin: 01/19/20 09:07 Dose: 80 mg Documented by: Potassium Chloride (K-Dur) 20 meq PO DAILYCM [facility] Last Admin: 01/19/20 09:06 Dose: 20 meq Documented by: Sodium Chloride () 10 - 40 ml IV UD PRN PRN Reason: SALINE FLUSH Last Admin: 01/18/20 22:27 Dose: 10 ml Documented by: Tamsulosin HCl (Flomax) 0.4 mg PO QHS [facility] Last Admin: 01/18/20 22:29 Dose: 0.4 mg Documented by: Warfarin Sodium (Coumadin (Pbkc)) 2.5 mg PO SuTh@1700 [facility] Last Admin: 01/17/20 17:25 Dose: 2.5 mg Documented by: Warfarin Sodium (Coumadin (Pbkc)) 5 mg PO MoTuWeFrSa@1700 [facility] Last Admin: 01/18/20 17:39 Dose: 5 mg Documented by: STROKE Vital Signs/Narrative: Vital Signs Temp Pulse Resp BP Pulse Ox 01/19/20 09:00 36.7 C 67 18 140/68 H 94 Medical Necessity - Tobacco Use Smoking Status: Former smoker Tobacco Use: Non-smoker Assessment/Plan All Active Problems (Last Updated 01/14/20 @ 18:[address] Brendan Del Castillo, DO) Elevated troponin (Acute) COPD exacerbation (Acute) Healthcare-associated pneumonia (Acute) Hypoxia (Acute) Pneumonia (Acute) 1. Acute hypoxic respiratory failure down slightly to 8 liters, though, clinically looks well. Multifactorial, given the patient's underlying COPD plus pneumonia and also possible some radiation pneumonitis given patient's history of radiation to his chest. LHC in October showed an EF of 55%. Continue furosemide IV and chest physiotherapy. Wean oxygen as tolerated. intermittent BiPAP. Patient is requesting no intubation if he does have respiratory collapse. COVID-19 negative, will recheck. D-Dimer now greater than 1.5, since INR still subtherapeutic, will fully anticoagulate with therapuetic enoxaparin until INR therapeutic. CTA negative for PE on admission. Low-likelihood of sepsis-induced coagulopathy. Consult pulmonology. 2. suspected gram negative pneumonia Patient was just discharged month ago so is within the window is for hospital-acquired infections. Patient did receive azithromycin and ceftriaxone in the emergency room. I will place the patient on meropenem, given his penicillin allergy. Add vanc. Adjust antibiotics accordingly follow-up urinary antigens are Streptococcus and Legionella. Check sputum culture. Strep throat + Additionally, I asked the emergency room physician to check the patient for COVID-19 which will take 3 days to return. Patient will be in appropriate isolation until those results are finalized and will lift restrictions if he is COVID-19 negative. I personally reviewed the patient's CAT scan and shows new infiltrates bilaterally which were not present last month. 3. Acute COPD exacerbation: Complicated by the pneumonia. Patient will be on his home regimen of bronchodilators plus methylprednisolone. 4. Lung cancer Non-small cell (squamous) Stage IIIA T1bN2 Reviewed records from Dr. Witt's office: Status post chemo and XRT. To initiate immunotherapy with Dr. Witt as outpt. 5. Diabetes mellitus type 2: uncontrolled (elevated) Continue with his home medications plus sliding scale insulin add scheduled log 6. Atrial fibrillation: Currently rate controlled. Continue with carvedilol, amiodarone, diltiazem. on warfarin 7. VTE prophylaxis: 8. Advanced care planning: Discussed with the patient. Patient wishes to be DNR Comfort Care arrest no intubation at this time. 9. CAD: recent PCI in October. Clopidogrel ordered at that time, but not on home list. Will resume clopidogrel. Correction: initial MAR had pt on apixaban, was corrected for warfarin later and subsequent documentation did not accurately reflect that. Inpatient E&M: [id number] [facility] Hosp L2
[2020-01-19] MEDS: 0.9% Saline Lock 10 ML Syringe IV ×2 (14:00→18:15)
[2020-01-19 14:21] LABS: Bedside Glucose 286 mg/dL (70-110)
[2020-01-19] MEDS: Insulin Lispro 100 UNIT/ML INSULN.PEN 8 UNIT SC (16:38)
[2020-01-19 17:10] LABS: Bedside Glucose 289 mg/dL (70-110)
--- NOTE | 2020-01-19 20:14 | CPS ---
PT STATES DID NOT WEAR LAST NIGHT AND LAST TIME HE DID HE WOKE UP IN A PANIC-DOES NOT WANT TO WEAR TONIGHT
[2020-01-19] MEDS: Tamsulosin HCl 0.4 MG Capsule PO (21:45)
[2020-01-19] MEDS: Atorvastatin Calcium 80 MG Tablet PO (21:45)
[2020-01-19 21:56] LABS: Bedside Glucose 244 mg/dL (70-110)
[2020-01-20] VITALS (13 sets, daily range): BP systolic 109–142; BP diastolic 64–69; PULSE 67–114; RESP 14–20; TEMP 36.4–36.9; O2SAT 91–98
[2020-01-20] MEDS: Ipratropium/Albuterol Sulfate 3 ML AMPUL.NEB INHALATION ×4 (02:11→20:00)
[2020-01-20] MEDS: Enoxaparin 100 MG/ML Syringe SC ×2 (05:40→17:02)
[2020-01-20] MEDS: Gabapentin 300 MG Capsule 900 MG PO ×3 (05:42→22:18)
[2020-01-20] MEDS: Insulin Lispro 100 UNIT/ML INSULN.PEN 8 UNIT SC ×3 (06:51→17:00)
[2020-01-20] MEDS: Insulin Lispro 100 UNIT/ML INSULN.PEN SC ×3 (06:51→17:01)
[2020-01-20 07:01] LABS: Bedside Glucose 200 mg/dL (70-110)
[2020-01-20 07:20] LABS: Absolute Lymphocyte Count 0.17 X10^3/uL (0.83-4.51); Absolute Neutrophil Count 8.2 X10^3/uL (2.0-7.7); Basophil# 0.01 X10^3/uL; Basophil% 0.1 % (0-1); Hematocrit 36.4 % (40-54); Hemoglobin 10.8 g/dL (13.0-16.5); Lymphocyte # 0.17 X10^3/ul (4.0); Lymphocyte % 1.9 % (19-41); Mean Corp Hgb Conc 29.7 g/dL (32-36); Mean Corpuscular Hgb 28.9 pg (27.0-32.0); Mean Corpuscular Volume 97.3 fL (80-94); Mean Platelet Vol. 8.9 fl (6.2-12.0); Monocyte# 0.45 X10^3/uL; Monocyte% 5.1 % (0-10); NRBC Flagged by Analyzer 0 % (0-5); Neutrophil # 8.18 X10^3/uL (2.7-7.7); POSITIVE DIFFERENTIAL YES; POSITIVE MORPHOLOGY YES; Platelet Count 254 K/mm3 (150-450); RBC Distribution Width CV 17.2 % (11.6-14.6); RBC Distribution Width SD 61.9 fl (35.1-43.9); Red Blood Count 3.74 M/mm3 (4.6-6.2); White Blood Count 8.9 K/mm3 (4.4-11.0)
[2020-01-20 07:21] LABS: Differential Indicated SCAN CRITERIA MET
[2020-01-20 07:29] LABS: International Normalized Ratio 1.4; Prothrombin Time (Protime)PT. 16.4 SECONDS (11.7-14.9)
[2020-01-20 07:36] LABS: Anion Gap 4 (5-15); BUN 34 mg/dL (7-18); BUN/Creat Ratio 44.2 RATIO (10-20); Calcium,Total 8.9 mg/dL (8.5-10.1); Chloride 99 mmol/L (98-107); Creatinine, Serum 0.77 mg/dL (0.70-1.30); EST Glomerular Filtration Rate 105 mL/min (>60); Est Glom Filt Rate - Afr Amer 127 mL/min (>60); Estimated Creatinine Clearance 63.65 ml/min; Glucose 203 mg/dL (74-106); Potassium 3.8 mmol/L (3.5-5.1); Sodium Level 137 mmol/L (136-145)
[2020-01-20 07:41] LABS: Atypical Lymphocyte RARE %; Differential Comment SCANNED
--- NOTE | 2020-01-20 08:16 | PN_ITS ---
Patient Problems: Active and Suspected Problems (Last Updated 01/14/20 @ 18:[address] Brendan Del Castillo, DO) Healthcare-associated pneumonia (Acute) Hypoxia (Acute) Pneumonia (Acute) Subjective: Patient did well overnight. Patient continues to report subjective improvement in overall condition. No bleeding complications have been reported. Patient continues to have some mild coughing. - Physical Exam Vitals/I&O's: Vital Signs Temp Pulse Resp BP Pulse Ox 36.8 C 70 20 H 130/68 H 92 01/20/20 04:00 01/20/20 04:00 01/20/20 04:00 01/20/20 04:00 01/20/20 04:00 Oxygen Flow Rate (L/min) 7 Oxygen Delivery Method Nasal Cannula Weight: 96.6 kg Body Mass Index (BMI) 32.3 Intake and Output for Last 24 Hours 01/18/20 01/19/20 01/20/20 23:59 23:59 23:59 Intake Total 3010 / 3010 2500 / 2500 650 / 650 Output Total 5040 / 5040 3725 / 4175 800 / 800 Balance -2030 / -2030 -1225 / -1675 -150 / -150 General: Alert, Oriented x3, Cooperative, No apparent distress, - - Appears stated age. Speaking in full sentences. HEENT: Atraumatic, PERRLA, EOMI, Normocephalic, - - No scleral icterus or injection noted Oral: Moist Mucosa, No Gingival or Mucosal Lesions/ Ulcerations Neck: Supple, No Nodes, Trachea Midline, JVD, Right Lungs: No rhonchi, No wheeze, Diminished, Rales - Continues to improve, - - Symmetric expansion. Cardiovascular: Normal S1, Normal S2, No murmurs, Irregular Rate, No rub noted, No Gallop Abdomen: Bowel Sounds Present, Soft, Non Tender, Non-Distended Extremities: No clubbing, No cyanosis, Edema Skin: No rashes, No breakdown Musculoskeletal: No Tenderness to Palpation of Joints or Extremities Lymphatic: No Cervical, Supraclavicular, or Inguinal Adenopathy Neurological: Cranial nerves II-XII grossly intact, Neuro grossly intact, Motor Exam 5/5 strength throughout Psych/Mental Status: Alert and oriented to time, place, person, mood and affect Microbiology Past 72 Hours 01/15/20 05:15 Sputum, Expectorated/Coughed Gram Stain - Final 01/15/20 05:15 Sputum, Expectorated/Coughed Respiratory Culture - Final Laboratory Results 01/18/20 10:50: COVID-19 (MAXIMINO) Not Detected 01/19/20 07:15: Differential Comment COMMENT 01/19/20 07:15: PT 15.8 H, INR 1.3 01/19/20 07:15: Sodium 141, Potassium 3.7, Chloride 103, Carbon Dioxide 34.0 H, Anion Gap 4 L, BUN 30 H, Creatinine 0.75, Estim Creat Clear Calc 63.65, Est GFR (MDRD) Af Amer 131, Est GFR (MDRD) Non-Af 108, BUN/Creatinine Ratio 39.9 H, Glucose 195 H, Calcium 9.0, Total Bilirubin 0.60, AST 46 H, ALT 69 H, Alkaline Phosphatase 77, Total Protein 7.2, Albumin 2.6 L, Globulin 4.6 H, Albumin/Globulin Ratio 0.6 L 01/19/20 11:13: POC Glucose 286 H 01/19/20 16:32: POC Glucose 289 H 01/19/20 21:38: POC Glucose 244 H 01/20/20 06:48: POC Glucose 200 H 01/20/20 06:50: WBC 8.9, RBC 3.74 L, Hgb 10.8 L, Hct 36.4 L, MCV 97.3 H, MCH 28.9, MCHC 29.7 L, RDW Std Deviation 61.9 H, RDW Coeff of Jony 17.2 H, Plt Count 254, MPV 8.9, Immature Gran % (Auto) 0.900, Neut % (Auto) 92.0 H, Lymph % (Auto) 1.9 L, [place] % (Auto) 5.1, Eos % (Auto) 0.0, Baso % (Auto) 0.1, Absolute Neuts (auto) 8.2 H, Absolute Lymphs (auto) 0.17 L, Nucleated RBC % 0, Differential Comment SCANNED, Atypical Lymphocytes RARE 01/20/20 06:50: PT 16.4 H, INR 1.4 01/20/20 06:50: Sodium 137, Potassium 3.8, Chloride 99, Carbon Dioxide 34.0 H, Anion Gap 4 L, BUN 34 H, Creatinine 0.77, Estim Creat Clear Calc 63.65, Est GFR (MDRD) Af Amer 127, Est GFR (MDRD) Non-Af 105, BUN/Creatinine Ratio 44.2 H, Glucose 203 H, Calcium 8.9 Current Medications Acetaminophen (Tylenol) 650 mg PO Q6H PRN PRN PRN Reason: Pain Score 1-10/Temp > 100.7 F Last Admin: 01/15/20 22:36 Dose: 650 mg Documented by: Albuterol Sulfate (Ventolin Aerosols) 2.5 mg INHALATION Q4H PRN PRN PRN Reason: SHORTNESS OF BREATH Albuterol/Ipratropium (Duoneb) 3 ml INHALATION Q6HWA.RT [facility] Last Admin: 01/20/20 08:15 Dose: 3 ml Documented by: Amiodarone HCl (Cordarone) 200 mg PO DAILY [facility] Last Admin: 01/19/20 09:10 Dose: 200 mg Documented by: Atorvastatin Calcium (Lipitor) 80 mg PO QHS [facility] Last Admin: 01/19/20 21:45 Dose: 80 mg Documented by: Benzonatate (Tessalon Perle) 200 mg PO Q8H PRN PRN Reason: COUGH Last Admin: 01/15/20 22:37 Dose: 200 mg Documented by: Carvedilol (Coreg) 25 mg PO BID [facility] Last Admin: 01/19/20 21:45 Dose: 25 mg Documented by: Cholecalciferol (Vitamin D (25mcg)) 3,000 unit PO DAILY [facility] Last Admin: 01/19/20 09:08 Dose: 3,000 unit Documented by: Clopidogrel Bisulfate (Plavix) 75 mg PO DAILY [facility] Last Admin: 01/19/20 09:10 Dose: 75 mg Documented by: Cyanocobalamin (Vitamin B12) 1,000 mcg PO DAILY [facility] Last Admin: 01/19/20 09:08 Dose: 1,000 mcg Documented by: Dextrose (D50w Syringe) 0 gm IV X1 PRN; Protocol PRN Reason: Hypoglycemia Diltiazem HCl (Cardizem Cd) 120 mg PO Q12 [facility] Last Admin: 01/19/20 21:49 Dose: 120 mg Documented by: Empagliflozin (Jardiance) 12.5 mg PO DAILY [facility] Last Admin: 01/19/20 09:09 Dose: 12.5 mg Documented by: Enoxaparin Sodium (Lovenox) 100 mg 1 mg/kg (100 mg) SC Q12@0600,1800 [facility] Last Admin: 01/20/20 05:40 Dose: 100 mg Documented by: Furosemide (Lasix) 40 mg IV BID@1000,1800 [facility] Last Admin: 01/19/20 18:15 Dose: 40 mg Documented by: Gabapentin (Neurontin) 900 mg PO TID [facility] Last Admin: 01/20/20 05:42 Dose: 900 mg Documented by: Glucagon () 1 mg IM .X1 PRN PRN Reason: Hypoglycemia Guaifenesin (Mucinex) 1,200 mg PO BID [facility] Last Admin: 01/19/20 21:45 Dose: 1,200 mg Documented by: Meropenem 1 gm/ Sodium (Chloride) 120 mls @ 33 mls/hr IV Q8 [facility] Last Admin: 01/20/20 05:40 Dose: 33 mls/hr Documented by: Vancomycin IV Pharmacy to Dose (1 ea/ Sodium Chloride) 500 mls @ 250 mls/hr IV X1 PRN; Protocol PRN Reason: Rx to Dose Vancomycin HCl 1,500 mg/ (Sodium Chloride) 530 mls @ 250 mls/hr IV Q12H [facility] Last Infusion: 01/20/20 03:14 Dose: Infused Documented by: Sodium Chloride () 250 mls @ 15 mls/hr IV .[id number] PRN PRN Reason: Saline Flush Sodium Chloride () 250 mls @ 15 mls/hr IV .[id number] PRN PRN Reason: Additional IVPB Infusion Insulin Glargine (Lantus (Bkc)) 40 units SC DAILY [facility] Last Admin: 01/19/20 09:15 Dose: 40 u Documented by: Insulin Human Lispro (Humalog Kwikpen (Bkc)) 0 unit SC TIDAC [facility]; Protocol Last Admin: 01/20/20 06:51 Dose: 2 u Documented by: Insulin Human Lispro (Humalog Kwikpen (Bkc)) 8 unit SC TIDAC [facility] Last Admin: 01/20/20 06:51 Dose: 8 u Documented by: Isosorbide Mononitrate (Imdur) 180 mg PO DAILY [facility] Last Admin: 01/19/20 09:07 Dose: 180 mg Documented by: Lisinopril (Zestril) 20 mg PO BID [facility] Last Admin: 01/19/20 21:47 Dose: 20 mg Documented by: Methylprednisolone (Solu-Medrol) 40 mg IV Q8 [facility] Last Admin: 01/20/20 05:40 Dose: 40 mg Documented by: Nitroglycerin (Nitrostat) 0.4 mg SUBLINGUAL Q5M PRN PRN Reason: CARDIAC/CHEST PAIN Nutritional Formula (Lactose Free) (Glucerna Shake) 120 ml PO TIDCM [facility] Last Admin: 01/19/20 16:36 Dose: 120 ml Documented by: Ondansetron HCl (Zofran) 4 mg IV Q8H PRN PRN PRN Reason: NAUSEA/VOMITING Pantoprazole Sodium (Protonix) 20 mg PO BREAKFAST [facility] Last Admin: 01/19/20 09:07 Dose: 20 mg Documented by: Paroxetine HCl (Paxil) 80 mg PO DAILY [facility] Last Admin: 01/19/20 09:07 Dose: 80 mg Documented by: Potassium Chloride (K-Dur) 20 meq PO DAILYCM [facility] Last Admin: 01/19/20 09:06 Dose: 20 meq Documented by: Sodium Chloride () 10 - 40 ml IV UD PRN PRN Reason: SALINE FLUSH Last Admin: 01/19/20 18:15 Dose: 10 ml Documented by: Tamsulosin HCl (Flomax) 0.4 mg PO QHS [facility] Last Admin: 01/19/20 21:45 Dose: 0.4 mg Documented by: Warfarin Sodium (Coumadin (Pbkc)) 2.5 mg PO SuTh@1700 [facility] Last Admin: 01/17/20 17:25 Dose: 2.5 mg Documented by: Warfarin Sodium (Coumadin (Pbkc)) 5 mg PO MoTuWeFrSa@1700 [facility] Last Admin: 01/19/20 16:36 Dose: 5 mg Documented by: Medical Necessity - Tobacco Use Smoking Status: Former smoker Tobacco Use: Non-smoker Assessment/Plan All Active Problems (Last Updated 01/14/20 @ 18:[address] Brendan Del Castillo DO) Elevated troponin (Acute) COPD exacerbation (Acute) Healthcare-associated pneumonia (Acute) Hypoxia (Acute) Pneumonia (Acute) RECOMMENDATIONS: 1. Continue aggressive diuresis 2. Agree with aggressive pulmonary toileting with vest/Acapella 3. Okay to continue with antibiotics, mucolytic's and bronchodilators for now. Possibly decrease steroids tomorrow 4. Wean oxygen as tolerated 5. BiPAP rescue as necessary. Continue to encourage with sleep. 6. Repeat COVID currently pending. IMPRESSIONS: 1. Acute hypoxic respiratory failure/stage III COPD exacerbation Patient likely has a multifactorial etiology of acute hypoxic respiratory failure. Patient did have advanced COPD in 2011 with an FEV1 of 44% of predicted. Patient also has what appears to be radiation pneumonitis of the left upper lobe and some groundglass opacities suggestive of atypical infection versus fluid overload. Patient did have some diastolic dysfunction in the past. Heart rates have been relatively controlled. Clinical suspicion for the majority of reversible oxygenation issues will be secondary to volume overload. Patient diuresed 1.2 L over last 24 hours with subjective improvement in stable creatinine. We will continue diuresis as tolerated. Hold at current levels steroids until oxygenation improves. Patient is currently on anticoagulation, so pulmonary emboli would be unlikely. Patient is on 2 to 3 L at baseline. 2. A. fib/chronic diastolic CHF Patient is currently rate controlled. Clinical suspicion for an element of diastolic CHF exacerbation secondary to volume status. Patient does have some rales on exam. Patient is on appropriate medications at this time. Co ntinue telemetry. 3. Recent squamous cell lung carcinoma/CAD/advanced age/multiple allergies Complicates care, management, recovery and prognosis. Patient is currently a DNR Comfort Care arrest without intubation. Okay to continue with baseline medications from my perspective. Inpatient E&M: [id number] [facility] L3
--- NOTE | 2020-01-20 08:39 | PN_ITS ---
Patient Problems: Active and Suspected Problems (Last Updated 01/14/20 @ 18:[address] Brendan Del Castillo, DO) Healthcare-associated pneumonia (Acute) Hypoxia (Acute) Pneumonia (Acute) Reason for Visit: pneumonia Subjective: breathing better. coughing scant amounts of sputum. Vitals/I&O's: Vital Signs Temp Pulse Resp BP Pulse Ox 36.8 C 70 16 130/68 H 91 01/20/20 04:00 01/20/20 07:06 01/20/20 07:06 01/20/20 04:00 01/20/20 07:06 Oxygen Flow Rate (L/min) 7 Oxygen Delivery Method Nasal Cannula Weight: 96.6 kg Body Mass Index (BMI) 32.3 Intake and Output for Last 24 Hours 01/18/20 01/19/20 01/20/20 23:59 23:59 23:59 Intake Total 3010 / 3010 2500 / 2500 650 / 650 Output Total 5040 / 5040 3725 / 4175 800 / 800 Balance -2030 / -2030 -1225 / -1675 -150 / -150 General: Alert, Cooperative, No apparent distress HEENT: Atraumatic, Normocephalic Oral: Moist Mucosa, No Gingival or Mucosal Lesions/ Ulcerations Neck: No Nodes, Trachea Midline Lungs: Diminished, - - coarse breath sounds bilaterally. Cardiovascular: Regular rate, Regular Rhythm, Normal S1, Normal S2, No murmurs Abdomen: Bowel Sounds Present, Soft, Non Tender, Non-Distended, No Hepato- splenomegaly Extremities: No edema, No Calf Tenderness Skin: No rashes, No breakdown Psych/Mental Status: Normal Affect, Appropriate Microbiology Past 72 Hours 01/15/20 05:15 Sputum, Expectorated/Coughed Gram Stain - Final 01/15/20 05:15 Sputum, Expectorated/Coughed Respiratory Culture - Final Laboratory Results 01/18/20 10:50: COVID-19 (MAXIMINO) Not Detected 01/19/20 07:15: Differential Comment COMMENT 01/19/20 07:15: PT 15.8 H, INR 1.3 01/19/20 11:13: POC Glucose 286 H 01/19/20 16:32: POC Glucose 289 H 01/19/20 21:38: POC Glucose 244 H 01/20/20 06:48: POC Glucose 200 H 01/20/20 06:50: WBC 8.9, RBC 3.74 L, Hgb 10.8 L, Hct 36.4 L, MCV 97.3 H, MCH 28.9, MCHC 29.7 L, RDW Std Deviation 61.9 H, RDW Coeff of Jony 17.2 H, Plt Count 254, MPV 8.9, Immature Gran % (Auto) 0.900, Neut % (Auto) 92.0 H, Lymph % (Auto) 1.9 L, [place] % (Auto) 5.1, Eos % (Auto) 0.0, Baso % (Auto) 0.1, Absolute Neuts (auto) 8.2 H, Absolute Lymphs (auto) 0.17 L, Nucleated RBC % 0, Differential Comment SCANNED, Atypical Lymphocytes RARE 01/20/20 06:50: PT 16.4 H, INR 1.4 01/20/20 06:50: Sodium 137, Potassium 3.8, Chloride 99, Carbon Dioxide 34.0 H, Anion Gap 4 L, BUN 34 H, Creatinine 0.77, Estim Creat Clear Calc 63.65, Est GFR (MDRD) Af Amer 127, Est GFR (MDRD) Non-Af 105, BUN/Creatinine Ratio 44.2 H, Glucose 203 H, Calcium 8.9 Current Medications Acetaminophen (Tylenol) 650 mg PO Q6H PRN PRN PRN Reason: Pain Score 1-10/Temp > 100.7 F Last Admin: 01/15/20 22:36 Dose: 650 mg Documented by: Albuterol Sulfate (Ventolin Aerosols) 2.5 mg INHALATION Q4H PRN PRN PRN Reason: SHORTNESS OF BREATH Albuterol/Ipratropium (Duoneb) 3 ml INHALATION Q6HWA.RT [facility] Last Admin: 01/20/20 07:06 Dose: 3 ml Documented by: Amiodarone HCl (Cordarone) 200 mg PO DAILY [facility] Last Admin: 01/19/20 09:10 Dose: 200 mg Documented by: Atorvastatin Calcium (Lipitor) 80 mg PO QHS [facility] Last Admin: 01/19/20 21:45 Dose: 80 mg Documented by: Benzonatate (Tessalon Perle) 200 mg PO Q8H PRN PRN Reason: COUGH Last Admin: 01/15/20 22:37 Dose: 200 mg Documented by: Carvedilol (Coreg) 25 mg PO BID [facility] Last Admin: 01/19/20 21:45 Dose: 25 mg Documented by: Cholecalciferol (Vitamin D (25mcg)) 3,000 unit PO DAILY [facility] Last Admin: 01/19/20 09:08 Dose: 3,000 unit Documented by: Clopidogrel Bisulfate (Plavix) 75 mg PO DAILY [facility] Last Admin: 01/19/20 09:10 Dose: 75 mg Documented by: Cyanocobalamin (Vitamin B12) 1,000 mcg PO DAILY [facility] Last Admin: 01/19/20 09:08 Dose: 1,000 mcg Documented by: Dextrose (D50w Syringe) 0 gm IV X1 PRN; Protocol PRN Reason: Hypoglycemia Diltiazem HCl (Cardizem Cd) 120 mg PO Q12 [facility] Last Admin: 01/19/20 21:49 Dose: 120 mg Documented by: Empagliflozin (Jardiance) 12.5 mg PO DAILY [facility] Last Admin: 01/19/20 09:09 Dose: 12.5 mg Documented by: Enoxaparin Sodium (Lovenox) 100 mg 1 mg/kg (100 mg) SC Q12@0600,1800 [facility] Last Admin: 01/20/20 05:40 Dose: 100 mg Documented by: Furosemide (Lasix) 40 mg IV BID@1000,1800 [facility] Last Admin: 01/19/20 18:15 Dose: 40 mg Documented by: Gabapentin (Neurontin) 900 mg PO TID [facility] Last Admin: 01/20/20 05:42 Dose: 900 mg Documented by: Glucagon () 1 mg IM .X1 PRN PRN Reason: Hypoglycemia Guaifenesin (Mucinex) 1,200 mg PO BID [facility] Last Admin: 01/19/20 21:45 Dose: 1,200 mg Documented by: Meropenem 1 gm/ Sodium (Chloride) 120 mls @ 33 mls/hr IV Q8 [facility] Last Admin: 01/20/20 05:40 Dose: 33 mls/hr Documented by: Vancomycin IV Pharmacy to Dose (1 ea/ Sodium Chloride) 500 mls @ 250 mls/hr IV X1 PRN; Protocol PRN Reason: Rx to Dose Vancomycin HCl 1,500 mg/ (Sodium Chloride) 530 mls @ 250 mls/hr IV Q12H [facility] Last Infusion: 01/20/20 03:14 Dose: Infused Documented by: Sodium Chloride () 250 mls @ 15 mls/hr IV .[id number] PRN PRN Reason: Saline Flush Sodium Chloride () 250 mls @ 15 mls/hr IV .[id number] PRN PRN Reason: Additional IVPB Infusion Insulin Glargine (Lantus (Bkc)) 40 units SC DAILY [facility] Last Admin: 01/19/20 09:15 Dose: 40 u Documented by: Insulin Human Lispro (Humalog Kwikpen (Bk)) 0 unit SC TIDAC [facility]; Protocol Last Admin: 01/20/20 06:51 Dose: 2 u Documented by: Insulin Human Lispro (Humalog Kwikpen ([facility])) 8 unit SC TIDAC [facility] Last Admin: 01/20/20 06:51 Dose: 8 u Documented by: Isosorbide Mononitrate (Imdur) 180 mg PO DAILY [facility] Last Admin: 01/19/20 09:07 Dose: 180 mg Documented by: Lisinopril (Zestril) 20 mg PO BID [facility] Last Admin: 01/19/20 21:47 Dose: 20 mg Documented by: Methylprednisolone (Solu-Medrol) 40 mg IV Q8 [facility] Last Admin: 01/20/20 05:40 Dose: 40 mg Documented by: Nitroglycerin (Nitrostat) 0.4 mg SUBLINGUAL Q5M PRN PRN Reason: CARDIAC/CHEST PAIN Nutritional Formula (Lactose Free) (Glucerna Tezke) 120 ml PO TIDCM [facility] Last Admin: 01/19/20 16:36 Dose: 120 ml Documented by: Ondansetron HCl (Zofran) 4 mg IV Q8H PRN PRN PRN Reason: NAUSEA/VOMITING Pantoprazole Sodium (Protonix) 20 mg PO BREAKFAST [facility] Last Admin: 01/19/20 09:07 Dose: 20 mg Documented by: Paroxetine HCl (Paxil) 80 mg PO DAILY [facility] Last Admin: 01/19/20 09:07 Dose: 80 mg Documented by: Potassium Chloride (K-Dur) 20 meq PO DAILYCM [facility] Last Admin: 01/19/20 09:06 Dose: 20 meq Documented by: Sodium Chloride () 10 - 40 ml IV UD PRN PRN Reason: SALINE FLUSH Last Admin: 01/19/20 18:15 Dose: 10 ml Documented by: Tamsulosin HCl (Flomax) 0.4 mg PO QHS [facility] Last Admin: 01/19/20 21:45 Dose: 0.4 mg Documented by: Warfarin Sodium (Coumadin (Pbkc)) 2.5 mg PO SuTh@1700 [facility] Last Admin: 01/17/20 17:25 Dose: 2.5 mg Documented by: Warfarin Sodium (Coumadin (Pbkc)) 5 mg PO MoTuWeFrSa@1700 [facility] Last Admin: 01/19/20 16:36 Dose: 5 mg Documented by: STROKE Vital Signs/Narrative: Vital Signs Pulse Resp Pulse Ox 01/20/20 07:06 70 16 91 Medical Necessity - Tobacco Use Smoking Status: Former smoker Tobacco Use: Non-smoker Assessment/Plan All Active Problems (Last Updated 01/14/20 @ 18:[address] Brendan Del Castillo, ) Elevated troponin (Acute) COPD exacerbation (Acute) Healthcare-associated pneumonia (Acute) Hypoxia (Acute) Pneumonia (Acute) 1. Acute hypoxic respiratory failure * down slightly to 7 liters, though, clinically looks well. * Multifactorial, given the patient's underlying COPD plus pneumonia and also possible some radiation pneumonitis given patient's history of radiation to his chest. LHC in October showed an EF of 55%. * Continue furosemide IV and chest physiotherapy. * Wean oxygen as tolerated. * intermittent BiPAP. Patient is requesting no intubation if he does have respiratory collapse. * COVID-19 negative, will recheck. D-Dimer now greater than 1.5, since INR still subtherapeutic, will fully anticoagulate with therapuetic enoxaparin until INR therapeutic. CTA negative for PE on admission. Low-likelihood of sepsis- induced coagulopathy. * pulmonology following 2. suspected gram negative pneumonia * Patient was just discharged month ago so is within the window is for hospital- acquired infections. Patient did receive azithromycin and ceftriaxone in the emergency room. I will place the patient on meropenem, given his penicillin allergy. Add vanc. * Adjust antibiotics accordingly follow-up urinary antigens are Streptococcus and Legionella. Check sputum culture. * Group A strep + * COVID-19 negative x2 * I personally reviewed the patient's CAT scan and shows new infiltrates bilaterally which were not present last month. 3. Acute COPD exacerbation: * Complicated by the pneumonia. Patient will be on his home regimen of bronchodilators plus methylprednisolone. 4. Lung cancer * Non-small cell (squamous) Stage IIIA T1bN2 * Reviewed records from Dr. Witt's office: Status post chemo and XRT. * To initiate immunotherapy with Dr. Witt as outpt. 5. Diabetes mellitus type 2: * uncontrolled (elevated) * Continue with his home medications plus sliding scale insulin * add scheduled log 6. Atrial fibrillation: * Currently rate controlled. * Continue with carvedilol, amiodarone, diltiazem. * on warfarin 7. VTE prophylaxis: 8. Advanced care planning: Discussed with the patient. Patient wishes to be DNR Comfort Care arrest no intubation at this time. 9. CAD: recent PCI in October. Clopidogrel ordered at that time, but not on home list. Will resume clopidogrel. Correction: initial MAR had pt on apixaban, was corrected for warfarin later and subsequent documentation did not accurately reflect that. Inpatient E&M: [id number] [facility] L2
[2020-01-20] MEDS: dilTIAZem CD 120 MG Capsule PO ×2 (08:51→22:18)
[2020-01-20] MEDS: Amiodarone 200 MG Tablet PO (08:51)
[2020-01-20] MEDS: Pantoprazole Sodium 20 MG Tablet PO (08:51)
[2020-01-20] MEDS: Furosemide 40 MG/4 ML Vial IV ×2 (08:52→17:00)
[2020-01-20] MEDS: Carvedilol 25 MG Tablet PO ×2 (08:52→22:18)
[2020-01-20] MEDS: Isosorbide Mononitrate 60 MG Tablet 180 MG PO (08:52)
[2020-01-20] MEDS: guaiFENesin 1,200 MG Tablet 1200 MG PO ×2 (08:53→22:18)
[2020-01-20] MEDS: Empagliflozin 25 MG Tablet 12.5 MG PO (08:53)
[2020-01-20] MEDS: Clopidogrel Bisulfate 75 MG Tablet PO (08:54)
[2020-01-20] MEDS: Lisinopril 20 MG Tablet PO ×2 (08:54→22:24)
[2020-01-20] MEDS: Cyanocobalamin 500 MCG Tablet 1000 MCG PO (08:54)
[2020-01-20] MEDS: Paroxetine 20 MG Tablet 80 MG PO (08:55)
[2020-01-20] MEDS: Glucerna Shake 120 ML LIQUID PO ×3 (09:03→17:00)
[2020-01-20 11:09] LABS: Vancomycin, Trough Level 18.1 ug/mL (5.0-15.0)
--- NOTE | 2020-01-20 11:33 | PCM.RX.CS ---
Consult Pharmacy has been consulted to manage selected antiobiotic: Vancomycin Type of Consult: Follow-up Suspected Infection: Pneumonia Labs: Sodium 137 mmol/L (136-145) 01/20/20 06:50 Potassium 3.8 mmol/L (3.5-5.1) 01/20/20 06:50 Chloride 99 mmol/L (98-107) 01/20/20 06:50 Carbon Dioxide 34.0 mmol/L (21.0-32.0) H 01/20/20 06:50 Anion Gap 4 (5-15) L 01/20/20 06:50 BUN 34 mg/dL (7-18) H 01/20/20 06:50 Creatinine 0.77 mg/dL (0.70-1.30) 01/20/20 06:50 Est GFR (MDRD) Af Amer 127 mL/min (>60) 01/20/20 06:50 Est GFR (MDRD) Non-Af 105 mL/min (>60) 01/20/20 06:50 BUN/Creatinine Ratio 44.2 RATIO (10-20) H 01/20/20 06:50 Glucose 203 mg/dL (74-106) H 01/20/20 06:50 Vancomycin Trough 18.1 ug/mL (5.0-15.0) H 01/20/20 10:10 Microbiology: Microbiology 01/15/20 05:15 Sputum, Expectorated/Coughed Gram Stain - Final 01/15/20 05:15 Sputum, Expectorated/Coughed Respiratory Culture - Final 01/14/20 23:38 Urine, Clean Catch Legionella Antigen - Final 01/14/20 23:38 Urine, Clean Catch Streptococcus pneumoniae Antigen (M - Final 01/14/20 14:12 Mucosa - Nasopharyngeal Respiratory Panel (PCR) - Final 01/14/20 14:12 Mucosa - Nasopharyngeal Influenza Types A,B Direct FA (JAQUELIN) - Final 01/14/20 14:12 Mucosa - Nasopharyngeal Rapid RSV (DFA) - Final 01/14/20 14:20 Mucosa - Throat Group A Streptococcus Rapid Screen - Final Streptococcus Group A Goal Trough: 15-20 mcg/mL Pharmacy Plan for Drug Dosing: Trough level of 18.1 was within the target range of 15-20. Will continue dosing at 1500mg q12h and re-draw trough level on 5/5/20. Pharmacy Service will continue to monitor and adjust dosing as required.
[2020-01-20] MEDS: 0.9% Saline Lock 10 ML Syringe IV ×2 (11:38→13:46)
[2020-01-20 12:01] LABS: Bedside Glucose 251 mg/dL (70-110)
[2020-01-20 17:20] LABS: Bedside Glucose 207 mg/dL (70-110)
[2020-01-20] MEDS: Atorvastatin Calcium 80 MG Tablet PO (22:18)
[2020-01-20] MEDS: Tamsulosin HCl 0.4 MG Capsule PO (22:18)
[2020-01-20 22:51] LABS: Bedside Glucose 234 mg/dL (70-110)
[2020-01-21] VITALS (7 sets, daily range): BP systolic 115–135; BP diastolic 63–68; PULSE 67–82; RESP 16–18; TEMP 36.4–36.7; O2SAT 92–94
--- NOTE | 2020-01-21 00:24 | CPS ---
PT REFUSES TO WEAR BIPAP
[2020-01-21] MEDS: Gabapentin 300 MG Capsule 900 MG PO ×3 (05:18→21:41)
[2020-01-21] MEDS: Enoxaparin 100 MG/ML Syringe SC ×2 (05:19→17:42)
[2020-01-21 05:36] LABS: Anion Gap 4 (5-15); BUN 36 mg/dL (7-18); BUN/Creat Ratio 54.5 RATIO (10-20); Calcium,Total 8.6 mg/dL (8.5-10.1); Chloride 103 mmol/L (98-107); Creatinine, Serum 0.66 mg/dL (0.70-1.30); EST Glomerular Filtration Rate 126 mL/min (>60); Est Glom Filt Rate - Afr Amer 152 mL/min (>60); Estimated Creatinine Clearance 63.65 ml/min; Glucose 178 mg/dL (74-106); Potassium 3.8 mmol/L (3.5-5.1); Sodium Level 137 mmol/L (136-145)
[2020-01-21] MEDS: Ipratropium/Albuterol Sulfate 3 ML AMPUL.NEB INHALATION ×3 (06:30→19:54)
[2020-01-21] MEDS: Glucerna Shake 120 ML LIQUID PO ×3 (07:38→16:59)
[2020-01-21] MEDS: Insulin Lispro 100 UNIT/ML INSULN.PEN SC ×3 (07:38→16:52)
[2020-01-21] MEDS: Insulin Lispro 100 UNIT/ML INSULN.PEN 8 UNIT SC ×3 (07:39→16:52)
[2020-01-21] MEDS: Pantoprazole Sodium 20 MG Tablet PO (07:42)
[2020-01-21 07:51] LABS: Bedside Glucose 247 mg/dL (70-110)
[2020-01-21] MEDS: dilTIAZem CD 120 MG Capsule PO ×2 (10:08→21:41)
[2020-01-21] MEDS: Amiodarone 200 MG Tablet PO (10:08)
[2020-01-21] MEDS: Isosorbide Mononitrate 60 MG Tablet 180 MG PO (10:09)
[2020-01-21] MEDS: Carvedilol 25 MG Tablet PO ×2 (10:09→21:41)
[2020-01-21] MEDS: Empagliflozin 25 MG Tablet 12.5 MG PO (10:09)
[2020-01-21] MEDS: guaiFENesin 1,200 MG Tablet 1200 MG PO ×2 (10:12→21:41)
[2020-01-21] MEDS: Furosemide 40 MG/4 ML Vial IV ×2 (10:12→17:42)
[2020-01-21] MEDS: Clopidogrel Bisulfate 75 MG Tablet PO (10:12)
[2020-01-21] MEDS: Cyanocobalamin 500 MCG Tablet 1000 MCG PO (10:13)
[2020-01-21] MEDS: Lisinopril 20 MG Tablet PO ×2 (10:17→21:41)
[2020-01-21] MEDS: Paroxetine 20 MG Tablet 80 MG PO (10:17)
--- NOTE | 2020-01-21 10:28 | PN_ITS ---
Patient Problems: Active and Suspected Problems (Last Updated 01/14/20 @ 18:[address] Brendan Del Castillo, DO) Healthcare-associated pneumonia (Acute) Hypoxia (Acute) Pneumonia (Acute) Subjective: The patient was seen and examined at the bedside this morning. Events from the last 24 hours have been reviewed. The patient is currently afebrile, hemodynamically stable and maintaining appropriate oxygen saturations on 5 L/min via nasal cannula. Repeat COVID testing was negative. The patient does report significant improvement in his shortness of breath. He does report that he utilizes 3 L/min of supplemental oxygen at his baseline. Objective: The patient's most recent lab work, culture data and imaging studies have all been personally reviewed. - Physical Exam Vitals/I&O's: Vital Signs Temp Pulse Resp BP Pulse Ox 97.8 F 70 16 135/67 H 93 01/21/20 09:56 01/21/20 09:56 01/21/20 09:56 01/21/20 09:56 01/21/20 09:56 Oxygen Flow Rate (L/min) 5 Oxygen Delivery Method Nasal Cannula Weight: 212 lb 15.465 oz Body Mass Index (BMI) 32.3 Intake and Output for Last 24 Hours 01/19/20 01/20/20 01/21/20 23:59 23:59 23:59 Intake Total 2500 / 2500 3272 / 3272 1010 / 1010 Output Total 3725 / 4175 5600 / 5600 1175 / 1175 Balance -1225 / -1675 -2328 / -2328 -165 / -165 General: Alert, Cooperative, No apparent distress HEENT: Atraumatic, PERRLA, Normocephalic Oral: No Gingival or Mucosal Lesions/ Ulcerations Neck: Supple, No Nodes, Trachea Midline Lungs: No rhonchi, No wheeze, No rales, Diminished Cardiovascular: Normal S1, Normal S2, Irregular Rate Abdomen: Bowel Sounds Present, Soft, Non Tender Extremities: No clubbing, No cyanosis, Edema Skin: No breakdown Musculoskeletal: No Muscle Wasting Lymphatic: No Cervical, Supraclavicular, or Inguinal Adenopathy Neurological: Neuro grossly intact Psych/Mental Status: Normal Affect, Appropriate Labs (Last 48 Hours) 01/18/20 01/19/20 01/19/20 10:50 11:13 16:32 WBC RBC Hgb Hct MCV MCH MCHC RDW Std Deviation RDW Coeff of Jony Plt Count MPV Immature Gran % (Auto) Neut % (Auto) Lymph % (Auto) [place] % (Auto) Eos % (Auto) Baso % (Auto) Absolute Neuts (auto) Absolute Lymphs (auto) Nucleated RBC % Differential Comment Atypical Lymphocytes PT INR Sodium Potassium Chloride Carbon Dioxide Anion Gap BUN Creatinine Estim Creat Clear Calc Est GFR (MDRD) Af Amer Est GFR (MDRD) Non-Af BUN/Creatinine Ratio Glucose Calcium Vancomycin Trough COVID-19 (MAXIMINO) Not Detected POC Glucose 286 H 289 H 01/19/20 01/20/20 01/20/20 21:38 06:48 06:50 WBC 8.9 RBC 3.74 L Hgb 10.8 L Hct 36.4 L MCV 97.3 H MCH 28.9 MCHC 29.7 L RDW Std Deviation 61.9 H RDW Coeff of Jony 17.2 H Plt Count 254 MPV 8.9 Immature Gran % (Auto) 0.900 Neut % (Auto) 92.0 H Lymph % (Auto) 1.9 L [place] % (Auto) 5.1 Eos % (Auto) 0.0 Baso % (Auto) 0.1 Absolute Neuts (auto) 8.2 H Absolute Lymphs (auto) 0.17 L Nucleated RBC % 0 Differential Comment SCANNED Atypical Lymphocytes RARE PT INR Sodium Potassium Chloride Carbon Dioxide Anion Gap BUN Creatinine Estim Creat Clear Calc Est GFR (MDRD) Af Amer Est GFR (MDRD) Non-Af BUN/Creatinine Ratio Glucose Calcium Vancomycin Trough COVID-19 (MAXIMINO) POC Glucose 244 H 200 H 01/20/20 01/20/20 01/20/20 06:50 06:50 10:10 WBC RBC Hgb Hct MCV MCH MCHC RDW Std Deviation RDW Coeff of Jony Plt Count MPV Immature Gran % (Auto) Neut % (Auto) Lymph % (Auto) [place] % (Auto) Eos % (Auto) Baso % (Auto) Absolute Neuts (auto) Absolute Lymphs (auto) Nucleated RBC % Differential Comment Atypical Lymphocytes PT 16.4 H INR 1.4 Sodium 137 Potassium 3.8 Chloride 99 Carbon Dioxide 34.0 H Anion Gap 4 L BUN 34 H Creatinine 0.77 Estim Creat Clear Calc 63.65 Est GFR (MDRD) Af Amer 127 Est GFR (MDRD) Non-Af 105 BUN/Creatinine Ratio 44.2 H Glucose 203 H Calcium 8.9 Vancomycin Trough 18.1 H COVID-19 (MAXIMINO) POC Glucose 01/20/20 01/20/20 01/20/20 11:35 16:58 22:08 WBC RBC Hgb Hct MCV MCH MCHC RDW Std Deviation RDW Coeff of Jony Plt Count MPV Immature Gran % (Auto) Neut % (Auto) Lymph % (Auto) [place] % (Auto) Eos % (Auto) Baso % (Auto) Absolute Neuts (auto) Absolute Lymphs (auto) Nucleated RBC % Differential Comment Atypical Lymphocytes PT INR Sodium Potassium Chloride Carbon Dioxide Anion Gap BUN Creatinine Estim Creat Clear Calc Est GFR (MDRD) Af Amer Est GFR (MDRD) Non-Af BUN/Creatinine Ratio Glucose Calcium Vancomycin Trough COVID-19 (MAXIMINO) POC Glucose 251 H 207 H 234 H 01/21/20 01/21/20 04:44 07:32 WBC RBC Hgb Hct MCV MCH MCHC RDW Std Deviation RDW Coeff of Jony Plt Count MPV Immature Gran % (Auto) Neut % (Auto) Lymph % (Auto) [place] % (Auto) Eos % (Auto) Baso % (Auto) Absolute Neuts (auto) Absolute Lymphs (auto) Nucleated RBC % Differential Comment Atypical Lymphocytes PT INR Sodium 137 Potassium 3.8 Chloride 103 Carbon Dioxide 30.0 Anion Gap 4 L BUN 36 H Creatinine 0.66 L Estim Creat Clear Calc 63.65 Est GFR (MDRD) Af Amer 152 Est GFR (MDRD) Non-Af 126 BUN/Creatinine Ratio 54.5 H Glucose 178 H Calcium 8.6 Vancomycin Trough COVID-19 (MAXIMINO) POC Glucose 247 H Clinical Impression(s) from Imaging Studies Chest X-Ray 01/14/20 14:25 IMPRESSION: Focal left upper lobe infiltrate. Electronically Signed: Abhishek Hung, at 14:57 EDT , Service support , Chest CTA 01/14/20 15:47 IMPRESSION: No evidence for PE. Marked bilateral worsening of lung disease bilaterally including areas of consolidation especially in the upper left lung and in the right lower lobe which could be atelectasis/infiltrate or neoplasm. Worsening of probable mid mediastinal adenopathy. Electronically Signed: Judah Lowe MD at 16:53 EDT , Service support , Current Medications Acetaminophen (Tylenol) 650 mg PO Q6H PRN PRN PRN Reason: Pain Score 1-10/Temp > 100.7 F Last Admin: 01/15/20 22:36 Dose: 650 mg Documented by: Albuterol Sulfate (Ventolin Aerosols) 2.5 mg INHALATION Q4H PRN PRN PRN Reason: SHORTNESS OF BREATH Albuterol/Ipratropium (Duoneb) 3 ml INHALATION Q6HWA.RT [facility] Last Admin: 01/21/20 06:30 Dose: 3 ml Documented by: Amiodarone HCl (Cordarone) 200 mg PO DAILY [facility] Last Admin: 01/21/20 10:08 Dose: 200 mg Documented by: Atorvastatin Calcium (Lipitor) 80 mg PO QHS [facility] Last Admin: 01/20/20 22:18 Dose: 80 mg Documented by: Benzonatate (Tessalon Perle) 200 mg PO Q8H PRN PRN Reason: COUGH Last Admin: 01/15/20 22:37 Dose: 200 mg Documented by: Carvedilol (Coreg) 25 mg PO BID [facility] Last Admin: 01/21/20 10:09 Dose: 25 mg Documented by: Cholecalciferol (Vitamin D (25mcg)) 3,000 unit PO DAILY [facility] Last Admin: 01/21/20 10:12 Dose: 3,000 unit Documented by: Clopidogrel Bisulfate (Plavix) 75 mg PO DAILY [facility] Last Admin: 01/21/20 10:12 Dose: 75 mg Documented by: Cyanocobalamin (Vitamin B12) 1,000 mcg PO DAILY [facility] Last Admin: 01/21/20 10:13 Dose: 1,000 mcg Documented by: Dextrose (D50w Syringe) 0 gm IV X1 PRN; Protocol PRN Reason: Hypoglycemia Diltiazem HCl (Cardizem Cd) 120 mg PO Q12 [facility] Last Admin: 01/21/20 10:08 Dose: 120 mg Documented by: Empagliflozin (Jardiance) 12.5 mg PO DAILY [facility] Last Admin: 01/21/20 10:09 Dose: 12.5 mg Documented by: Enoxaparin Sodium (Lovenox) 100 mg 1 mg/kg (100 mg) SC Q12@0600,1800 [facility] Last Admin: 01/21/20 05:19 Dose: 100 mg Documented by: Furosemide (Lasix) 40 mg IV BID@1000,1800 [facility] Last Admin: 01/21/20 10:12 Dose: 40 mg Documented by: Gabapentin (Neurontin) 900 mg PO TID [facility] Last Admin: 01/21/20 05:18 Dose: 900 mg Documented by: Glucagon () 1 mg IM .X1 PRN PRN Reason: Hypoglycemia Guaifenesin (Mucinex) 1,200 mg PO BID [facility] Last Admin: 01/21/20 10:12 Dose: 1,200 mg Documented by: Meropenem 1 gm/ Sodium (Chloride) 120 mls @ 33 mls/hr IV Q8 [facility] Last Infusion: 01/21/20 08:57 Dose: Infused Documented by: Vancomycin IV Pharmacy to Dose (1 ea/ Sodium Chloride) 500 mls @ 250 mls/hr IV X1 PRN; Protocol PRN Reason: Rx to Dose Vancomycin HCl 1,500 mg/ (Sodium Chloride) 530 mls @ 250 mls/hr IV Q12H [facility] Last Infusion: 01/21/20 00:23 Dose: Infused Documented by: Sodium Chloride () 250 mls @ 15 mls/hr IV .[id number] PRN PRN Reason: Saline Flush Sodium Chloride () 250 mls @ 15 mls/hr IV .[id number] PRN PRN Reason: Additional IVPB Infusion Insulin Glargine (Lantus (Bkc)) 40 units SC DAILY [facility] Last Admin: 01/21/20 10:10 Dose: 40 u Documented by: Insulin Human Lispro (Humalog Kwikpen (Bk)) 0 unit SC TIDAC [facility]; Protocol Last Admin: 01/21/20 07:38 Dose: 3 u Documented by: Insulin Human Lispro (Humalog Kwikpen (Bkc)) 8 unit SC TIDAC [facility] Last Admin: 01/21/20 07:39 Dose: 8 u Documented by: Isosorbide Mononitrate (Imdur) 180 mg PO DAILY [facility] Last Admin: 01/21/20 10:09 Dose: 180 mg Documented by: Lisinopril (Zestril) 20 mg PO BID [facility] Last Admin: 01/21/20 10:17 Dose: 20 mg Documented by: Methylprednisolone (Solu-Medrol) 40 mg IV Q8 [facility] Last Admin: 01/21/20 05:20 Dose: 40 mg Documented by: Nitroglycerin (Nitrostat) 0.4 mg SUBLINGUAL Q5M PRN PRN Reason: CARDIAC/CHEST PAIN Nutritional Formula (Lactose Free) (Glucerna Shake) 120 ml PO TIDCM [facility] Last Admin: 01/21/20 07:38 Dose: 120 ml Documented by: Ondansetron HCl (Zofran) 4 mg IV Q8H PRN PRN PRN Reason: NAUSEA/VOMITING Pantoprazole Sodium (Protonix) 20 mg PO BREAKFAST [facility] Last Admin: 01/21/20 07:42 Dose: 20 mg Documented by: Paroxetine HCl (Paxil) 80 mg PO DAILY [facility] Last Admin: 01/21/20 10:17 Dose: 80 mg Documented by: Potassium Chloride (K-Dur) 20 meq PO DAILYCM [facility] Last Admin: 01/21/20 07:38 Dose: 20 meq Documented by: Sodium Chloride () 10 - 40 ml IV UD PRN PRN Reason: SALINE FLUSH Last Admin: 01/20/20 13:46 Dose: 10 ml Documented by: Tamsulosin HCl (Flomax) 0.4 mg PO QHS [facility] Last Admin: 01/20/20 22:18 Dose: 0.4 mg Documented by: Warfarin Sodium (Coumadin (Pbkc)) 2.5 mg PO SuTh@1700 [facility] Last Admin: 01/20/20 17:03 Dose: 2.5 mg Documented by: Warfarin Sodium (Coumadin (Pbkc)) 5 mg PO MoTuWeFrSa@1700 [facility] Last Admin: 01/19/20 16:36 Dose: 5 mg Documented by: Medical Necessity - Tobacco Use Smoking Status: Former smoker Tobacco Use: Non-smoker Assessment/Plan All Active Problems (Last Updated 01/14/20 @ 18:[address] Brendan Del Castillo, DO) Elevated troponin (Acute) COPD exacerbation (Acute) Healthcare-associated pneumonia (Acute) Hypoxia (Acute) Pneumonia (Acute) RECOMMENDATIONS: 1. Continue current diuretic therapy. 2. Continue empiric antimicrobials and bronchodilators. 3. Transition from methylprednisone to prednisone 40 mg daily. 4. Continue systemic anticoagulation. 5. Wean supplemental oxygen as tolerated. 6. Perform walking oximetry study prior to consideration for discharge home. IMPRESSIONS: 1. Acute hypoxic respiratory failure/stage III COPD exacerbation Patient likely has a multifactorial etiology of acute hypoxic respiratory failure. Patient did have advanced COPD in 2011 with an FEV1 of 44% of predicted. Patient also has what appears to be radiation pneumonitis of the left upper lobe and some groundglass opacities suggestive of atypical infection versus fluid overload. Patient did have some diastolic dysfunction in the past. Heart rates have been relatively controlled. Clinical suspicion for the majority of reversible oxygenation issues will be secondary to volume overload. Continue diuretic therapy as ordered. Continue to wean supplemental oxygen as tolerated. 2. A. fib/chronic diastolic CHF Patient is currently rate controlled. Clinical suspicion for an element of diastolic CHF exacerbation secondary to volume status. Continue current rate/rhythm control strategy along with systemic anticoagulation. 3. Recent squamous cell lung carcinoma/CAD/advanced age/multiple allergies Complicates care, management, recovery and prognosis. Patient is currently a DNR Comfort Care arrest without intubation. Okay to continue with baseline medications from my perspective. This note was generated with [employer] dictation software. It may contain incorrect words, spelling, and punctuation that were not noted in checking the note before signing. Inpatient E&M: 06756 Subs Hosp L2
[2020-01-21 11:30] LABS: Bedside Glucose 288 mg/dL (70-110)
--- NOTE | 2020-01-21 13:25 | PCM.PN.HOSP ---
<Ry Edwards - Last Filed: 01/21/20 13:25> Patient Problems: Active and Suspected Problems (Last Updated 01/14/20 @ 18:[address] Brendan Del Castillo DO) Healthcare-associated pneumonia (Acute) Hypoxia (Acute) Pneumonia (Acute) Reason for Visit: SOB Subjective: SOb improved. minimal cough. no fever/chills. No CP. No N/V/D. Vitals/I&O's: Vital Signs Temp Pulse Resp BP Pulse Ox 97.8 F 82 18 135/67 H 94 01/21/20 09:56 01/21/20 13:21 01/21/20 13:21 01/21/20 09:56 01/21/20 13:21 Oxygen Flow Rate (L/min) 5 Oxygen Delivery Method Nasal Cannula Weight: 212 lb 15.465 oz Body Mass Index (BMI) 32.3 Intake and Output for Last 24 Hours 01/19/20 01/20/20 01/21/20 23:59 23:59 23:59 Intake Total 2500 / 2500 3272 / 3272 1010 / 1010 Output Total 3725 / 4175 5600 / 5600 1175 / 1175 Balance -1225 / -1675 -2328 / -2328 -165 / -165 General: Alert, Oriented x3, Cooperative HEENT: Atraumatic, PERRLA, EOMI, Normocephalic Neck: Supple, No JVD, Negative Carotid Bruits Lungs: Clear to auscultation, Normal air movement Cardiovascular: Regular rate, No murmurs Abdomen: Bowel Sounds Present, Soft, Non Tender Extremities: No edema, Capillary Refill Less than 3 Seconds Skin: No rashes, No breakdown Musculoskeletal: No Tenderness to Palpation of Joints or Extremities Neurological: Cranial nerves II-XII grossly intact Psych/Mental Status: Normal Affect, Appropriate, Alert and oriented to time, place, person, mood and affect Laboratory Results 01/20/20 16:58: POC Glucose 207 H 01/20/20 22:08: POC Glucose 234 H 01/21/20 04:44: Sodium 137, Potassium 3.8, Chloride 103, Carbon Dioxide 30.0, Anion Gap 4 L, BUN 36 H, Creatinine 0.66 L, Estim Creat Clear Calc 63.65, Est GFR (MDRD) Af Amer 152, Est GFR (MDRD) Non-Af 126, BUN/Creatinine Ratio 54.5 H, Glucose 178 H, Calcium 8.6 01/21/20 07:32: POC Glucose 247 H 01/21/20 11:15: POC Glucose 288 H Current Medications Acetaminophen (Tylenol) 650 mg PO Q6H PRN PRN PRN Reason: Pain Score 1-10/Temp > 100.7 F Last Admin: 01/15/20 22:36 Dose: 650 mg Documented by: Albuterol Sulfate (Ventolin Aerosols) 2.5 mg INHALATION Q4H PRN PRN PRN Reason: SHORTNESS OF BREATH Albuterol/Ipratropium (Duoneb) 3 ml INHALATION Q6HWA.RT [facility] Last Admin: 01/21/20 13:21 Dose: 3 ml Documented by: Amiodarone HCl (Cordarone) 200 mg PO DAILY [facility] Last Admin: 01/21/20 10:08 Dose: 200 mg Documented by: Atorvastatin Calcium (Lipitor) 80 mg PO QHS [facility] Last Admin: 01/20/20 22:18 Dose: 80 mg Documented by: Benzonatate (Tessalon Perle) 200 mg PO Q8H PRN PRN Reason: COUGH Last Admin: 01/15/20 22:37 Dose: 200 mg Documented by: Carvedilol (Coreg) 25 mg PO BID [facility] Last Admin: 01/21/20 10:09 Dose: 25 mg Documented by: Cholecalciferol (Vitamin D (25mcg)) 3,000 unit PO DAILY [facility] Last Admin: 01/21/20 10:12 Dose: 3,000 unit Documented by: Clopidogrel Bisulfate (Plavix) 75 mg PO DAILY [facility] Last Admin: 01/21/20 10:12 Dose: 75 mg Documented by: Cyanocobalamin (Vitamin B12) 1,000 mcg PO DAILY [facility] Last Admin: 01/21/20 10:13 Dose: 1,000 mcg Documented by: Dextrose (D50w Syringe) 0 gm IV X1 PRN; Protocol PRN Reason: Hypoglycemia Diltiazem HCl (Cardizem Cd) 120 mg PO Q12 [facility] Last Admin: 01/21/20 10:08 Dose: 120 mg Documented by: Empagliflozin (Jardiance) 12.5 mg PO DAILY [facility] Last Admin: 01/21/20 10:09 Dose: 12.5 mg Documented by: Enoxaparin Sodium (Lovenox) 100 mg 1 mg/kg (100 mg) SC Q12@0600,1800 [facility] Last Admin: 01/21/20 05:19 Dose: 100 mg Documented by: Furosemide (Lasix) 40 mg IV BID@1000,1800 [facility] Last Admin: 01/21/20 10:12 Dose: 40 mg Documented by: Gabapentin (Neurontin) 900 mg PO TID [facility] Last Admin: 01/21/20 05:18 Dose: 900 mg Documented by: Glucagon () 1 mg IM .X1 PRN PRN Reason: Hypoglycemia Guaifenesin (Mucinex) 1,200 mg PO BID [facility] Last Admin: 01/21/20 10:12 Dose: 1,200 mg Documented by: Meropenem 1 gm/ Sodium (Chloride) 120 mls @ 33 mls/hr IV Q8 [facility] Last Infusion: 01/21/20 08:57 Dose: Infused Documented by: Vancomycin IV Pharmacy to Dose (1 ea/ Sodium Chloride) 500 mls @ 250 mls/hr IV X1 PRN; Protocol PRN Reason: Rx to Dose Vancomycin HCl 1,500 mg/ (Sodium Chloride) 530 mls @ 250 mls/hr IV Q12H [facility] Last Admin: 01/21/20 11:31 Dose: 250 mls/hr Documented by: Sodium Chloride () 250 mls @ 15 mls/hr IV .[id number] PRN PRN Reason: Saline Flush Sodium Chloride () 250 mls @ 15 mls/hr IV .[id number] PRN PRN Reason: Additional IVPB Infusion Insulin Glargine (Lantus (Bkc)) 40 units SC DAILY [facility] Last Admin: 01/21/20 10:10 Dose: 40 u Documented by: Insulin Human Lispro (Humalog Kwikpen (Bkc)) 0 unit SC TIDAC [facility]; Protocol Last Admin: 01/21/20 11:32 Dose: 4 u Documented by: Insulin Human Lispro (Humalog Kwikpen (Bkc)) 8 unit SC TIDAC [facility] Last Admin: 01/21/20 11:33 Dose: 8 u Documented by: Isosorbide Mononitrate (Imdur) 180 mg PO DAILY [facility] Last Admin: 01/21/20 10:09 Dose: 180 mg Documented by: Lisinopril (Zestril) 20 mg PO BID [facility] Last Admin: 01/21/20 10:17 Dose: 20 mg Documented by: Methylprednisolone (Solu-Medrol) 40 mg IV Q8 [facility] Last Admin: 01/21/20 05:20 Dose: 40 mg Documented by: Nitroglycerin (Nitrostat) 0.4 mg SUBLINGUAL Q5M PRN PRN Reason: CARDIAC/CHEST PAIN Nutritional Formula (Lactose Free) (Glucerna Shake) 120 ml PO TIDCM [facility] Last Admin: 01/21/20 11:35 Dose: 120 ml Documented by: Ondansetron HCl (Zofran) 4 mg IV Q8H PRN PRN PRN Reason: NAUSEA/VOMITING Pantoprazole Sodium (Protonix) 20 mg PO BREAKFAST [facility] Last Admin: 01/21/20 07:42 Dose: 20 mg Documented by: Paroxetine HCl (Paxil) 80 mg PO DAILY [facility] Last Admin: 01/21/20 10:17 Dose: 80 mg Documented by: Potassium Chloride (K-Dur) 20 meq PO DAILYCM [facility] Last Admin: 01/21/20 07:38 Dose: 20 meq Documented by: Sodium Chloride () 10 - 40 ml IV UD PRN PRN Reason: SALINE FLUSH Last Admin: 01/20/20 13:46 Dose: 10 ml Documented by: Tamsulosin HCl (Flomax) 0.4 mg PO QHS [facility] Last Admin: 01/20/20 22:18 Dose: 0.4 mg Documented by: Warfarin Sodium (Coumadin (Pbkc)) 2.5 mg PO SuTh@1700 [facility] Last Admin: 01/20/20 17:03 Dose: 2.5 mg Documented by: Warfarin Sodium (Coumadin (Pbkc)) 5 mg PO MoTuWeFrSa@1700 [facility] Last Admin: 01/19/20 16:36 Dose: 5 mg Documented by: STROKE Vital Signs/Narrative: Vital Signs Temp Pulse Resp BP Pulse Ox 01/21/20 13:21 82 18 94 01/21/20 09:56 97.8 F 70 16 135/67 H 93 Medical Necessity - Tobacco Use Smoking Status: Former smoker Tobacco Use: Non-smoker Assessment/Plan All Active Problems (Last Updated 01/14/20 @ 18:[address] Brendan Del Castillo, DO) Elevated troponin (Acute) COPD exacerbation (Acute) Healthcare-associated pneumonia (Acute) Hypoxia (Acute) Pneumonia (Acute) 1. Acute on chronic hypoxic respiratory failure 2/2 HCAP Group A Strep - continue abx, aerosols, prednisone, diuretics. Baseline o2 2-3 lpm, curently at 5 down from 7. Pulm following. Covid negx2. Charline/vanc. 2. Acute COPD exacerbation - 2/2 above - taper prednisone. 3. Hx NSCLC - Pt of Dr. Wiseman. Follow up for immunotherapy 4. Dmt2 - TID insulin + SSI + lantus, jardiance 5. Afib, diastolic CHF - rate controled. Continue coreg/amio/diltiazem. Lovenox --> Warfarin. 6. CAD - plavix, statin, coreg, lisinopril, imdur 7. BPH - flomax DVT ppx: Lovenox --> warfarin DC planning: possibly home tomorrow, walking pulse ox prior to DC follow up with [facility]. This patient was seen by Ry Edwards PA-C under the supervision of Dr. Silva. <Jason Silva - Last Filed: 01/21/20 17:28> Reason for Visit: Patient is short of breath. Oxygen required improved from 7 L to 5 L. COVID negative. Strep group A positive. Objective: Patient is still short of breath even on conversation. Vitals/I&O's: Vital Signs Temp Pulse Resp BP Pulse Ox 98.0 F 68 16 115/63 92 01/21/20 13:38 01/21/20 13:38 01/21/20 13:38 01/21/20 13:38 01/21/20 13:38 Oxygen Flow Rate (L/min) 5 Oxygen Delivery Method Nasal Cannula Weight: 212 lb 15.465 oz Body Mass Index (BMI) 32.3 Intake and Output for Last 24 Hours 01/19/20 01/20/20 01/21/20 23:59 23:59 23:59 Intake Total 2500 / 2500 3272 / 3272 1540 / 1540 Output Total 3725 / 4175 5600 / 5600 3350 / 3350 Balance -1225 / -1675 -2328 / -2328 -1810 / -1810 General: Alert, Oriented x3, Cooperative HEENT: Atraumatic, PERRLA, EOMI, Normocephalic Neck: Supple, No JVD, Negative Carotid Bruits Lungs: Diminished, Rhonchi, Short of Breath Cardiovascular: Regular rate, Regular Rhythm, Normal S1, Normal S2, No murmurs Abdomen: Bowel Sounds Present, Soft, Non Tender, Non-Distended Extremities: No edema, Capillary Refill Less than 3 Seconds Skin: No rashes, No breakdown Musculoskeletal: No Tenderness to Palpation of Joints or Extremities, Arthritic Changes Neurological: Cranial nerves II-XII grossly intact, Deep Tendon Reflexes 2+/4 and Symmetrical, Neuro grossly intact Psych/Mental Status: Normal Affect, Appropriate Laboratory Results 01/20/20 22:08: POC Glucose 234 H 01/21/20 04:44: Sodium 137, Potassium 3.8, Chloride 103, Carbon Dioxide 30.0, Anion Gap 4 L, BUN 36 H, Creatinine 0.66 L, Estim Creat Clear Calc 63.65, Est GFR (MDRD) Af Amer 152, Est GFR (MDRD) Non-Af 126, BUN/Creatinine Ratio 54.5 H, Glucose 178 H, Calcium 8.6 01/21/20 07:32: POC Glucose 247 H 01/21/20 11:15: POC Glucose 288 H 01/21/20 16:03: POC Glucose 210 H Current Medications Acetaminophen (Tylenol) 650 mg PO Q6H PRN PRN PRN Reason: Pain Score 1-10/Temp > 100.7 F Last Admin: 01/15/20 22:36 Dose: 650 mg Documented by: Albuterol Sulfate (Ventolin Aerosols) 2.5 mg INHALATION Q4H PRN PRN PRN Reason: SHORTNESS OF BREATH Albuterol/Ipratropium (Duoneb) 3 ml INHALATION Q6HWA.RT [facility] Last Admin: 01/21/20 13:21 Dose: 3 ml Documented by: Amiodarone HCl (Cordarone) 200 mg PO DAILY [facility] Last Admin: 01/21/20 10:08 Dose: 200 mg Documented by: Atorvastatin Calcium (Lipitor) 80 mg PO QHS [facility] Last Admin: 01/20/20 22:18 Dose: 80 mg Documented by: Benzonatate (Tessalon Perle) 200 mg PO Q8H PRN PRN Reason: COUGH Last Admin: 01/15/20 22:37 Dose: 200 mg Documented by: Carvedilol (Coreg) 25 mg PO BID [facility] Last Admin: 01/21/20 10:09 Dose: 25 mg Documented by: Cholecalciferol (Vitamin D (25mcg)) 3,000 unit PO DAILY [facility] Last Admin: 01/21/20 10:12 Dose: 3,000 unit Documented by: Clopidogrel Bisulfate (Plavix) 75 mg PO DAILY [facility] Last Admin: 01/21/20 10:12 Dose: 75 mg Documented by: Cyanocobalamin (Vitamin B12) 1,000 mcg PO DAILY [facility] Last Admin: 01/21/20 10:13 Dose: 1,000 mcg Documented by: Dextrose (D50w Syringe) 0 gm IV X1 PRN; Protocol PRN Reason: Hypoglycemia Diltiazem HCl (Cardizem Cd) 120 mg PO Q12 [facility] Last Admin: 01/21/20 10:08 Dose: 120 mg Documented by: Empagliflozin (Jardiance) 12.5 mg PO DAILY [facility] Last Admin: 01/21/20 10:09 Dose: 12.5 mg Documented by: Enoxaparin Sodium (Lovenox) 100 mg 1 mg/kg (100 mg) SC Q12@0600,1800 [facility] Last Admin: 01/21/20 05:19 Dose: 100 mg Documented by: Furosemide (Lasix) 40 mg IV BID@1000,1800 [facility] Last Admin: 01/21/20 10:12 Dose: 40 mg Documented by: Gabapentin (Neurontin) 900 mg PO TID [facility] Last Admin: 01/21/20 13:52 Dose: 900 mg Documented by: Glucagon () 1 mg IM .X1 PRN PRN Reason: Hypoglycemia Guaifenesin (Mucinex) 1,200 mg PO BID [facility] Last Admin: 01/21/20 10:12 Dose: 1,200 mg Documented by: Meropenem 1 gm/ Sodium (Chloride) 120 mls @ 33 mls/hr IV Q8 [facility] Last Admin: 01/21/20 13:52 Dose: 33 mls/hr Documented by: Vancomycin IV Pharmacy to Dose (1 ea/ Sodium Chloride) 500 mls @ 250 mls/hr IV X1 PRN; Protocol PRN Reason: Rx to Dose Vancomycin HCl 1,500 mg/ (Sodium Chloride) 530 mls @ 250 mls/hr IV Q12H [facility] Last Infusion: 01/21/20 13:39 Dose: Infused Documented by: Sodium Chloride () 250 mls @ 15 mls/hr IV .[id number] PRN PRN Reason: Saline Flush Sodium Chloride () 250 mls @ 15 mls/hr IV .[id number] PRN PRN Reason: Additional IVPB Infusion Insulin Glargine (Lantus (Bkc)) 40 units SC DAILY [facility] Last Admin: 01/21/20 10:10 Dose: 40 u Documented by: Insulin Human Lispro (Humalog Kwikpen (Bkc)) 0 unit SC TIDAC [facility]; Protocol Last Admin: 01/21/20 16:52 Dose: 2 u Documented by: Insulin Human Lispro (Humalog Kwikpen (Bkc)) 8 unit SC TIDAC [facility] Last Admin: 01/21/20 16:52 Dose: 8 u Documented by: Isosorbide Mononitrate (Imdur) 180 mg PO DAILY [facility] Last Admin: 01/21/20 10:09 Dose: 180 mg Documented by: Lisinopril (Zestril) 20 mg PO BID [facility] Last Admin: 01/21/20 10:17 Dose: 20 mg Documented by: Methylprednisolone (Solu-Medrol) 40 mg IV Q8 [facility] Last Admin: 01/21/20 13:52 Dose: 40 mg Documented by: Nitroglycerin (Nitrostat) 0.4 mg SUBLINGUAL Q5M PRN PRN Reason: CARDIAC/CHEST PAIN Nutritional Formula (Lactose Free) (Glucerna Shake) 120 ml PO TIDCM [facility] Last Admin: 01/21/20 16:59 Dose: 120 ml Documented by: Ondansetron HCl (Zofran) 4 mg IV Q8H PRN PRN PRN Reason: NAUSEA/VOMITING Pantoprazole Sodium (Protonix) 20 mg PO BREAKFAST [facility] Last Admin: 01/21/20 07:42 Dose: 20 mg Documented by: Paroxetine HCl (Paxil) 80 mg PO DAILY [facility] Last Admin: 01/21/20 10:17 Dose: 80 mg Documented by: Potassium Chloride (K-Dur) 20 meq PO DAILYCM [facility] Last Admin: 01/21/20 07:38 Dose: 20 meq Documented by: Sodium Chloride () 10 - 40 ml IV UD PRN PRN Reason: SALINE FLUSH Last Admin: 01/20/20 13:46 Dose: 10 ml Documented by: Tamsulosin HCl (Flomax) 0.4 mg PO QHS [facility] Last Admin: 01/20/20 22:18 Dose: 0.4 mg Documented by: Warfarin Sodium (Coumadin (Pbkc)) 2.5 mg PO SuTh@1700 [facility] Last Admin: 01/20/20 17:03 Dose: 2.5 mg Documented by: Warfarin Sodium (Coumadin (Pbkc)) 5 mg PO MoTuWeFrSa@1700 [facility] Last Admin: 01/21/20 16:51 Dose: 5 mg Documented by: STROKE Vital Signs/Narrative: Vital Signs Temp Pulse Resp BP Pulse Ox 01/21/20 13:38 98.0 F 68 16 115/63 92 Assessment/Plan This patient was seen in conjunction with Ry RAMIREZ. I have independently interviewed and examined the patient and reviewed pertinent history, examination findings, laboratory and plan of management. I have reviewed the note and agree with the documented findings with the few additional points. In brief, patient is admitted for acute on chronic hypoxic respiratory failure secondary to group A streptococcus HCAP. On antibiotic meropenem and vancomycin. COVID -2 times. Patient on high requirement of oxygen, gradually improving. Seen by precision devices inspector/tester. Advised transition to prednisone 40 mg daily. Continue bronchodilator, bronchopulmonary hygiene and systemic anticoagulation. Continue diuretic. Patient has chronic diastolic heart failure and chronic A. fib. On Lovenox bridging with Coumadin. Other comorbidities non-small cell lung cancer, type 2 diabetes mellitus, coronary artery disease and BPH admission I have discussed my assessment with Ry RAMIREZ and orders have been reviewed. Inpatient E&M: [id number] [facility] L[facility]
[2020-01-21 16:15] LABS: Bedside Glucose 210 mg/dL (70-110)
[2020-01-21] MEDS: Atorvastatin Calcium 80 MG Tablet PO (21:41)
[2020-01-21] MEDS: Tamsulosin HCl 0.4 MG Capsule PO (21:41)
[2020-01-21 21:45] LABS: Bedside Glucose 239 mg/dL (70-110)
[2020-01-22] VITALS (7 sets, daily range): BP systolic 119–134; BP diastolic 47–68; PULSE 67–85; RESP 18–20; TEMP 36.6–37.2; O2SAT 85–94
[2020-01-22] MEDS: Gabapentin 300 MG Capsule 900 MG PO (05:27)
[2020-01-22] MEDS: Enoxaparin 100 MG/ML Syringe SC (05:29)
[2020-01-22 05:42] LABS: Absolute Lymphocyte Count 0.21 X10^3/uL (0.83-4.51); Basophil# 0.01 X10^3/uL; Basophil% 0.1 % (0-1); Hematocrit 38.2 % (40-54); Hemoglobin 11.7 g/dL (13.0-16.5); Lymphocyte # 0.21 X10^3/ul (4.0); Lymphocyte % 2.1 % (19-41); Mean Corp Hgb Conc 30.6 g/dL (32-36); Mean Corpuscular Volume 94.8 fL (80-94); Mean Platelet Vol. 9.3 fl (6.2-12.0); Monocyte% 7.9 % (0-10); NRBC Flagged by Analyzer 0 % (0-5); Neutrophil # 8.98 X10^3/uL (2.7-7.7); Neutrophil % 89.1 % (47-70); POSITIVE DIFFERENTIAL YES; Platelet Count 240 K/mm3 (150-450); RBC Distribution Width CV 17.1 % (11.6-14.6); RBC Distribution Width SD 59.4 fl (35.1-43.9); Red Blood Count 4.03 M/mm3 (4.6-6.2); White Blood Count 10.1 K/mm3 (4.4-11.0)
[2020-01-22 05:46] LABS: International Normalized Ratio 1.4; Prothrombin Time (Protime)PT. 16.7 SECONDS (11.7-14.9)
[2020-01-22 05:59] LABS: Anion Gap 4 (5-15); BUN 37 mg/dL (7-18); BUN/Creat Ratio 56.6 RATIO (10-20); Calcium,Total 8.6 mg/dL (8.5-10.1); Chloride 104 mmol/L (98-107); Creatinine, Serum 0.65 mg/dL (0.70-1.30); EST Glomerular Filtration Rate 127 mL/min (>60); Est Glom Filt Rate - Afr Amer 154 mL/min (>60); Estimated Creatinine Clearance 63.65 ml/min; Glucose 166 mg/dL (74-106); Potassium 3.7 mmol/L (3.5-5.1); Sodium Level 139 mmol/L (136-145)
[2020-01-22 06:37] LABS: Differential Indicated SCAN CRITERIA MET
[2020-01-22] MEDS: Ipratropium/Albuterol Sulfate 3 ML AMPUL.NEB INHALATION ×2 (06:47→13:27)
[2020-01-22] MEDS: Insulin Lispro 100 UNIT/ML INSULN.PEN 8 UNIT SC ×2 (07:38→12:17)
[2020-01-22] MEDS: Glucerna Shake 120 ML LIQUID PO ×2 (07:40→12:18)
[2020-01-22] MEDS: Pantoprazole Sodium 20 MG Tablet PO (07:41)
[2020-01-22 07:45] LABS: Bedside Glucose 137 mg/dL (70-110)
[2020-01-22 08:26] LABS: Differential Comment SCANNED
[2020-01-22] MEDS: predniSONE 20 MG Tablet 40 MG PO (10:02)
[2020-01-22] MEDS: Isosorbide Mononitrate 60 MG Tablet 180 MG PO (10:04)
[2020-01-22] MEDS: Empagliflozin 25 MG Tablet 12.5 MG PO (10:04)
[2020-01-22] MEDS: Paroxetine 20 MG Tablet 80 MG PO (10:05)
[2020-01-22] MEDS: Cyanocobalamin 500 MCG Tablet 1000 MCG PO (10:05)
[2020-01-22] MEDS: Amiodarone 200 MG Tablet PO (10:05)
[2020-01-22] MEDS: guaiFENesin 1,200 MG Tablet 1200 MG PO (10:05)
[2020-01-22] MEDS: Carvedilol 25 MG Tablet PO (10:06)
[2020-01-22] MEDS: Clopidogrel Bisulfate 75 MG Tablet PO (10:07)
[2020-01-22] MEDS: dilTIAZem CD 120 MG Capsule PO (10:07)
[2020-01-22] MEDS: Lisinopril 20 MG Tablet PO (10:08)
[2020-01-22] MEDS: Furosemide 40 MG/4 ML Vial IV (10:10)
[2020-01-22] MEDS: 0.9% Saline Lock 10 ML Syringe IV (10:17)
--- NOTE | 2020-01-22 10:31 | CASEMGMT ---
This MANOLO RODRIGUES spoke with Yolanda at the [place] transfer center and updated on pt possible discharge today, voices understanding. D/C summ to be faxed once obtained. Javad FRENCH CM
--- NOTE | 2020-01-22 10:54 | DCINST_ITS ---
- Discharge Diagnoses Current Active Problems: Current Active and Chronic Problems (Last Updated 01/14/20 @ 18:[address] Brendan Del Castillo, DO) Healthcare-associated pneumonia (Acute) Hypoxia (Acute) Pneumonia (Acute) You will use the following diet at home:: Cardiac - 1500 cc / day fluid restriction, 2-3 grams sodium daily Your food should be the consistency of: Regular Your liquids should be the consistency of: Regular/Thin Discharge Activity: Return to Normal Activity Additional Instructions: You will need to continue using lovenox injections as prescribed until your INR becomes therapeutic. You will need your INR checked in 2 days. Allergies/Adverse Reactions: Allergies cephalexin [From Keflex] Allergy (Verified 01/14/20 13:16) Rash doxycycline Allergy (Verified 01/14/20 13:16) Rash Penicillins Allergy (Verified 01/14/20 13:16) CHILDHOOD ALLERGY metformin Adverse Reaction (Verified 01/14/20 13:16) Upset Stomach niacin Adverse Reaction (Verified 01/14/20 13:16) Rash simvastatin Adverse Reaction (Verified 01/14/20 13:16) Rash Medications to take at Discharge Budesonide/Formoterol Fumarate [Symbicort 160-4.5 Mcg Inhaler] 2 puff IH BID 10/23/19 Empagliflozin [Jardiance] 25 mg PO DAILY 10/23/19 Fluticasone Propionate [Flovent Diskus] 50 mcg IH DAILY 10/23/19 Gabapentin [Neurontin] 900 mg PO TID 10/23/19 Insulin Glargine [Lantus SoloStar Pen] 40 units SUBCUT DAILY 10/23/19 Isosorbide Mononitrate [Imdur] 180 mg PO DAILY 10/23/19 Nitroglycerin [Nitrostat] 1 tab SL PRN PRN 10/23/19 Paroxetine [Paxil] 80 mg PO DAILY 10/23/19 Prazosin HCl 4 mg PO QHS 10/23/19 Tiotropium [place] [Spiriva 18 MCG] 2 puff INHALATION Q6H PRN PRN 10/23/19 Lisinopril 20 mg PO BID 10/24/19 Cholecalciferol (VIT D3) [Vitamin D3] 3,000 unit PO DAILY 11/23/19 Cyanocobalamin (Vitamin B-12) [B-12] 1,000 mcg PO DAILY 11/23/19 Ketoconazole [Nizoral] 120 ml TP QWEEK 11/23/19 Pantoprazole Sodium 20 mg PO BREAKFAST 11/23/19 Rosuvastatin Calcium 40 mg PO QHS 11/23/19 Tamsulosin HCl 0.4 mg PO QHS 11/23/19 Acetaminophen [Tylenol Tablet] 650 mg PO Q6H PRN PRN tab 11/25/19 Carvedilol [Coreg (Beta [place])] 25 mg PO BID 60 Days tab 11/25/19 Benzonatate [Tessalon Perle] 200 mg PO Q8H PRN #30 cap 11/29/19 Diltiazem CD [Cardizem CD] 120 mg PO Q12 #60 cap 11/29/19 Albuterol Aerosols [Ventolin Aerosols] 2.5 mg INHALATION Q6H PRN PRN 01/16/20 Amiodarone HCl 200 mg PO DAILY 01/16/20 Bxm Liquid [BMX LIQUID] 10 ml PO Q6H PRN PRN 01/16/20 Ondansetron [Zofran] 8 mg PO Q8H PRN PRN 01/16/20 Triamcinolone 0.1% Ointment [Kenalog] 1 applic TOPICAL BID 01/16/20 Warfarin [Coumadin] 2.5 mg PO SUTH 01/16/20 Warfarin [Coumadin] 5 mg PO [id number] 01/16/20 Clopidogrel Bisulfate [Plavix] 75 mg PO DAILY #30 tab 01/22/20 Enoxaparin Sodium [Lovenox] 100 mg SQ BID #6 syringe 01/22/20 Furosemide 40 mg PO BID #60 tab 01/22/20 Potassium Chloride [K-Dur] 20 meq PO DAILYCM #30 tab 01/22/20 Prednisone 10 mg PO DAILY #26 tab 01/22/20 The following prescriptions were given: Furosemide 40 mg PO BID #60 tab Transmission Status: Pending to [id number] Potassium Chloride [K-Dur] 20 meq PO DAILYCM #30 tab Transmission Status: Pending to [id number] Enoxaparin Sodium [Lovenox] 100 mg SQ BID #6 syringe Transmission Status: Pending to [facility][id number] Clopidogrel Bisulfate [Plavix] 75 mg PO DAILY #30 tab Transmission Status: Pending to [id number] Prednisone 10 mg PO DAILY #26 tab Prescription Printed [facility] [Primary [facility] Provider] - Please follow up with your Primary Care Physician in: 1 week Test Results: Test results from this visit will be discussed in further detail at your follow- up appointment, if applicable. Proposed Discharge Date: 01/22/20
[2020-01-22 11:35] LABS: Vancomycin, Trough Level 18.9 ug/mL (5.0-15.0)
[2020-01-22 12:00] LABS: Bedside Glucose 189 mg/dL (70-110)
[2020-01-22] MEDS: Insulin Lispro 100 UNIT/ML INSULN.PEN SC (12:17)
--- NOTE | 2020-01-22 12:18 | PCM.RX.CS ---
Consult Pharmacy has been consulted to manage selected antiobiotic: Vancomycin Type of Consult: Follow-up Labs: Sodium 139 mmol/L (136-145) 01/22/20 04:54 Potassium 3.7 mmol/L (3.5-5.1) 01/22/20 04:54 Chloride 104 mmol/L (98-107) 01/22/20 04:54 Carbon Dioxide 31.0 mmol/L (21.0-32.0) 01/22/20 04:54 Anion Gap 4 (5-15) L 01/22/20 04:54 BUN 37 mg/dL (7-18) H 01/22/20 04:54 Creatinine 0.65 mg/dL (0.70-1.30) L 01/22/20 04:54 Est GFR (MDRD) Af Amer 154 mL/min (>60) 01/22/20 04:54 Est GFR (MDRD) Non-Af 127 mL/min (>60) 01/22/20 04:54 BUN/Creatinine Ratio 56.6 RATIO (10-20) H 01/22/20 04:54 Glucose 166 mg/dL (74-106) H 01/22/20 04:54 Vancomycin Trough 18.9 ug/mL (5.0-15.0) H 01/22/20 10:45 Microbiology: Microbiology 01/15/20 05:15 Sputum, Expectorated/Coughed Gram Stain - Final 01/15/20 05:15 Sputum, Expectorated/Coughed Respiratory Culture - Final 01/14/20 23:38 Urine, Clean Catch Legionella Antigen - Final 01/14/20 23:38 Urine, Clean Catch Streptococcus pneumoniae Antigen (M - Final 01/14/20 14:12 Mucosa - Nasopharyngeal Respiratory Panel (PCR) - Final 01/14/20 14:12 Mucosa - Nasopharyngeal Influenza Types A,B Direct FA (JAQUELIN) - Final 01/14/20 14:12 Mucosa - Nasopharyngeal Rapid RSV (DFA) - Final 01/14/20 14:20 Mucosa - Throat Group A Streptococcus Rapid Screen - Final Streptococcus Group A Goal Trough: 15-20 mcg/mL Pharmacy Plan for Drug Dosin/5--Vancomycin follow up SrCr steady at 0.65 Weight 96.6kg Trough drawn 01/21 @ 1045 resulted at 18.9 Current Vancomcin dose: 1500mg q12h @ 1100,2300 Last 5 administered doses: 5/3-1500mg @ 0023 5/3-1500mg @ 1136 5/3-1500mg @ 2215 /-1500mg @ 1131 5/-1500mg @ 1254 recommend continuing same dose of Vancomycin and checking trough 01/25 @ 1030 Pharmacy Service will continue to monitor and adjust dosing as required.
--- NOTE | 2020-01-22 13:06 | PCM.DC.SUM ---
<Ry Edwards - Last Filed: 01/22/20 13:06> Discharge Date and Diagnosis Date of Admission: 01/14/20 Date of Discharge: 01/22/20 - Primary Discharge Diagnosis Active and Suspected Problems (Last Updated 01/14/20 @ 18:[address] Brendan Del Castillo DO) Healthcare-associated pneumonia (Acute), Group A strep pneumonia. Acute on chronic Hypoxic respiratory failure 2/2 above COPD exacerbation 2/2 #1 Atrial fibrillation Chronic diastolic CHF CAD DMt2 BPH - Secondary Discharge Diagnosis Chronic Problems (Last Reviewed 01/14/20 @ 18:[address] Brendan Del Castillo DO) HTN (hypertension) (Chronic) Diabetes (Chronic) Atrial fibrillation (Chronic) Arteriosclerotic cardiovascular disease (Chronic) Stented coronary artery (Chronic 10/24/19) Multiple stents previously placed to LAD, LCX and RCA in past: 10/24/2019 CELIA to first diagonal per [facility] History of left heart catheterization (Chronic 10/24/19) Left Ventricular Ejection Fraction: by LV Gram 55 %; Global Hypokinesis - Mild Depressed Left Ventricular systolic function; Normal Left Ventricular End Diastolic Pressure; LVEDP: 14 mmHg; LEFT MAIN: 20 ostial % Stenosis; LEFT ANTERIOR DESCENDING ARTERY: PROX LAD: Mild luminal irregularities less than 30% MID LAD: Moderate luminal irregularities up to 50%, Previously placed stent is patent; DIAGONAL 1: Proximal - Previously placed stent has an instent 85 % restenosis; CIRCUMFLEX ARTERY: MID CIRC: Previously placed stent has an instent 20 % restenosis;DISTAL CIRC: Moderate luminal irregularities up to 50% RIGHT CORONARY ARTERY: MID RCA: Previously placed stent is patent Hospital Course and Treatment Imaging Results: RAD/Chest 1 View (Portable) IMPRESSION: Focal left upper lobe infiltrate. CT/CTA Chest W/WO Contrast IMPRESSION: No evidence for PE. Marked bilateral worsening of lung disease bilaterally including areas of consolidation especially in the upper left lung and in the right lower lobe which could be atelectasis/infiltrate or neoplasm. Worsening of probable mid mediastinal adenopathy. Consults: Pulm/Crit care - Timothy/Stephan Operations: None Procedures: None Summary of Care Provided: Hospital Course: The patient is a 74 year old M with pmhx as above notably chronic hypoxic respiratory failure on 2-3lpm NC at baseline, COPD, diastolic CHF and afib who presented to the ER with c/o SOB, cough, pleurisy, and fatigue. He was hypoxic at 87% on 9lpm. CXR was c/w SRINATH infiltrate, BMP showed elevated CO2, and CBC showed leukocytosis. He was admitted to the covid unit. He was placed on Azithro and Rocephin, as well as aerosols and steroids for COPD. Pulmonary medicine was consulted. Covid test was negative and he was transferred to the PCU. CTA showed no PE. Rapid strep was positive for Strep group A. He was transitioned to meropenem. He completed 7 days of abx while here. He was temporarily placed on subq lovenox as his INR was subtherapeutic and will need to go home with bridge therapy. He will need an INR in 2 days. He was transitioned to a prednisone taper. He was unable to be weakned to 2-3 lpm NC and will require up to 5 lpm to maintain adequate sats for the time being. He was discharged from the hospital to home in stable condition. He will need follow up with his PCP at the [facility] where he also received pulmonary services in 1 week. This patient was seen by Ry Edwards PA-C under the supervision of Dr. Silva. [] - Physical Exam Vitals/I&O's: Vital Signs Temp Pulse Resp BP Pulse Ox 98.9 F 68 18 126/47 H 85 01/22/20 08:00 01/22/20 08:00 01/22/20 10:00 01/22/20 08:00 01/22/20 11:48 Oxygen Flow Rate (L/min) [ 4 AMBULATION with Oxygen] Oxygen Flow Rate (L/min) 4 Oxygen Delivery Method Nasal Cannula Weight: 212 lb 15.465 oz Body Mass Index (BMI) 32.3 Intake and Output for Last 24 Hours 01/20/20 01/21/20 01/22/20 23:59 23:59 23:59 Intake Total 3272 / 3272 2460 / 2460 1820 / 1820 Output Total 5600 / 5600 4900 / 4900 1600 / 1600 Balance -2328 / -2328 -2440 / -2440 220 / 220 General: Alert, Oriented x3, Cooperative HEENT: Atraumatic, PERRLA, EOMI, Normocephalic Neck: Supple, No JVD, Negative Carotid Bruits Lungs: Clear to auscultation, Normal air movement Cardiovascular: Regular rate, No murmurs Abdomen: Bowel Sounds Present, Soft, Non Tender Extremities: No edema, Capillary Refill Less than 3 Seconds Skin: No rashes, No breakdown Musculoskeletal: No Tenderness to Palpation of Joints or Extremities Neurological: Cranial nerves II-XII grossly intact Psych/Mental Status: Normal Affect, Appropriate, Alert and oriented to time, place, person, mood and affect Laboratory Results 01/21/20 16:03: POC Glucose 210 H 01/21/20 21:40: POC Glucose 239 H 01/22/20 04:54: WBC 10.1, RBC 4.03 L, Hgb 11.7 L, Hct 38.2 L, MCV 94.8 H, MCH 29.0, MCHC 30.6 L, RDW Std Deviation 59.4 H, RDW Coeff of Jony 17.1 H, Plt Count 240, MPV 9.3, Immature Gran % (Auto) 0.800, Neut % (Auto) 89.1 H, Lymph % (Auto) 2.1 L, [place] % (Auto) 7.9, Eos % (Auto) 0.0, Baso % (Auto) 0.1, Absolute Neuts (auto) 9.0 H, Absolute Lymphs (auto) 0.21 L, Nucleated RBC % 0, Differential Comment SCANNED 01/22/20 04:54: Sodium 139, Potassium 3.7, Chloride 104, Carbon Dioxide 31.0, Anion Gap 4 L, BUN 37 H, Creatinine 0.65 L, Estim Creat Clear Calc 63.65, Est GFR (MDRD) Af Amer 154, Est GFR (MDRD) Non-Af 127, BUN/Creatinine Ratio 56.6 H, Glucose 166 H, Calcium 8.6 01/22/20 04:54: PT 16.7 H, INR 1.4 01/22/20 07:35: POC Glucose 137 H 01/22/20 10:45: Vancomycin Trough 18.9 H 01/22/20 11:58: POC Glucose 189 H Current Medications Acetaminophen (Tylenol) 650 mg PO Q6H PRN PRN PRN Reason: Pain Score 1-10/Temp > 100.7 F Last Admin: 01/15/20 22:36 Dose: 650 mg Documented by: Albuterol Sulfate (Ventolin Aerosols) 2.5 mg INHALATION Q4H PRN PRN PRN Reason: SHORTNESS OF BREATH Albuterol/Ipratropium (Duoneb) 3 ml INHALATION Q6HWA.RT [facility] Last Admin: 01/22/20 06:47 Dose: 3 ml Documented by: Amiodarone HCl (Cordarone) 200 mg PO DAILY [facility] Last Admin: 01/22/20 10:05 Dose: 200 mg Documented by: Atorvastatin Calcium (Lipitor) 80 mg PO QHS [facility] Last Admin: 01/21/20 21:41 Dose: 80 mg Documented by: Benzonatate (Tessalon Perle) 200 mg PO Q8H PRN PRN Reason: COUGH Last Admin: 01/15/20 22:37 Dose: 200 mg Documented by: Carvedilol (Coreg) 25 mg PO BID [facility] Last Admin: 01/22/20 10:06 Dose: 25 mg Documented by: Cholecalciferol (Vitamin D (25mcg)) 3,000 unit PO DAILY [facility] Last Admin: 01/22/20 10:03 Dose: 3,000 unit Documented by: Clopidogrel Bisulfate (Plavix) 75 mg PO DAILY [facility] Last Admin: 01/22/20 10:07 Dose: 75 mg Documented by: Cyanocobalamin (Vitamin B12) 1,000 mcg PO DAILY [facility] Last Admin: 01/22/20 10:05 Dose: 1,000 mcg Documented by: Dextrose (D50w Syringe) 0 gm IV X1 PRN; Protocol PRN Reason: Hypoglycemia Diltiazem HCl (Cardizem Cd) 120 mg PO Q12 [facility] Last Admin: 01/22/20 10:07 Dose: 120 mg Documented by: Empagliflozin (Jardiance) 12.5 mg PO DAILY [facility] Last Admin: 01/22/20 10:04 Dose: 12.5 mg Documented by: Enoxaparin Sodium (Lovenox) 100 mg 1 mg/kg (100 mg) SC Q12@0600,1800 [facility] Last Admin: 01/22/20 05:29 Dose: 100 mg Documented by: Furosemide (Lasix) 40 mg IV BID@1000,1800 [facility] Last Admin: 01/22/20 10:10 Dose: 40 mg Documented by: Gabapentin (Neurontin) 900 mg PO TID [facility] Last Admin: 01/22/20 05:27 Dose: 900 mg Documented by: Glucagon () 1 mg IM .X1 PRN PRN Reason: Hypoglycemia Guaifenesin (Mucinex) 1,200 mg PO BID [facility] Last Admin: 01/22/20 10:05 Dose: 1,200 mg Documented by: Meropenem 1 gm/ Sodium (Chloride) 120 mls @ 33 mls/hr IV Q8 [facility] Last Infusion: 01/22/20 09:10 Dose: Infused Documented by: Vancomycin IV Pharmacy to Dose (1 ea/ Sodium Chloride) 500 mls @ 250 mls/hr IV X1 PRN; Protocol PRN Reason: Rx to Dose Vancomycin HCl 1,500 mg/ (Sodium Chloride) 530 mls @ 250 mls/hr IV Q12H [facility] Last Admin: 01/22/20 12:20 Dose: 250 mls/hr Documented by: Sodium Chloride () 250 mls @ 15 mls/hr IV .[id number] PRN PRN Reason: Saline Flush Sodium Chloride () 250 mls @ 15 mls/hr IV .[id number] PRN PRN Reason: Additional IVPB Infusion Insulin Glargine (Lantus (Bkc)) 40 units SC DAILY [facility] Last Admin: 01/22/20 12:17 Dose: Not Given Documented by: Insulin Human Lispro (Humalog Kwikpen (Bkc)) 0 unit SC TIDAC [facility]; Protocol Last Admin: 01/22/20 12:17 Dose: 1 u Documented by: Insulin Human Lispro (Humalog Kwikpen (Bkc)) 8 unit SC TIDAC [facility] Last Admin: 01/22/20 12:17 Dose: 8 u Documented by: Isosorbide Mononitrate (Imdur) 180 mg PO DAILY [facility] Last Admin: 01/22/20 10:04 Dose: 180 mg Documented by: Lisinopril (Zestril) 20 mg PO BID [facility] Last Admin: 01/22/20 10:08 Dose: 20 mg Documented by: Nitroglycerin (Nitrostat) 0.4 mg SUBLINGUAL Q5M PRN PRN Reason: CARDIAC/CHEST PAIN Nutritional Formula (Lactose Free) (Glucerna Shake) 120 ml PO TIDCM [facility] Last Admin: 01/22/20 12:18 Dose: 120 ml Documented by: Ondansetron HCl (Zofran) 4 mg IV Q8H PRN PRN PRN Reason: NAUSEA/VOMITING Pantoprazole Sodium (Protonix) 20 mg PO BREAKFAST [facility] Last Admin: 01/22/20 07:41 Dose: 20 mg Documented by: Paroxetine HCl (Paxil) 80 mg PO DAILY [facility] Last Admin: 01/22/20 10:05 Dose: 80 mg Documented by: Potassium Chloride (K-Dur) 20 meq PO DAILYCM [facility] Last Admin: 01/22/20 07:40 Dose: 20 meq Documented by: Prednisone () 40 mg PO DAILY@0800 [facility] Last Admin: 01/22/20 10:02 Dose: 40 mg Documented by: Sodium Chloride () 10 - 40 ml IV UD PRN PRN Reason: SALINE FLUSH Last Admin: 01/22/20 10:17 Dose: 10 ml Documented by: Tamsulosin HCl (Flomax) 0.4 mg PO QHS [facility] Last Admin: 01/21/20 21:41 Dose: 0.4 mg Documented by: Warfarin Sodium (Coumadin (Pbkc)) 2.5 mg PO SuTh@1700 [facility] Last Admin: 01/20/20 17:03 Dose: 2.5 mg Documented by: Warfarin Sodium (Coumadin (Pbkc)) 5 mg PO MoTuWeFrSa@1700 [facility] Last Admin: 01/21/20 16:51 Dose: 5 mg Documented by: Discharge Diet: Low fat/ Low Cholesterol, 2000 mg Sodium Diet, - - fluid restrict 1500 cc / day Discharge Activity: Return to Normal Activity Home Medications: Medications to take at Discharge Budesonide/Formoterol Fumarate [Symbicort 160-4.5 Mcg Inhaler] 2 puff IH BID 10/23/19 Empagliflozin [Jardiance] 25 mg PO DAILY 10/23/19 Fluticasone Propionate [Flovent Diskus] 50 mcg IH DAILY 10/23/19 Gabapentin [Neurontin] 900 mg PO TID 10/23/19 Insulin Glargine [Lantus SoloStar Pen] 40 units SUBCUT DAILY 10/23/19 Isosorbide Mononitrate [Imdur] 180 mg PO DAILY 10/23/19 Nitroglycerin [Nitrostat] 1 tab SL PRN PRN 10/23/19 Paroxetine [Paxil] 80 mg PO DAILY 10/23/19 Prazosin HCl 4 mg PO QHS 10/23/19 Tiotropium [place] [Spiriva 18 MCG] 2 puff INHALATION Q6H PRN PRN 10/23/19 Lisinopril 20 mg PO BID 10/24/19 Cholecalciferol (VIT D3) [Vitamin D3] 3,000 unit PO DAILY 11/23/19 Cyanocobalamin (Vitamin B-12) [B-12] 1,000 mcg PO DAILY 11/23/19 Ketoconazole [Nizoral] 120 ml TP QWEEK 11/23/19 Pantoprazole Sodium 20 mg PO BREAKFAST 11/23/19 Rosuvastatin Calcium 40 mg PO QHS 11/23/19 Tamsulosin HCl 0.4 mg PO QHS 11/23/19 Acetaminophen [Tylenol Tablet] 650 mg PO Q6H PRN PRN tab 11/25/19 Carvedilol [Coreg (Beta [place])] 25 mg PO BID 60 Days tab 11/25/19 Benzonatate [Tessalon Perle] 200 mg PO Q8H PRN #30 cap 11/29/19 Diltiazem CD [Cardizem CD] 120 mg PO Q12 #60 cap 11/29/19 Albuterol Aerosols [Ventolin Aerosols] 2.5 mg INHALATION Q6H PRN PRN 01/16/20 Amiodarone HCl 200 mg PO DAILY 01/16/20 Bxm Liquid [BMX LIQUID] 10 ml PO Q6H PRN PRN 01/16/20 Ondansetron [Zofran] 8 mg PO Q8H PRN PRN 01/16/20 Triamcinolone 0.1% Ointment [Kenalog] 1 applic TOPICAL BID 01/16/20 Warfarin [Coumadin] 2.5 mg PO SUTH 01/16/20 Warfarin [Coumadin] 5 mg PO MOTUWEFRSA 01/16/20 Clopidogrel Bisulfate [Plavix] 75 mg PO DAILY #30 tab 01/22/20 Enoxaparin Sodium [Lovenox] 100 mg SQ BID #6 syringe 01/22/20 Furosemide 40 mg PO BID #60 tab 01/22/20 Potassium Chloride [K-Dur] 20 meq PO DAILYCM #30 tab 01/22/20 Prednisone 10 mg PO DAILY #26 tab 01/22/20 Following Prescrptions Were Given to Patient: Furosemide 40 mg PO BID #60 tab Transmission Status: Received by [id number] Potassium Chloride [K-Dur] 20 meq PO DAILYCM #30 tab Transmission Status: Received by [id number] Enoxaparin Sodium [Lovenox] 100 mg SQ BID #6 syringe Transmission Status: Received by [id number] Clopidogrel Bisulfate [Plavix] 75 mg PO DAILY #30 tab Transmission Status: Received by [id number] Prednisone 10 mg PO DAILY #26 tab Prescription Printed [facility] - Please follow up with your Primary Care Physician in: 1 week Please Follow Up With: Dr. Conrado Quispe [facility] Medical Necessity - Tobacco Use Smoking Status: Former smoker Tobacco Use: Non-smoker Meaningful Use Info Meaningful Use Diagnoses (Choose all that apply): None applicable <Jason Silva - Last Filed: 01/22/20 18:10> Discharge Date and Diagnosis - Secondary Discharge Diagnosis Chronic Problems (Last Reviewed 01/14/20 @ 18:[address] Brendan Del Castillo DO) HTN (hypertension) (Chronic) Diabetes (Chronic) Atrial fibrillation (Chronic) Arteriosclerotic cardiovascular disease (Chronic) Stented coronary artery (Chronic 10/24/19) Multiple stents previously placed to LAD, LCX and RCA in past: 10/24/2019 CELIA to first diagonal per [facility] History of left heart catheterization (Chronic 10/24/19) Left Ventricular Ejection Fraction: by LV Gram 55 %; Global Hypokinesis - Mild Depressed Left Ventricular systolic function; Normal Left Ventricular End Diastolic Pressure; LVEDP: 14 mmHg; LEFT MAIN: 20 ostial % Stenosis; LEFT ANTERIOR DESCENDING ARTERY: PROX LAD: Mild luminal irregularities less than 30% MID LAD: Moderate luminal irregularities up to 50%, Previously placed stent is patent; DIAGONAL 1: Proximal - Previously placed stent has an instent 85 % restenosis; CIRCUMFLEX ARTERY: MID CIRC: Previously placed stent has an instent 20 % restenosis;DISTAL CIRC: Moderate luminal irregularities up to 50% RIGHT CORONARY ARTERY: MID RCA: Previously placed stent is patent Hospital Course and Treatment Summary of Care Provided: [] This patient was seen in conjunction with Ry RAMIREZ. I have independently interviewed and examined the patient and reviewed pertinent history, examination findings, laboratory and plan of management. I have reviewed the note and agree with the documented findings with the few additional points. In brief, patient is admitted for acute on chronic hypoxic respiratory failure secondary to group A streptococcus HCAP. On antibiotic meropenem and vancomycin. COVID -2 times. Patient on high requirement of oxygen, gradually improving. Seen by linux support engineer. Advised transition to prednisone 40 mg daily. Continue bronchodilator, bronchopulmonary hygiene and systemic anticoagulation. Walking pulse oximetry was done. Patient is on 4 L of home oxygen. Pulse ox 90% on ambulation at 4 L of oxygen. At rest 85% on room air. Continue diuretic. Patient has chronic diastolic heart failure and chronic A. fib. On Lovenox bridging with Coumadin. Other comorbidities non-small cell lung cancer, type 2 diabetes mellitus, coronary artery disease and BPH admission Discharge medication reconciliation done. Discharge follow-up instructions completed. Discharge process discussed with the patient and all questions were answered to patient's satisfaction. Patient is ambulatory in home and in the community and requires home oxygen with portability. Total time spent, exact 35 minutes on discharge meds reconciliation, examination, coordination of care with nurses and ancillary staff, review of imaging and blood test and discussion with the patient on follow-up instructions I have discussed my assessment with Ry RAMIREZ and orders have been reviewed. Subjective: Seen and examined. Patient is [facility]. Patient cannot afford for Eliquis therefore is on Coumadin as an outpatient. INR is still subtherapeutic. Respiratory status is improved. On 4 L of oxygen. Walking pulse oximetry done. Objective: General: Alert, Oriented x3, Cooperative HEENT: Atraumatic, PERRLA, EOMI, Normocephalic Neck: Supple, No JVD, Negative Carotid Bruits Lungs: Diminished, Rhonchi, no shortness of breath at rest. On 4 L of oxygen. No tachypnea. Cardiovascular: Regular rate, Regular Rhythm, Normal S1, Normal S2, No murmurs Abdomen: Bowel Sounds Present, Soft, Non Tender, Non-Distended Extremities: No edema, Capillary Refill Less than 3 Seconds Skin: No rashes, No breakdown Musculoskeletal: No Tenderness to Palpation of Joints or Extremities, Arthritic Changes Neurological: Cranial nerves II-XII grossly intact, Deep Tendon Reflexes 2+/4 and Symmetrical, Neuro grossly intact Psych/Mental Status: Normal Affect, Appropriate - Physical Exam Vitals/I&O's: Vital Signs Temp Pulse Resp BP Pulse Ox 98.5 F 82 20 H 119/54 L 94 01/22/20 16:26 01/22/20 16:26 01/22/20 16:26 01/22/20 16:26 01/22/20 16:26 Oxygen Flow Rate (L/min) [ 4 AMBULATION with Oxygen] Oxygen Flow Rate (L/min) 4 Oxygen Delivery Method Nasal Cannula Weight: 212 lb 15.465 oz Body Mass Index (BMI) 32.3 Intake and Output for Last 24 Hours 01/20/20 01/21/20 01/22/20 23:59 23:59 23:59 Intake Total 3272 / 3272 2460 / 2460 1820 / 1820 Output Total 5600 / 5600 4900 / 4900 1600 / 1600 Balance -2328 / -2328 -2440 / -2440 220 / 220 Laboratory Results 01/21/20 21:40: POC Glucose 239 H 01/22/20 04:54: WBC 10.1, RBC 4.03 L, Hgb 11.7 L, Hct 38.2 L, MCV 94.8 H, MCH 29.0, MCHC 30.6 L, RDW Std Deviation 59.4 H, RDW Coeff of Jony 17.1 H, Plt Count 240, MPV 9.3, Immature Gran % (Auto) 0.800, Neut % (Auto) 89.1 H, Lymph % (Auto) 2.1 L, [place] % (Auto) 7.9, Eos % (Auto) 0.0, Baso % (Auto) 0.1, Absolute Neuts (auto) 9.0 H, Absolute Lymphs (auto) 0.21 L, Nucleated RBC % 0, Differential Comment SCANNED 01/22/20 04:54: Sodium 139, Potassium 3.7, Chloride 104, Carbon Dioxide 31.0, Anion Gap 4 L, BUN 37 H, Creatinine 0.65 L, Estim Creat Clear Calc 63.65, Est GFR (MDRD) Af Amer 154, Est GFR (MDRD) Non-Af 127, BUN/Creatinine Ratio 56.6 H, Glucose 166 H, Calcium 8.6 01/22/20 04:54: PT 16.7 H, INR 1.4 01/22/20 07:35: POC Glucose 137 H 01/22/20 10:45: Vancomycin Trough 18.9 H 01/22/20 11:58: POC Glucose 189 H Inpatient E&M: [id number] Disch Hosp
--- NOTE | 2020-01-22 13:08 | CASEMGMT ---
Addendum entered by Kitty Steiner 01/22/20 14:12: D/C summ faxed to [facility] transfer center at this time. Javad FRENCH CM Original Note: Per therapy notes, pt does not need any further therapy at discharge. Pt's order for home oxygen is 3liters but pt will now require 3liters at rest and 4liters with ambulation at this time. Pt is aware and states has a pulse ox at home that he can track his numbers. Pt also to be sent home on Lovenox at discharge and med e[facility] to [facility]. Per pt, [facility] Per Dominic, pharmacist at [facility], he applied a discount card for the Lovenox and pt's barkley will be $68.93. Pt is updated on all at this time, voices understanding and pt states no concerns with covering Lovenox cost at this time. Pt voices no further questions/concerns/needs at this time. Javad FRENCH CM
--- NOTE | 2020-01-23 14:05 | CASEMGMT ---
MANOLO RODRIGUES Discharge F/U Phone Call LACE: 15 Strata: 4 Discharge date: 01/22/2020 Call date: 01/23/2020 Call time: [phone] Admission dx: Pneumonia Pt states has been doing 'pretty good' since discharge. Pt states no questions regarding discharge instructions or medications at this time. Pt states has f/u appt's set up and plans to keep. Pt states no suggestions for [facility] at this time and states 'Everything went pretty good'(regarding admission). Pt voices no further questions/concerns/needs at this time. SStaten MANOLO RODRIGUES
== END 2020-01-22 16:27 | disposition home or self-care (01) | DRG 190 ==
LOC: ED 16:42 → MS2 16:49 → PCU 01-21 07:29
PROVIDERS: Physician Assistant; Emergency Provider Emergency Medicine; Visit Provider Internal Medicine
DX: J44.0 Chronic obstructive pulmonary disease with (acute) lower respiratory infection (principal); J15.4 Pneumonia due to other streptococci; J96.21 Acute and chronic respiratory failure with hypoxia; I50.32 Chronic diastolic (congestive) heart failure; I48.20 Chronic atrial fibrillation, unspecified; C34.90 Malignant neoplasm of unspecified part of unspecified bronchus or lung; J44.1 Chronic obstructive pulmonary disease with (acute) exacerbation; Y95 Nosocomial condition; I11.0 Hypertensive heart disease with heart failure; I25.10 Atherosclerotic heart disease of native coronary artery without angina pectoris; N40.0 Benign prostatic hyperplasia without lower urinary tract symptoms; I25.2 Old myocardial infarction; E11.65 Type 2 diabetes mellitus with hyperglycemia; Z66 Do not resuscitate; Z95.5 Presence of coronary angioplasty implant and graft; Z88.0 Allergy status to penicillin; Z79.01 Long term (current) use of anticoagulants; Z79.02 Long term (current) use of antithrombotics/antiplatelets; Z79.4 Long term (current) use of insulin; Z79.51 Long term (current) use of inhaled steroids; Z87.891 Personal history of nicotine dependence; Z99.81 Dependence on supplemental oxygen; Z79.899 Other long term (current) drug therapy
CPT/HCPCS: 36415; 36600; 71045; 71275; 80048; 80053; 80202; 82803; 82962; 84484; 85025; 85379; 85610; 87070; 87077; 87205; 87449; 87633; 87635; 87804; 87807; 87880; 93005; 94002; 94003; 94640; 94667; 94668; 96365; 96375; 97110; 97116; 97162; 97166; 97530; 97802; 99251; 99285; G2023; J2185; J7040; Q9967; A4216; G0463; J1940; U0004

== ENCOUNTER 2020-02-15 17:40 | Emergency (ER) | payer MEDICARE, SELFPAY ==
[2019-10-25 09:13] VITALS: BMI 35.0
[2020-01-14 18:12] VITALS: BMI 32.3
[2020-02-15 17:42] VITALS: BP 109/49; PULSE 64; RESP 15; TEMP 36.6; O2SAT 96; BMI 29.7
--- NOTE | 2020-02-15 17:55 | ED.RN ---
MARYANN SON [phone]
--- NOTE | 2020-02-15 17:57 | EKG12_ITS ---
Test Reason : Blood Pressure : / mmHG Vent. Rate : 064 BPM Atrial Rate : 256 BPM P-R Int : 000 ms QRS Dur : 160 ms QT Int : 490 ms P-R-T Axes : 071 -81 046 degrees QTc Int : 505 ms Atrial flutter Left axis deviation Right bundle branch block Abnormal ECG Confirmed by SHANNON ROSE ([id number]), food editor JACOB CASTELAN ([id number]) on 02/18/2020 11:08:50 AM Referred By: PAYTON Confirmed By:SHANNON ROSE
--- NOTE | 2020-02-15 18:01 | CT_ITS ---
STUDY: CT BRAIN WITHOUT CONTRAST REASON FOR EXAM: Male, 74 years old. TRAUMA LT EYE, LOC, ON ANTICOAGULANT, RECENT FALLS. RADIATION DOSAGE (If Supplied By Facility): CTDIvol = ( 44.99 ) mGy, DLP = ( 829.85 ) mGycm TECHNIQUE: Transaxial CT imaging of the brain was performed without administration of intravenous contrast material. Individualized dose optimization techniques were used for this CT. COMPARISON: None. FINDINGS: Normal soft tissue structures. Normal calvarium. No visualized hemorrhagic contusions. No visualized acute fractures. There is mild cerebral atrophy with widening of the extra-axial spaces and ventricular dilatation. There are areas of decreased attenuation within the white matter tracts of the supratentorial brain, consistent with microvascular disease changes. Normal basal ganglia and thalami. Normal brainstem. Normal cerebellum. There is no intracranial hemorrhage. There are no findings of an acute ischemic infarction. Normal visualized paranasal sinuses. CT/Brain/Head without Contrast IMPRESSION: Chronic involutional changes of the brain. Electronically Signed: Farooq Salinas MD at 19:16 EDT , Service support ,
--- NOTE | 2020-02-15 18:04 | ED.DCSUM_ITS ---
History of Present Illness Chief Complaint: Syncope Detail of Chief Complaint: Several episodes 3 weeks ago, 2 episodes yesterday and one episode today Informant: Patient Onset: - - Nares as previously documented Context: Sudden Onset Timing: Intermittent Quality: Collapses Location: Varies Current Severity: - - Absent Maximum Severity: Severe Worsened by: Unknown Relieved by: Nothing Associated Symptoms: Patient states possibly feels he may pass out 1 second before Narrative: Patient is elderly male with multiple medical problems who presents with multiple sick episodes over the past 3 to 4 weeks. He had several episodes 3 to 4 weeks ago. Yesterday he had 2 episodes with evidence of head trauma. He is on Eliquis for chronic atrial fibrillation. He had episode today. He does complain of headache. Eye double vision, blurred vision or loss of vision. He denies ringing in his ears, decreased hearing or ear pain. He denies neck pain or neck stiffness. He denies paresthesia, anesthesia or motor weakness presently at time of the episodes. He denies shortness of breath, chest pain, orthopnea or PND. He does have a slight chronic cough due to lung problems. He also has history of congestive heart failure. He states he is compliant with his medication. He denies black or maroon stool. He denies blood on toilet paper. He denies leg pain, swelling discoloration. He denies history of PE or DVT. He states his stool is dark because he was placed on iron. He does have inoperable lung cancer. He underwent several doses of radiation and rounds of chemo. Prior similar symptoms: No Recent Illness/Hospitalization: No - Past Medical History (1) History of lung cancer in adulthood Status: Acute (2) COPD exacerbation Status: Acute (3) Arteriosclerotic cardiovascular disease Status: Chronic (4) Atrial fibrillation Status: Chronic (5) Diabetes Status: Chronic (6) HTN (hypertension) Status: Chronic (7) NSTEMI (non-ST elevated myocardial infarction) Status: Inactive Past Medical History - Allergies and Home Meds Allergies/Adverse Reactions: Allergies cephalexin [From Keflex] Allergy (Verified 02/15/20 17:41) Rash doxycycline Allergy (Verified 02/15/20 17:41) Rash Penicillins Allergy (Verified 02/15/20 17:41) CHILDHOOD ALLERGY metformin Adverse Reaction (Verified 02/15/20 17:41) Upset Stomach niacin Adverse Reaction (Verified 02/15/20 17:41) Rash simvastatin Adverse Reaction (Verified 02/15/20 17:41) Rash Primary Care Physician: [facility],[place] [Primary Care Provider] - Prior records reviewed: Yes Surgical History: appendectomy, herniorrhaphy - X3 Lives: Alone - Patient is Smoking Status: Former smoker Alcohol: None Drugs: None - Family History Maternal Family History: Reports: Heart Disease, - - Skin cancer Paternal Family History: Reports: Cancer - His father from throat cancer at the age of 57 Review of Systems General: Denies: Chills, Fever, Malaise, Sweats, Weight loss Eyes: Denies: Visual changes - bilaterally, Blurred Vision - bilaterally ENT: Denies: Bilateral ear pain, Rhinorrhea, Sore throat Cardiovascular: Denies: Chest pain, Palpitations Respiratory: Denies: Dyspnea, Cough, Dyspnea on exertion, Orthopnea, Paroxysmal nocturnal dyspnea Gastrointestinal: Denies: Abdominal pain, Nausea, Vomiting, Diarrhea, Melena, Hematochezia Genitourinary: Denies: Dysuria, Hematuria, Frequency Musculoskeletal: Reports: Swelling - Lower extremities only. Denies: Myalgias, Arthralgias, Neck pain, Back pain, Extremity Pain, -, - Skin: Denies: Rash, Abscess, Abrasions, Wounds Neurological: Reports: Weakness Hematologic: Reports: Easy bruising Allergy: Denies: Uticaria, Swelling of the mouth Physical Exam Vital Signs/Narrative: Vital Signs Temp Pulse Resp BP Pulse Ox 02/15/20 17:42 97.8 F 64 15 109/49 L 96 Inital Vital Signs reviewed: Yes General: Well nourished, Well developed, No Acute Distress Head: Normocephalic, Trauma, Tenderness - There is periorbital ecchymosis left side. There is no clinical findings of inferior orbital wall fracture. There is no subconjunctival hemorrhage. There is no clinical findings of basilar skull fracture.. Negative for: Atraumatic Eyes: Perrl, EOMI, - - No evidence of subconjunctival hemorrhage. Negative for: Pale conjunctiva, Scleral icterus ENT: Moist mucous membranes, No rhinorrhea, TM's clear Neck: Supple, Nontender, No lymphadenopathy, No JVD Cardiovascular: Regular rhythm, No murmurs, Normal S1, Normal S2, Irregular Respiratory: No distress, CTA bilaterally, Chest nontender Abdomen: Soft, Nontender, Nondistended, Normal bowel sounds Rectal: Deferred Back: Nontender, Normal Inspection. Negative for: CVA tenderness, Spinal tenderness Extremities: Nontender, Tenderness, Edema. Negative for: No edema, Calf Tenderness Skin: Normal color, No rash, Trauma. Negative for: Cyanosis, Diaphoresis, Jaundice Neurological: Alert, Oriented x3, Cranial nerves II-XII grossly intact, Normal Strength, Normal Sensation, Normal DTR, - - GCS is 15. Psychological: Normal affect, Normal Mood Diagnostic/Tx/Re-eval Chest X-Ray - ED: Read by Radiologist Impressions Brain CT 02/15/20 18:01 IMPRESSION: Chronic involutional changes of the brain. Electronically Signed: Farooq Salinas MD at 19:16 EDT , Service support , Chest X-Ray 02/15/20 18:39 IMPRESSION: 1. Moderate irregular consolidation in the lower half of the left upper lobe reidentified. A rounded mass is seen on the lateral view in the left hilar region that measures 5.85 x 4.38 cm compatible with a malignant neoplasm. Electronically Signed: Farooq Salinas MD at 19:43 EDT , Service support , 02/15/20 18:01 Brain/Head without Contrast [CT] Stat 02/15/20 18:39 Chest PA and Lateral [RAD] Stat Laboratory Results 02/15/20 02/15/20 18:00 18:00 WBC 5.0 RBC 3.84 L Hgb 11.4 L Hct 37.9 L MCV 98.7 H MCH 29.7 MCHC 30.1 L RDW Std Deviation 66.7 H RDW Coeff of Jony 18.2 H Plt Count 231 MPV 8.6 Immature Gran % (Auto) 1.600 H Neut % (Auto) 70.4 H Lymph % (Auto) 10.8 L [place] % (Auto) 12.4 H Eos % (Auto) 3.4 Baso % (Auto) 1.4 H Absolute Neuts (auto) 3.5 Absolute Lymphs (auto) 0.54 L Nucleated RBC % 0 Differential Comment Platelet Estimate ADEQUATE RBC Morphology N CHROM Anisocytosis 2+ Sodium 137 Potassium 4.1 Chloride 99 Carbon Dioxide 31.0 Anion Gap 7 BUN 16 Creatinine 1.11 Estim Creat Clear Calc 57.34 Est GFR (MDRD) Af Amer 83 Est GFR (MDRD) Non-Af 69 BUN/Creatinine Ratio 14.4 Glucose 265 H Calcium 9.2 Troponin I < 0.015 - EKG Initial EKG Interpretation: Atrial Flutter - Ventricular rate is 64. QRS duration 160 ms. QT duration 490 ms. [place] is to the left. The interventricular conduction delay is suggestive of a right bundle branch block. - Medical Decision Making Patient presents with multiple sick episodes. This may represent vasovagal, dysrhythmia, neurologic etiology. Patient reports dark stools CBC was obtained assess H&H and basic metabolic panel was obtained to assess BUN to creatinine ratio as well as electrolytes and renal function. Patient was placed on a monitor to determine if he has any ectopy or evidence of V. tach sustained/nonsustained. Chest x-ray was obtained to assess for hemothorax and pneumothorax. Because patient has headache with head trauma on anticoagulant per the [place] CT head rule and the [place] rule CT of the head was obtained to evaluate for intracranial bleed. ED Disposition - Plan for ED Patient: Disposition: Home or Assisted Living Diagnosis: Syncope and collapse, Autonomic dysfunction with type 2 diabetes mellitus, Closed head injury with loss of consciousness of unknown duration, Atrial fibrillation Instructions: ED Hypotension Orthostatic, ED Fainting Uncertain Cause Referrals: [facility] [Primary Care Provider] - 5-7 Days
[2020-02-15 18:16] VITALS: BP 120/58; BP 124/56; BP 90/47; PULSE 64; PULSE 65
[2020-02-15 18:18] LABS: Absolute Lymphocyte Count 0.54 X10^3/uL (0.83-4.51); Absolute Neutrophil Count 3.5 X10^3/uL (2.0-7.7); Basophil# 0.07 X10^3/uL; Basophil% 1.4 % (0-1); Eosinophil# 0.17 X10^3/uL; Eosinophils% 3.4 % (0-5); Hematocrit 37.9 % (40-54); Hemoglobin 11.4 g/dL (13.0-16.5); Lymphocyte # 0.54 X10^3/ul (4.0); Lymphocyte % 10.8 % (19-41); Mean Corp Hgb Conc 30.1 g/dL (32-36); Mean Corpuscular Hgb 29.7 pg (27.0-32.0); Mean Corpuscular Volume 98.7 fL (80-94); Mean Platelet Vol. 8.6 fl (6.2-12.0); Monocyte# 0.62 X10^3/uL; Monocyte% 12.4 % (0-10); NRBC Flagged by Analyzer 0 % (0-5); Neutrophil # 3.53 X10^3/uL (2.7-7.7); Neutrophil % 70.4 % (47-70); POSITIVE DIFFERENTIAL YES; POSITIVE MORPHOLOGY YES; Platelet Count 231 K/mm3 (150-450); RBC Distribution Width CV 18.2 % (11.6-14.6); RBC Distribution Width SD 66.7 fl (35.1-43.9); Red Blood Count 3.84 M/mm3 (4.6-6.2)
[2020-02-15 18:31] LABS: Differential Indicated SCAN CRITERIA MET
--- NOTE | 2020-02-15 18:39 | RAD_ITS ---
STUDY: X-RAY CHEST REASON FOR EXAM: Male, 74 years old. syncope episodes. hx of lung ca TECHNIQUE: PA and lateral views of the chest. COMPARISON: Chest CTA dated January 14, 2020 FINDINGS: Moderate irregular consolidation in the lower half of the left upper lobe reidentified. A rounded mass is seen on the lateral view in the left hilar region that measures 5.85 x 4.38 cm compatible with a malignant neoplasm. No pleural effusion is present. Chronic emphysematous changes and hyperinflation reidentified. No new opacity is seen. Normal heart size. Stable osseous and mediastinal structures. RAD/Chest PA and Lateral IMPRESSION: 1. Moderate irregular consolidation in the lower half of the left upper lobe reidentified. A rounded mass is seen on the lateral view in the left hilar region that measures 5.85 x 4.38 cm compatible with a malignant neoplasm. Electronically Signed: Farooq Salinas MD at 19:43 EDT , Service support ,
[2020-02-15 18:46] LABS: Anion Gap 7 (5-15); BUN 16 mg/dL (7-18); BUN/Creat Ratio 14.4 RATIO (10-20); Calcium,Total 9.2 mg/dL (8.5-10.1); Chloride 99 mmol/L (98-107); Creatinine, Serum 1.11 mg/dL (0.70-1.30); EST Glomerular Filtration Rate 69 mL/min (>60); Est Glom Filt Rate - Afr Amer 83 mL/min (>60); Estimated Creatinine Clearance 57.34 ml/min; Glucose 265 mg/dL (74-106); Potassium 4.1 mmol/L (3.5-5.1); Sodium Level 137 mmol/L (136-145)
[2020-02-15 18:54] LABS: Anisocytosis 2+; Platelet Estimate ADEQUATE (ADEQ); Red Cell Morphology N CHROM NORMAL (NORM C&C)
[2020-02-15] MEDS: 0.9% Normal Saline 1,000 ML 1000 ML IV (19:39)
[2020-02-15 20:37] VITALS: BP 147/71; PULSE 64; RESP 16; O2SAT 94
[2020-02-15 22:34] VITALS: BP 128/77; PULSE 65; RESP 16; O2SAT 95
[2020-02-15 22:46] VITALS: BP 145/70; PULSE 77; RESP 21; O2SAT 97
== END 2020-02-15 23:42 | disposition home or self-care (01) ==
PROVIDERS: Emergency Provider Emergency Medicine
DX: R55 Syncope and collapse (principal); S06.9X9A Unspecified intracranial injury with loss of consciousness of unspecified duration, initial encounter; X58.XXXA Exposure to other specified factors, initial encounter; Y92.9 Unspecified place or not applicable; Y93.9 Activity, unspecified; E11.9 Type 2 diabetes mellitus without complications; I48.20 Chronic atrial fibrillation, unspecified; I25.10 Atherosclerotic heart disease of native coronary artery without angina pectoris; I11.0 Hypertensive heart disease with heart failure; I50.9 Heart failure, unspecified; I25.2 Old myocardial infarction; R29.6 Repeated falls; Z79.4 Long term (current) use of insulin; Z79.01 Long term (current) use of anticoagulants; Z79.899 Other long term (current) drug therapy; Z87.891 Personal history of nicotine dependence
CPT/HCPCS: 70450; 71046; 80048; 84484; 85025; 93005; 96360; 99285; J7030